=== PATIENT | male | born 1945 | race Caucasian/White ===

== ENCOUNTER 2018-05-01 10:56 | Observation (INO) | payer OTHER ==
--- NOTE | 2018-05-01 11:47 | RAD REPORT ---
EXAM DESCRIPTION: RAD - Chest Single View - 05/01/2018 11:42 am CLINICAL HISTORY: near-syncope Chest pain. COMPARISON: Chest Pa And Lat (2 Views) dated 09/01/2017; Chest Pa And Lat (2 Views) dated 11/21/2016; Chest Single View dated 11/21/2016; CHEST SINGLE VIEW dated 06/21/2014 FINDINGS: Portable technique limits examination quality. Mild interstitial prominence is noted, likely chronic. The heart is mildly to moderately enlarged. No displaced fractures. IMPRESSION: No acute intrathoracic process suspected.
[2018-05-01 12:11] LABS: Protime INR 1.81
[2018-05-01 12:18] LABS: Albumin 3.4 g/dL (3.4-5.0); Bilirubin Direct 0.3 mg/dL (0-0.2); Bilirubin Total 0.9 mg/dL (0.2-1.0); Potassium 4.2 mmol/L (3.5-5.1); Protein, Total 7.7 g/dL (6.4-8.2)
[2018-05-01 12:32] LABS: Absolute Lymphocytes (CBC) 0.4 K/uL (0.7-4.9); Absolute Monocytes 0.6 K/uL (0.1-1.3); Absolute Neutrophil 8.4 K/uL (1.8-8.0); Basophils % 0.2 % (0-1.3); Eosinophils % 0.5 % (0-4.4); Hematocrit 40.5 % (39.6-49.0); Lymphocytes % 4.4 % (15.3-44.8); MCH 28.6 pg (27.0-35.0); MCV 85.3 fL (80-100); MPV 8.3 fL (7.6-11.3); Monocytes % 6.2 % (3.3-12.3); RBC Red Blood Cell Count 4.75 M/uL (4.33-5.43)
--- NOTE | 2018-05-01 12:56 | RAD REPORT ---
EXAM DESCRIPTION: CT - Head Brain Wo Cont - 05/01/2018 12:45 pm CLINICAL HISTORY: Headache, dizziness COMPARISON: CT head June 2014 TECHNIQUE: Axial 5 mm thick images of the head were obtained without IV contrast. All CT scans are performed using dose optimization technique as appropriate and may include automated exposure control or mA/KV adjustment according to patient size. FINDINGS: No intracranial hemorrhage, mass, edema or shift of mid-line structures. No acute cortical based infarction identified. Mild to moderate atrophy and mild chronic ischemic changes are present. No abnormal extra-axial fluid collections. Ventricles are in proportion to volume loss. Arterial and physiologic calcifications are present. Mastoid air cells and visualized portions of the paranasal sinuses are clear. No acute bony findings. Intracranial findings are similar to comparison. IMPRESSION: No acute intracranial finding. Mild to moderate atrophy and mild chronic ischemic changes are present. Findings are not substantiall y different from 2013.
[2018-05-01 13:27] LABS: Urine Bacteria <20 /HPF (NONE SEEN); Urine Culture Reflex Order NOT NEEDED; Urine RBC <5 /HPF (NONE SEEN)
--- NOTE | 2018-05-01 13:59 | EKG ---
Test Date: 2018-05-01 Test Time: 11:26:00 Assistant Produce Manager: MAGALY MEASUREMENT RESULTS: Intervals: Rate: 87 IA: QRSD: 152 QT: 426 QTc: 512 [place]: P: IA: QRS: -75 T: 100 INTERPRETIVE STATEMENTS: Atrial fibrillation Left axis deviation Left bundle branch block Abnormal ECG Compared to ECG 10/21/2017 07:48:54 Sinus rhythm no longer present Uncertain supraventricular rhythm no longer present AV dissociation no longer present Electronically Signed On 05-01-18 13:58:45 CDT by Taz Pendleton
[2018-05-01] MEDS ORDERED: ONDANSETRON 4 MG/2 ML VIAL ONE (14:05)
[2018-05-01 14:15] LABS: Urine Blood TRACE (NEG); Urine Glucose NEGATIVE (NEG); Urine Protein NEGATIVE (NEG); Urine Specific Gravity 1.015 (1.005-1.030); Urine pH 5.5 (5.0-7.0)
[2018-05-01 14:42] LABS: Blood Morphology Comment NOT SEEN (NOT SEEN); Platelet Estimate ADEQ; Urine White Blood Cell Casts OK
--- NOTE | 2018-05-01 16:09 | RAD REPORT ---
EXAM DESCRIPTION: CTAbdomen Pelvis W Contrast - 05/01/2018 3:56 pm CLINICAL HISTORY: Abdominal pain. diarrhea COMPARISON: CT ABD PELVIS W CONTRAST dated 07/18/2008; CT ABD PELVIS W CONTRAST dated 07/04/2008; CT ABD PELVIS W CONTRAST dated 04/27/2007 TECHNIQUE: Biphasic CT imaging of the abdomen and pelvis was performed with 100 ml non-ionic IV cont rast. All CT scans are performed using dose optimization technique as appropriate and may include automated exposure control or mA/KV adjustment according to patient size. FINDINGS: The lung bases are clear. Mild fatty liver is seen. Cholecystectomy clips are seen. The spleen is mildly prominent. Pancreas, a drenal glands and kidneys show no acute process. Several exophytic renal cysts are noted. Heavy aorti c atherosclerosis. No bowel obstruction, free air, free fluid or abscess. Postsurgical changes about the colon are noted in the left abdomen. Sigmoid diverticulosis is present with subtle reticulation of the fat surroundi ng several of these diverticula in the left lower quadrant sigmoid colon. The appendix is normal. No evidence of significant lymphadenopathy. No suspicious bony findings. Several prostate beads are present. Prostate gland is nodular. IMPRESSION: A mild/early acute diverticulitis of the sigmoid colon is possible. Correlation with cli nical findings of left lower quadrant tenderness would be suggested.
--- NOTE | 2018-05-01 16:48 | ER ---
Nurse's Notes [facility] Name: Odilon Ferrara Age: 72 yrs Sex: Male : 1945 Arrival Date: 05/01/2018 Time: 10:55 Bed 23 Private MD: Diagnosis: Weakness-General;Diarrhea, unspecified;Dehydration Presentation: 05/01 11:07 Acuity: TYLOR 3 dm5 11:07 Presenting complaint: EMS states: Pt complains of diarrhea and dizziness, diarrhea dm5 started about 7:30 this morning, dizziness occurred in the shower and pt was able to lay down in bathroom floor prior to passing out. Pt never had any loc and denies hitting head. Transition of care: patient was not received from another setting of care. Onset of symptoms was May 01, 2018. Risk Assessment: Do you want to hurt yourself or someone else? Patient reports no desire to harm self or others. Care prior to arrival: None. 11:07 Method Of Arrival: EMS: [facility] dm5 11:59 Initial Sepsis Screen: Does the patient meet any 2 criteria? RR > 20 per min. No. dm5 Patient's initial sepsis screen is negative. Does the patient have a suspected source of infection? Yes: Other: diarrhea. Triage Assessment: 11:07 General: Appears in no apparent distress. uncomfortable, Behavior is calm, cooperative. dm5 Pain: Denies pain. Neuro: No deficits noted. Level of Consciousness is awake, alert, obeys commands, Oriented to person, place, time. Respiratory: Airway is patent Respiratory effort is even, unlabored, relaxed, Respiratory pattern is regular, symmetrical. GI: Reports diarrhea. Derm: Skin is pink, warm \\T\\ dry. Historical: - Allergies: 11:58 No Known Allergies; dm5 - Home Meds: 11:58 aspirin 81 mg Oral TbEC 1 tab once daily [Active]; metoprolol succinate 50 mg Oral Tb24 dm5 three times a day [Active]; oxybutynin chloride 10 mg Oral tr24 1 tab once daily [Active]; simvastatin 40 mg Oral tab 1 tab once daily [Active]; ursodiol 300 mg Oral cap 1 cap 2 times per day [Active]; 16:22 Coumadin 1 mg oral tab [Active]; furosemide 80 mg oral tab [Active]; glimepiride 2 mg kr2 Oral tab 2 tabs with breakfast , 1 tab with dinner [Active]; metformin 1,000 mg oral tab 1 tab 2 times per day [Active]; spironolactone 25 mg Oral tab 1 tab 2 times per day [Active]; Coumadin 6 mg Oral tab 1 tab once daily [Active]; - PMHx: 11:58 Atrial Fib; Diabetes - NIDDM; High Cholesterol; dm5 - PSHx: 11:58 "2 ft of intestine removed"; dm5 - Immunization history:: Adult Immunizations up to date. - Social history:: Smoking status: Patient/guardian denies using tobacco. - Ebola Screening: : Patient negative for fever greater than or equal to 101.5 degrees Fahrenheit, and additional compatible Ebola Virus Disease symptoms Patient denies exposure to infectious person Patient denies travel to an Ebola-affected area in the 21 days before illness onset No symptoms or risks identified at this time. Screenin:27 Abuse screen: Denies threats or abuse. Denies injuries from another. Nutritional iw screening: No deficits noted. Tuberculosis screening: No symptoms or risk factors identified. Fall Risk Fall in past 12 months (25 points). IV access (20 points). Assessment: 12:26 General: Appears in no apparent distress. uncomfortable, ill, Behavior is calm, iw cooperative. Pain: Denies pain. Neuro: Level of Consciousness is awake, alert, obeys commands, Oriented to person, place, time, situation, Moves all extremities. Cardiovascular: Reports lightheadedness, Denies chest pain, Capillary refill Rhythm is atrial fibrillation. Respiratory: Respiratory effort is even, unlabored. GI: Reports diarrhea, nausea. Musculoskeletal: Range of motion: intact in all extremities. 13:09 Reassessment: Patient appears in no apparent distress at this time. Patient and/or kr2 family updated on plan of care and expected duration. Pain level reassessed. Patient is alert, oriented x 3, equal unlabored respirations, skin warm/dry/pink. Patient states feeling better. 14:28 Reassessment: Patient appears in no apparent distress at this time. Patient and/or kr2 family updated on plan of care and expected duration. Pain level reassessed. Patient is alert, oriented x 3, equal unlabored respirations, skin warm/dry/pink. No episodes of diarrhea since arrival. 15:03 Reassessment: Patient appears in no apparent distress at this time. Patient and/or kr2 family updated on plan of care and expected duration. Pain level reassessed. Patient is alert, oriented x 3, equal unlabored respirations, skin warm/dry/pink. Patient given lemon ruby soda for PO challenge Patient states feeling better. 16:22 Reassessment: Patient appears in no apparent distress at this time. Patient and/or kr2 family updated on plan of care and expected duration. Pain level reassessed. Patient is alert, oriented x 3, equal unlabored respirations, skin warm/dry/pink. Patient had 2 episodes of loose stool, assisted patient in personal care, see intervention notes Patient states feeling better. 17:32 Reassessment: Patient appears in no apparent distress at this time. Patient and/or kr2 family updated on plan of care and expected duration. Pain level reassessed. Patient is alert, oriented x 3, equal unlabored respirations, skin warm/dry/pink. Patient states feeling better. 18:53 Reassessment: Patient appears in no apparent distress at this time. Patient and/or kr2 family updated on plan of care and expected duration. Pain level reassessed. Patient is alert, oriented x 3, equal unlabored respirations, skin warm/dry/pink. Patient provided bed robbins and urinal Patient states feeling better. 19:46 Reassessment: Patient appears in no apparent distress at this time. Patient and/or kr2 family updated on plan of care and expected duration. Pain level reassessed. Patient is alert, oriented x 3, equal unlabored respirations, skin warm/dry/pink. Patient denies pain at this time. Patient states feeling better. 20:40 Reassessment: Patient appears in no apparent distress at this time. Patient and/or kr2 family updated on plan of care and expected duration. Pain level reassessed. Patient is alert, oriented x 3, equal unlabored respirations, skin warm/dry/pink. Patient denies pain at this time. Patient states feeling better. Vital Signs: 11:07 BP 133 / 78; Pulse 74; Resp 22; Temp 97.3; Pulse Ox 96% on R/A; Weight 140.61 kg (R); dm5 13:10 BP 132 / 77; Pulse 83; Resp 20; Pulse Ox 96% ; kr2 14:24 BP 124 / 61 Supine; Pulse 93; Pulse Ox 95% ; kr2 14:24 BP 115 / 57 Sitting; Pulse 83; Pulse Ox 95% on R/A; kr2 14:27 BP 145 / 76; Pulse 78; Resp 18; Pulse Ox 96% on R/A; kr2 15:04 BP 106 / 74; Pulse 96; Resp 17; Pulse Ox 95% ; kr2 16:23 BP 119 / 72; Pulse 74; Resp 17; Pulse Ox 96% on R/A; kr2 17:25 BP 120 / 89; Pulse 84; Resp 17; Pulse Ox 96% on R/A; kr2 18:54 BP 134 / 84; Pulse 90; Resp 17; Pulse Ox 99% on R/A; kr2 19:47 BP 136 / 82; Pulse 78; Resp 18; Pulse Ox 98% on R/A; kr2 20:35 BP 143 / 76; Pulse 80; Resp 16; Pulse Ox 99% on R/A; kr2 14:24 asymptomatic kr2 14:24 asymptomatic kr2 14:27 asymptomatic kr2 ED Course: 10:55 Patient arrived in ED. dm5 10:59 Manfred Brady PA is PHCP. cp 10:59 Manfred Payan MD is Attending Physician. cp 11:07 Arm band placed on right wrist. Patient placed in an exam room, on a stretcher, on dm5 consumer insight analyst, on pulse oximetry. 11:08 Triage completed. dm5 11:32 EKG done, by casting technician. reviewed by Manfred HUNT. at1 11:41 X-ray completed. Portable x-ray completed in exam room. Patient tolerated procedure mh1 well. 11:43 XRAY Chest (1 view) In Process Unspecified. EDMS 12:24 Marie Raymundo, RN is Primary Nurse. iw 12:44 CT Head Brain wo Cont In Process Unspecified. EDMS 13:00 IV is patent, with good blood return, 20 gauge to right AC, placed by charge nurse. kr2 13:09 Patient has correct armband on for positive identification. Placed in gown. Bed in low kr2 position. Call light in reach. Side rails up X 1. sql application developer on. Pulse ox on. NIBP on. Door closed. Warm blanket given. Head of bed elevated. 15:33 Stool sample collected. kr2 15:33 Cleaned of incontinence. Linen changed. loose stool, provider aware. kr2 15:55 CT completed. Patient tolerated procedure well. Patient moved to CT via stretcher. Patient moved back from CT. 15:57 CT Abd/Pelvis - W/Contrast In Process Unspecified. EDMS 16:10 Cleaned of incontinence. Linen changed. loose stool. kr2 16:47 Mor Easley MD is Hospitalizing Provider. cp 19:39 Primary Nurse role handed off by Marie Raymundo RN rg2 19:46 Devora Vergara, ELIA is Primary Nurse. kr2 20:40 No provider procedures requiring assistance completed. Patient admitted, IV remains in kr2 place. Administered Medications: 14:05 Drug: Zofran 4 mg Route: IVP; Site: right antecubital; kr2 14:58 Follow up: Response: No adverse reaction; Nausea is decreased kr2 16:58 Drug: NS 0.9% 500 ml Route: IV; Rate: bolus; Site: right antecubital; kr2 17:32 Follow up: Response: No adverse reaction; IV Status: Completed infusion kr2 17:33 Drug: NS 0.9% 500 ml Route: IV; Rate: bolus; Site: right antecubital; kr2 18:09 Follow up: Response: No adverse reaction; IV Status: Completed infusion kr2 18:10 Drug: NS 0.9% 1000 ml Route: IV; Rate: 100 ml/hr; Site: right antecubital; kr2 20:43 Follow up: Response: No adverse reaction; IV Status: Infusion continued upon admission kr2 Outcome: 16:48 Decision to Hospitalize by Provider. cp 20:41 Admitted to Tele accompanied by [facility], via wheelchair, room 216, with chart, Report kr2 called to [place] 20:41 Condition: stable 20:41 Instructed on the need for admit, Demonstrated understanding of instructions. 20:44 Patient left the ED. kr2 Signatures: Dispatcher [employer] EDMS Tal Ravi rg2 Christiane Adhikari, RN RN [email or web address] Rere Toure 1 Trini Hudson Irene, ELIA RODRIGEZ iw Genesis adamson, tool clerk EKG Tat1 Manfred Brady PA PA Devora Caputo, RN RN kr2 Corrections: (The following items were deleted from the chart) 12:00 11:07 Initial Sepsis Screen: Does the patient meet any 2 criteria? HR > 90 bpm. Does dm5 the patient have a suspected source of infection? No. Patient's initial sepsis screen is negative. dm5 14:28 14:24 BP 145 / 76; Pulse 78bpm; Resp 18bpm; Pulse Ox 96% RA; kr2 kr2 15:04 15:03 Reassessment: Patient given lemon ruby soda for PO challenge kr2 kr2 16:15 15:33 Cleaned of incontinence. Linen changed. kr2 kr2 16:22 11:58 Home Meds: Coumadin 4 mg Oral tab 2 tabs once daily; dm5 kr2 16:22 11:58 Home Meds: digoxin 250 mcg Oral tab 1 tab once daily; dm5 kr2 16:22 11:58 Home Meds: furosemide 40 mg Oral tab 1 tab 3 times per day; dm5 kr2 16:22 11:58 Home Meds: glimepiride 2 mg Oral tab twice a day; dm5 kr2 16:22 11:58 Home Meds: lisinopril 20 mg Oral tab 1 tab once daily; dm5 kr2 16:22 11:58 Home Meds: metformin 500 mg Oral Tb24 2 times per day; dm5 kr2 16:22 11:58 Home Meds: potassium chloride 20 mEq Oral TbER once daily; dm5 kr2 16:22 11:58 Home Meds: Victoza 2-[place] 0.6 mg/0.1 mL (18 mg/3 mL) subcutaneous pnij 1.8 mL once kr2 daily; dm5
--- NOTE | 2018-05-01 16:48 | EDPHYS ---
Physician Documentation [facility] Name: Odilon Ferrara Age: 72 yrs Sex: Male : 1945 Arrival Date: 05/01/2018 Time: 10:55 Bed 23 Private MD: ED Physician Manfred Payan HPI: 05/01 11:10 This 72 yrs old Male presents to ER via EMS with complaints of Diarrhea. cp 11:10 The patient presents to the emergency department with diarrhea, that is continuous. cp 11:10 Onset: The symptoms/episode began/occurred this morning. Possible causes: unknown. The cp symptoms are alleviated by nothing. Associated signs and symptoms: Pertinent positives: dizziness, near-syncope. 11:10 Severity of symptoms: in the emergency department the symptoms are unchanged despite cp home interventions. Historical: - Allergies: 11:58 No Known Allergies; dm5 - Home Meds: 11:58 aspirin 81 mg Oral TbEC 1 tab once daily [Active]; metoprolol succinate 50 mg Oral Tb24 dm5 three times a day [Active]; oxybutynin chloride 10 mg Oral tr24 1 tab once daily [Active]; simvastatin 40 mg Oral tab 1 tab once daily [Active]; ursodiol 300 mg Oral cap 1 cap 2 times per day [Active]; 16:22 Coumadin 1 mg oral tab [Active]; furosemide 80 mg oral tab [Active]; glimepiride 2 mg kr2 Oral tab 2 tabs with breakfast , 1 tab with dinner [Active]; metformin 1,000 mg oral tab 1 tab 2 times per day [Active]; spironolactone 25 mg Oral tab 1 tab 2 times per day [Active]; Coumadin 6 mg Oral tab 1 tab once daily [Active]; - PMHx: 11:58 Atrial Fib; Diabetes - NIDDM; High Cholesterol; dm5 - PSHx: 11:58 "2 ft of intestine removed"; dm5 - Immunization history:: Adult Immunizations up to date. - Social history:: Smoking status: Patient/guardian denies using tobacco. - Ebola Screening: : Patient negative for fever greater than or equal to 101.5 degrees Fahrenheit, and additional compatible Ebola Virus Disease symptoms Patient denies exposure to infectious person Patient denies travel to an Ebola-affected area in the 21 days before illness onset No symptoms or risks identified at this time. ROS: 11:15 Constitutional: Positive for poor PO intake, Negative for body aches, chills, fever. cp 11:15 Eyes: Negative for injury, pain, redness, and discharge. cp 11:15 ENT: Negative for drainage from ear(s), ear pain, sore throat, difficulty swallowing, difficulty handling secretions. 11:15 Cardiovascular: Negative for chest pain, edema, palpitations. 11:15 Respiratory: Negative for cough, shortness of breath, wheezing. 11:15 Abdomen/GI: Positive for nausea, diarrhea, Negative for abdominal pain, vomiting, constipation, black/tarry stool, rectal bleeding. 11:15 Back: Negative for pain at rest, pain with movement, radiated pain. 11:15 : Negative for urinary symptoms. 11:15 Skin: Negative for cellulitis, rash. 11:15 Neuro: Positive for dizziness, near syncope, general weakness, Negative for altered mental status, headache, syncope. 11:15 All other systems are negative. Exam: 11:22 Constitutional: The patient appears in no acute distress, alert, awake, cp non-diaphoretic, non-toxic, well developed, well nourished. 11:22 Head/Face: Normocephalic, atraumatic. cp 11:22 Eyes: Periorbital structures: appear normal, Pupils: equal, round, and reactive to light and accomodation, Extraocular movements: intact throughout, Conjunctiva: normal, no exudate, no injection, Sclera: no appreciated abnormality, Lids and lashes: appear normal, bilaterally. 11:22 ENT: External ear(s): are unremarkable, Ear canal(s): are normal, clear, TM's: dullness, bilaterally, Nose: is normal, Mouth: Lips: moist, Oral mucosa: pink and intact, moist, Posterior pharynx: is normal, airway is patent, no erythema, no exudate. 11:22 Neck: ROM/movement: is normal, is supple, without pain, no range of motions limitations, no meningismus, no nuchal rigidity, Lymph nodes: no appreciated lymphadenopathy. 11:22 Chest/axilla: Inspection: normal, Palpation: is normal, no crepitus, no tenderness. 11:22 Cardiovascular: Rate: normal, Rhythm: regular, Edema: is not appreciated, JVD: is not appreciated. 11:22 Respiratory: the patient does not display signs of respiratory distress, Respirations: normal, no use of accessory muscles, no retractions, no splinting, no tachypnea, labored breathing, is not present, Breath sounds: are clear throughout, no decreased breath sounds, no stridor, no wheezing. 11:22 Abdomen/GI: Inspection: abdomen appears normal, Bowel sounds: hyperactive, in all quadrants, Palpation: soft, in all quadrants, nontender, in all quadrants, rebound tenderness, is not appreciated, voluntary guarding, is not appreciated, involuntary guarding, is not appreciated, Rectal exam: Stool: brown, guaiac positive. 11:22 Back: pain, is absent, ROM is normal. 11:22 Skin: cellulitis, is not appreciated, no rash present. 11:22 Neuro: Orientation: to person, place \\T\\ time. Mentation: lucid, able to follow commands, Cerebellar function: is grossly normal, Motor: moves all fours, strength is normal, Sensation: no obvious gross deficits. 11:33 ECG was reviewed by the Attending Physician. cp Vital Signs: 11:07 BP 133 / 78; Pulse 74; Resp 22; Temp 97.3; Pulse Ox 96% on R/A; Weight 140.61 kg (R); dm5 13:10 BP 132 / 77; Pulse 83; Resp 20; Pulse Ox 96% ; kr2 14:24 BP 124 / 61 Supine; Pulse 93; Pulse Ox 95% ; kr2 14:24 BP 115 / 57 Sitting; Pulse 83; Pulse Ox 95% on R/A; kr2 14:27 BP 145 / 76; Pulse 78; Resp 18; Pulse Ox 96% on R/A; kr2 15:04 BP 106 / 74; Pulse 96; Resp 17; Pulse Ox 95% ; kr2 16:23 BP 119 / 72; Pulse 74; Resp 17; Pulse Ox 96% on R/A; kr2 17:25 BP 120 / 89; Pulse 84; Resp 17; Pulse Ox 96% on R/A; kr2 18:54 BP 134 / 84; Pulse 90; Resp 17; Pulse Ox 99% on R/A; kr2 19:47 BP 136 / 82; Pulse 78; Resp 18; Pulse Ox 98% on R/A; kr2 20:35 BP 143 / 76; Pulse 80; Resp 16; Pulse Ox 99% on R/A; kr2 14:24 asymptomatic kr2 14:24 asymptomatic kr2 14:27 asymptomatic kr2 MDM: 10:59 Patient medically screened. 12:00 Differential diagnosis: gastritis, viral gastroenteritis, gastroenteritis, electrolyte cp abnormality, colitis, dehydration. 16:00 Physician consultation: Mor Easley MD was called at 15:55, was contacted at 15:55, regarding admission, patient's condition, will call back. 16:15 Data reviewed: vital signs, nurses notes, lab test result(s), radiologic studies, CT cp scan. 16:45 Physician consultation: Mor Easley MD was contacted at 16:45, regarding admission, to the medical/surgical unit. patient's condition. 05/01 11:05 Order name: Amylase, Serum; Complete Time: 12:40 cp 05/01 11:05 Order name: Basic Metabolic Panel; Complete Time: 12:40 cp 05/01 12:40 Interpretation: Normal except: GLUC 149; BUN 30; CRE 1.40; GFR 50. 05/01 11:05 Order name: CBC with Diff; Complete Time: 14:51 cp 05/01 12:41 Interpretation: Normal except: PLT 138; RDW 17.2; PARISH% 88.7; NEUT A 8.4; LYMA 0.4; LYM% cp 4.4. 05/01 11:05 Order name: Creatinine for Radiology; Complete Time: 12:17 cp 05/01 12:17 Interpretation: Abnormal: CRE 1.40; GFR 50. cp 05/01 11:05 Order name: Hepatic Function; Complete Time: 12:40 cp 05/01 12:40 Interpretation: Normal except: BILID 0.3; GLOB 4.3; A/G 0.8. cp 05/01 11:05 Order name: Lipase; Complete Time: 12:40 cp 05/01 11:05 Order name: Urine Microscopic Only; Complete Time: 14:34 cp 05/01 11:05 Order name: Magnesium; Complete Time: 12:40 cp 05/01 11:05 Order name: Troponin I; Complete Time: 12:40 cp 05/01 11:05 Order name: PT-INR; Complete Time: 12:17 cp 05/01 12:17 Interpretation: Abnormal: PT 21.5. cp 05/01 11:05 Order name: Ptt, Activated; Complete Time: 12:17 cp 05/01 12:33 Order name: CBC Smear Scan; Complete Time: 14:51 EDMS 05/01 13:14 Order name: Urine Dipstick--Ancillary (enter results); Complete Time: 14:34 bd 05/01 15:33 Order name: CDIFF cp 05/01 11:05 Order name: IV Saline Lock; Complete Time: 12:01 cp 05/01 11:05 Order name: Labs collected and sent; Complete Time: 12:01 cp 05/01 11:05 Order name: Urine Dipstick-Ancillary (obtain specimen); Complete Time: 13:07 cp 05/01 11:05 Order name: EKG; Complete Time: 11:06 cp 05/01 11:05 Order name: EKG - Nurse/Tech; Complete Time: 12:01 05/01 11:07 Order name: XRAY Chest (1 view); Complete Time: 12:03 cp 05/01 12:03 Interpretation: Report review. 05/01 12:25 Order name: CT Head Brain wo Cont; Complete Time: 12:57 05/01 12:58 Interpretation: Report reviewed. 05/01 13:05 Order name: Orthostatics; Complete Time: 14:29 cp 05/01 14:52 Order name: Misc. Order: ambulate patient; Complete Time: 15:31 05/01 14:52 Order name: PO challenge; Complete Time: 15:02 05/01 15:33 Order name: Stool Culture 05/01 15:41 Order name: CT Abd/Pelvis - W/Contrast; Complete Time: 16:11 05/01 16:12 Interpretation: Report reviewed. EC:33 Rate is 87 beats/min. Rhythm is irregularly irregular. QRS interval is prolonged at 152 cp msec. QT interval is normal. T waves are Inverted in leads I, aVL, aVR. Interpreted by me. Reviewed by me. Administered Medications: 14:05 Drug: Zofran 4 mg Route: IVP; Site: right antecubital; kr2 14:58 Follow up: Response: No adverse reaction; Nausea is decreased kr2 16:58 Drug: NS 0.9% 500 ml Route: IV; Rate: bolus; Site: right antecubital; kr2 17:32 Follow up: Response: No adverse reaction; IV Status: Completed infusion kr2 17:33 Drug: NS 0.9% 500 ml Route: IV; Rate: bolus; Site: right antecubital; kr2 18:09 Follow up: Response: No adverse reaction; IV Status: Completed infusion kr2 18:10 Drug: NS 0.9% 1000 ml Route: IV; Rate: 100 ml/hr; Site: right antecubital; kr2 20:43 Follow up: Response: No adverse reaction; IV Status: Infusion continued upon admission kr2 Disposition: 05/02 07:17 Co-signature as Attending Physician, Manfred Payan MD I agree with the assessment and malik plan of care. Disposition: 05/01/18 16:48 Hospitalization ordered by Mor Easley for Inpatient Admission. Preliminary diagnosis are Weakness - General, Diarrhea, unspecified, Dehydration. - Bed requested for Telemetry/MedSurg (observation). - Status is Inpatient Admission. kr2 - Condition is Stable. - Problem is new. - Symptoms have improved. UTI on Admission? No Signatures: Dispatcher [employer] EDCO Tal Ravi 2 Christiane Adhikari, RN RN Manfred Montalvo MD MD cha Page, Corey, PA PA Devora Caputo RN RN kr2 Corrections: (The following items were deleted from the chart) 05/01 12:41 12:41 Normal except: PLT 138; RDW 17.2; PARISH% 88.7; NEUT A 8.4; LYMA 0.4. cp cp 16:22 11:58 Home Meds: Coumadin 4 mg Oral tab 2 tabs once daily; dm5 kr2 16:22 11:58 Home Meds: digoxin 250 mcg Oral tab 1 tab once daily; dm5 kr2 16:22 11:58 Home Meds: furosemide 40 mg Oral tab 1 tab 3 times per day; dm5 kr2 16:22 11:58 Home Meds: glimepiride 2 mg Oral tab twice a day; lucia5 kr2 16:22 11:58 Home Meds: lisinopril 20 mg Oral tab 1 tab once daily; dm5 kr2 16:22 11:58 Home Meds: metformin 500 mg Oral Tb24 2 times per day; dm5 kr2 16:22 11:58 Home Meds: potassium chloride 20 mEq Oral TbER once daily; dm5 kr2 16:22 11:58 Home Meds: Victoza 2-[place] 0.6 mg/0.1 mL (18 mg/3 mL) subcutaneous pnij 1.8 mL once kr2 daily; dm5 17:21 16:48 Hospitalization Ordered by A Kaushal LIND for Observation. Preliminary diagnosis is cp Weakness - General; Diarrhea, unspecified; Dehydration. Bed requested for Telemetry/MedSurg (observation). Status is Observation. Condition is Stable. Problem is new. Symptoms have improved. UTI on Admission? No. cp 19:53 17:21 05/01/2018 16:48 Hospitalization Ordered by A Kaushal LIND for Inpatient Admission. rg2 Preliminary diagnosis is Weakness - General; Diarrhea, unspecified; Dehydration. Bed requested for Telemetry/MedSurg (observation). Status is Inpatient Admission. Condition is Stable. Problem is new. Symptoms have improved. UTI on Admission? No. cp 20:44 19:53 05/01/2018 16:48 Hospitalization Ordered by A Kaushal LIND for Inpatient Admission. kr2 Preliminary diagnosis is Weakness - General; Diarrhea, unspecified; Dehydration. Bed requested for Telemetry/MedSurg (observation). Status is Inpatient Admission. Condition is Stable. Problem is new. Symptoms have improved. UTI on Admission? No. rg2
[2018-05-01] MEDS ORDERED: NA CHLORIDE 0.9% 1,000 ML ONE ×2 (16:58→18:11)
[2018-05-01] MEDS ORDERED: ONDANSETRON 4 MG/2 ML VIAL IV PRN (19:00)
[2018-05-01] MEDS ORDERED: ACETAMINOPHEN 500 MG TAB PO PRN (19:00)
[2018-05-01] MEDS ORDERED: D50W 25 GM/50 ML SYRINGE IV PRN (21:41)
[2018-05-01] MEDS ORDERED: GLUCAGON 1 MG/VIAL IM PRN (21:41)
[2018-05-01 21:50] VITALS: BMI 42.0
[2018-05-01] MEDS: NA CHLORIDE 0.9% 1,000 ML IV SCH (22:00)
[2018-05-02] MEDS: NA CHLORIDE 0.9% 1,000 ML IV SCH (05:43)
[2018-05-02 05:45] LABS: Albumin 2.9 g/dL (3.4-5.0); Bilirubin Direct 0.2 mg/dL (0-0.2); Bilirubin Total 0.9 mg/dL (0.2-1.0); Potassium 3.6 mmol/L (3.5-5.1); Protein, Total 6.6 g/dL (6.4-8.2)
[2018-05-02 05:47] LABS: Absolute Lymphocytes (CBC) 0.8 K/uL (0.7-4.9); Absolute Monocytes 0.5 K/uL (0.1-1.3); Absolute Neutrophil 5.6 K/uL (1.8-8.0); Basophils % 0.2 % (0-1.3); Hematocrit 37.2 % (39.6-49.0); MCH 28.8 pg (27.0-35.0); MCV 85.3 fL (80-100); MPV 8.5 fL (7.6-11.3); Monocytes % 7.6 % (3.3-12.3); RBC Red Blood Cell Count 4.36 M/uL (4.33-5.43)
--- NOTE | 2018-05-02 06:53 | HP ---
Date of Admission: 05/01/2018 Chief Complaint: Diarrhea, feeling weak. History Of Present Illness: This is a 72-year-old male patient living at home, who started to have d iarrhea problem this morning and had multiple episodes of watery stool. He had some nausea, no vomit ing, no blood in stool. The patient says that he had almost continuous type of diarrhea problem and was feeling very weak, dizzy, unsteady on his feet, and he was brought into the emergency room. Afte r he was evaluated, he was admitted to the hospital. His lowest blood pressure in the emergency room when I saw him this evening was 81/71 with a pulse rate 96. No recent travel. His has not had any similar illness. Allergies: NO KNOWN ALLERGIES. Medications: List reviewed. Review of Systems: GI: As mentioned above. All other systems reviewed and negative. Social History: Negative for smoking and alcohol use. Family History: Significant for hypertension, diabetes, hyperlipidemia. Past Surgical History: Cholecystectomy, exploratory laparotomy in 2002 because of small bowel obstru ction, and had a repeat surgery for similar reason in 2007. Past Medical History: NIDDM, hypertension, atrial fibrillation, hyperlipidemia, prostate cancer, div erticulosis, osteoarthritis at multiple sites, coronary artery disease, allergic rhinitis, gastroesop hageal reflux disease, sleep apnea, and diverticulosis. Physical Examination: Vital Signs: The patient's height 6 feet, weight 310 pounds. When he first came in, blood pressure w as 133/78, pulse 74, respiratory rate 22, temperature 97.3, pulse ox 96%. When I saw him in emergenc y room, his blood pressure was 81/71. General: Awake, alert, oriented, not in distress. HEENT: Head atraumatic, normocephalic. Conjunctivae nonerythematous. Sclerae white. Mouth, no thr ush or edema noted. Ears/Nose, no mass, lesion, discharge noted. Neck: Supple. No JVD, lymph nodes, bruit, thyromegaly noted. Lungs: Bilateral good equal air entry. Clear to auscultation. No rhonchi. No rales. Heart: Normal heart sounds, no murmur or gallop. Abdomen: Soft, bowel sounds normal. No guarding, rigidity, tenderness, mass, hepatosplenomegaly, dis tention, or bruit noted. Extremities: No leg edema. No calf tenderness. Skin: No rash, ulcer, cellulitis. Lymphatics: No lymph node enlargement in neck, supraclavicular, infraclavicular region. Neuro: No focal neurological deficit. Chest: Unremarkable. External Genitalia: Deferred. Rectal: Deferred. Laboratory Data: CAT scan of the abdomen and pelvis done in the emergency room shows mild early acut e diverticulitis of the sigmoid colon is possible. Correlation with the clinical findings suggested. CAT scan of the head was negative for any acute intracranial findings. Chest x-ray, no acute cardi opulmonary changes. White count normal at 9.4, hemoglobin 13.6, platelets 138. INR 1.81. Sodium 13 9, potassium 4.2, chloride 104, bicarb 30, BUN 30, creatinine 1.40, glucose 149. Liver function test s unremarkable. Lipase 143. Troponin less than 0.02. Urinalysis negative. Impression: 1.Acute gastroenteritis. 2.Volume depletion. 3.Type 2 diabetes mellitus. 4.Hypertension. 5.Atrial fibrillation. 6.Hyperlipidemia. 7.Diverticulosis. 8.Gastroesophageal reflux disease. 9.Prostate cancer. 10.Osteoarthritis, multiple sites. Plan: We will admit the patient to hospital for further evaluation and management of this problem. We will go ahead and give IV fluid. In the emergency room, IV fluid bolus was given, total of 1 L of IV fluid was given. After that, his blood pressure has come up. We will go ahead and continue IV f luid. Repeat blood work tomorrow morning. I will see him in the morning for followup. Stool cultur e and stool C difficile were ordered. Details and plan of treatment were discussed with the patient. PROMISE/ALFREDO Voice ID: [id number]
[2018-05-02] MEDS ORDERED: POTASSIUM CL SA 10 MEQ TAB PO ONE (07:30)
[2018-05-02] MEDS ORDERED: INSULIN -REGULAR HUMAN 50 UNIT/0.5 ML ML SQ SCH (07:30)
[2018-05-02 10:03] VITALS: BP 141/81; TEMP 96.9
[2018-05-02 10:05] VITALS: O2SAT 92
--- NOTE | 2018-05-03 12:36 | DS ---
Date of Discharge: 05/02/2018 Disposition: Discharged to go home. Physical Examination: HEENT: Unremarkable. Lungs: Clear to auscultation. Heart: Heart sounds normal. Abdomen: Soft. Bowel sounds normal. No guarding, rigidity, tenderness, distention. Extremities: No leg edema. Discharge Medications And Instructions: 1.Continue all prior home medication. 2.Follow up at my office per scheduled appointment, which is next month. Hospital Course: This is a 72-year-old male patient, who was admitted to the hospital with diarrhea problem. Please see dictated H and P for more information. The patient came into emergency room yes terday with multiple episodes of watery diarrhea, feeling weak, dizzy, unsteady on his feet. Came in to emergency room. After he was evaluated, he was admitted to the hospital. The patient was admitte d with acute gastroenteritis, volume depletion, and he was given IV fluid. His blood pressure was lo w in emergency room, which came up to 1 L of IV fluid. He was admitted to medical floor. Blood pres sure remained stable. This morning when I saw him, he was eating his breakfast, tolerating diet very well. No more diarrhea. No vomiting after his admission to the hospital and he was discharged to [facility] in stable condition with above-mentioned medications and instructions. His stool for C. diff that was collected when he came in was negative. Final Diagnoses: 1.Acute gastroenteritis, infectious. 2.Volume depletion. 3.Type 2 diabetes mellitus. 4.Hypertension. 5.Atrial fibrillation. 6.Hyperlipidemia. 7.Diverticulosis. 8.Gastroesophageal reflux disease. 9.Prostate cancer. 10.Osteoarthritis, multiple sites. PROMISE/MODL Voice ID: [id number] Report ID: [id number]
== END 2018-05-02 13:09 | disposition home or self-care (01) ==
LOC: ER 10:56 → ERHOLD 16:49 → 2ND 19:46
PROVIDERS: ADMIT Internal Medicine; ATTEND Internal Medicine
DX: A09 Infectious gastroenteritis and colitis, unspecified (principal); E86.9 Volume depletion, unspecified; E11.9 Type 2 diabetes mellitus without complications; I10 Essential (primary) hypertension; I48.91 Unspecified atrial fibrillation; E78.5 Hyperlipidemia, unspecified; K57.30 Diverticulosis of large intestine without perforation or abscess without bleeding; K21.9 Gastro-esophageal reflux disease without esophagitis; Z85.46 Personal history of malignant neoplasm of prostate; M15.9 Polyosteoarthritis, unspecified; I95.9 Hypotension, unspecified; Z79.01 Long term (current) use of anticoagulants; Z79.84 Long term (current) use of oral hypoglycemic drugs; Z79.82 Long term (current) use of aspirin
CPT/HCPCS: 36415; 70450; 71045; 74177; 80048 ×2; 80076 ×2; 82150; 82962 ×2; 83690 ×2; 83735; 84484; 85025 ×2; 85610; 85730; 87045; 87046; 87493; 93005; 96361; 96374; 99285; G0378 ×2; J2405; J7030 ×3; Q9967; 81003; 81015

== ENCOUNTER 2018-08-15 11:20 | Emergency (ER) | payer OTHER ==
--- NOTE | 2018-08-15 12:04 | RAD REPORT ---
EXAM DESCRIPTION: RAD - Chest Single View - 08/15/2018 11:55 am CLINICAL HISTORY: COUGH Chest pain. COMPARISON: Chest Single View dated 05/01/2018; Chest Pa And Lat (2 Views) dated 09/01/2017; Chest Pa And Lat (2 Views) dated 11/21/2016; Chest Single View dated 11/21/2016 FINDINGS: Portable technique limits examination quality. The lungs are grossly clear. The heart is normal in size. No displaced fractures. IMPRESSION: No acute intrathoracic process suspected.
--- NOTE | 2018-08-15 12:33 | EDPHYS ---
Physician Documentation [facility] Name: Odilon Ferrara Age: 73 yrs Sex: Male : 1945 Arrival Date: 08/15/2018 Time: 11:21 Bed 4 Private MD: ED Physician Manfred Payan HPI: 08/15 12:26 This 73 yrs old Male presents to ER via EMS with complaints of Leg Pain. malik 12:26 The patient presents with decreased range of motion, pain, tenderness. The complaints malik affect the lateral aspect of left thigh, lateral aspect of left knee, lateral aspect of left calf, left hamstring, posterior aspect of left knee, left calf, medial aspect of left thigh, medial aspect of left knee, medial aspect of left calf, left quadriceps, left knee and left anderson. Context: The problem was sustained at home. Onset: The symptoms/episode began/occurred just prior to arrival, this morning. Modifying factors: The symptoms are alleviated by elevating leg, the symptoms are aggravated by weight bearing, bending knee. Associated signs and symptoms: The patient has no apparent associated signs or symptoms. Treatment prior to arrival includes: no previous treatment. The patient has not experienced similar symptoms in the past. Historical: - Allergies: 11:25 No Known Allergies; hb - Home Meds: 11:25 aspirin 81 mg Oral TbEC 1 tab once daily [Active]; Coumadin 1 mg Oral tab [Active]; hb Coumadin 6 mg Oral tab 1 tab once daily [Active]; furosemide 80 mg Oral tab 2 times per day [Active]; glimepiride 2 mg Oral tab 2 tabs with breakfast , 1 tab with dinner [Active]; metolazone 5 mg oral tab 1 tab once daily [Active]; metformin 1,000 mg Oral tab 1 tab 2 times per day [Active]; ursodiol 300 mg Oral cap 1 cap 2 times per day [Active]; simvastatin 40 mg Oral tab 1 tab once daily [Active]; metoprolol succinate 50 mg Oral Tb24 1 tab twice a day [Active]; oxybutynin chloride 10 mg Oral tr24 1 tab once daily [Active]; spironolactone 25 mg Oral tab 1 tab 2 times per day [Active]; - PMHx: 11:25 Diabetes - NIDDM; Atrial Fib; High Cholesterol; hb - PSHx: 11:25 "2 ft of intestine removed"; hb - Immunization history:: Adult Immunizations up to date. - Social history:: Smoking status: Patient/guardian denies using tobacco. - Ebola Screening: : No symptoms or risks identified at this time. - Family history:: not pertinent. ROS: 12:26 Constitutional: Negative for fever, chills, and weight loss, Eyes: Negative for injury, malik pain, redness, and discharge, ENT: Negative for injury, pain, and discharge, Neck: Negative for injury, pain, and swelling, Cardiovascular: Negative for chest pain, palpitations, and edema, Respiratory: Negative for shortness of breath, cough, wheezing, and pleuritic chest pain, Abdomen/GI: Negative for abdominal pain, nausea, vomiting, diarrhea, and constipation, Back: Negative for injury and pain, : Negative for injury, bleeding, discharge, and swelling, Skin: Negative for injury, rash, and discoloration, Neuro: Negative for headache, weakness, numbness, tingling, and seizure, Psych: Negative for depression, anxiety, suicide ideation, homicidal ideation, and hallucinations, Allergy/Immunology: Negative for hives, rash, and allergies, Endocrine: Negative for neck swelling, polydipsia, polyuria, polyphagia, and marked weight changes. 12:26 MS/extremity: Positive for decreased range of motion, pain, tenderness, of the left leg. Exam: 12:26 Constitutional: This is a well developed, well nourished patient who is awake, alert, malik and in no acute distress. Head/Face: Normocephalic, atraumatic. Eyes: Pupils equal round and reactive to light, extra-ocular motions intact. Lids and lashes normal. Conjunctiva and sclera are non-icteric and not injected. Cornea within normal limits. Periorbital areas with no swelling, redness, or edema. ENT: Nares patent. No nasal discharge, no septal abnormalities noted. Tympanic membranes are normal and external auditory canals are clear. Oropharynx with no redness, swelling, or masses, exudates, or evidence of obstruction, uvula midline. Mucous membranes moist. Neck: Trachea midline, no thyromegaly or masses palpated, and no cervical lymphadenopathy. Supple, full range of motion without nuchal rigidity, or vertebral point tenderness. No Meningismus. Chest/axilla: Normal chest wall appearance and motion. Nontender with no deformity. No lesions are appreciated. Cardiovascular: Regular rate and rhythm with a normal S1 and S2. No gallops, murmurs, or rubs. Normal PMI, no JVD. No pulse deficits. Respiratory: Lungs have equal breath sounds bilaterally, clear to auscultation and percussion. No rales, rhonchi or wheezes noted. No increased work of breathing, no retractions or nasal flaring. Abdomen/GI: Soft, non-tender, with normal bowel sounds. No distension or tympany. No guarding or rebound. No evidence of tenderness throughout. Back: No spinal tenderness. No costovertebral tenderness. Full range of motion. Skin: Warm, dry with normal turgor. Normal color with no rashes, no lesions, and no evidence of cellulitis. Neuro: Awake and alert, GCS 15, oriented to person, place, time, and situation. Cranial nerves II-XII grossly intact. Motor strength 5/5 in all extremities. Sensory grossly intact. Cerebellar exam normal. Normal gait. Psych: Awake, alert, with orientation to person, place and time. Behavior, mood, and affect are within normal limits. 12:26 Musculoskeletal/extremity: Extremities: noted in the left leg: decreased ROM, pain, ROM: limited active range of motion, limited passive range of motion, limited active range of motion due to pain, limited passive range of motion due to pain, Pulses: are absent in the left popliteal artery, left posterior tibial artery and left dorsalis pedis artery, numbness, Compartment Syndrome exam of affected extremity: is normal. DVT Exam: negative Homans' sign noted on exam, no appreciated bluish discoloration, no erythema, no increased warmth, pain, swelling, tenderness. Vital Signs: 11:22 BP 131 / 67; Pulse 89; Resp 22; Temp 97.9; Pulse Ox 96% on R/A; Pain 7/10; hb 12:00 BP 126 / 54; Pulse 82; Resp 22; Pulse Ox 96% ; sv 12:30 BP 138 / 83; Pulse 87; Resp 19; Pulse Ox 96% ; sv 13:00 BP 113 / 98; Pulse 88; Resp 19; Pulse Ox 96% ; sv 13:25 Weight 140 kg (R); sv 14:00 BP 150 / 86; Pulse 84 MON; Resp 19; Pulse Ox 98% ; sv 14:56 BP 129 / 62; Pulse 82; Resp 19; Pulse Ox 96% on R/A; sv 14:00 A fib sv MDM: 11:25 Patient medically screened. [facility] 12:34 Data reviewed: vital signs, nurses notes, lab test result(s), EKG, radiologic studies, malik doppler, plain films. 08/15 11:26 Order name: Basic Metabolic Panel; Complete Time: 13:38 [facility] 08/15 11:26 Order name: CBC with Diff; Complete Time: 13:23 [facility] 08/15 11:26 Order name: LFT's; Complete Time: 13:38 [facility] 08/15 11:26 Order name: Magnesium; Complete Time: 13:38 [facility] 08/15 11:26 Order name: NT PRO-BNP; Complete Time: 13:38 [facility] 08/15 11:26 Order name: PT-INR; Complete Time: 13:23 [facility] 08/15 11:26 Order name: Troponin (emerg Dept Use Only); Complete Time: 13:38 [facility] 08/15 11:26 Order name: XRAY Chest (1 view); Complete Time: 12:36 [facility] 08/15 11:26 Order name: TSH; Complete Time: 13:38 [facility] 08/15 11:26 Order name: US Extremity Venous W Compression Tarun; Complete Time: 12:36 [facility] 08/15 11:26 Order name: US LE Arterial Bilateral; Complete Time: 13:23 [facility] 08/15 11:27 Order name: Lipase; Complete Time: 13:38 [facility] 08/15 14:45 Order name: Urine Dipstick--Ancillary (enter results) 08/15 11:26 Order name: EKG; Complete Time: 11:28 [facility] 08/15 11:26 Order name: Cardiac monitoring; Complete Time: 11:56 [facility] 08/15 11:26 Order name: EKG - Nurse/Tech; Complete Time: 11:56 [facility] 08/15 11:26 Order name: IV Saline Lock; Complete Time: 11:56 [facility] 08/15 11:26 Order name: Labs collected and sent; Complete Time: 11:56 [facility] 08/15 11:26 Order name: O2 Per Protocol; Complete Time: 11:56 [facility] 08/15 11:26 Order name: O2 Sat Monitoring; Complete Time: 11:56 [facility] 08/15 11:58 Order name: Labs - recollect needed; Complete Time: 12:54 bd Administered Medications: 12:54 Drug: Nitro-Bid Ointment 2 % 1 inches Route: Transdermal; Site: affected area; sv 13:39 Drug: Heparin ([place] Drip) 12 units/kg/hr - (HEParin 16639 units, D5W 500 ml) sv {Co-Signature: sg (Gab Fischer RN).} Route: IV; Rate: calculated rate; Site: right forearm; 15:30 Follow up: Response: No adverse reaction; IV Status: Infusion continued upon transfer sv 13:39 Drug: Heparin ([place]-Bolus No thrombolytic) - HEParin 60 units/kg {Co-Signature: alexsander sv (Gab Fischer RN).} Route: IVP; Site: right forearm; 13:50 Follow up: Response: No adverse reaction sv 14:00 Drug: Lopressor 2.5 mg Route: IVP; Site: right forearm; sv 14:50 Follow up: Response: No adverse reaction sv 14:03 Drug: Magnesium Sulfate 1 grams Route: IVPB; Infused Over: 1 hrs; Site: right forearm; sv 15:00 Follow up: Response: No adverse reaction; IV Status: Completed infusion; IV Intake: sv 100ml 14:12 CANCELLED (cancelled): Lopressor 25 mg PO once sv 14:13 Drug: Pepcid 20 mg Route: IVP; Site: right forearm; sv 14:30 Follow up: Response: No adverse reaction sv Disposition: 08/15/18 12:33 Transfer ordered to [facility]. 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 - Reason for transfer: Higher level of care. - Accepting physician is to [facility]. - Condition is Stable. - Problem is new. - Symptoms have improved. Signatures: Dispatcher [employer] Domenica Camejo Stephanie, RN RN Manfred Ronquillo MD MD cha Baxter, Heather, RN RN Gab Fischer RN sg Corrections: (The following items were deleted from the chart) 12:34 12:33 08/15/2018 12:33 Transfer ordered to [facility]. 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 Reason for transfer: Higher level of care. Accepting physician is to [facility]. Condition is Stable. Problem is new. Symptoms have improved. malik 13:39 12:34 08/15/2018 12:33 Transfer ordered to [facility]. 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 Reason for transfer: Higher level of care. Accepting physician is to [facility]. Condition is Stable. Problem is new. Symptoms have improved. malik 14:12 13:51 Lopressor 25 mg PO once ordered. malik sv 14:12 14:12 Lopressor 25 mg PO once ordered. sv sv 15:29 13:39 08/15/2018 12:33 Transfer ordered to [facility]. 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 Reason for transfer: Higher level of care. Accepting physician is to [facility]. Condition is Stable. Problem is new. Symptoms have improved. malik
--- NOTE | 2018-08-15 12:33 | ER ---
Nurse's Notes [facility] Name: Odilon Ferrara Age: 73 yrs Sex: Male : 1945 Arrival Date: 08/15/2018 Time: 11:21 Bed 4 Private MD: Diagnosis: Pain in left leg;Arterial embolism and thrombosis-left leg;Atrial fibrillation and flutter;Type 2 diabetes mellitus;Hypomagnesemia;Unspecified kidney failure Presentation: 08/15 11:20 Presenting complaint: EMS states: Left lower leg pain x 30 mins. Pt reported leg felt hb numb then began to hurt. Unable to locate pedal pulses. 11:20 Transition of care: patient was not received from another setting of care. Onset of hb symptoms was August 15, 2018. Risk Assessment: Do you want to hurt yourself or someone else? Patient reports no desire to harm self or others. Initial Sepsis Screen: Does the patient meet any 2 criteria? No. Patient's initial sepsis screen is negative. Does the patient have a suspected source of infection? No. Patient's initial sepsis screen is negative. Care prior to arrival: None. 11:20 Method Of Arrival: EMS: [facility] 11:20 Acuity: TYLOR 3 hb Triage Assessment: 11:20 General: Appears in no apparent distress. uncomfortable, obese, well developed, sv Behavior is calm, cooperative, appropriate for age. Pain: Complains of pain in left leg Pain currently is 7 out of 10 on a pain scale. Is continuous. EENT: No signs and/or symptoms were reported regarding the EENT system. Neuro: Level of Consciousness is awake, alert, obeys commands, Oriented to person, place, time, situation, Moves all extremities. Speech is normal, Reports numbness in mid left calf down to left foot. Cardiovascular: Heart tones S1 S2 present Patient's skin is warm and dry. Pulses DP and PT to RLE obtained via doppler. No pulse to LLE via doppler. Rhythm is atrial fibrillation. Respiratory: Airway is patent Respiratory effort is even, unlabored, Respiratory pattern is regular, symmetrical. Derm: Skin is normal, dusky, LLE Skin temperature is cold LLE. Musculoskeletal: Range of motion: intact in all extremities. Historical: - Allergies: 11:25 No Known Allergies; hb - Home Meds: 11:25 aspirin 81 mg Oral TbEC 1 tab once daily [Active]; Coumadin 1 mg Oral tab [Active]; hb Coumadin 6 mg Oral tab 1 tab once daily [Active]; furosemide 80 mg Oral tab 2 times per day [Active]; glimepiride 2 mg Oral tab 2 tabs with breakfast , 1 tab with dinner [Active]; metolazone 5 mg oral tab 1 tab once daily [Active]; metformin 1,000 mg Oral tab 1 tab 2 times per day [Active]; ursodiol 300 mg Oral cap 1 cap 2 times per day [Active]; simvastatin 40 mg Oral tab 1 tab once daily [Active]; metoprolol succinate 50 mg Oral Tb24 1 tab twice a day [Active]; oxybutynin chloride 10 mg Oral tr24 1 tab once daily [Active]; spironolactone 25 mg Oral tab 1 tab 2 times per day [Active]; - PMHx: 11:25 Diabetes - NIDDM; Atrial Fib; High Cholesterol; hb - PSHx: 11:25 "2 ft of intestine removed"; hb - Immunization history:: Adult Immunizations up to date. - Social history:: Smoking status: Patient/guardian denies using tobacco. - Ebola Screening: : No symptoms or risks identified at this time. - Family history:: not pertinent. Screenin:30 Abuse screen: Denies threats or abuse. Denies injuries from another. Nutritional hb screening: No deficits noted. Tuberculosis screening: No symptoms or risk factors identified. Fall Risk Total Arias Fall Scale indicates High Risk Score (45 or more points). Fall prevention measures have been instituted. Side Rails Up X 2 Frequent Obs/Assessments Occuring As available patient and family educated on Fall Prevention Program and Strategies. Assessment: 11:45 Reassessment: Informed Dr Schuyler Vargas was unable to obtain a pulse using the doppler on sv the left PT and DP. 11:55 Reassessment: Ultrasound at the bedside. sv 12:54 Reassessment: Patient appears in no apparent distress at this time. No changes from sv previously documented assessment. Patient and/or family updated on plan of care and expected duration. Pain level reassessed. Patient is alert, oriented x 3, equal unlabored respirations, skin warm/dry/pink. 13:30 Reassessment: Pt reports that he has feeling to the LLE at this time and that it does sv not feel like earlier. 13:39 Reassessment: Patient appears in no apparent distress at this time. Patient and/or sv family updated on plan of care and expected duration. Pain level reassessed. Patient is alert, oriented x 3, equal unlabored respirations, skin warm/dry/pink. 14:00 Reassessment: Pt stated that he can wiggle his toes on his left foot now. sv 14:13 Reassessment: OK for pt to take his home medication of Metoprolol succinate 50 mg 2 sv tabs right now. Ok by Dr Payan. 14:50 Reassessment: Patient appears in no apparent distress at this time. Patient and/or sv family updated on plan of care and expected duration. Pain level reassessed. Patient is alert, oriented x 3, equal unlabored respirations, skin warm/dry/pink. No DP or PT pulse to LLE via doppler. 15:09 Reassessment: Patient appears in no apparent distress at this time. Patient and/or sv family updated on plan of care and expected duration. Pain level reassessed. Patient is alert, oriented x 3, equal unlabored respirations, skin warm/dry/pink. Report given to EMS. Vital Signs: 11:22 BP 131 / 67; Pulse 89; Resp 22; Temp 97.9; Pulse Ox 96% on R/A; Pain 7/10; hb 12:00 BP 126 / 54; Pulse 82; Resp 22; Pulse Ox 96% ; sv 12:30 BP 138 / 83; Pulse 87; Resp 19; Pulse Ox 96% ; sv 13:00 BP 113 / 98; Pulse 88; Resp 19; Pulse Ox 96% ; sv 13:25 Weight 140 kg (R); sv 14:00 BP 150 / 86; Pulse 84 MON; Resp 19; Pulse Ox 98% ; sv 14:56 BP 129 / 62; Pulse 82; Resp 19; Pulse Ox 96% on R/A; sv 14:00 A fib sv ED Course: 11:21 Patient arrived in ED. hb 11:25 Manfred Payan MD is Attending Physician. malik 11:30 Arm band placed on. hb 11:31 Triage completed. hb 11:35 Amy Tristan, RN is Primary Nurse. sv 11:40 Patient has correct armband on for positive identification. Placed in gown. Bed in low sv position. Call light in reach. Side rails up X2. chemical research engineer on. Pulse ox on. NIBP on. Door closed. Warm blanket given. Head of bed elevated. 11:40 Initial lab(s) drawn, by me, sent to lab. Inserted saline lock: 20 gauge in right sv forearm, using aseptic technique. Blood collected. Flushed right forearm with 5 ml normal saline. 11:41 X-ray(s) taken. sv 11:53 X-ray completed. Portable x-ray completed in exam room. Patient tolerated procedure ml well. 11:56 XRAY Chest (1 view) In Process Unspecified. EDMS 12:22 US LE Arterial Bilateral In Process Unspecified. EDMS 12:23 US Extremity Venous W Compression Tarun In Process Unspecified. EDMS 14:49 transfer transportation to receiving facility. sv 14:49 No provider procedures requiring assistance completed. Patient transferred, IV remains sv in place. intact. Administered Medications: 12:54 Drug: Nitro-Bid Ointment 2 % 1 inches Route: Transdermal; Site: affected area; sv 13:39 Drug: Heparin ([place] Drip) 12 units/kg/hr - (HEParin 29711 units, D5W 500 ml) sv {Co-Signature: sg (Gab Fischer RN).} Route: IV; Rate: calculated rate; Site: right forearm; 15:30 Follow up: Response: No adverse reaction; IV Status: Infusion continued upon transfer sv 13:39 Drug: Heparin ([place]-Bolus No thrombolytic) - HEParin 60 units/kg {Co-Signature: alexsander sv (Gab Fischer RN).} Route: IVP; Site: right forearm; 13:50 Follow up: Response: No adverse reaction sv 14:00 Drug: Lopressor 2.5 mg Route: IVP; Site: right forearm; sv 14:50 Follow up: Response: No adverse reaction sv 14:03 Drug: Magnesium Sulfate 1 grams Route: IVPB; Infused Over: 1 hrs; Site: right forearm; sv 15:00 Follow up: Response: No adverse reaction; IV Status: Completed infusion; IV Intake: sv 100ml 14:12 CANCELLED (cancelled): Lopressor 25 mg PO once sv 14:13 Drug: Pepcid 20 mg Route: IVP; Site: right forearm; sv 14:30 Follow up: Response: No adverse reaction sv Intake: 15:00 IV: 100ml; Total: 100ml. sv Outcome: 12:33 ER care complete, transfer ordered by MD. gan 14:10 [facility]red by [facility] to [facility], Transfer form completed. sv Note: Report given to Melissa RODRIGEZ. 14:10 Condition: stable 14:10 Instructed on the need for transfer. 15:29 Patient left the ED. sv Signatures: Dispatcher [employer] Amy Martins RN RN sv Anderson, Corey, MD MD cha Lopez, Melissa ml Baxter, Heather, RN RN Gab Fischer RN sg
--- NOTE | 2018-08-15 12:33 | RAD REPORT ---
EXAM DESCRIPTION: US - Extrem Venous W Compress Tarun - 08/15/2018 12:24 pm CLINICAL HISTORY: PAIN Bilateral leg edema and swelling. COMPARISON: EXT VENOUS W COMPRESSION TARUN dated 06/12/2014 TECHNIQUE: Real-time sonographic interrogation of the left and right lower extremity deep venous sys tems was performed. FINDINGS: Normal compressibility, flow augmentation, phasic flow and spontaneous flow is identified in both the left and right lower extremity deep venous systems. IMPRESSION: No sonographic evidence of left or right lower extremity deep venous thrombosis.
[2018-08-15] MEDS ORDERED: NITROGLYCERIN 1 GM PKT TD ONE (12:50)
--- NOTE | 2018-08-15 12:52 | RAD REPORT ---
EXAM DESCRIPTION: US - Lower Extremity Arterial Bilat - 08/15/2018 12:24 pm CLINICAL HISTORY: PAIN COMPARISON: No comparisons TECHNIQUE: Bilateral lower extremity arterial Doppler examination was performed utilizing grayscale, spectral, color, power Doppler. FINDINGS: ABIs were not requested. Triphasic waveforms are seen throughout the right lower extremity arterial system. The left lower extremity arterial system shows monophasic flow in the left common femoral artery with no flow detectable in the left superficial femoral artery and distally. IMPRESSION: No detectable flow within the left superficial femoral artery and distally. This would b e compatible with occlusion.
[2018-08-15 13:08] LABS: Absolute Lymphocytes (CBC) 1.1 K/uL (0.7-4.9); Absolute Monocytes 0.6 K/uL (0.1-1.3); Absolute Neutrophil 7.1 K/uL (1.8-8.0); Basophils % 0.4 % (0-1.3); Eosinophils % 0.7 % (0-4.4); Hematocrit 44.1 % (39.6-49.0); Lymphocytes % 12.3 % (15.3-44.8); MCH 29.8 pg (27.0-35.0); MCV 86.8 fL (80-100); MPV 8.7 fL (7.6-11.3); Monocytes % 7.2 % (3.3-12.3); RBC Red Blood Cell Count 5.08 M/uL (4.33-5.43)
[2018-08-15 13:13] LABS: Protime INR 1.84
[2018-08-15 13:25] LABS: ALT/SGPT 22 U/L (12-78); AST/SGOT 34 U/L (15-37); Albumin 3.5 g/dL (3.4-5.0); Alkaline Phosphatase 78 U/L (45-117); BUN Blood Urea Nitrogen 38 mg/dL (7-18); Bicarbonate 30 mmol/L (21-32); Bilirubin Direct 0.2 mg/dL (0-0.2); Bilirubin Total 0.9 mg/dL (0.2-1.0); Glucose Level 209 mg/dL (74-106); Lipase 176 U/L (73-393); Magnesium 1.5 mg/dL (1.8-2.4); NT PRO-BNP 727 pg/mL (<450); Potassium 3.5 mmol/L (3.5-5.1); Sodium Level 139 mmol/L (136-145); Troponin (Emerg Dept Use Only) < 0.02 ng/mL (0.0-0.045)
[2018-08-15] MEDS ORDERED: HEPARIN 5000 UNIT/ML 1 ML VIAL ONE (13:40)
[2018-08-15] MEDS ORDERED: HEPARIN/D5W 25,000 UNIT/500 ML BAG IV ONE (13:40)
[2018-08-15] MEDS ORDERED: METOPROLOL TARTRATE 5 MG/5 ML INJ IV ONE (13:59)
[2018-08-15] MEDS ORDERED: FAMOTIDINE 20 MG/2 ML VIAL IV ONE (14:13)
--- NOTE | 2018-08-15 15:01 | EKG ---
Test Date: 2018-08-15 Test Time: 11:40:02 Fabric Worker Foreman: MAGALY MEASUREMENT RESULTS: Intervals: Rate: 74 WI: QRSD: 168 QT: 446 QTc: 495 [place]: P: WI: QRS: -69 T: 107 INTERPRETIVE STATEMENTS: Atrial fibrillation with premature ventricular or aberrantly conducted complexes Left axis deviation Left bundle branch block Abnormal ECG Compared to ECG 05/01/2018 11:26:00 Ventricular premature complex(es) now present Electronically Signed On 08-15-18 15:00:46 PROGRAM PRODUCTION SPECIALIST by Enoch Jane
[2018-08-15 15:03] LABS: Urine Blood TRACE (NEG); Urine Glucose NEGATIVE (NEG); Urine Protein NEGATIVE (NEG); Urine Specific Gravity 1.015 (1.005-1.030)
[2018-08-15 16:09] VITALS: TEMP 97.9
[2018-08-15 16:14] VITALS: BP 129/62; O2SAT 96
== END 2018-08-15 15:29 | disposition short-term general hospital (02) ==
LOC: ER 11:20
DX: M79.605 Pain in left leg (principal); I74.3 Embolism and thrombosis of arteries of the lower extremities; I48.91 Unspecified atrial fibrillation; I49.8 Other specified cardiac arrhythmias; E83.42 Hypomagnesemia; E11.22 Type 2 diabetes mellitus with diabetic chronic kidney disease; N18.9 Chronic kidney disease, unspecified; I49.3 Ventricular premature depolarization; I44.7 Left bundle-branch block, unspecified; R94.31 Abnormal electrocardiogram [ECG] [EKG]; E78.00 Pure hypercholesterolemia, unspecified; Z79.82 Long term (current) use of aspirin; Z79.01 Long term (current) use of anticoagulants; Z79.84 Long term (current) use of oral hypoglycemic drugs; Z79.899 Other long term (current) drug therapy
CPT/HCPCS: 36415; 71045; 80048; 80076; 81003; 83690; 83735; 83880; 84443; 84484; 85025; 85610; 93005; 93925; 93970; 96365; 96368; 96375; 99285; J1644

== ENCOUNTER 2018-12-09 19:24 | Emergency (ER) | payer OTHER ==
--- OUTSIDE RECORDS SUMMARY | 2018-12-09 19:27 | XMS REPORT | Clinical Summary ---
:1945 Author Organization Formerly [facility] Address [address] [place] [address] Care Team Providers Name Role Phone Christopher Vera Unavailable Allergies No Known Allergies Medications Medication Sig Dispensed Refills Start Date End Date Status aspirin 81 MG EC Take 81 mg by 0 Active tablet mouth daily. glimepiride (AMARYL) Take 2 mg by 0 Active 2 MG tablet mouth 2 (two) times daily 2 tabs with breakfast, 1 at dinner time . metOLazone Take 10 mg by 0 Active (ZAROXOLYN) 5 MG mouth once a tablet week. metFORMIN Take 1,000 mg 0 Active (GLUCOPHAGE) 1000 MG by mouth 2 tablet (two) times daily with breakfast and dinner. ursodiol (ACTIGALL) Take 300 mg by 0 Active 300 mg capsule mouth 2 (two) times daily. simvastatin (ZOCOR) Take 40 mg by 0 Active 40 MG tablet mouth nightly. metoprolol Take 50 mg by 0 Active (TOPROL-XL) 50 MG 24 mouth 2 (two) hr tablet times daily Take 2 tabs in am and 1 in the evening . oxybutynin Take 10 mg by 0 Active (DITROPAN-XL) 10 MG mouth nightly. 24 hr tablet spironolactone Take 25 mg by 0 Active (ALDACTONE) 25 MG mouth 2 (two) tablet times daily. furosemide (LASIX) Take 0.5 60 tablet 0 08/19/2018 Active 80 MG tablet tablets (40 mg total) by mouth 2 (two) times daily. ELIQUIS 5 MG tablet TAKE 1 TABLET 60 tablet 0 10/02/2018 Active BY MOUTH TWICE A DAY warfarin (COUMADIN) Take 1 mg by 0 Discontinued 1 MG tablet mouth daily. 8 warfarin (COUMADIN) Take 6 mg by 0 Discontinued 6 MG tablet mouth daily. 8 furosemide (LASIX) Take 80 mg by 0 Discontinued 80 MG tablet mouth 2 (two) 8 times daily. furosemide (LASIX) Take 0.5 60 tablet 0 08/19/2018 Discontinued 80 MG tablet tablets (40 mg 8 total) by mouth 2 (two) times daily. apixaban (ELIQUIS) 5 Take 1 tablet 90 tablet 0 08/19/2018 Discontinued mg Tab tablet (5 mg total) by 8 mouth 2 (two) times daily. apixaban (ELIQUIS) 5 Take 1 tablet 90 tablet 0 08/19/2018 Discontinued mg Tab tablet (5 mg total) by 8 mouth 2 (two) times daily. 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 Encounters Date Type Specialty Care Team Description 09/15/2018 Refill Cardiology Julio C Stoddard MD 08/17/2018 Surgery Sheng Flores MD ANGIOGRAM,CORONARY 08/15/2018 - Hospital Encounter Cardiology Jacinto CHITO (acute kidney injury) (HCC); 08/19/2018 MD Melissa Arterial thrombosis (HCC); Arlyn Chronic atrial fibrillation (HCC); MD Julio C Type 2 diabetes mellitus without complication, with long- term current use of insulin (HCC); Essential hypertension 08/15/2018 Travel after 12/08/2017 Family History Medical History Relation Name Comments Heart disease Brother Heart disease Father Heart disease Mother Relation Name Status Comments Brother Father Mother Social History Tobacco Use Types Packs/Day Years Used Date Never Smoker Smokeless Tobacco: Never Used Alcohol Use Drinks/Week oz/Week Comments No Alcohol Habits Answer Date Recorded How often do you have a drink containing alcohol? Never 08/15/2018 How many drinks containing alcohol do you have on a typical Not asked day when you are drinking? How often do you have six or more drinks on one occasion? Not asked Sex Assigned at Date Recorded Not on file Job Start Date Occupation Industry Not on file Not on file Not on file Travel History Travel Start Travel End No recent travel history available. Last Filed Vital Signs Vital Sign Reading Time Taken Blood Pressure 124/59 08/19/2018 10:59 AM INSIDE SALES CONSULTANT Pulse 72 08/19/2018 10:59 AM INSIDE SALES CONSULTANT Temperature 36.8 C (98.3 F) 08/19/2018 10:59 AM INSIDE SALES CONSULTANT Respiratory Rate 15 08/19/2018 10:59 AM INSIDE SALES CONSULTANT Oxygen Saturation 97% 08/19/2018 10:59 AM INSIDE SALES CONSULTANT Inhaled Oxygen Concentration - - Weight 146.3 kg (322 lb 8 oz) 08/19/2018 8:24 AM INSIDE SALES CONSULTANT Height 182.9 cm (6') 08/15/2018 5:07 PM INSIDE SALES CONSULTANT Body Mass Index 43.74 08/19/2018 8:24 AM INSIDE SALES CONSULTANT Plan of Treatment Not on file Implants Implanted Type Area [employer] Device Shelf Model / Identifier Expiration Serial / Date Lot [employer] GORE [id number] / Implanted: Qty: 1 on 08/17/2018 by Sheng Flores MD [id number] / Closure Sys Perclose Progl 6fr [id number] - [id number] Cardiovascular [facility]:VASC 11/02/2019 [id number] / Implanted: Qty: 1 on 08/17/2018 by Sheng Flores MD DEV / [id number] Procedures Procedure Name Priority Date/Time Associated Comments Diagnosis CARDIAC CATH REPORT - 08/22/2018 8:31 SCAN AM INSIDE SALES CONSULTANT RHYTHM STRIP - SCAN 08/22/2018 8:31 AM INSIDE SALES CONSULTANT BUN AND CREATININE Routine 08/19/2018 12:20 Results for this PM INSIDE SALES CONSULTANT procedure are in the results section. POCT-GLUCOSE METER Routine 08/19/2018 11:41 Results for this AM INSIDE SALES CONSULTANT procedure are in the results section. POCT-GLUCOSE METER Routine 08/19/2018 8:08 Results for this AM INSIDE SALES CONSULTANT procedure are in the results section. APTT Routine 08/19/2018 4:13 Results for this AM INSIDE SALES CONSULTANT procedure are in the results section. PROTHROMBIN TIME/INR Routine 08/19/2018 4:13 Results for this AM INSIDE SALES CONSULTANT procedure are in the results section. CBC (HEMOGRAM ONLY) Routine 08/19/2018 4:13 Results for this AM INSIDE SALES CONSULTANT procedure are in the results section. CALCIUM, IONIZED Routine 08/19/2018 4:13 Results for this AM INSIDE SALES CONSULTANT procedure are in the results section. APTT Routine 08/18/2018 10:00 Results for this PM INSIDE SALES CONSULTANT procedure are in the results section. POCT-GLUCOSE METER Routine 08/18/2018 9:37 Results for this PM INSIDE SALES CONSULTANT procedure are in the results section. POCT-GLUCOSE METER Routine 08/18/2018 5:50 Results for this PM [employer]IDE SALES CONSULTANT procedure are in the results section. ECHOCARDIOGRAM REPORT - 08/18/2018 2:21 SCAN PM INSIDE SALES CONSULTANT POCT-GLUCOSE METER Routine 08/18/2018 1:06 Results for this PM INSIDE SALES CONSULTANT procedure are in the results section. APTT Routine 08/18/2018 12:55 Results for this PM INSIDE SALES CONSULTANT procedure are in the results section. BASIC METABOLIC PANEL STAT 08/18/2018 12:55 Results for this (7) PM INSIDE SALES CONSULTANT procedure are in the results section. PHOSPHORUS Routine 08/18/2018 12:55 Results for this PM INSIDE SALES CONSULTANT procedure are in the results section. MAGNESIUM Routine 08/18/2018 12:55 Results for this PM INSIDE SALES CONSULTANT procedure are in the results section. 2D ECHO W/ DOPPLER Routine 08/18/2018 9:23 Results for this (CW/PW/COLOR) AM INSIDE SALES CONSULTANT procedure are in the results section. POCT-GLUCOSE METER Routine 08/18/2018 7:32 Results for this AM INSIDE SALES CONSULTANT procedure are in the results section. CBC W/PLT COUNT & AUTO Routine 08/18/2018 1:40 Results for this DIFFERENTIAL AM INSIDE SALES CONSULTANT procedure are in the results section. CBC W/PLT COUNT & AUTO Routine 08/18/2018 1:40 Results for this DIFFERENTIAL AM INSIDE SALES CONSULTANT procedure are in the results section. PT/APTT Routine 08/18/2018 1:40 Results for this AM INSIDE SALES CONSULTANT procedure are in the results section. CALCIUM, IONIZED Routine 08/18/2018 1:40 Results for this AM INSIDE SALES CONSULTANT procedure are in the results section. POCT-GLUCOSE METER Routine 08/17/2018 10:44 Results for this PM INSIDE SALES CONSULTANT procedure are in the results section. CBC W/PLT COUNT & AUTO Routine 08/17/2018 8:59 Results for this DIFFERENTIAL PM INSIDE SALES CONSULTANT procedure are in the results section. CBC W/PLT COUNT & AUTO Routine 08/17/2018 8:59 Results for this DIFFERENTIAL PM INSIDE SALES CONSULTANT procedure are in the results section. POCT-GLUCOSE METER Routine 08/17/2018 7:43 Results for this PM INSIDE SALES CONSULTANT procedure are in the results section. ANGIOGRAM,CORONARY 08/17/2018 2:48 DVT (deep vein PM INSIDE SALES CONSULTANT thrombosis) in (HCC) Case Notes 1005 APTT Routine 08/17/2018 1:12 PM INSIDE SALES CONSULTANT POCT-GLUCOSE METER Routine 08/17/2018 12:17 PM INSIDE SALES CONSULTANT CBC W/PLT COUNT & AUTO Routine 08/17/2018 3:12 AM INSIDE SALES CONSULTANT Results for this DIFFERENTIAL procedure are in the results section. PROTHROMBIN TIME/INR Routine 08/17/2018 3:12 AM INSIDE SALES CONSULTANT APTT Routine 08/17/2018 3:12 AM INSIDE SALES CONSULTANT COMPREHENSIVE METABOLIC Routine 08/17/2018 3:12 AM INSIDE SALES CONSULTANT Results for this PANEL procedure are in the results section. CBC W/PLT COUNT & AUTO Routine 08/17/2018 3:12 AM INSIDE SALES CONSULTANT Results for this DIFFERENTIAL procedure are in the results section. APTT Routine 08/16/2018 7:13 PM INSIDE SALES CONSULTANT POCT-GLUCOSE METER Routine 08/16/2018 4:43 PM INSIDE SALES CONSULTANT APTT Routine 08/16/2018 12:44 PM INSIDE SALES CONSULTANT POCT-GLUCOSE METER Routine 08/16/2018 12:02 PM INSIDE SALES CONSULTANT POCT-GLUCOSE METER Routine 08/16/2018 6:22 AM INSIDE SALES CONSULTANT CBC W/PLT COUNT & AUTO Routine 08/16/2018 3:08 AM INSIDE SALES CONSULTANT Results for this DIFFERENTIAL procedure are in the results section. PROTHROMBIN TIME/INR Routine 08/16/2018 3:08 AM INSIDE SALES CONSULTANT TSH/FREE T4 IF INDICATED Routine 08/16/2018 3:08 AM INSIDE SALES CONSULTANT HEMOGLOBIN A1C Routine 08/16/2018 3:08 AM INSIDE SALES CONSULTANT MAGNESIUM Routine 08/16/2018 3:08 AM INSIDE SALES CONSULTANT PHOSPHORUS Routine 08/16/2018 3:08 AM INSIDE SALES CONSULTANT CALCIUM, IONIZED Routine 08/16/2018 3:08 AM INSIDE SALES CONSULTANT COMPREHENSIVE METABOLIC Routine 08/16/2018 3:08 AM INSIDE SALES CONSULTANT Results for this PANEL procedure are in the results section. CBC W/PLT COUNT & AUTO Routine 08/16/2018 3:08 AM INSIDE SALES CONSULTANT Results for this DIFFERENTIAL procedure are in the results section. APTT Routine 08/16/2018 3:08 AM INSIDE SALES CONSULTANT POCT-GLUCOSE METER Routine 08/15/2018 8:57 PM INSIDE SALES CONSULTANT CBC W/PLT COUNT & AUTO Routine 08/15/2018 8:52 PM INSIDE SALES CONSULTANT Results for this DIFFERENTIAL procedure are in the results section. FIBRINOGEN Routine 08/15/2018 8:52 PM INSIDE SALES CONSULTANT PROTHROMBIN TIME/INR Routine 08/15/2018 8:52 PM INSIDE SALES CONSULTANT COMPREHENSIVE METABOLIC Routine 08/15/2018 8:52 PM INSIDE SALES CONSULTANT Results for this PANEL procedure are in the results section. CBC W/PLT COUNT & AUTO Routine 08/15/2018 8:52 PM INSIDE SALES CONSULTANT Results for this DIFFERENTIAL procedure are in the results section. APTT Routine 08/15/2018 8:52 PM INSIDE SALES CONSULTANT after 12/08/2017 Results CARDIAC CATH REPORT - SCAN (08/22/2018 8:31 AM INSIDE SALES CONSULTANT) Narrative Performed At RHYTHM STRIP - SCAN (08/22/2018 8:31 AM INSIDE SALES CONSULTANT) Narrative Performed At BUN and Creatinine (Obtain baseline and then every 3 days, if not already ordered) (08/19/2018 12:20PM INSIDE SALES CONSULTANT) BUN 18 7 - 21 mg/dL [facility] Creatinine 1.57 (H)Comment: Specimen 0.57 - 1.25 mg/dL [facility] slightly hemolyzed [facility] EGFR 43Comment: ESTIMATED GFR IS mL/min/1.73 sq m [facility] NOT ACCURATE CREATININE [facility] CLEARANCE IN PREDICTING GLOMERULAR FILTRATION RATE. ESTIMATED GFR IS NOT APPLICABLE FOR DIALYSIS PATIENTS. Specimen Blood - Arm, Right Performing Organization Address City/State/Zipcode Phone Number [facility] [address] [place] [address] CENTER POC-Glucose meter (08/19/2018 11:41 AM INSIDE SALES CONSULTANT)Only the most recent of13 resultswithin the time period is included. POC-Glucose Meter 222 (H)Comment: TESTED AT 70 - 110 mg/dL [facility] [address] [place] [id number] Specimen Blood Performing Organization Address [facility] Phone Number [address] [address] CENTER Calcium, Ionized (08/19/2018 4:13 AM INSIDE SALES CONSULTANT)Only the most recent of3 resultswithin the time period is included. Calcium, Ion 0.97 (L) 1.12 - 1.27 mmol/L [facility] pH, Blood 7.46 [facility] Specimen Blood - Arm, Right Performing Organization Address [facility] Phone Number [address] [address] CENTER aPTT (08/19/2018 4:13 AM INSIDE SALES CONSULTANT)Only the most recent of9 resultswithin the time period is included. PTT 66.8 (H) 22.5 - 36.0 seconds [facility] Specimen Blood - Arm, Right Performing Organization Address [facility] [place] [address] CENTER Prothrombin time/INR (08/19/2018 4:13 AM INSIDE SALES CONSULTANT)Only the most recent of4 resultswithin the time period is included. Protime 16.2 (H) 11.7 - 14.7 seconds [facility] INR 1.3 <=5.9 [facility] Specimen Blood - Arm, Right Narrative Performed At RECOMMENDED COUMADIN/WARFARIN INR THERAPY [facility] RANGES STANDARD DOSE: 2.0 - 3.0 Includes: PROPHYLAXIS for venous thrombosis, systemic embolization; TREATMENT for venous thrombosis and/or pulmonary embolus. HIGH RISK: Target INR is 2.5-3.5 for patients with mechanical heart valves. Performing Organization Address City/[facility] Phone Number [facility] [address] [phone] [place] CBC (hemogram only) (08/19/2018 4:13 AM INSIDE SALES CONSULTANT) WBC 7.9 3.5 - 10.5 K/L [facility] RBC 3.55 (L) 4.63 - 6.08 M/L [facility] Hemoglobin 10.4 (L) 13.7 - 17.5 GM/DL [facility] Hematocrit 32.1 (L) 40.1 - 51.0 % [facility] MCV 90.4 79.0 - 92.2 fL [facility] MCH 29.3 25.7 - 32.2 pg [facility] MCHC 32.4 32.3 - 36.5 GM/DL [facility] RDW 14.9 (H) 11.6 - 14.4 % [facility] Platelets 112 (L) 150 - 450 K/CU MM [facility] MPV 10.3 9.4 - 12.4 fL [facility] nRBC 0 0 - 0 /100 WBC [facility] Specimen Blood - Arm, Right Performing Organization Address City/[facility]/Zipcode Phone Number [address] [address] [place] ECHOCARDIOGRAM REPORT - SCAN (08/18/2018 2:21 PM INSIDE SALES CONSULTANT) Narrative Performed At Phosphorus (08/18/2018 12:55 PM INSIDE SALES CONSULTANT)Only the most recent of2 resultswithin the time period is included. Phosphorus 1.6 (L) 2.3 - 4.7 mg/dL [facility] Specimen Blood Performing Organization Address City/[facility]/Zipcode Phone Number [address] [address] [place] Magnesium (08/18/2018 12:55 PM INSIDE SALES CONSULTANT)Only the most recent of2 resultswithin the time period is included. Magnesium 1.6 1.6 - 2.6 mg/dL [facility] Specimen Blood Performing Organization Address City/[facility]/Zipcode Phone Number [facility] [address] [place], [place] [phone] CENTER Basic Metabolic Panel (08/18/2018 12:55 PM INSIDE SALES CONSULTANT) Sodium 142 136 - 145 meq/L [facility] Potassium 3.4 (L) 3.5 - 5.1 meq/L [facility] Chloride 110 (H) 98 - 107 meq/L [facility] CO2 26 22 - 29 meq/L [facility] BUN 20 7 - 21 mg/dL [facility] Creatinine 1.20 0.57 - 1.25 mg/dL [facility] Glucose 168 (H) 70 - 105 mg/dL [facility] Calcium 8.2 (L) 8.4 - 10.2 mg/dL [facility] EGFR 59Comment: ESTIMATED GFR IS mL/min/1.73 sq m [facility] NOT ACCURATE CREATININE [facility] CLEARANCE IN PREDICTING GLOMERULAR FILTRATION RATE. ESTIMATED GFR IS NOT APPLICABLE FOR DIALYSIS PATIENTS. Specimen Blood Performing Organization Address City/[facility] Phone Number [place] [phone] [place], [place] [phone] [place] 2D Echo W/Doppler(CW/PW/Color) (08/18/2018 9:23 AM INSIDE SALES CONSULTANT) Ejection Fraction [facility] ECHO [facility] Narrative Performed At Transthoracic Echocardiography Report (TTE) [facility] Demographics Patient NameHEODILON GAMEZ Date of Study08/18/2018 Gender Male Visit [id number] Race Unknown [id number] Number Date of 1945 Referring PhysicianSfestus Casey MD Age 73 year(s) SonographerShelton Blake Interpreting Shadi Rivero MD Physician Procedure Type of Study TTE procedure:2DECHO W DOPPLER(CW/PW/COLOR) (Pending Discharge) Indications:Known or suspected heart failure and Suspected cardiac source of emboli. Clinical History HGB 11.3 HCT 33.8 % AFIB SKIN CANCER DM HLD HTN CHF CHITO Contrast Medium: Definity. Height: 72 inches Weight: 145.6 kg (321 lbs) BSA: 2.6 m^2 BMI: 43.53 kg/m^2 HR: 75 bpm BP: 175/83 mmHg Summary The left ventricle is chamber size (by vol index) is normal (male - LVED vol - 34-74ml/m2). Moderate concentric LV hypertrophy. All of the LV segments are mildly hypokinetic . LVEF by Manzo's method of disk assessment is mildly reduced (40-44%) . Degree of diastolic dysfunction (LAP assessment) is inconclusive due to arrhythmia . There is mild aortic stenosis. Estimated peak systolic PA pressure is 45-50 mmHg . No pericardial effusion is visualized. Signature Findings Technical Quality: Technically fair exam. Left Ventricle The left ventricle is chamber size (by vol index) is normal (male - LVED vol - 34-74ml/m2). Mo derate concentric LV hypertrophy. Al l of the LV segments are mildly hypokinetic . LV EF by Manzo's method of disk assessment is mi ldly reduced (40-44%) . De gree of diastolic dysfunction (LAP assessment) is in conclusive due to arrhythmia . Left AtriumLA size is moderately enlarged (42-48 ml/m2) . Right VentricleThe right ventricular chamber size and systolic fu nction are within normal limits. Right Atrium RA size is normal. Aortic Valve Mild AoV cusp thickening. Th ere is mild aortic stenosis. Mitral Valve Mild MV leaflet thickening. Mi ld MV leaflet calcification. Tr facundo mitral regurgitation. Tricuspid ValveTV structure is normal. Mi ld tricuspid regurgitation. Es timated peak systolic PA pressure is 45-50 mmHg . Pulmonic Valve A trace of pulmonary regurgitation. No rmal PV structure appears normal by available vi ews. AortaAortic root size (SInus of Valsalva diameter) is no rmal . PericardiumNo pericardial effusion is visualized. IVC/SVC/PA/PV/PleuralThe estimated RA pressure by IVC dynamics 5-10mmHg . Chambers/Structures Left Atrium LA Volume: 111.27 mlLA Area: 31.96 cm^2 LA Vol. Index: 43 ml/m^2 Left Ventricle LVIDd: 4.76 cm LVEDV:105.98 ml LVIDs: 3.92 cm LVESV:82.06 ml LV Septum Diastolic: 1.34 cmLVEF 2D Cube: 24.4 % LV Septum Systolic: 1.2 cm LV PW Diastolic: 1.51 cmLV FS: 17.7 % LV PW Systolic: 1.55 cm LVEDV Manzo's:175.7 mlLVEDVI: 68 ml/m^2 LVESV Manzo's:102.01 ml LVESVI: 39 ml/m^2 LVEF Manzo's: 41.9 % LVOT Diameter: 2.02 cm LVEF: 22.6 % Doppler/Quantitative Measurements Aortic Valve Peak Velocity: 1.72 m/sMean Velocity: 1.21 m/s Peak Gradient: 11.85 mmHgMean Gradient: 6.75 mmHg AV Area (continuity): 1.82 cm^2 AV VTI: 37.96 cm AV DVI: 0.57 LVOT Peak Velocity: 1.02 m/s Peak Gradient: 4.21 mmHg Mean Velocity: 0.71 m/s Mean Gradient: 2.35 mmHg LVOT Diameter: 2.02 cmLVOT VTI: 21.6 cm LVOT Area: 3.2 cm^2 LVOT SV:69.19 ml LVOT CO: 5.19 l/min LVOT CI: 2 l/min/m^2 Procedure Note Interface, External Ris In - 08/18/2018 1:46 PM INSIDE SALES CONSULTANT Transthoracic Echocardiography Report (TTE) Demographics Patient Name ODILON SCOTT Date of Study 08/18/2018 Gender Male Visit Number [id number] Race Unknown Room Number C631 Number Date of 1945 Referring Physician Melissa Casey MD Age 73 year(s) Reprographics Associate Shelton Blake Interpreting Shadi Rivero MD Physician Procedure Type of Study TTE procedure:2DECHO W DOPPLER(CW/PW/COLOR) (Pending Discharge) Indications:Known or suspected heart failure and Suspected cardiac source of emboli. Clinical History HGB 11.3 HCT 33.8 % AFIB SKIN CANCER DM HLD HTN CHF CHITO Contrast Medium: Definity. Height: 72 inches Weight: 145.6 kg (321 lbs) BSA: 2.6 m^2 BMI: 43.53 kg/m^2 HR: 75 bpm BP: 175/83 mmHg Summary The left ventricle is chamber size (by vol index) is normal (male - LVED vol - 34-74ml/m2). Moderate concentric LV hypertrophy. All of the LV segments are mildly hypokinetic . LVEF by Manzo's method of disk assessment is mildly reduced (40-44%) . Degree of diastolic dysfunction (LAP assessment) is inconclusive due to arrhythmia . There is mild aortic stenosis. Estimated peak systolic PA pressure is 45-50 mmHg . No pericardial effusion is visualized. Signature Findings Technical Quality: Technically fair exam. Left Ventricle The left ventricle is chamber size (by vol index) is normal (male - LVED vol - 34-74ml/m2). Moderate concentric LV hypertrophy. All of the LV segments are mildly hypokinetic . LVEF by Manzo's method of disk assessment is mildly reduced (40-44%) . Degree of diastolic dysfunction (LAP assessment) is inconclusive due to arrhythmia . Left Atrium LA size is moderately enlarged (42-48 ml/m2) . Right Ventricle The right ventricular chamber size and systolic function are within normal limits. Right Atrium RA size is normal. Aortic Valve Mild AoV cusp thickening. There is mild aortic stenosis. Mitral Valve Mild MV leaflet thickening. Mild MV leaflet calcification. Trace mitral regurgitation. Tricuspid Valve TV structure is normal. Mild tricuspid regurgitation. Estimated peak systolic PA pressure is 45-50 mmHg . Pulmonic Valve A trace of pulmonary regurgitation. Normal PV structure appears normal by available views. Aorta Aortic root size (SInus of Valsalva diameter) is normal . Pericardium No pericardial effusion is visualized. IVC/SVC/PA/PV/Pleural The estimated RA pressure by IVC dynamics 5-10mmHg . Chambers/Structures Left Atrium LA Volume: 111.27 ml LA Area: 31.96 cm^2 LA Vol. Index: 43 ml/m^2 Left Ventricle LVIDd: 4.76 cm LVEDV:105.98 ml LVIDs: 3.92 cm LVESV:82.06 ml LV Septum Diastolic: 1.34 cm LVEF 2D Cube: 24.4 % LV Septum Systolic: 1.2 cm LV PW Diastolic: 1.51 cm LV FS: 17.7 % LV PW Systolic: 1.55 cm LVEDV Manzo's:175.7 ml LVEDVI: 68 ml/m^2 LVESV Manzo's:102.01 ml LVESVI: 39 ml/m^2 LVEF Manzo's: 41.9 % LVOT Diameter: 2.02 cm LVEF: 22.6 % Doppler/Quantitative Measurements Aortic Valve Peak Velocity: 1.72 m/s Mean Velocity: 1.21 m/s Peak Gradient: 11.85 mmHg Mean Gradient: 6.75 mmHg AV Area (continuity): 1.82 cm^2 AV VTI: 37.96 cm AV DVI: 0.57 LVOT Peak Velocity: 1.02 m/s Peak Gradient: 4.21 mmHg Mean Velocity: 0.71 m/s Mean Gradient: 2.35 mmHg LVOT Diameter: 2.02 cm LVOT VTI: 21.6 cm LVOT Area: 3.2 cm^2 LVOT SV:69.19 ml LVOT CO: 5.19 l/min LVOT CI: 2 l/min/m^2 Performing Organization Address City/[facility]/Zipcode Phone Number [facility] ECHO [facility]ART[facility] PT/aPTT (08/18/2018 1:40 AM INSIDE SALES CONSULTANT) Protime 16.7 (H) 11.7 - 14.7 seconds [facility] INR 1.4 <=5.9 [facility] PTT 46.8 (H) 22.5 - 36.0 seconds [facility] Specimen Blood Narrative Performed At RECOMMENDED COUMADIN/WARFARIN INR THERAPY [facility] RANGES STANDARD DOSE: 2.0 - 3.0 Includes: PROPHYLAXIS for venous thrombosis, systemic embolization; TREATMENT for venous thrombosis and/or pulmonary embolus. HIGH RISK: Target INR is 2.5-3.5 for patients with mechanical heart valves. Performing Organization Address City/[facility]/Zipcode Phone Number [place] [phone] [place] [address] CENTER CBC with platelet count + automated diff (08/18/2018 1:40 AM [employer] SAL[employer] CONSULTANT)Only the most recent of5 resultswithin the time period is included. WBC 8.5 3.5 - 10.5 K/L [facility] RBC 3.74 (L) 4.63 - 6.08 M/L [facility] Hemoglobin 11.3 (L) 13.7 - 17.5 GM/DL [facility] Hematocrit 33.8 (L) 40.1 - 51.0 % [facility] MCV 90.4 79.0 - 92.2 fL [facility] MCH 30.2 25.7 - 32.2 pg [facility] MCHC 33.4 32.3 - 36.5 GM/DL [facility] RDW 14.8 (H) 11.6 - 14.4 % [facility] Platelets 106 (L) 150 - 450 K/CU MM [facility] MPV 10.5 9.4 - 12.4 fL [facility] nRBC 0 0 - 0 /100 WBC [facility] % Neutros 75 % [facility] % Lymphs 13 % [facility] % Monos 9 % [facility] % Eos 2 % [facility] % Baso 0 % [facility] # Neutros 6.37 (H) 1.78 - 5.38 K/L [facility] # Lymphs 1.11 (L) 1.32 - 3.57 K/L [facility] # Monos 0.80 0.30 - 0.82 K/L [facility] # Eos 0.14 0.04 - 0.54 K/L [facility] # Baso 0.03 0.01 - 0.08 K/L [facility] Immature Granulocytes-Relative 1 0 - 1 % [facility] Specimen Blood Performing Organization Address City/State/Zipcode Phone Number [facility] [address] [place] [address] CENTER Comprehensive metabolic panel (08/17/2018 3:12 AM [employer] SAL[employer] CONSULTANT)Only the most recent of3 resultswithin the time period is included. Protein, Total 6.3 6.0 - 8.3 gm/dL [facility] Albumin 3.2 (L) 3.5 - 5.0 g/dL [facility] Alkaline Phosphatase 55 40 - 150 U/L [facility] Total Bilirubin 0.7 0.2 - 1.2 mg/dL [facility] Sodium 141 136 - 145 meq/L [facility] Potassium 3.4 (L) 3.5 - 5.1 meq/L [facility] Chloride 107 98 - 107 meq/L [facility] CO2 27 22 - 29 meq/L [facility] BUN 24 (H) 7 - 21 mg/dL [facility] Creatinine 1.14 0.57 - 1.25 mg/dL [facility] Glucose 143 (H) 70 - 105 mg/dL [facility] Calcium 8.5 8.4 - 10.2 mg/dL [facility] AST 18 5 - 34 U/L [facility] ALT 10 6 - 55 U/L [facility] EGFR 63Comment: ESTIMATED GFR mL/min/1.73 sq m [facility] IS NOT ACCURATE [facility] CREATININE CLEARANCE IN PREDICTING GLOMERULAR FILTRATION RATE. ESTIMATED GFR IS NOT APPLICABLE FOR DIALYSIS PATIENTS. Specimen Blood Performing Organization Address City/[facility]/Zipcode Phone Number [address] [address] CENTER TSH/Free T4 If Indicated (08/16/2018 3:08 AM [employer]IDE SAL[employer] CONSULTANT) TSH 1.80 0.35 - 4.94 uIU/mL [facility] Specimen Blood Performing Organization Address City/[facility]/Zipcode Phone Number [address] [address] CENTER Hemoglobin A1c (08/16/2018 3:08 AM [employer] SAL[employer] CONSULTANT) Hemoglobin A1C 7.9 (H) 4.3 - 6.1 % [facility] Specimen Blood Performing Organization Address City/[facility]/Zipcode Phone Number [address] [address] CENTER Fibrinogen (08/15/2018 8:52 PM [employer]IDE SALES CONSULTANT) Fibrinogen 370 225 - 434 mg/dl [facility] Specimen Blood Performing Organization Address City/State/Zipcode Phone Number [facility] [address] [place] [address] CENTER after 12/08/2017 Insurance Payer Benefit Plan / Group Subscriber ID Type Phone Address MEDICARE MEDICARE A B xxxxxxxxxxx Medicare MCR SUPPLEMENT/[employer] xxxxxxxxx [facility] Advance Directives For more information, please contact:[address] [phone] Code Status Date Activated Date Inactivated Comments Full Code 08/15/2018 6:49 PM This code status was determined by: Patient
--- OUTSIDE RECORDS SUMMARY | 2018-12-09 19:28 | XMS REPORT ---
:1945 [facility] Address [address] [place] [address] Dr. Brandt [address] [place] [address] Care Team Providers Name Role Phone [place] Unavailable Unavailable Problems This patient has no known problems. Allergies, Adverse Reactions, Alerts This patient has no known allergies or adverse reactions. Medications This patient has no known medications. Results Test Description Test Time Test Comments Text Results Atomic Results Result Comments BUN AND CREATININE 2018-08-19 13:03:00 Test Item Value Reference Range Comments BLOOD UREA NITROGEN (BEAKER) 18 mg/dL 7-21 (test ound=032) CREATININE (BEAKER) (test 1.57 mg/dL 0.57-1.25 Specimen slightly hemolyzed lldh=817) EGFR (BEAKER) (test 43 mL/min/1.73 sq m ESTIMATED GFR IS NOT kqfu=0864) ACCURATE CREATININE CLEARANCE IN PREDICTING GLOMERULAR FILTRATION RATE. ESTIMATED GFR IS NOT APPLICABLE FOR DIALYSIS PATIENTS. POCT-GLUCOSE [id number] 12:55:00 Test Item Value Reference Range Comments POC-GLUCOSE METER (BEAKER) 222 mg/dL 70-110 TESTED AT [facility] [address] [facility] (test znaj=1065) [facility] [address] POCT-GLUCOSE [id number] 08:17:00 Test Item Value Reference Range Comments POC-GLUCOSE METER (BEAKER) 155 mg/dL 70-110 TESTED AT [facility] [address] [facility] (test drzs=2344) [facility] [address] CALCIUM, [id number] 05:41:00 Test Item Value Reference Range Comments CALCIUM IONIZED (BEAKER) (test tcck=011) 0.97 mmol/L 1.12-1.27 PH, BLOOD (BEAKER) (test joqq=0179) 7.46 [id number] 04:53:00 Test Item Value Reference Range Comments PARTIAL THROMBOPLASTIN TIME (BEAKER) (test 66.8 seconds 22.5-36.0 jfzs=928) PROTHROMBIN [id number] 04:51:00 Test Item Value Reference Range Comments PROTIME (BEAKER) (test oniv=457) 16.2 seconds 11.7-14.7 INR (BEAKER) (test kenh=097) 1.3 <=5.9 RECOMMENDED COUMADIN/WARFARIN INR THERAPY RANGESSTANDARD DOSE: 2.0 - 3.0 Includes: PROPHYLAXIS forvenous thrombosis, systemic embolization; TREATMENT for venous thrombosis and/or pulmonary embolus.HIGH RISK: Target INR is 2.5-3.5 for patients with mechanical heart valves.CBC (HEMOGRAM ONLY)2018-08-19 04:46:00 Test Item Value Reference Range Comments WHITE BLOOD CELL COUNT (BEAKER) (test jage=903) 7.9 K/ L 3.5-10.5 RED BLOOD CELL COUNT (BEAKER) (test wofk=235) 3.55 M/ L 4.63-6.08 HEMOGLOBIN (BEAKER) (test owet=078) 10.4 GM/DL 13.7-17.5 HEMATOCRIT (BEAKER) (test fpdb=564) 32.1 % 40.1-51.0 MEAN CORPUSCULAR VOLUME (BEAKER) (test ctrv=613) 90.4 fL 79.0-92.2 MEAN CORPUSCULAR HEMOGLOBIN (BEAKER) (test 29.3 pg 25.7-32.2 nezg=455) MEAN CORPUSCULAR HEMOGLOBIN CONC (BEAKER) (test 32.4 GM/DL 32.3-36.5 owki=878) RED CELL DISTRIBUTION WIDTH (BEAKER) (test 14.9 % 11.6-14.4 eafj=777) PLATELET COUNT (BEAKER) (test qmad=701) 112 K/CU MM 150-450 MEAN PLATELET VOLUME (BEAKER) (test rgxx=465) 10.3 fL 9.4-12.4 NUCLEATED RED BLOOD CELLS (BEAKER) (test 0 /100 WBC 0-0 zeru=256) [id number] 22:20:00 Test Item Value Reference Range Comments PARTIAL THROMBOPLASTIN TIME (BEAKER) (test 54.8 seconds 22.5-36.0 qqov=811) POCT-GLUCOSE [id number] 22:01:00 Test Item Value Reference Range Comments POC-GLUCOSE METER (BEAKER) 241 mg/dL 70-110 TESTED AT [facility] [address] [facility] (test xadv=2101) [facility] [address] POCT-GLUCOSE [id number] 17:54:00 Test Item Value Reference Range Comments POC-GLUCOSE METER (BEAKER) 136 mg/dL 70-110 TESTED AT [address] (test dagq=8317) [facility] [address] POCT-GLUCOSE [id number] 16:01:00 Test Item Value Reference Range Comments POC-GLUCOSE METER (BEAKER) 163 mg/dL 70-110 TESTED AT [address] (test lknz=9667) [facility] [address] [id number] 13:28:00 Test Item Value Reference Range Comments MAGNESIUM (BEAKER) (test iwoc=142) 1.6 mg/dL 1.6-2.6 [id number] 13:28:00 Test Item Value Reference Range Comments PHOSPHORUS (BEAKER) (test qosu=045) 1.6 mg/dL 2.3-4.7 BASIC METABOLIC [id number] 13:28:00 Test Item Value Reference Range Comments SODIUM (BEAKER) (test 142 meq/L 136-145 tfql=887) POTASSIUM (BEAKER) (test 3.4 meq/L 3.5-5.1 xscu=709) CHLORIDE (BEAKER) (test 110 meq/L 98-107 sebx=566) CO2 (BEAKER) (test 26 meq/L 22-29 ydkq=923) BLOOD UREA NITROGEN 20 mg/dL 7-21 (BEAKER) (test xslb=287) CREATININE (BEAKER) (test 1.20 mg/dL 0.57-1.25 fndb=090) GLUCOSE RANDOM (BEAKER) 168 mg/dL 70-105 (test dflg=110) CALCIUM (BEAKER) (test 8.2 mg/dL 8.4-10.2 pgtg=894) EGFR (BEAKER) (test 59 mL/min/1.73 sq m ESTIMATED GFR IS NOT xzur=8388) ACCURATE CREATININE CLEARANCE IN PREDICTING GLOMERULAR FILTRATION RATE. ESTIMATED GFR IS NOT APPLICABLE FOR DIALYSIS PATIENTS. [id number] 13:28:00 Test Item Value Reference Range Comments PARTIAL THROMBOPLASTIN TIME (BEAKER) (test 45.9 seconds 22.5-36.0 jxfg=887) POCT-GLUCOSE [id number] 08:14:00 Test Item Value Reference Range Comments POC-GLUCOSE METER (BEAKER) 161 mg/dL 70-110 TESTED AT [facility] [address] (test xokr=9601) [place] [address] [id number] 02:19:00 Test Item Value Reference Range Comments PROTIME (BEAKER) (test whyb=062) 16.7 seconds 11.7-14.7 INR (BEAKER) (test tawc=173) 1.4 <=5.9 PARTIAL THROMBOPLASTIN TIME (BEAKER) (test 46.8 seconds 22.5-36.0 xhvl=827) RECOMMENDED COUMADIN/WARFARIN INR THERAPY RANGESSTANDARD DOSE: 2.0 - 3.0 Includes: PROPHYLAXIS forvenous thrombosis, systemic embolization; TREATMENT for venous thrombosis and/or pulmonary embolus.HIGH RISK: Target INR is 2.5-3.5 for patients with mechanical heart valves.CBC W/PLT COUNT & AUTO [id number] 02:03:00 Test Item Value Reference Range Comments WHITE BLOOD CELL COUNT (BEAKER) (test uomj=604) 8.5 K/ L 3.5-10.5 RED BLOOD CELL COUNT (BEAKER) (test sswg=247) 3.74 M/ L 4.63-6.08 HEMOGLOBIN (BEAKER) (test fvuf=348) 11.3 GM/DL 13.7-17.5 HEMATOCRIT (BEAKER) (test sfgb=714) 33.8 % 40.1-51.0 MEAN CORPUSCULAR VOLUME (BEAKER) (test vdbt=384) 90.4 fL 79.0-92.2 MEAN CORPUSCULAR HEMOGLOBIN (BEAKER) (test 30.2 pg 25.7-32.2 mtiw=792) MEAN CORPUSCULAR HEMOGLOBIN CONC (BEAKER) (test 33.4 GM/DL 32.3-36.5 dxry=014) RED CELL DISTRIBUTION WIDTH (BEAKER) (test 14.8 % 11.6-14.4 ilhi=739) PLATELET COUNT (BEAKER) (test tueq=483) 106 K/CU MM 150-450 MEAN PLATELET VOLUME (BEAKER) (test kejg=518) 10.5 fL 9.4-12.4 NUCLEATED RED BLOOD CELLS (BEAKER) (test 0 /100 WBC 0-0 uhyj=515) NEUTROPHILS RELATIVE PERCENT (BEAKER) (test 75 % uoen=870) LYMPHOCYTES RELATIVE PERCENT (BEAKER) (test 13 % bajp=440) MONOCYTES RELATIVE PERCENT (BEAKER) (test 9 % rodi=698) EOSINOPHILS RELATIVE PERCENT (BEAKER) (test 2 % aheo=080) BASOPHILS RELATIVE PERCENT (BEAKER) (test 0 % crtd=883) NEUTROPHILS ABSOLUTE COUNT (BEAKER) (test 6.37 K/ L 1.78-5.38 kfsg=472) LYMPHOCYTES ABSOLUTE COUNT (BEAKER) (test 1.11 K/ L 1.32-3.57 wihx=800) MONOCYTES ABSOLUTE COUNT (BEAKER) (test 0.80 K/ L 0.30-0.82 shps=283) EOSINOPHILS ABSOLUTE COUNT (BEAKER) (test 0.14 K/ L 0.04-0.54 wccl=778) BASOPHILS ABSOLUTE COUNT (BEAKER) (test 0.03 K/ L 0.01-0.08 qlch=628) IMMATURE GRANULOCYTES-RELATIVE PERCENT (BEAKER) 1 % 0-1 (test lfis=4045) CALCIUM, [id number] 01:53:00 Test Item Value Reference Range Comments CALCIUM IONIZED (BEAKER) (test fdpe=441) 1.03 mmol/L 1.12-1.27 PH, BLOOD (BEAKER) (test gzwa=5219) 7.44 POCT-GLUCOSE [id number] 23:21:00 Test Item Value Reference Range Comments POC-GLUCOSE METER (BEAKER) 140 mg/dL 70-110 TESTED AT [facility] [address] [facility] (test ppss=0463) [facility] [address] CBC W/PLT COUNT & AUTO [id number] 21:11:00 Test Item Value Reference Range Comments WHITE BLOOD CELL COUNT (BEAKER) (test gwur=183) 7.5 K/ L 3.5-10.5 RED BLOOD CELL COUNT (BEAKER) (test qdji=975) 3.71 M/ L 4.63-6.08 HEMOGLOBIN (BEAKER) (test fbkl=651) 11.2 GM/DL 13.7-17.5 HEMATOCRIT (BEAKER) (test ucly=162) 34.0 % 40.1-51.0 MEAN CORPUSCULAR VOLUME (BEAKER) (test lpbz=753) 91.6 fL 79.0-92.2 MEAN CORPUSCULAR HEMOGLOBIN (BEAKER) (test 30.2 pg 25.7-32.2 pqdo=493) MEAN CORPUSCULAR HEMOGLOBIN CONC (BEAKER) (test 32.9 GM/DL 32.3-36.5 gdvm=331) RED CELL DISTRIBUTION WIDTH (BEAKER) (test 14.8 % 11.6-14.4 honn=534) PLATELET COUNT (BEAKER) (test yrmh=676) 133 K/CU MM 150-450 MEAN PLATELET VOLUME (BEAKER) (test iqqi=863) 10.5 fL 9.4-12.4 NUCLEATED RED BLOOD CELLS (BEAKER) (test 0 /100 WBC 0-0 kgvg=203) NEUTROPHILS RELATIVE PERCENT (BEAKER) (test 68 % hule=154) LYMPHOCYTES RELATIVE PERCENT (BEAKER) (test 20 % zrxl=600) MONOCYTES RELATIVE PERCENT (BEAKER) (test 9 % octu=093) EOSINOPHILS RELATIVE PERCENT (BEAKER) (test 2 % fcef=303) BASOPHILS RELATIVE PERCENT (BEAKER) (test 0 % ywew=007) NEUTROPHILS ABSOLUTE COUNT (BEAKER) (test 5.07 K/ L 1.78-5.38 apbl=632) LYMPHOCYTES ABSOLUTE COUNT (BEAKER) (test 1.49 K/ L 1.32-3.57 goru=543) MONOCYTES ABSOLUTE COUNT (BEAKER) (test 0.69 K/ L 0.30-0.82 ehah=676) EOSINOPHILS ABSOLUTE COUNT (BEAKER) (test 0.15 K/ L 0.04-0.54 udem=623) BASOPHILS ABSOLUTE COUNT (BEAKER) (test 0.02 K/ L 0.01-0.08 blsy=273) IMMATURE GRANULOCYTES-RELATIVE PERCENT (BEAKER) 1 % 0-1 (test iypd=3741) POCT-GLUCOSE [id number] 20:06:00 Test Item Value Reference Range Comments POC-GLUCOSE METER (BEAKER) 112 mg/dL 70-110 TESTED AT [facility] [address] [facility] (test vcnl=8563) [facility] [address] [id number] 13:37:00 Test Item Value Reference Range Comments PARTIAL THROMBOPLASTIN TIME (BEAKER) (test 46.2 seconds 22.5-36.0 iwit=824) POCT-GLUCOSE [id number] 12:29:00 Test Item Value Reference Range Comments POC-GLUCOSE METER (BEAKER) 153 mg/dL 70-110 TESTED AT [facility] [address] (test lfui=9117) [facility] [address] COMPREHENSIVE METABOLIC [id number] 03:55:00 Test Item Value Reference Range Comments TOTAL PROTEIN (BEAKER) 6.3 gm/dL 6.0-8.3 (test mqal=966) ALBUMIN (BEAKER) (test 3.2 g/dL 3.5-5.0 yjwu=0090) ALKALINE PHOSPHATASE 55 U/L 40-150 (BEAKER) (test kgeu=170) BILIRUBIN TOTAL (BEAKER) 0.7 mg/dL 0.2-1.2 (test rjcn=933) SODIUM (BEAKER) (test 141 meq/L 136-145 trxt=048) POTASSIUM (BEAKER) (test 3.4 meq/L 3.5-5.1 zlbe=610) CHLORIDE (BEAKER) (test 107 meq/L 98-107 aokt=718) CO2 (BEAKER) (test 27 meq/L 22-29 eaou=478) BLOOD UREA NITROGEN 24 mg/dL 7-21 (BEAKER) (test fcps=699) CREATININE (BEAKER) (test 1.14 mg/dL 0.57-1.25 wuhv=230) GLUCOSE RANDOM (BEAKER) 143 mg/dL 70-105 (test uzxi=727) CALCIUM (BEAKER) (test 8.5 mg/dL 8.4-10.2 unor=530) AST (SGOT) (BEAKER) (test 18 U/L 5-34 sryw=588) ALT (SGPT) (BEAKER) (test 10 U/L 6-55 feiy=987) EGFR (BEAKER) (test 63 mL/min/1.73 sq m ESTIMATED GFR IS NOT tbnf=6166) ACCURATE CREATININE CLEARANCE IN PREDICTING GLOMERULAR FILTRATION RATE. ESTIMATED GFR IS NOT APPLICABLE FOR DIALYSIS PATIENTS. [id number] 03:49:00 Test Item Value Reference Range Comments PARTIAL THROMBOPLASTIN TIME (BEAKER) (test 63.4 seconds 22.5-36.0 kjtb=930) PROTHROMBIN [id number] 03:48:00 Test Item Value Reference Range Comments PROTIME (BEAKER) (test luha=941) 18.9 seconds 11.7-14.7 INR (BEAKER) (test qpem=718) 1.6 <=5.9 RECOMMENDED COUMADIN/WARFARIN INR THERAPY RANGESSTANDARD DOSE: 2.0 - 3.0 Includes: PROPHYLAXIS forvenous thrombosis, systemic embolization; TREATMENT for venous thrombosis and/or pulmonary embolus.HIGH RISK: Target INR is 2.5-3.5 for patients with mechanical heart valves.CBC W/PLT COUNT & AUTO [id number] 03:30:00 Test Item Value Reference Range Comments WHITE BLOOD CELL COUNT (BEAKER) (test rsrh=673) 6.4 K/ L 3.5-10.5 RED BLOOD CELL COUNT (BEAKER) (test qfqb=122) 4.20 M/ L 4.63-6.08 HEMOGLOBIN (BEAKER) (test zbnm=088) 12.3 GM/DL 13.7-17.5 HEMATOCRIT (BEAKER) (test idrm=474) 37.7 % 40.1-51.0 MEAN CORPUSCULAR VOLUME (BEAKER) (test rira=449) 89.8 fL 79.0-92.2 MEAN CORPUSCULAR HEMOGLOBIN (BEAKER) (test 29.3 pg 25.7-32.2 osud=276) MEAN CORPUSCULAR HEMOGLOBIN CONC (BEAKER) (test 32.6 GM/DL 32.3-36.5 dhkb=827) RED CELL DISTRIBUTION WIDTH (BEAKER) (test 14.5 % 11.6-14.4 ovqi=823) PLATELET COUNT (BEAKER) (test uyfx=671) 108 K/CU MM 150-450 MEAN PLATELET VOLUME (BEAKER) (test bbon=149) 10.2 fL 9.4-12.4 NUCLEATED RED BLOOD CELLS (BEAKER) (test 0 /100 WBC 0-0 duwt=078) NEUTROPHILS RELATIVE PERCENT (BEAKER) (test 64 % qrli=791) LYMPHOCYTES RELATIVE PERCENT (BEAKER) (test 24 % kjjj=034) MONOCYTES RELATIVE PERCENT (BEAKER) (test 8 % hogy=246) EOSINOPHILS RELATIVE PERCENT (BEAKER) (test 4 % krti=084) BASOPHILS RELATIVE PERCENT (BEAKER) (test 1 % emtf=780) NEUTROPHILS ABSOLUTE COUNT (BEAKER) (test 4.09 K/ L 1.78-5.38 naoo=303) LYMPHOCYTES ABSOLUTE COUNT (BEAKER) (test 1.51 K/ L 1.32-3.57 oukw=251) MONOCYTES ABSOLUTE COUNT (BEAKER) (test 0.51 K/ L 0.30-0.82 dyhc=180) EOSINOPHILS ABSOLUTE COUNT (BEAKER) (test 0.23 K/ L 0.04-0.54 wsdq=494) BASOPHILS ABSOLUTE COUNT (BEAKER) (test 0.03 K/ L 0.01-0.08 nspv=013) IMMATURE GRANULOCYTES-RELATIVE PERCENT (BEAKER) 0 % 0-1 (test huqf=4448) [id number] 19:35:00 Test Item Value Reference Range Comments PARTIAL THROMBOPLASTIN TIME (BEAKER) (test 58.0 seconds 22.5-36.0 tzex=770) POCT-GLUCOSE [id number] 16:44:00 Test Item Value Reference Range Comments POC-GLUCOSE METER (BEAKER) 163 mg/dL 70-110 TESTED AT [address] (test mgpk=8270) [place] [address] [id number] 13:23:00 Test Item Value Reference Range Comments PARTIAL THROMBOPLASTIN TIME (BEAKER) (test 48.8 seconds 22.5-36.0 abki=466) POCT-GLUCOSE [id number] 12:05:00 Test Item Value Reference Range Comments POC-GLUCOSE METER (BEAKER) 227 mg/dL 70-110 TESTED AT [address] (test exbg=3120) [place] [address] HEMOGLOBIN [id number] 10:44:00 Test Item Value Reference Range Comments HEMOGLOBIN A1C (BEAKER) (test ppnx=218) 7.9 % 4.3-6.1 POCT-GLUCOSE [id number] 06:27:00 Test Item Value Reference Range Comments POC-GLUCOSE METER (BEAKER) 119 mg/dL 70-110 TESTED AT [address] (test bosh=8090) [place] [id number] TSH/FREE T4 IF [id number] 04:00:00 Test Item Value Reference Range Comments THYROID STIMULATING HORMONE (BEAKER) (test 1.80 uIU/mL 0.35-4.94 odss=206) CALCIUM, [id number] 04:00:00 Test Item Value Reference Range Comments CALCIUM IONIZED (BEAKER) (test cqxy=815) 1.04 mmol/L 1.12-1.27 PH, BLOOD (BEAKER) (test twxr=3471) 7.52 [id number] 03:44:00 Test Item Value Reference Range Comments PHOSPHORUS (BEAKER) (test ltrs=071) 3.2 mg/dL 2.3-4.7 [id number] 03:44:00 Test Item Value Reference Range Comments MAGNESIUM (BEAKER) (test cqnm=939) 1.9 mg/dL 1.6-2.6 COMPREHENSIVE METABOLIC [id number] 03:44:00 Test Item Value Reference Range Comments TOTAL PROTEIN (BEAKER) 7.0 gm/dL 6.0-8.3 (test yudo=405) ALBUMIN (BEAKER) (test 3.5 g/dL 3.5-5.0 bkez=7762) ALKALINE PHOSPHATASE 59 U/L 40-150 (BEAKER) (test jkbs=679) BILIRUBIN TOTAL (BEAKER) 1.0 mg/dL 0.2-1.2 (test bkps=752) SODIUM (BEAKER) (test 141 meq/L 136-145 ebbk=257) POTASSIUM (BEAKER) (test 3.5 meq/L 3.5-5.1 akei=567) CHLORIDE (BEAKER) (test 103 meq/L 98-107 gexz=318) CO2 (BEAKER) (test 29 meq/L 22-29 nysu=938) BLOOD UREA NITROGEN 32 mg/dL 7-21 (BEAKER) (test hkjf=198) CREATININE (BEAKER) (test 1.34 mg/dL 0.57-1.25 swxe=043) GLUCOSE RANDOM (BEAKER) 101 mg/dL 70-105 (test qqox=681) CALCIUM (BEAKER) (test 9.5 mg/dL 8.4-10.2 vykz=225) AST (SGOT) (BEAKER) (test 21 U/L 5-34 zgoo=102) ALT (SGPT) (BEAKER) (test 11 U/L 6-55 anlg=023) EGFR (BEAKER) (test 52 mL/min/1.73 sq m ESTIMATED GFR IS NOT pjol=2536) ACCURATE CREATININE CLEARANCE IN PREDICTING GLOMERULAR FILTRATION RATE. ESTIMATED GFR IS NOT APPLICABLE FOR DIALYSIS PATIENTS. PROTHROMBIN [id number] 03:33:00 Test Item Value Reference Range Comments PROTIME (BEAKER) (test zpun=786) 19.1 seconds 11.7-14.7 INR (BEAKER) (test wrtp=990) 1.6 <=5.9 RECOMMENDED COUMADIN/WARFARIN INR THERAPY RANGESSTANDARD DOSE: 2.0 - 3.0 Includes: PROPHYLAXIS forvenous thrombosis, systemic embolization; TREATMENT for venous thrombosis and/or pulmonary embolus.HIGH RISK: Target INR is 2.5-3.5 for patients with mechanical heart valves.[id number] 03:33:00 Test Item Value Reference Range Comments PARTIAL THROMBOPLASTIN TIME (BEAKER) (test 45.2 seconds 22.5-36.0 dqap=109) CBC W/PLT COUNT & AUTO [id number] 03:32:00 Test Item Value Reference Range Comments WHITE BLOOD CELL COUNT (BEAKER) (test weks=891) 8.9 K/ L 3.5-10.5 RED BLOOD CELL COUNT (BEAKER) (test fnod=376) 4.61 M/ L 4.63-6.08 HEMOGLOBIN (BEAKER) (test rbvn=803) 13.6 GM/DL 13.7-17.5 HEMATOCRIT (BEAKER) (test tzao=788) 41.0 % 40.1-51.0 MEAN CORPUSCULAR VOLUME (BEAKER) (test wofp=398) 88.9 fL 79.0-92.2 MEAN CORPUSCULAR HEMOGLOBIN (BEAKER) (test 29.5 pg 25.7-32.2 vewx=094) MEAN CORPUSCULAR HEMOGLOBIN CONC (BEAKER) (test 33.2 GM/DL 32.3-36.5 acfi=815) RED CELL DISTRIBUTION WIDTH (BEAKER) (test 14.5 % 11.6-14.4 hdqb=430) PLATELET COUNT (BEAKER) (test piee=351) 140 K/CU MM 150-450 MEAN PLATELET VOLUME (BEAKER) (test qxcc=734) 10.0 fL 9.4-12.4 NUCLEATED RED BLOOD CELLS (BEAKER) (test 0 /100 WBC 0-0 naml=600) NEUTROPHILS RELATIVE PERCENT (BEAKER) (test 68 % vnfh=823) LYMPHOCYTES RELATIVE PERCENT (BEAKER) (test 21 % awpv=689) MONOCYTES RELATIVE PERCENT (BEAKER) (test 9 % djye=416) EOSINOPHILS RELATIVE PERCENT (BEAKER) (test 1 % rpgu=058) BASOPHILS RELATIVE PERCENT (BEAKER) (test 0 % lubn=188) NEUTROPHILS ABSOLUTE COUNT (BEAKER) (test 6.04 K/ L 1.78-5.38 lldq=671) LYMPHOCYTES ABSOLUTE COUNT (BEAKER) (test 1.89 K/ L 1.32-3.57 qoub=590) MONOCYTES ABSOLUTE COUNT (BEAKER) (test 0.81 K/ L 0.30-0.82 uzzd=383) EOSINOPHILS ABSOLUTE COUNT (BEAKER) (test 0.09 K/ L 0.04-0.54 zovl=689) BASOPHILS ABSOLUTE COUNT (BEAKER) (test 0.03 K/ L 0.01-0.08 imla=881) IMMATURE GRANULOCYTES-RELATIVE PERCENT (BEAKER) 0 % 0-1 (test ptxc=3883) COMPREHENSIVE METABOLIC [id number] 21:39:00 Test Item Value Reference Range Comments TOTAL PROTEIN (BEAKER) 7.3 gm/dL 6.0-8.3 (test yekk=052) ALBUMIN (BEAKER) (test 3.6 g/dL 3.5-5.0 sxzb=2012) ALKALINE PHOSPHATASE 71 U/L 40-150 (BEAKER) (test sanh=303) BILIRUBIN TOTAL (BEAKER) 0.9 mg/dL 0.2-1.2 (test xged=009) SODIUM (BEAKER) (test 139 meq/L 136-145 catv=395) POTASSIUM (BEAKER) (test 3.2 meq/L 3.5-5.1 gjtz=676) CHLORIDE (BEAKER) (test 99 meq/L 98-107 csgp=359) CO2 (BEAKER) (test 26 meq/L 22-29 yklz=524) BLOOD UREA NITROGEN 35 mg/dL 7-21 (BEAKER) (test ybme=068) CREATININE (BEAKER) (test 1.52 mg/dL 0.57-1.25 ytvj=986) GLUCOSE RANDOM (BEAKER) 198 mg/dL 70-105 (test dnbo=671) CALCIUM (BEAKER) (test 9.4 mg/dL 8.4-10.2 kbpg=425) AST (SGOT) (BEAKER) (test 20 U/L 5-34 vhrf=889) ALT (SGPT) (BEAKER) (test 12 U/L 6-55 nexl=717) EGFR (BEAKER) (test 45 mL/min/1.73 sq m ESTIMATED GFR IS NOT qqws=3843) ACCURATE CREATININE CLEARANCE IN PREDICTING GLOMERULAR FILTRATION RATE. ESTIMATED GFR IS NOT APPLICABLE FOR DIALYSIS PATIENTS. [id number] 21:33:00 Test Item Value Reference Range Comments PARTIAL THROMBOPLASTIN TIME (BEAKER) (test 30.3 seconds 22.5-36.0 fzth=406) Prior to initiating heparinPROTHROMBIN TIME/[id number] 21:32:00 Test Item Value Reference Range Comments PROTIME (BEAKER) (test jhih=747) 19.1 seconds 11.7-14.7 INR (BEAKER) (test kkdb=817) 1.6 <=5.9 RECOMMENDED COUMADIN/WARFARIN INR THERAPY RANGESSTANDARD DOSE: 2.0 - 3.0 Includes: PROPHYLAXIS forvenous thrombosis, systemic embolization; TREATMENT for venous thrombosis and/or pulmonary embolus.HIGH RISK: Target INR is 2.5-3.5 for patients with mechanical heart valves.[id number] 21:32:00 Test Item Value Reference Range Comments FIBRINOGEN LEVEL (BEAKER) (test llhp=002) 370 mg/dl 225-434 CBC W/PLT COUNT & AUTO [id number] 21:23:00 Test Item Value Reference Range Comments WHITE BLOOD CELL COUNT (BEAKER) (test cwzt=757) 8.7 K/ L 3.5-10.5 RED BLOOD CELL COUNT (BEAKER) (test kcau=577) 4.79 M/ L 4.63-6.08 HEMOGLOBIN (BEAKER) (test rmlb=397) 14.1 GM/DL 13.7-17.5 HEMATOCRIT (BEAKER) (test ngnq=506) 42.7 % 40.1-51.0 MEAN CORPUSCULAR VOLUME (BEAKER) (test dotr=603) 89.1 fL 79.0-92.2 MEAN CORPUSCULAR HEMOGLOBIN (BEAKER) (test 29.4 pg 25.7-32.2 izrk=483) MEAN CORPUSCULAR HEMOGLOBIN CONC (BEAKER) (test 33.0 GM/DL 32.3-36.5 urbf=092) RED CELL DISTRIBUTION WIDTH (BEAKER) (test 14.4 % 11.6-14.4 rket=670) PLATELET COUNT (BEAKER) (test kyka=405) 154 K/CU MM 150-450 MEAN PLATELET VOLUME (BEAKER) (test zooz=245) 10.2 fL 9.4-12.4 NUCLEATED RED BLOOD CELLS (BEAKER) (test 0 /100 WBC 0-0 cikd=185) NEUTROPHILS RELATIVE PERCENT (BEAKER) (test 73 % dgmm=644) LYMPHOCYTES RELATIVE PERCENT (BEAKER) (test 17 % chfy=744) MONOCYTES RELATIVE PERCENT (BEAKER) (test 8 % tqvf=955) EOSINOPHILS RELATIVE PERCENT (BEAKER) (test 1 % udro=086) BASOPHILS RELATIVE PERCENT (BEAKER) (test 0 % dpqs=961) NEUTROPHILS ABSOLUTE COUNT (BEAKER) (test 6.33 K/ L 1.78-5.38 ndwi=191) LYMPHOCYTES ABSOLUTE COUNT (BEAKER) (test 1.50 K/ L 1.32-3.57 mxwc=487) MONOCYTES ABSOLUTE COUNT (BEAKER) (test 0.71 K/ L 0.30-0.82 htwi=238) EOSINOPHILS ABSOLUTE COUNT (BEAKER) (test 0.08 K/ L 0.04-0.54 zxqi=377) BASOPHILS ABSOLUTE COUNT (BEAKER) (test 0.03 K/ L 0.01-0.08 ufyh=458) IMMATURE GRANULOCYTES-RELATIVE PERCENT (BEAKER) 0 % 0-1 (test npmt=2203) POCT-GLUCOSE [id number] 21:22:00 Test Item Value Reference Range Comments POC-GLUCOSE METER (BEAKER) 228 mg/dL 70-110 TESTED AT [facility] [id number] [facility] (test vnhx=3450) [facility] [id number]
--- NOTE | 2018-12-09 21:37 | ER ---
Nurse's Notes [facility] Name: Odilon Ferrara Age: 73 yrs Sex: Male : 1945 Arrival Date: 12/09/2018 Time: 19:27 Bed 5 Private MD: Mor Easley C Diagnosis: Pain in left leg Presentation: 12/09 19:42 Presenting complaint: Patient states: I was on my feet all day and now I have tl2 discomfort in my left leg. I had a blood clot in my L leg in August so I want to get it checked. Transition of care: patient was not received from another setting of care. Onset of symptoms was December 09, 2018. Risk Assessment: Do you want to hurt yourself or someone else? Patient reports no desire to harm self or others. Initial Sepsis Screen: Does the patient meet any 2 criteria? No. Patient's initial sepsis screen is negative. Does the patient have a suspected source of infection? No. Patient's initial sepsis screen is negative. Care prior to arrival: None. 19:42 Method Of Arrival: Wheelchair tl2 19:42 Acuity: TYLOR 3 tl2 Triage Assessment: 19:45 General: Appears in no apparent distress. comfortable, Behavior is calm, cooperative, tl2 appropriate for age. Pain: Complains of pain in left leg. Historical: - Allergies: 19:45 No Known Allergies; tl2 - Home Meds: 19:45 aspirin 81 mg Oral TbEC 1 tab once daily [Active]; glimepiride 2 mg Oral tab 2 tabs tl2 with breakfast , 1 tab with dinner [Active]; metformin 1,000 mg Oral tab 1 tab 2 times per day [Active]; metoprolol succinate 50 mg Oral Tb24 1 tab twice a day [Active]; furosemide 80 mg Oral tab 2 times per day [Active]; spironolactone 25 mg Oral tab 1 tab 2 times per day [Active]; metolazone 5 mg Oral tab 1 tab once daily [Active]; oxybutynin chloride 10 mg Oral tr24 1 tab once daily [Active]; simvastatin 40 mg Oral tab 1 tab once daily [Active]; ursodiol 300 mg Oral cap 1 cap 2 times per day [Active]; - PMHx: 19:45 Atrial Fib; Diabetes - NIDDM; High Cholesterol; DVT; tl2 - Immunization history:: Adult Immunizations up to date. - Social history:: Smoking status: Patient/guardian denies using tobacco. - Ebola Screening: : No symptoms or risks identified at this time. Screenin:51 Abuse screen: Denies threats or abuse. Denies injuries from another. Nutritional aj1 screening: No deficits noted. Tuberculosis screening: No symptoms or risk factors identified. 21:39 Fall Risk None identified. ak1 Assessment: 19:51 General: Appears in no apparent distress. comfortable, Behavior is calm, cooperative, aj1 appropriate for age. Pain: Complains of pain in left leg. Neuro: Level of Consciousness is awake, alert, obeys commands, Oriented to person, place, time, situation. Cardiovascular: Patient's skin is warm and dry. Respiratory: Airway is patent. GI: No signs and/or symptoms were reported involving the gastrointestinal system. : No signs and/or symptoms were reported regarding the genitourinary system. EENT: No signs and/or symptoms were reported regarding the EENT system. Derm: Skin is pink, warm \T\ dry. normal. Musculoskeletal: Circulation, motion, and sensation intact. Range of motion: intact in all extremities. 21:00 Reassessment: Patient appears in no apparent distress at this time. No changes from aj1 previously documented assessment. Patient and/or family updated on plan of care and expected duration. Pain level reassessed. Patient is alert, oriented x 3, equal unlabored respirations, skin warm/dry/pink. Vital Signs: 19:45 BP 146 / 98; Pulse 84; Resp 18; Temp 97.7(O); Pulse Ox 95% on R/A; Weight 136.08 kg; tl2 Height 6 ft. 0 in. (182.88 cm); Pain 1/; 21:01 BP 125 / 76; Pulse 74; Resp 16; Pulse Ox 98% on R/A; mt 19:45 Body Mass Index 40.69 (136.08 kg, 182.88 cm) tl2 ED Course: 19:27 Patient arrived in ED. es 19:28 Mor Easley MD is Private Physician. es 19:28 Andres Grijalva MD is Attending Physician. tw4 19:36 Connie Lindo RN is Primary Nurse. aj1 19:43 Triage completed. tl2 19:45 Arm band placed on right wrist. tl2 19:46 Patient has correct armband on for positive identification. Placed in gown. Bed in low tl2 position. Call light in reach. Side rails up X 1. Adult w/ patient. 19:51 No provider procedures requiring assistance completed. aj1 20:20 Ultrasound completed. Patient tolerated well. Notified ED Physician arnulfo. sg3 21:36 Mor Easley MD is Referral Physician. tw4 21:46 Patient did not have IV access during this emergency room visit. aj1 Administered Medications: No medications were administered Outcome: 21:37 Discharge ordered by MD. tw4 21:46 Discharged to home ambulatory. aj1 21:46 Condition: good 21:46 Discharge instructions given to patient, Instructed on discharge instructions, follow up and referral plans. Demonstrated understanding of instructions, follow-up care. 21:46 Patient left the ED. aj1 Signatures: Michelle Yeh, RN Connie Berman ch RN RN aj1 Esha Chamorro Amber RN RN christi1 Lolis Pablo RN RN tl2 Tianna Moncada mt, Sarah sg3 Andres Grijalva MD MD tw4 Corrections: (The following items were deleted from the chart) 43 19:41 Presenting complaint: Patient states: I was on my feet all day and now i have tl2 some discomfort in my left leg. I had a blood clot in my left leg in August so I just want to get it checked 19:43 19:41 Onset of symptoms was December 09, 2018 [facility] 43 19:41 Transition of care: patient was not received from another setting of care. [facility] 19:43 19:41 Method Of Arrival: Wheelchair [facility]
--- NOTE | 2018-12-09 21:37 | EDPHYS ---
Physician Documentation [facility] Name: Odilon Ferrara Age: 73 yrs Sex: Male : 1945 Arrival Date: 12/09/2018 Time: 19:27 Bed 5 Private MD: Mor Easley C ED Physician Andres Grijalva HPI: 12/10 07:02 This 73 yrs old Male presents to ER via Wheelchair with complaints of [place] tw4 leg for clot. 07:02 The patient presents with pain, that is acute. The complaints affect the lateral aspect tw4 of left calf, left calf, medial aspect of left calf and left anderson. Context: The problem was sustained at home. Onset: The symptoms/episode began/occurred today. Modifying factors: The symptoms are alleviated by nothing. the symptoms are aggravated by nothing. Severity of symptoms: At their worst the symptoms were moderate, in the emergency department the symptoms are unchanged. The patient has not experienced similar symptoms in the past. Historical: - Allergies: 12/09 19:45 No Known Allergies; tl2 - Home Meds: 19:45 aspirin 81 mg Oral TbEC 1 tab once daily [Active]; glimepiride 2 mg Oral tab 2 tabs tl2 with breakfast , 1 tab with dinner [Active]; metformin 1,000 mg Oral tab 1 tab 2 times per day [Active]; metoprolol succinate 50 mg Oral Tb24 1 tab twice a day [Active]; furosemide 80 mg Oral tab 2 times per day [Active]; spironolactone 25 mg Oral tab 1 tab 2 times per day [Active]; metolazone 5 mg Oral tab 1 tab once daily [Active]; oxybutynin chloride 10 mg Oral tr24 1 tab once daily [Active]; simvastatin 40 mg Oral tab 1 tab once daily [Active]; ursodiol 300 mg Oral cap 1 cap 2 times per day [Active]; - PMHx: 19:45 Atrial Fib; Diabetes - NIDDM; High Cholesterol; DVT; tl2 - Immunization history:: Adult Immunizations up to date. - Social history:: Smoking status: Patient/guardian denies using tobacco. - Ebola Screening: : No symptoms or risks identified at this time. ROS: 12/10 07:02 Constitutional: Negative for fever, chills, and weight loss, Eyes: Negative for injury, tw4 pain, redness, and discharge, Cardiovascular: Negative for chest pain, palpitations, and edema, Respiratory: Negative for shortness of breath, cough, wheezing, and pleuritic chest pain, Abdomen/GI: Negative for abdominal pain, nausea, vomiting, diarrhea, and constipation, Back: Negative for injury and pain, Skin: Negative for injury, rash, and discoloration, Neuro: Negative for headache, weakness, numbness, tingling, and seizure. MS/extremity: Positive for pain, Negative for injury or acute deformity, abrasion, contusion, decreased range of motion, deformity, ecchymosis, erythema, laceration, puncture, swelling, tenderness. Exam: 07:02 Constitutional: This is a well developed, well nourished patient who is awake, alert, tw4 and in no acute distress. Head/Face: Normocephalic, atraumatic. Chest/axilla: Normal chest wall appearance and motion. Nontender with no deformity. No lesions are appreciated. Cardiovascular: Regular rate and rhythm with a normal S1 and S2. No gallops, murmurs, or rubs. Normal PMI, no JVD. No pulse deficits. Respiratory: Lungs have equal breath sounds bilaterally, clear to auscultation and percussion. No rales, rhonchi or wheezes noted. No increased work of breathing, no retractions or nasal flaring. Abdomen/GI: Soft, non-tender, with normal bowel sounds. No distension or tympany. No guarding or rebound. No evidence of tenderness throughout. Back: No spinal tenderness. No costovertebral tenderness. Full range of motion. MS/ Extremity: Pulses equal, no cyanosis. Neurovascular intact. Full, normal range of motion. Neuro: Awake and alert, GCS 15, oriented to person, place, time, and situation. Cranial nerves II-XII grossly intact. Motor strength 5/5 in all extremities. Sensory grossly intact. Cerebellar exam normal. Normal gait. Vital Signs: 12/09 19:45 BP 146 / 98; Pulse 84; Resp 18; Temp 97.7(O); Pulse Ox 95% on R/A; Weight 136.08 kg; tl2 Height 6 ft. 0 in. (182.88 cm); Pain 1/10; 21:01 BP 125 / 76; Pulse 74; Resp 16; Pulse Ox 98% on R/A; mt 19:45 Body Mass Index 40.69 (136.08 kg, 182.88 cm) tl2 MDM: 19:39 Patient medically screened. tw4 12/10 07:02 Differential diagnosis: dislocation, contusion, abrasion. Data reviewed: vital signs, tw4 nurses notes. Counseling: I had a detailed discussion with the patient and/or guardian regarding: the historical points, exam findings, and any diagnostic results supporting the discharge/admit diagnosis, radiology results. ED course: Doppler negative for DVT. 12/09 19:34 Order name: Extremity Venous Uni Ltd tw4 Administered Medications: No medications were administered Disposition: 12/09/18 21:37 Discharged to Home. Impression: Pain in left leg. - Condition is Stable. - Discharge Instructions: Leg Cramps, Pain Without a Known Cause. - Medication Reconciliation Form, Thank You Letter, Antibiotic Education, Prescription Opioid Use form. - Follow up: Mor Easley MD; When: Upon discharge from the Emergency Department; Reason: If symptoms return, Recheck today's complaints, Continuance of care. - Problem is new. - Symptoms have improved. Signatures: Dispatcher [employer] EDMS Connie Lindo RN RN aj1 Lolis Pablo RN RN tl2 Andres Grijalva MD MD tw4 Corrections: (The following items were deleted from the chart) 12/09 21:46 21:37 12/09/2018 21:37 Discharged to Home. Impression: Pain in left leg. Condition is aj1 Stable. Forms are Medication Reconciliation Form, Thank You Letter, Antibiotic Education, Prescription Opioid Use. Follow up: Mor Easley; When: Upon discharge from the Emergency Department; Reason: If symptoms return, Recheck today's complaints, Continuance of care. Problem is new. Symptoms have improved. tw4
[2018-12-09 22:48] VITALS: TEMP 97.7
[2018-12-09 23:02] VITALS: BP 125/76; O2SAT 98
--- NOTE | 2018-12-10 11:40 | RAD REPORT ---
EXAM DESCRIPTION: US - Extremity Venous Uni Ltd - 12/09/2018 8:51 pm CLINICAL HISTORY: SWELLING Leg swelling and edema. COMPARISON: Extrem Venous W Compress Tarun dated 08/15/2018 FINDINGS: Left lower extremity venous system was interrogated with Doppler technique. Normal flow, c ompressibility and augmentation was noted. There is no DVT present. IMPRESSION: No evidence of left lower extremity deep venous thrombosis.
== END 2018-12-09 21:46 | disposition home or self-care (01) ==
LOC: ER 19:24
DX: M79.605 Pain in left leg (principal); E11.9 Type 2 diabetes mellitus without complications; I48.91 Unspecified atrial fibrillation; Z79.01 Long term (current) use of anticoagulants; Z79.82 Long term (current) use of aspirin; Z86.718 Personal history of other venous thrombosis and embolism
CPT/HCPCS: 93971; 99281

== ENCOUNTER 2019-08-23 08:58 | Day surgery (SDC) | payer OTHER ==
--- NOTE | 2019-08-22 13:24 | RAD REPORT ---
EXAM DESCRIPTION: RAD - Chest Pa And Lat (2 Views) - 08/22/2019 1:13 pm CLINICAL HISTORY: preop Chest pain. COMPARISON: Chest Single View dated 08/15/2018; Chest Single View dated 05/01/2018; Chest Pa And Lat (2 Views) dated 09/01/2017; Chest Pa And Lat (2 Views) dated 11/21/2016 FINDINGS: The lungs are clear. The heart is mildly enlarged in size. No displaced fractures. IMPRESSION: Mild cardiomegaly.
[2019-08-22 14:03] LABS: Absolute Lymphocytes (CBC) 1.2 K/uL (0.7-4.9); Basophils % 0.3 % (0-1.3); Hematocrit 40.2 % (39.6-49.0); Lymphocytes % 17.3 % (15.3-44.8); MPV 8.9 fL (7.6-11.3); RBC Red Blood Cell Count 4.66 M/uL (4.33-5.43)
[2019-08-22 14:08] LABS: Protime INR 2.03
--- OUTSIDE RECORDS SUMMARY | 2019-08-23 09:02 | XMS REPORT | Summary of Care ---
:1945 Author Organization [facility] [place] [address] Care Team Providers Name Role Phone Enoch Jane MD Subspecialist-Non [facility] Reason for Visit Reason Comments Diabetic Foot Care Encounter Details Date Type Department Care Team Description 04/25/2019 Office Visit [facility] - Ludwin Quinn Diabetic Foot Care Department of Surgery CLAIRE Marte [address] [facility] [address] [place] [address] [place] [address] [phone] Allergies No Known Allergiesdocumented as of this encounter (statuses as of 05/07/2019) Medications Medication Sig Dispensed Refills Start Date End Date Status furosemide (LASIX) 80 Take 40 mg by 0 08/19/2018 Active MG tablet mouth. aspirin EC 81 MG TBEC Take 81 mg by 0 Active mouth. metformin (GLUCOPHAGE) Take 1,000 mg by 0 Active 1000 MG tablet mouth. metolazone (ZAROXOLYN) Take 10 mg by 0 Active 5 MG tablet mouth. glimepiride (AMARYL) 2 TAKE 2 TABLETS BY 3 08/03/2018 Active MG tablet MOUTH WITH BREAKFAST AND 1 TABLET BY MOUTH WITH DINNER metoprolol (TOPROL-XL) Take 50 mg by 0 Active 50 MG XL tablet mouth. oxybutynin Take 10 mg by 0 Active (DITROPAN-XL) 10 MG CR mouth. tablet simvastatin (ZOCOR) 40 Take 40 mg by 0 Active MG tablet mouth. spironolactone TAKE 1 TABLET BY 3 07/14/2018 Active (ALDACTONE) 25 MG MOUTH TWICE A DAY tablet ursodiol (ACTIGALL) 300 Take 300 mg by 0 Active MG capsule mouth. ELIQUIS 5 MG TABS TAKE 1 TABLET BY 60 Tab 0 01/26/2019 Active MOUTH TWICE A DAY documented as of this encounter (statuses as of 05/07/2019) Active Problems Not on filedocumented as of this encounter (statuses as of 05/07/2019) Social History Tobacco Use Types Packs/Day Years Used Date Never Smoker Smokeless Tobacco: Never Used Alcohol Use Drinks/Week oz/Week Comments No Alcohol Habits Answer Date Recorded How often do you have a drink containing alcohol? Never 09/13/2018 How many drinks containing alcohol do you [...] Travel End No recent travel history available. documented as of this encounter Last Filed Vital Signs Vital Sign Reading Time Taken Comments Blood Pressure 129/71 04/25/2019 2:38 PM CDT Pulse 74 04/25/2019 2:38 PM CDT Temperature - - Respiratory Rate 16 04/25/2019 2:38 PM CDT Oxygen Saturation - - Inhaled Oxygen Concentration - - Weight 136.1 kg (300 lb) 04/25/2019 2:38 PM CDT Height - - Body Mass Index 40.69 01/24/2019 3:04 PM CDT documented in this encounter Patient Instructions Patient InstructionsThRachael shafer CMA - 04/25/2019 3:05 PM CDTThank you for choosing [facility]. You may receive a survey in the mail. Please provide comments to let us know how we can improve our patient care. Instructions for your care: Patient will follow up in July Ludwin Siegel DPM electrical mechanical technician Division of Vascular Surgery and Endovascular Therapy If you have any questions, please feel free to call us at: documented in this encounter Progress Notes Ludwin Siegel DPM - 04/25/2019 2:45 PM CDT Subjective: Mr. Odilon Ferrara is a pleasant 73 y.o. T2DM male who returns to the clinic today for follow up to high-risk foot care. Chief Complaint Patient presents with Diabetic Foot Care He has complaints of painful thickened and elongated nails of bilateral feet that he is unable trim his own.. He states that his symptoms are present daily and made worse with shoe gear. He denies anyfurther complaints today. Objective: Diabetic Foot Exam: Performed Lower Ext: Ortho: Digital contracture present bilaterally, Muscle strength 5/5 bilateral. Range of motion within normal limits, tenderness to palpation noted nails 1-10 as well as to the medial aspect of the 5thdigit of the b/l foot. Neuro: Protective threshhold intact bilateral. CFT < 3 sec bilateral. Sharp/Dull sensation: is not intact. Vibratory: is not intact. Monofilament Wire: is intact. Hot/Cold Testing: is not intact. Vasc: D.P.pulses Right: 1+ Left: 1+ P.T.pulses Right: 1+ Left: 1+ CRTless than 3 seconds Skin temperature: warm to warm proximal to distal Edema: absent Digital hair growth: absent Derm: Skin is shiny and taught , no open skin lesions are noted, webspaces are clear, nails are thick and elongated 1-10., +HPK lesions is noted medial aspect of the 5th digit b/l. Assessment/Plan: Encounter Diagnosis and Orders ICD-10-CM 1. Diabetic sensorimotor neuropathy E11.42 Diabetic foot patient education was reinforced. 2. 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 Keratosis L57.0 Lesions were debrided x2 4. PAD (peripheral artery disease) I73.9 5. Onychomycosis B35.1 Nails were sharply debrided 1-10 with out incident 6. Pain in soft tissues of limb M79.609 Ludwin Siegel DPM documented in this encounter Plan of Treatment Date Type Specialty Care Team Description 07/25/2019 Ancillary Procedure Vascular Surgery 07/25/2019 Office Visit Vascular Surgery Sheng Flores MD [address] [facility] [address] [place] [id number] 07/25/2019 Office Visit Vascular Surgery Ludwin Siegel, CLAIRE [address] [place] [address] Health Maintenance Due Date Last Done Comments COLON CANCER SCREENING: COLONOSCOPY 1945 MEDICARE AWV 1945 TETANUS SHOT (ADULT) 1958 ANNUAL DIABETIC RETINOPATHY SCREENING 1961 BMI FOLLOW UP PLAN 1961 FALL SCREEN 2008 PNEUMOVAX >=65 (PPSV23) 2008 PREVNAR >=65 (PCV13) 2008 FLU VACCINE > 6 MONTHS 05/03/2019 ANNUAL DIABETIC FOOT EXAM 01/25/2020 01/24/2019 documented as of this encounter Results Not on filedocumented in this encounter Visit Diagnoses Diagnosis Diabetic sensorimotor neuropathy - Primary Type II or unspecified type diabetes mellitus with neurological manifestations , not stated as uncontrolled Hammer toes of both feet Keratosis Acquired keratoderma PAD (peripheral artery disease) Unspecified disorders of arteries and arterioles Onychomycosis Dermatophytosis of nail Pain in soft tissues of limb Pain in limb documented in this encounter Insurance Payer Benefit Plan / Subscriber ID Effective Dates Phone Address Type Group MEDICARE MEDICARE PART xxxxxxxxxx 2008-Prese [address] Medicare A & B - nt [place], [place] MEDICARE [id number] Alerts LIFE & Alerts LIFE & xxxxxxxxx 2009-Presen [address] PPO CASUALTY CASUALTY [place] [phone] documented as of this encounter
--- OUTSIDE RECORDS SUMMARY | 2019-08-23 09:02 | XMS REPORT ---
:1945 [facility] Organization [facility] Address [address] [place] [address] [address]. [address] [place] [address] Care Team Providers Name Role Phone CARO [...] UREA NITROGEN (BEAKER) 18 mg/dL 7-21 (test qvne=880) CREATININE (BEAKER) (test 1.57 mg/dL 0.57-1.25 Specimen slightly hemolyzed ircu=501) EGFR (BEAKER) (test 43 mL/min/1.73 sq m ESTIMATED GFR IS NOT kgmi=4245) ACCURATE CREATININE CLEARANCE IN PREDICTING GLOMERULAR FILTRATION RATE. ESTIMATED GFR IS NOT APPLICABLE FOR DIALYSIS PATIENTS. POCT-GLUCOSE [id number] 12:55:00 Test Item Value Reference Range Comments POC-GLUCOSE METER (BEAKER) 222 mg/dL 70-110 TESTED AT [facility] [address] [facility] (test ziei=6880) [facility] [address] POCT-GLUCOSE [id number] 08:17:00 Test Item Value Reference Range Comments POC-GLUCOSE METER (BEAKER) 155 mg/dL 70-110 TESTED AT [facility] [address] [facility] (test blqd=4883) [facility] [address] CALCIUM, [id number] 05:41:00 Test Item Value Reference Range Comments CALCIUM IONIZED (BEAKER) (test qrsi=308) 0.97 mmol/L 1.12-1.27 PH, BLOOD (BEAKER) (test emji=9178) 7.46 [id number] 04:53:00 Test Item Value Reference Range Comments PARTIAL THROMBOPLASTIN TIME (BEAKER) (test 66.8 seconds 22.5-36.0 kdfk=632) PROTHROMBIN [id number] 04:51:00 Test Item Value Reference Range Comments PROTIME (BEAKER) (test lekf=932) 16.2 seconds 11.7-14.7 INR (BEAKER) (test vtru=336) 1.3 <=5.9 RECOMMENDED COUMADIN/WARFARIN INR THERAPY RANGESSTANDARD DOSE: 2.0 - 3.0 Includes: PROPHYLAXIS forvenous thrombosis, systemic embolization; TREATMENT for venous thrombosis and/or pulmonary embolus.HIGH RISK: Target INR is 2.5-3.5 for patients with mechanical heart valves.CBC (HEMOGRAM ONLY)2018-08-19 04:46:00 Test Item Value Reference Range Comments WHITE BLOOD CELL COUNT (BEAKER) (test xbkk=734) 7.9 K/ L 3.5-10.5 RED BLOOD CELL COUNT (BEAKER) (test qhkj=032) 3.55 M/ L 4.63-6.08 HEMOGLOBIN (BEAKER) (test rcrr=968) 10.4 GM/DL 13.7-17.5 HEMATOCRIT (BEAKER) (test ggtp=628) 32.1 % 40.1-51.0 MEAN CORPUSCULAR VOLUME (BEAKER) (test rqdv=969) 90.4 fL 79.0-92.2 MEAN CORPUSCULAR HEMOGLOBIN (BEAKER) (test 29.3 pg 25.7-32.2 kgwi=822) MEAN CORPUSCULAR HEMOGLOBIN CONC (BEAKER) (test 32.4 GM/DL 32.3-36.5 ztgu=940) RED CELL DISTRIBUTION WIDTH (BEAKER) (test 14.9 % 11.6-14.4 tbiq=971) PLATELET COUNT (BEAKER) (test zuce=733) 112 K/CU MM 150-450 MEAN PLATELET VOLUME (BEAKER) (test thlj=060) 10.3 fL 9.4-12.4 NUCLEATED RED BLOOD CELLS (BEAKER) (test 0 /100 WBC 0-0 vsjb=414) [id number] 22:20:00 Test Item Value Reference Range Comments PARTIAL THROMBOPLASTIN TIME (BEAKER) (test 54.8 seconds 22.5-36.0 ouqn=699) POCT-GLUCOSE [id number] 22:01:00 Test Item Value Reference Range Comments POC-GLUCOSE METER (BEAKER) 241 mg/dL 70-110 TESTED AT [facility] [address] [facility] (test rvuv=1716) [facility] [address] POCT-GLUCOSE [id number] 17:54:00 Test Item Value Reference Range Comments POC-GLUCOSE METER (BEAKER) 136 mg/dL 70-110 TESTED AT [address] (test bugg=4043) [facility] [address] POCT-GLUCOSE [id number] 16:01:00 Test Item Value Reference Range Comments POC-GLUCOSE METER (BEAKER) 163 mg/dL 70-110 TESTED AT [place] [id number] [facility] (test uefx=3039) [facility] [address] [id number] 13:28:00 Test Item Value Reference Range Comments MAGNESIUM (BEAKER) (test ynik=833) 1.6 mg/dL 1.6-2.6 [id number] 13:28:00 Test Item Value Reference Range Comments PHOSPHORUS (BEAKER) (test gfzt=328) 1.6 mg/dL 2.3-4.7 BASIC METABOLIC [id number] 13:28:00 Test Item Value Reference Range Comments SODIUM (BEAKER) (test 142 meq/L 136-145 tzvu=939) POTASSIUM (BEAKER) (test 3.4 meq/L 3.5-5.1 dtmu=319) CHLORIDE (BEAKER) (test 110 meq/L 98-107 wcpz=165) CO2 (BEAKER) (test 26 meq/L 22-29 vkds=303) BLOOD UREA NITROGEN 20 mg/dL 7-21 (BEAKER) (test ejlx=083) CREATININE (BEAKER) (test 1.20 mg/dL 0.57-1.25 ckef=233) GLUCOSE RANDOM (BEAKER) 168 mg/dL 70-105 (test tbbt=102) CALCIUM (BEAKER) (test 8.2 mg/dL 8.4-10.2 oeio=166) EGFR (BEAKER) (test 59 mL/min/1.73 sq m ESTIMATED GFR IS NOT kntv=1568) ACCURATE CREATININE CLEARANCE IN PREDICTING GLOMERULAR FILTRATION RATE. ESTIMATED GFR IS NOT APPLICABLE FOR DIALYSIS PATIENTS. [id number] 13:28:00 Test Item Value Reference Range Comments PARTIAL THROMBOPLASTIN TIME (BEAKER) (test 45.9 seconds 22.5-36.0 tgij=724) POCT-GLUCOSE [id number] 08:14:00 Test Item Value Reference Range Comments POC-GLUCOSE METER (BEAKER) 161 mg/dL 70-110 TESTED AT [facility] [address] [facility] (test bdso=4673) [place] [address] [id number] 02:19:00 Test Item Value Reference Range Comments PROTIME (BEAKER) (test mkgv=338) 16.7 seconds 11.7-14.7 INR (BEAKER) (test hsyx=333) 1.4 <=5.9 PARTIAL THROMBOPLASTIN TIME (BEAKER) (test 46.8 seconds 22.5-36.0 kyde=366) RECOMMENDED COUMADIN/WARFARIN INR THERAPY RANGESSTANDARD DOSE: 2.0 - 3.0 Includes: PROPHYLAXIS forvenous thrombosis, systemic embolization; TREATMENT for venous thrombosis and/or pulmonary embolus.HIGH RISK: Target INR is 2.5-3.5 for patients with mechanical heart valves.CBC W/PLT COUNT & AUTO [id number] 02:03:00 Test Item Value Reference Range Comments WHITE BLOOD CELL COUNT (BEAKER) (test jvst=275) 8.5 K/ L 3.5-10.5 RED BLOOD CELL COUNT (BEAKER) (test rqlg=670) 3.74 M/ L 4.63-6.08 HEMOGLOBIN (BEAKER) (test gesq=039) 11.3 GM/DL 13.7-17.5 HEMATOCRIT (BEAKER) (test rtpw=410) 33.8 % 40.1-51.0 MEAN CORPUSCULAR VOLUME (BEAKER) (test ieqk=594) 90.4 fL 79.0-92.2 MEAN CORPUSCULAR HEMOGLOBIN (BEAKER) (test 30.2 pg 25.7-32.2 qgpo=770) MEAN CORPUSCULAR HEMOGLOBIN CONC (BEAKER) (test 33.4 GM/DL 32.3-36.5 melx=557) RED CELL DISTRIBUTION WIDTH (BEAKER) (test 14.8 % 11.6-14.4 kwzf=878) PLATELET COUNT (BEAKER) (test zmsr=608) 106 K/CU MM 150-450 MEAN PLATELET VOLUME (BEAKER) (test urgp=182) 10.5 fL 9.4-12.4 NUCLEATED RED BLOOD CELLS (BEAKER) (test 0 /100 WBC 0-0 gytx=813) NEUTROPHILS RELATIVE PERCENT (BEAKER) (test 75 % qokb=970) LYMPHOCYTES RELATIVE PERCENT (BEAKER) (test 13 % oneh=390) MONOCYTES RELATIVE PERCENT (BEAKER) (test 9 % qkvv=137) EOSINOPHILS RELATIVE PERCENT (BEAKER) (test 2 % serp=191) BASOPHILS RELATIVE PERCENT (BEAKER) (test 0 % zaty=083) NEUTROPHILS ABSOLUTE COUNT (BEAKER) (test 6.37 K/ L 1.78-5.38 taxm=819) LYMPHOCYTES ABSOLUTE COUNT (BEAKER) (test 1.11 K/ L 1.32-3.57 xwba=151) MONOCYTES ABSOLUTE COUNT (BEAKER) (test 0.80 K/ L 0.30-0.82 qcxx=910) EOSINOPHILS ABSOLUTE COUNT (BEAKER) (test 0.14 K/ L 0.04-0.54 ubpt=441) BASOPHILS ABSOLUTE COUNT (BEAKER) (test 0.03 K/ L 0.01-0.08 ppuz=092) IMMATURE GRANULOCYTES-RELATIVE PERCENT (BEAKER) 1 % 0-1 (test aqua=1107) CALCIUM, [id number] 01:53:00 Test Item Value Reference Range Comments CALCIUM IONIZED (BEAKER) (test rlrx=379) 1.03 mmol/L 1.12-1.27 PH, BLOOD (BEAKER) (test yvnn=0405) 7.44 POCT-GLUCOSE [id number] 23:21:00 Test Item Value Reference Range Comments POC-GLUCOSE METER (BEAKER) 140 mg/dL 70-110 TESTED AT [facility] [address] [facility] (test tlyx=0673) [facility] [address] CBC W/PLT COUNT & AUTO [id number] 21:11:00 Test Item Value Reference Range Comments WHITE BLOOD CELL COUNT (BEAKER) (test vwij=749) 7.5 K/ L 3.5-10.5 RED BLOOD CELL COUNT (BEAKER) (test aedu=797) 3.71 M/ L 4.63-6.08 HEMOGLOBIN (BEAKER) (test nief=161) 11.2 GM/DL 13.7-17.5 HEMATOCRIT (BEAKER) (test syzc=725) 34.0 % 40.1-51.0 MEAN CORPUSCULAR VOLUME (BEAKER) (test fqpy=211) 91.6 fL 79.0-92.2 MEAN CORPUSCULAR HEMOGLOBIN (BEAKER) (test 30.2 pg 25.7-32.2 fwen=117) MEAN CORPUSCULAR HEMOGLOBIN CONC (BEAKER) (test 32.9 GM/DL 32.3-36.5 znca=387) RED CELL DISTRIBUTION WIDTH (BEAKER) (test 14.8 % 11.6-14.4 xvqe=027) PLATELET COUNT (BEAKER) (test fmpa=082) 133 K/CU MM 150-450 MEAN PLATELET VOLUME (BEAKER) (test okgw=058) 10.5 fL 9.4-12.4 NUCLEATED RED BLOOD CELLS (BEAKER) (test 0 /100 WBC 0-0 qxtd=639) NEUTROPHILS RELATIVE PERCENT (BEAKER) (test 68 % goeb=017) LYMPHOCYTES RELATIVE PERCENT (BEAKER) (test 20 % esng=617) MONOCYTES RELATIVE PERCENT (BEAKER) (test 9 % rnxb=954) EOSINOPHILS RELATIVE PERCENT (BEAKER) (test 2 % tiul=756) BASOPHILS RELATIVE PERCENT (BEAKER) (test 0 % zsvh=046) NEUTROPHILS ABSOLUTE COUNT (BEAKER) (test 5.07 K/ L 1.78-5.38 sspa=124) LYMPHOCYTES ABSOLUTE COUNT (BEAKER) (test 1.49 K/ L 1.32-3.57 rezf=438) MONOCYTES ABSOLUTE COUNT (BEAKER) (test 0.69 K/ L 0.30-0.82 ktao=320) EOSINOPHILS ABSOLUTE COUNT (BEAKER) (test 0.15 K/ L 0.04-0.54 wpir=564) BASOPHILS ABSOLUTE COUNT (BEAKER) (test 0.02 K/ L 0.01-0.08 dher=727) IMMATURE GRANULOCYTES-RELATIVE PERCENT (BEAKER) 1 % 0-1 (test irxa=4695) POCT-GLUCOSE [id number] 20:06:00 Test Item Value Reference Range Comments POC-GLUCOSE METER (BEAKER) 112 mg/dL 70-110 TESTED AT [facility] [address] [facility] (test hxdk=8692) [facility] [address] [id number] 13:37:00 Test Item Value Reference Range Comments PARTIAL THROMBOPLASTIN TIME (BEAKER) (test 46.2 seconds 22.5-36.0 yeez=144) POCT-GLUCOSE [id number] 12:29:00 Test Item Value Reference Range Comments POC-GLUCOSE METER (BEAKER) 153 mg/dL 70-110 TESTED AT [facility] [address] [facility] (test txbi=1338) [facility] [address] COMPREHENSIVE METABOLIC [id number] 03:55:00 Test Item Value Reference Range Comments TOTAL PROTEIN (BEAKER) 6.3 gm/dL 6.0-8.3 (test pefb=204) ALBUMIN (BEAKER) (test 3.2 g/dL 3.5-5.0 qoaz=0041) ALKALINE PHOSPHATASE 55 U/L 40-150 (BEAKER) (test gchq=027) BILIRUBIN TOTAL (BEAKER) 0.7 mg/dL 0.2-1.2 (test wlcg=066) SODIUM (BEAKER) (test 141 meq/L 136-145 cwko=662) POTASSIUM (BEAKER) (test 3.4 meq/L 3.5-5.1 atxn=843) CHLORIDE (BEAKER) (test 107 meq/L 98-107 qcwd=507) CO2 (BEAKER) (test 27 meq/L 22-29 wxfa=593) BLOOD UREA NITROGEN 24 mg/dL 7-21 (BEAKER) (test bnnv=983) CREATININE (BEAKER) (test 1.14 mg/dL 0.57-1.25 dhts=235) GLUCOSE RANDOM (BEAKER) 143 mg/dL 70-105 (test zaua=717) CALCIUM (BEAKER) (test 8.5 mg/dL 8.4-10.2 kadl=644) AST (SGOT) (BEAKER) (test 18 U/L 5-34 vhwb=349) ALT (SGPT) (BEAKER) (test 10 U/L 6-55 gzgo=380) EGFR (BEAKER) (test 63 mL/min/1.73 sq m ESTIMATED GFR IS NOT wtqs=3117) ACCURATE CREATININE CLEARANCE IN PREDICTING GLOMERULAR FILTRATION RATE. ESTIMATED GFR IS NOT APPLICABLE FOR DIALYSIS PATIENTS. [id number] 03:49:00 Test Item Value Reference Range Comments PARTIAL THROMBOPLASTIN TIME (BEAKER) (test 63.4 seconds 22.5-36.0 tmqv=873) PROTHROMBIN [id number] 03:48:00 Test Item Value Reference Range Comments PROTIME (BEAKER) (test fcyq=876) 18.9 seconds 11.7-14.7 INR (BEAKER) (test menj=588) 1.6 <=5.9 RECOMMENDED COUMADIN/WARFARIN INR THERAPY RANGESSTANDARD DOSE: 2.0 - 3.0 Includes: PROPHYLAXIS forvenous thrombosis, systemic embolization; TREATMENT for venous thrombosis and/or pulmonary embolus.HIGH RISK: Target INR is 2.5-3.5 for patients with mechanical heart valves.CBC W/PLT COUNT & AUTO [id number] 03:30:00 Test Item Value Reference Range Comments WHITE BLOOD CELL COUNT (BEAKER) (test apqo=885) 6.4 K/ L 3.5-10.5 RED BLOOD CELL COUNT (BEAKER) (test xixn=533) 4.20 M/ L 4.63-6.08 HEMOGLOBIN (BEAKER) (test rutq=335) 12.3 GM/DL 13.7-17.5 HEMATOCRIT (BEAKER) (test xszc=131) 37.7 % 40.1-51.0 MEAN CORPUSCULAR VOLUME (BEAKER) (test nzjp=806) 89.8 fL 79.0-92.2 MEAN CORPUSCULAR HEMOGLOBIN (BEAKER) (test 29.3 pg 25.7-32.2 ypnc=253) MEAN CORPUSCULAR HEMOGLOBIN CONC (BEAKER) (test 32.6 GM/DL 32.3-36.5 kdiy=145) RED CELL DISTRIBUTION WIDTH (BEAKER) (test 14.5 % 11.6-14.4 kcmz=791) PLATELET COUNT (BEAKER) (test whum=978) 108 K/CU MM 150-450 MEAN PLATELET VOLUME (BEAKER) (test loar=453) 10.2 fL 9.4-12.4 NUCLEATED RED BLOOD CELLS (BEAKER) (test 0 /100 WBC 0-0 ulao=891) NEUTROPHILS RELATIVE PERCENT (BEAKER) (test 64 % jkhw=028) LYMPHOCYTES RELATIVE PERCENT (BEAKER) (test 24 % csek=574) MONOCYTES RELATIVE PERCENT (BEAKER) (test 8 % zhnw=092) EOSINOPHILS RELATIVE PERCENT (BEAKER) (test 4 % lgel=294) BASOPHILS RELATIVE PERCENT (BEAKER) (test 1 % jttt=171) NEUTROPHILS ABSOLUTE COUNT (BEAKER) (test 4.09 K/ L 1.78-5.38 qjez=937) LYMPHOCYTES ABSOLUTE COUNT (BEAKER) (test 1.51 K/ L 1.32-3.57 kfvk=779) MONOCYTES ABSOLUTE COUNT (BEAKER) (test 0.51 K/ L 0.30-0.82 vgoz=400) EOSINOPHILS ABSOLUTE COUNT (BEAKER) (test 0.23 K/ L 0.04-0.54 sgva=922) BASOPHILS ABSOLUTE COUNT (BEAKER) (test 0.03 K/ L 0.01-0.08 xfjg=849) IMMATURE GRANULOCYTES-RELATIVE PERCENT (BEAKER) 0 % 0-1 (test mury=9503) [id number] 19:35:00 Test Item Value Reference Range Comments PARTIAL THROMBOPLASTIN TIME (BEAKER) (test 58.0 seconds 22.5-36.0 ortx=872) POCT-GLUCOSE [id number] 16:44:00 Test Item Value Reference Range Comments POC-GLUCOSE METER (BEAKER) 163 mg/dL 70-110 TESTED AT [address] (test tkwh=0713) [place] [address] [id number] 13:23:00 Test Item Value Reference Range Comments PARTIAL THROMBOPLASTIN TIME (BEAKER) (test 48.8 seconds 22.5-36.0 acke=487) POCT-GLUCOSE [id number] 12:05:00 Test Item Value Reference Range Comments POC-GLUCOSE METER (BEAKER) 227 mg/dL 70-110 TESTED AT [address] (test nwwk=3894) [place] [address] HEMOGLOBIN [id number] 10:44:00 Test Item Value Reference Range Comments HEMOGLOBIN A1C (BEAKER) (test yipj=053) 7.9 % 4.3-6.1 POCT-GLUCOSE [id number] 06:27:00 Test Item Value Reference Range Comments POC-GLUCOSE METER (BEAKER) 119 mg/dL 70-110 TESTED AT [address] (test bvfo=4718) [place] [id number] TSH/FREE T4 IF [id number] 04:00:00 Test Item Value Reference Range Comments THYROID STIMULATING HORMONE (BEAKER) (test 1.80 uIU/mL 0.35-4.94 kimd=599) CALCIUM, [id number] 04:00:00 Test Item Value Reference Range Comments CALCIUM IONIZED (BEAKER) (test mvlp=154) 1.04 mmol/L 1.12-1.27 PH, BLOOD (BEAKER) (test gwyv=1746) 7.52 [id number] 03:44:00 Test Item Value Reference Range Comments PHOSPHORUS (BEAKER) (test saxf=328) 3.2 mg/dL 2.3-4.7 [id number] 03:44:00 Test Item Value Reference Range Comments MAGNESIUM (BEAKER) (test lxba=160) 1.9 mg/dL 1.6-2.6 COMPREHENSIVE METABOLIC [id number] 03:44:00 Test Item Value Reference Range Comments TOTAL PROTEIN (BEAKER) 7.0 gm/dL 6.0-8.3 (test uinw=608) ALBUMIN (BEAKER) (test 3.5 g/dL 3.5-5.0 hcmd=1137) ALKALINE PHOSPHATASE 59 U/L 40-150 (BEAKER) (test yueo=010) BILIRUBIN TOTAL (BEAKER) 1.0 mg/dL 0.2-1.2 (test luah=228) SODIUM (BEAKER) (test 141 meq/L 136-145 bbuw=954) POTASSIUM (BEAKER) (test 3.5 meq/L 3.5-5.1 xjaz=764) CHLORIDE (BEAKER) (test 103 meq/L 98-107 bdxm=895) CO2 (BEAKER) (test 29 meq/L 22-29 onfd=429) BLOOD UREA NITROGEN 32 mg/dL 7-21 (BEAKER) (test qyrj=135) CREATININE (BEAKER) (test 1.34 mg/dL 0.57-1.25 sqpy=236) GLUCOSE RANDOM (BEAKER) 101 mg/dL 70-105 (test yjam=247) CALCIUM (BEAKER) (test 9.5 mg/dL 8.4-10.2 bfdb=038) AST (SGOT) (BEAKER) (test 21 U/L 5-34 gwto=732) ALT (SGPT) (BEAKER) (test 11 U/L 6-55 jfii=990) EGFR (BEAKER) (test 52 mL/min/1.73 sq m ESTIMATED GFR IS NOT djwq=8810) ACCURATE CREATININE CLEARANCE IN PREDICTING GLOMERULAR FILTRATION RATE. ESTIMATED GFR IS NOT APPLICABLE FOR DIALYSIS PATIENTS. PROTHROMBIN [id number] 03:33:00 Test Item Value Reference Range Comments PROTIME (BEAKER) (test ealb=812) 19.1 seconds 11.7-14.7 INR (BEAKER) (test pdup=090) 1.6 <=5.9 RECOMMENDED COUMADIN/WARFARIN INR THERAPY RANGESSTANDARD DOSE: 2.0 - 3.0 Includes: PROPHYLAXIS forvenous thrombosis, systemic embolization; TREATMENT for venous thrombosis and/or pulmonary embolus.HIGH RISK: Target INR is 2.5-3.5 for patients with mechanical heart valves.[id number] 03:33:00 Test Item Value Reference Range Comments PARTIAL THROMBOPLASTIN TIME (BEAKER) (test 45.2 seconds 22.5-36.0 aqlu=607) CBC W/PLT COUNT & AUTO [id number] 03:32:00 Test Item Value Reference Range Comments WHITE BLOOD CELL COUNT (BEAKER) (test bgpf=989) 8.9 K/ L 3.5-10.5 RED BLOOD CELL COUNT (BEAKER) (test embw=697) 4.61 M/ L 4.63-6.08 HEMOGLOBIN (BEAKER) (test strl=679) 13.6 GM/DL 13.7-17.5 HEMATOCRIT (BEAKER) (test apau=925) 41.0 % 40.1-51.0 MEAN CORPUSCULAR VOLUME (BEAKER) (test delj=179) 88.9 fL 79.0-92.2 MEAN CORPUSCULAR HEMOGLOBIN (BEAKER) (test 29.5 pg 25.7-32.2 wxcm=660) MEAN CORPUSCULAR HEMOGLOBIN CONC (BEAKER) (test 33.2 GM/DL 32.3-36.5 muov=829) RED CELL DISTRIBUTION WIDTH (BEAKER) (test 14.5 % 11.6-14.4 nljc=104) PLATELET COUNT (BEAKER) (test bkph=788) 140 K/CU MM 150-450 MEAN PLATELET VOLUME (BEAKER) (test omyp=101) 10.0 fL 9.4-12.4 NUCLEATED RED BLOOD CELLS (BEAKER) (test 0 /100 WBC 0-0 yibh=754) NEUTROPHILS RELATIVE PERCENT (BEAKER) (test 68 % vupc=245) LYMPHOCYTES RELATIVE PERCENT (BEAKER) (test 21 % dcmt=645) MONOCYTES RELATIVE PERCENT (BEAKER) (test 9 % vdxs=411) EOSINOPHILS RELATIVE PERCENT (BEAKER) (test 1 % tusf=627) BASOPHILS RELATIVE PERCENT (BEAKER) (test 0 % pmod=191) NEUTROPHILS ABSOLUTE COUNT (BEAKER) (test 6.04 K/ L 1.78-5.38 tlwq=555) LYMPHOCYTES ABSOLUTE COUNT (BEAKER) (test 1.89 K/ L 1.32-3.57 ybgw=569) MONOCYTES ABSOLUTE COUNT (BEAKER) (test 0.81 K/ L 0.30-0.82 wscm=902) EOSINOPHILS ABSOLUTE COUNT (BEAKER) (test 0.09 K/ L 0.04-0.54 muzq=535) BASOPHILS ABSOLUTE COUNT (BEAKER) (test 0.03 K/ L 0.01-0.08 lnno=124) IMMATURE GRANULOCYTES-RELATIVE PERCENT (BEAKER) 0 % 0-1 (test ehfm=4947) COMPREHENSIVE METABOLIC [id number] 21:39:00 Test Item Value Reference Range Comments TOTAL PROTEIN (BEAKER) 7.3 gm/dL 6.0-8.3 (test dykt=397) ALBUMIN (BEAKER) (test 3.6 g/dL 3.5-5.0 yxls=5926) ALKALINE PHOSPHATASE 71 U/L 40-150 (BEAKER) (test lixv=381) BILIRUBIN TOTAL (BEAKER) 0.9 mg/dL 0.2-1.2 (test mpjh=569) SODIUM (BEAKER) (test 139 meq/L 136-145 nlok=518) POTASSIUM (BEAKER) (test 3.2 meq/L 3.5-5.1 jixe=013) CHLORIDE (BEAKER) (test 99 meq/L 98-107 tova=605) CO2 (BEAKER) (test 26 meq/L 22-29 kpzo=829) BLOOD UREA NITROGEN 35 mg/dL 7-21 (BEAKER) (test nntq=753) CREATININE (BEAKER) (test 1.52 mg/dL 0.57-1.25 bnpu=833) GLUCOSE RANDOM (BEAKER) 198 mg/dL 70-105 (test qudk=273) CALCIUM (BEAKER) (test 9.4 mg/dL 8.4-10.2 rosl=858) AST (SGOT) (BEAKER) (test 20 U/L 5-34 ixay=840) ALT (SGPT) (BEAKER) (test 12 U/L 6-55 nzwf=745) EGFR (BEAKER) (test 45 mL/min/1.73 sq m ESTIMATED GFR IS NOT zajr=7282) ACCURATE CREATININE CLEARANCE IN PREDICTING GLOMERULAR FILTRATION RATE. ESTIMATED GFR IS NOT APPLICABLE FOR DIALYSIS PATIENTS. [id number] 21:33:00 Test Item Value Reference Range Comments PARTIAL THROMBOPLASTIN TIME (BEAKER) (test 30.3 seconds 22.5-36.0 qwic=432) Prior to initiating heparinPROTHROMBIN TIME/[id number] 21:32:00 Test Item Value Reference Range Comments PROTIME (BEAKER) (test rkts=856) 19.1 seconds 11.7-14.7 INR (BEAKER) (test spae=791) 1.6 <=5.9 RECOMMENDED COUMADIN/WARFARIN INR THERAPY RANGESSTANDARD DOSE: 2.0 - 3.0 Includes: PROPHYLAXIS forvenous thrombosis, systemic embolization; TREATMENT for venous thrombosis and/or pulmonary embolus.HIGH RISK: Target INR is 2.5-3.5 for patients with mechanical heart valves.[id number] 21:32:00 Test Item Value Reference Range Comments FIBRINOGEN LEVEL (BEAKER) (test hudu=772) 370 mg/dl 225-434 CBC W/PLT COUNT & AUTO [id number] 21:23:00 Test Item Value Reference Range Comments WHITE BLOOD CELL COUNT (BEAKER) (test kadk=816) 8.7 K/ L 3.5-10.5 RED BLOOD CELL COUNT (BEAKER) (test blby=280) 4.79 M/ L 4.63-6.08 HEMOGLOBIN (BEAKER) (test rxoa=122) 14.1 GM/DL 13.7-17.5 HEMATOCRIT (BEAKER) (test ensy=207) 42.7 % 40.1-51.0 MEAN CORPUSCULAR VOLUME (BEAKER) (test oyek=986) 89.1 fL 79.0-92.2 MEAN CORPUSCULAR HEMOGLOBIN (BEAKER) (test 29.4 pg 25.7-32.2 tgqj=299) MEAN CORPUSCULAR HEMOGLOBIN CONC (BEAKER) (test 33.0 GM/DL 32.3-36.5 pdex=469) RED CELL DISTRIBUTION WIDTH (BEAKER) (test 14.4 % 11.6-14.4 xnbp=189) PLATELET COUNT (BEAKER) (test fenf=168) 154 K/CU MM 150-450 MEAN PLATELET VOLUME (BEAKER) (test cxhk=447) 10.2 fL 9.4-12.4 NUCLEATED RED BLOOD CELLS (BEAKER) (test 0 /100 WBC 0-0 vflr=714) NEUTROPHILS RELATIVE PERCENT (BEAKER) (test 73 % kqvi=414) LYMPHOCYTES RELATIVE PERCENT (BEAKER) (test 17 % qmqp=919) MONOCYTES RELATIVE PERCENT (BEAKER) (test 8 % kuqh=302) EOSINOPHILS RELATIVE PERCENT (BEAKER) (test 1 % dlty=151) BASOPHILS RELATIVE PERCENT (BEAKER) (test 0 % damf=161) NEUTROPHILS ABSOLUTE COUNT (BEAKER) (test 6.33 K/ L 1.78-5.38 yiuk=198) LYMPHOCYTES ABSOLUTE COUNT (BEAKER) (test 1.50 K/ L 1.32-3.57 gcvr=697) MONOCYTES ABSOLUTE COUNT (BEAKER) (test 0.71 K/ L 0.30-0.82 eogj=959) EOSINOPHILS ABSOLUTE COUNT (BEAKER) (test 0.08 K/ L 0.04-0.54 ibov=641) BASOPHILS ABSOLUTE COUNT (BEAKER) (test 0.03 K/ L 0.01-0.08 jzxy=431) IMMATURE GRANULOCYTES-RELATIVE PERCENT (BEAKER) 0 % 0-1 (test ulig=5637) POCT-GLUCOSE [id number] 21:22:00 Test Item Value Reference Range Comments POC-GLUCOSE METER (BEAKER) 228 mg/dL 70-110 TESTED AT [facility] [address] [facility] (test qwta=5297) [facility] [id number]
[2019-08-23] MEDS ORDERED: NA CHLORIDE 0.9% 500 ML ONE (09:34)
[2019-08-23] MEDS ORDERED: HEPA 1000U/500MLS 1,000 UNIT/500 ML BAG IV ONE (11:57)
[2019-08-23] MEDS ORDERED: FENTANYL CITR 100 MCG/2 ML ONE ×2 (11:58→15:46)
[2019-08-23] MEDS ORDERED: ATROPINE SULF 1 MG/10 ML SYR IV ONE (11:58)
[2019-08-23] MEDS ORDERED: NA CHLORIDE 0.9% 0 ML IV ONE (11:58)
[2019-08-23] MEDS ORDERED: MIDAZOLAM HCL 2 MG/2 ML INJ ONE ×2 (11:58→13:18)
[2019-08-23] MEDS ORDERED: ACETAMINOPHEN 325 MG TABLET ONE ×2 (15:47)
[2019-08-23 19:24] VITALS: TEMP 97.6
[2019-08-23 19:25] VITALS: O2SAT 95
[2019-08-23 20:28] VITALS: BP 112/50
--- NOTE | 2019-08-23 23:38 | OP ---
Date of Procedure: 08/23/2019 Surgeon: Enoch Jane MD Dermatology Sales Representative: Ms. Fiona Scanlon. Procedures: Left heart catheterization, selective coronary arteriogram, and left ventricular angiogr am. Indication: Chest pain and abnormal stress test that was done at [facility] for perioperative evalu ation prior to the prolonged head and neck surgery. Procedure In Detail: The patient was brought to the cath lab tech as an outpatient today, 08/23/2019. He was prepped and draped in the routine sterile fashion. A 6-Welsh sheath introduced in the right co mmon femoral artery. Angio-Seal was attempted, but it failed. Pressure was held for hemostasis. A 6-Welsh Megan catheter was used to do the injection for the right coronary and the left coronary s ystem. The RCA showed some moderate disease of 30% to 40% in the mid RCA. The LAD had about 30% pro ximal, 30% to 40% distal LAD. Circumflex was pretty normal. He had a small ramus branch that had ab out 80% to 90% stenosis, long stenosis starting at the distal left main. LV-gram was normal with an ejection fraction of 65% to 69%. End-diastolic pressure was 9 mmHg. There were no wall motion abnor malities. No effusion. Complications: None. Blood Loss: 5 mL. Anesthesia: Total conscious sedation was 30 minutes. Final Diagnoses: Moderate coronary artery disease. I will clear him for surgery. He is still at mo derate risk because the surgery is so prolonged, I expected 15 hours of surgery head and neck at [facility]. The case was discussed with Dr. Jacome, his family. They are aware of the situation. We will continue medical therapy. YANELY/CRISTIANL Voice ID: [id number] Report ID: [id number]
== END 2019-08-23 20:15 | disposition home or self-care (01) ==
LOC: CCL 08:58
DX: I25.10 Atherosclerotic heart disease of native coronary artery without angina pectoris (principal); I11.0 Hypertensive heart disease with heart failure; I50.32 Chronic diastolic (congestive) heart failure; I48.20 Chronic atrial fibrillation, unspecified; I65.23 Occlusion and stenosis of bilateral carotid arteries; I70.209 Unspecified atherosclerosis of native arteries of extremities, unspecified extremity; E11.9 Type 2 diabetes mellitus without complications; E78.5 Hyperlipidemia, unspecified; E66.9 Obesity, unspecified; K21.9 Gastro-esophageal reflux disease without esophagitis; Z87.891 Personal history of nicotine dependence; Z79.02 Long term (current) use of antithrombotics/antiplatelets; Z79.82 Long term (current) use of aspirin; Z88.8 Allergy status to other drugs, medicaments and biological substances; Z82.49 Family history of ischemic heart disease and other diseases of the circulatory system
CPT/HCPCS: 85025; 80048; 36415; 85610; 82947 ×3; 85730; 71046; 93458; C1893; C1760; J2250 ×2; J3010 ×2; J7040; J0583

== ENCOUNTER 2019-09-01 03:07 | Observation (INO) | payer OTHER ==
--- OUTSIDE RECORDS SUMMARY | 2019-09-01 03:10 | XMS REPORT ---
:1945 Author Organization [facility] [address] [place] [address] Care Team Providers Name Role Phone CARO [...] UREA NITROGEN (BEAKER) 18 mg/dL 7-21 (test jvnj=615) CREATININE (BEAKER) (test 1.57 mg/dL 0.57-1.25 Specimen slightly hemolyzed wocm=159) EGFR (BEAKER) (test 43 mL/min/1.73 sq m ESTIMATED GFR IS NOT toyr=5940) ACCURATE CREATININE CLEARANCE IN PREDICTING GLOMERULAR FILTRATION RATE. ESTIMATED GFR IS NOT APPLICABLE FOR DIALYSIS PATIENTS. POCT-GLUCOSE [id number] 12:55:00 Test Item Value Reference Range Comments POC-GLUCOSE METER (BEAKER) 222 mg/dL 70-110 TESTED AT [facility] [address] [facility] (test egpg=7326) [facility] [address] POCT-GLUCOSE [id number] 08:17:00 Test Item Value Reference Range Comments POC-GLUCOSE METER (BEAKER) 155 mg/dL 70-110 TESTED AT [facility] [address] [facility] (test zdpj=0227) [facility] [address] CALCIUM, [id number] 05:41:00 Test Item Value Reference Range Comments CALCIUM IONIZED (BEAKER) (test fmzi=092) 0.97 mmol/L 1.12-1.27 PH, BLOOD (BEAKER) (test topb=4681) 7.46 [id number] 04:53:00 Test Item Value Reference Range Comments PARTIAL THROMBOPLASTIN TIME (BEAKER) (test 66.8 seconds 22.5-36.0 vfcg=894) PROTHROMBIN [id number] 04:51:00 Test Item Value Reference Range Comments PROTIME (BEAKER) (test jgzu=670) 16.2 seconds 11.7-14.7 INR (BEAKER) (test vyus=745) 1.3 <=5.9 RECOMMENDED COUMADIN/WARFARIN INR THERAPY RANGESSTANDARD DOSE: 2.0 - 3.0 Includes: PROPHYLAXIS forvenous thrombosis, systemic embolization; TREATMENT for venous thrombosis and/or pulmonary embolus.HIGH RISK: Target INR is 2.5-3.5 for patients with mechanical heart valves.CBC (HEMOGRAM ONLY)[id number] 04:46:00 Test Item Value Reference Range Comments WHITE BLOOD CELL COUNT (BEAKER) (test lxyj=310) 7.9 K/ L 3.5-10.5 RED BLOOD CELL COUNT (BEAKER) (test jpbo=249) 3.55 M/ L 4.63-6.08 HEMOGLOBIN (BEAKER) (test wwia=672) 10.4 GM/DL 13.7-17.5 HEMATOCRIT (BEAKER) (test vrjv=041) 32.1 % 40.1-51.0 MEAN CORPUSCULAR VOLUME (BEAKER) (test rcxd=510) 90.4 fL 79.0-92.2 MEAN CORPUSCULAR HEMOGLOBIN (BEAKER) (test 29.3 pg 25.7-32.2 oynj=163) MEAN CORPUSCULAR HEMOGLOBIN CONC (BEAKER) (test 32.4 GM/DL 32.3-36.5 ckra=783) RED CELL DISTRIBUTION WIDTH (BEAKER) (test 14.9 % 11.6-14.4 bxnl=235) PLATELET COUNT (BEAKER) (test vfkl=008) 112 K/CU MM 150-450 MEAN PLATELET VOLUME (BEAKER) (test wkci=805) 10.3 fL 9.4-12.4 NUCLEATED RED BLOOD CELLS (BEAKER) (test 0 /100 WBC 0-0 sayt=522) [id number] 22:20:00 Test Item Value Reference Range Comments PARTIAL THROMBOPLASTIN TIME (BEAKER) (test 54.8 seconds 22.5-36.0 fyqv=931) POCT-GLUCOSE [id number] 22:01:00 Test Item Value Reference Range Comments POC-GLUCOSE METER (BEAKER) 241 mg/dL 70-110 TESTED AT [facility] [address] [facility] (test qzxz=3411) [facility] [address] POCT-GLUCOSE [id number] 17:54:00 Test Item Value Reference Range Comments POC-GLUCOSE METER (BEAKER) 136 mg/dL 70-110 TESTED AT [address] (test jjzn=1719) [facility] [address] POCT-GLUCOSE [id number] 16:01:00 Test Item Value Reference Range Comments POC-GLUCOSE METER (BEAKER) 163 mg/dL 70-110 TESTED AT [address] (test fzdz=7000) [facility] [address] [id number] 13:28:00 Test Item Value Reference Range Comments MAGNESIUM (BEAKER) (test hjbu=213) 1.6 mg/dL 1.6-2.6 [id number] 13:28:00 Test Item Value Reference Range Comments PHOSPHORUS (BEAKER) (test hutx=420) 1.6 mg/dL 2.3-4.7 BASIC METABOLIC [id number] 13:28:00 Test Item Value Reference Range Comments SODIUM (BEAKER) (test 142 meq/L 136-145 zwyo=421) POTASSIUM (BEAKER) (test 3.4 meq/L 3.5-5.1 hhei=439) CHLORIDE (BEAKER) (test 110 meq/L 98-107 yovd=235) CO2 (BEAKER) (test 26 meq/L 22-29 otov=068) BLOOD UREA NITROGEN 20 mg/dL 7-21 (BEAKER) (test egpf=416) CREATININE (BEAKER) (test 1.20 mg/dL 0.57-1.25 nzup=135) GLUCOSE RANDOM (BEAKER) 168 mg/dL 70-105 (test pyzf=818) CALCIUM (BEAKER) (test 8.2 mg/dL 8.4-10.2 mgpd=911) EGFR (BEAKER) (test 59 mL/min/1.73 sq m ESTIMATED GFR IS NOT oxbg=5723) ACCURATE CREATININE CLEARANCE IN PREDICTING GLOMERULAR FILTRATION RATE. ESTIMATED GFR IS NOT APPLICABLE FOR DIALYSIS PATIENTS. [id number] 13:28:00 Test Item Value Reference Range Comments PARTIAL THROMBOPLASTIN TIME (BEAKER) (test 45.9 seconds 22.5-36.0 aoxd=251) POCT-GLUCOSE [id number] 08:14:00 Test Item Value Reference Range Comments POC-GLUCOSE METER (BEAKER) 161 mg/dL 70-110 TESTED AT [facility] [address] [facility] (test zjsm=5285) [place] [address] [id number] 02:19:00 Test Item Value Reference Range Comments PROTIME (BEAKER) (test vhcb=757) 16.7 seconds 11.7-14.7 INR (BEAKER) (test talh=781) 1.4 <=5.9 PARTIAL THROMBOPLASTIN TIME (BEAKER) (test 46.8 seconds 22.5-36.0 mqfq=521) RECOMMENDED COUMADIN/WARFARIN INR THERAPY RANGESSTANDARD DOSE: 2.0 - 3.0 Includes: PROPHYLAXIS forvenous thrombosis, systemic embolization; TREATMENT for venous thrombosis and/or pulmonary embolus.HIGH RISK: Target INR is 2.5-3.5 for patients with mechanical heart valves.CBC W/PLT COUNT & AUTO [id number] 02:03:00 Test Item Value Reference Range Comments WHITE BLOOD CELL COUNT (BEAKER) (test jysg=360) 8.5 K/ L 3.5-10.5 RED BLOOD CELL COUNT (BEAKER) (test rivu=577) 3.74 M/ L 4.63-6.08 HEMOGLOBIN (BEAKER) (test vths=262) 11.3 GM/DL 13.7-17.5 HEMATOCRIT (BEAKER) (test egbe=740) 33.8 % 40.1-51.0 MEAN CORPUSCULAR VOLUME (BEAKER) (test lhzb=850) 90.4 fL 79.0-92.2 MEAN CORPUSCULAR HEMOGLOBIN (BEAKER) (test 30.2 pg 25.7-32.2 btgy=398) MEAN CORPUSCULAR HEMOGLOBIN CONC (BEAKER) (test 33.4 GM/DL 32.3-36.5 pgro=230) RED CELL DISTRIBUTION WIDTH (BEAKER) (test 14.8 % 11.6-14.4 mdfn=858) PLATELET COUNT (BEAKER) (test hedr=425) 106 K/CU MM 150-450 MEAN PLATELET VOLUME (BEAKER) (test iuvy=861) 10.5 fL 9.4-12.4 NUCLEATED RED BLOOD CELLS (BEAKER) (test 0 /100 WBC 0-0 euyd=781) NEUTROPHILS RELATIVE PERCENT (BEAKER) (test 75 % fpoz=240) LYMPHOCYTES RELATIVE PERCENT (BEAKER) (test 13 % alni=544) MONOCYTES RELATIVE PERCENT (BEAKER) (test 9 % mnjy=383) EOSINOPHILS RELATIVE PERCENT (BEAKER) (test 2 % qkaj=849) BASOPHILS RELATIVE PERCENT (BEAKER) (test 0 % gqls=492) NEUTROPHILS ABSOLUTE COUNT (BEAKER) (test 6.37 K/ L 1.78-5.38 yzjp=547) LYMPHOCYTES ABSOLUTE COUNT (BEAKER) (test 1.11 K/ L 1.32-3.57 nqxz=662) MONOCYTES ABSOLUTE COUNT (BEAKER) (test 0.80 K/ L 0.30-0.82 qdao=415) EOSINOPHILS ABSOLUTE COUNT (BEAKER) (test 0.14 K/ L 0.04-0.54 izbo=173) BASOPHILS ABSOLUTE COUNT (BEAKER) (test 0.03 K/ L 0.01-0.08 ismg=875) IMMATURE GRANULOCYTES-RELATIVE PERCENT (BEAKER) 1 % 0-1 (test frrv=2841) CALCIUM, [id number] 01:53:00 Test Item Value Reference Range Comments CALCIUM IONIZED (BEAKER) (test grzv=718) 1.03 mmol/L 1.12-1.27 PH, BLOOD (BEAKER) (test nhbm=9910) 7.44 POCT-GLUCOSE [id number] 23:21:00 Test Item Value Reference Range Comments POC-GLUCOSE METER (BEAKER) 140 mg/dL 70-110 TESTED AT [facility] [address] [facility] (test ohbw=0905) [facility] [address] CBC W/PLT COUNT & AUTO [id number] 21:11:00 Test Item Value Reference Range Comments WHITE BLOOD CELL COUNT (BEAKER) (test ndaa=872) 7.5 K/ L 3.5-10.5 RED BLOOD CELL COUNT (BEAKER) (test btpm=343) 3.71 M/ L 4.63-6.08 HEMOGLOBIN (BEAKER) (test zbzc=206) 11.2 GM/DL 13.7-17.5 HEMATOCRIT (BEAKER) (test ogll=066) 34.0 % 40.1-51.0 MEAN CORPUSCULAR VOLUME (BEAKER) (test sbnj=696) 91.6 fL 79.0-92.2 MEAN CORPUSCULAR HEMOGLOBIN (BEAKER) (test 30.2 pg 25.7-32.2 ydlp=668) MEAN CORPUSCULAR HEMOGLOBIN CONC (BEAKER) (test 32.9 GM/DL 32.3-36.5 zxyp=843) RED CELL DISTRIBUTION WIDTH (BEAKER) (test 14.8 % 11.6-14.4 euny=739) PLATELET COUNT (BEAKER) (test gqxs=672) 133 K/CU MM 150-450 MEAN PLATELET VOLUME (BEAKER) (test kqpq=564) 10.5 fL 9.4-12.4 NUCLEATED RED BLOOD CELLS (BEAKER) (test 0 /100 WBC 0-0 tchg=659) NEUTROPHILS RELATIVE PERCENT (BEAKER) (test 68 % dgqg=326) LYMPHOCYTES RELATIVE PERCENT (BEAKER) (test 20 % peek=096) MONOCYTES RELATIVE PERCENT (BEAKER) (test 9 % vbog=311) EOSINOPHILS RELATIVE PERCENT (BEAKER) (test 2 % vcir=888) BASOPHILS RELATIVE PERCENT (BEAKER) (test 0 % lccb=677) NEUTROPHILS ABSOLUTE COUNT (BEAKER) (test 5.07 K/ L 1.78-5.38 pqzw=543) LYMPHOCYTES ABSOLUTE COUNT (BEAKER) (test 1.49 K/ L 1.32-3.57 sypb=649) MONOCYTES ABSOLUTE COUNT (BEAKER) (test 0.69 K/ L 0.30-0.82 tvji=263) EOSINOPHILS ABSOLUTE COUNT (BEAKER) (test 0.15 K/ L 0.04-0.54 lapg=600) BASOPHILS ABSOLUTE COUNT (BEAKER) (test 0.02 K/ L 0.01-0.08 nsbl=870) IMMATURE GRANULOCYTES-RELATIVE PERCENT (BEAKER) 1 % 0-1 (test lkeh=1368) POCT-GLUCOSE [id number] 20:06:00 Test Item Value Reference Range Comments POC-GLUCOSE METER (BEAKER) 112 mg/dL 70-110 TESTED AT [facility] [address] [facility] (test zhgg=9878) [facility] [address] [id number] 13:37:00 Test Item Value Reference Range Comments PARTIAL THROMBOPLASTIN TIME (BEAKER) (test 46.2 seconds 22.5-36.0 psyb=125) POCT-GLUCOSE [id number] 12:29:00 Test Item Value Reference Range Comments POC-GLUCOSE METER (BEAKER) 153 mg/dL 70-110 TESTED AT [facility] [address] [facility] (test hghd=2719) [facility] [address] COMPREHENSIVE METABOLIC [id number] 03:55:00 Test Item Value Reference Range Comments TOTAL PROTEIN (BEAKER) 6.3 gm/dL 6.0-8.3 (test kssm=012) ALBUMIN (BEAKER) (test 3.2 g/dL 3.5-5.0 kuig=3215) ALKALINE PHOSPHATASE 55 U/L 40-150 (BEAKER) (test wgey=740) BILIRUBIN TOTAL (BEAKER) 0.7 mg/dL 0.2-1.2 (test jpkf=240) SODIUM (BEAKER) (test 141 meq/L 136-145 gzpt=540) POTASSIUM (BEAKER) (test 3.4 meq/L 3.5-5.1 wdyp=335) CHLORIDE (BEAKER) (test 107 meq/L 98-107 snnh=461) CO2 (BEAKER) (test 27 meq/L 22-29 mgyg=563) BLOOD UREA NITROGEN 24 mg/dL 7-21 (BEAKER) (test awed=421) CREATININE (BEAKER) (test 1.14 mg/dL 0.57-1.25 imzk=826) GLUCOSE RANDOM (BEAKER) 143 mg/dL 70-105 (test uhbv=112) CALCIUM (BEAKER) (test 8.5 mg/dL 8.4-10.2 bhuc=692) AST (SGOT) (BEAKER) (test 18 U/L 5-34 abci=218) ALT (SGPT) (BEAKER) (test 10 U/L 6-55 xzwi=591) EGFR (BEAKER) (test 63 mL/min/1.73 sq m ESTIMATED GFR IS NOT wxtb=4651) ACCURATE CREATININE CLEARANCE IN PREDICTING GLOMERULAR FILTRATION RATE. ESTIMATED GFR IS NOT APPLICABLE FOR DIALYSIS PATIENTS. [id number] 03:49:00 Test Item Value Reference Range Comments PARTIAL THROMBOPLASTIN TIME (BEAKER) (test 63.4 seconds 22.5-36.0 udul=516) PROTHROMBIN [id number] 03:48:00 Test Item Value Reference Range Comments PROTIME (BEAKER) (test motr=488) 18.9 seconds 11.7-14.7 INR (BEAKER) (test hams=218) 1.6 <=5.9 RECOMMENDED COUMADIN/WARFARIN INR THERAPY RANGESSTANDARD DOSE: 2.0 - 3.0 Includes: PROPHYLAXIS forvenous thrombosis, systemic embolization; TREATMENT for venous thrombosis and/or pulmonary embolus.HIGH RISK: Target INR is 2.5-3.5 for patients with mechanical heart valves.CBC W/PLT COUNT & AUTO [id number] 03:30:00 Test Item Value Reference Range Comments WHITE BLOOD CELL COUNT (BEAKER) (test tumi=371) 6.4 K/ L 3.5-10.5 RED BLOOD CELL COUNT (BEAKER) (test ueao=550) 4.20 M/ L 4.63-6.08 HEMOGLOBIN (BEAKER) (test dlbi=339) 12.3 GM/DL 13.7-17.5 HEMATOCRIT (BEAKER) (test bwcq=977) 37.7 % 40.1-51.0 MEAN CORPUSCULAR VOLUME (BEAKER) (test iriz=028) 89.8 fL 79.0-92.2 MEAN CORPUSCULAR HEMOGLOBIN (BEAKER) (test 29.3 pg 25.7-32.2 ytij=444) MEAN CORPUSCULAR HEMOGLOBIN CONC (BEAKER) (test 32.6 GM/DL 32.3-36.5 kbke=970) RED CELL DISTRIBUTION WIDTH (BEAKER) (test 14.5 % 11.6-14.4 yaph=035) PLATELET COUNT (BEAKER) (test mucc=939) 108 K/CU MM 150-450 MEAN PLATELET VOLUME (BEAKER) (test sqnb=227) 10.2 fL 9.4-12.4 NUCLEATED RED BLOOD CELLS (BEAKER) (test 0 /100 WBC 0-0 zrqd=456) NEUTROPHILS RELATIVE PERCENT (BEAKER) (test 64 % nskc=836) LYMPHOCYTES RELATIVE PERCENT (BEAKER) (test 24 % jpcl=290) MONOCYTES RELATIVE PERCENT (BEAKER) (test 8 % uluf=540) EOSINOPHILS RELATIVE PERCENT (BEAKER) (test 4 % peft=760) BASOPHILS RELATIVE PERCENT (BEAKER) (test 1 % qbwc=416) NEUTROPHILS ABSOLUTE COUNT (BEAKER) (test 4.09 K/ L 1.78-5.38 alwd=109) LYMPHOCYTES ABSOLUTE COUNT (BEAKER) (test 1.51 K/ L 1.32-3.57 oqab=593) MONOCYTES ABSOLUTE COUNT (BEAKER) (test 0.51 K/ L 0.30-0.82 lbss=390) EOSINOPHILS ABSOLUTE COUNT (BEAKER) (test 0.23 K/ L 0.04-0.54 hydf=019) BASOPHILS ABSOLUTE COUNT (BEAKER) (test 0.03 K/ L 0.01-0.08 uhwt=300) IMMATURE GRANULOCYTES-RELATIVE PERCENT (BEAKER) 0 % 0-1 (test kwme=8354) [id number] 19:35:00 Test Item Value Reference Range Comments PARTIAL THROMBOPLASTIN TIME (BEAKER) (test 58.0 seconds 22.5-36.0 ybxa=257) POCT-GLUCOSE [id number] 16:44:00 Test Item Value Reference Range Comments POC-GLUCOSE METER (BEAKER) 163 mg/dL 70-110 TESTED AT [address] (test tcyj=6697) [place] [address] [id number] 13:23:00 Test Item Value Reference Range Comments PARTIAL THROMBOPLASTIN TIME (BEAKER) (test 48.8 seconds 22.5-36.0 saol=399) POCT-GLUCOSE [id number] 12:05:00 Test Item Value Reference Range Comments POC-GLUCOSE METER (BEAKER) 227 mg/dL 70-110 TESTED AT [address] (test jwji=6890) [place] [address] HEMOGLOBIN [id number] 10:44:00 Test Item Value Reference Range Comments HEMOGLOBIN A1C (BEAKER) (test dpvx=184) 7.9 % 4.3-6.1 POCT-GLUCOSE [id number] 06:27:00 Test Item Value Reference Range Comments POC-GLUCOSE METER (BEAKER) 119 mg/dL 70-110 TESTED AT [address] (test qbcj=5409) [place] [address] TSH/FREE T4 IF [id number] 04:00:00 Test Item Value Reference Range Comments THYROID STIMULATING HORMONE (BEAKER) (test 1.80 uIU/mL 0.35-4.94 fnzr=324) CALCIUM, [id number] 04:00:00 Test Item Value Reference Range Comments CALCIUM IONIZED (BEAKER) (test ioli=319) 1.04 mmol/L 1.12-1.27 PH, BLOOD (BEAKER) (test rcrn=3845) 7.52 [id number] 03:44:00 Test Item Value Reference Range Comments PHOSPHORUS (BEAKER) (test mosk=178) 3.2 mg/dL 2.3-4.7 [id number] 03:44:00 Test Item Value Reference Range Comments MAGNESIUM (BEAKER) (test qeil=737) 1.9 mg/dL 1.6-2.6 COMPREHENSIVE METABOLIC [id number] 03:44:00 Test Item Value Reference Range Comments TOTAL PROTEIN (BEAKER) 7.0 gm/dL 6.0-8.3 (test hara=201) ALBUMIN (BEAKER) (test 3.5 g/dL 3.5-5.0 tvle=3668) ALKALINE PHOSPHATASE 59 U/L 40-150 (BEAKER) (test djdm=833) BILIRUBIN TOTAL (BEAKER) 1.0 mg/dL 0.2-1.2 (test zmpc=267) SODIUM (BEAKER) (test 141 meq/L 136-145 zmmt=744) POTASSIUM (BEAKER) (test 3.5 meq/L 3.5-5.1 jqeu=262) CHLORIDE (BEAKER) (test 103 meq/L 98-107 dxlp=724) CO2 (BEAKER) (test 29 meq/L 22-29 xxpw=866) BLOOD UREA NITROGEN 32 mg/dL 7-21 (BEAKER) (test bkoc=496) CREATININE (BEAKER) (test 1.34 mg/dL 0.57-1.25 elrr=325) GLUCOSE RANDOM (BEAKER) 101 mg/dL 70-105 (test onzf=077) CALCIUM (BEAKER) (test 9.5 mg/dL 8.4-10.2 spgi=507) AST (SGOT) (BEAKER) (test 21 U/L 5-34 owqg=480) ALT (SGPT) (BEAKER) (test 11 U/L 6-55 iwjc=646) EGFR (BEAKER) (test 52 mL/min/1.73 sq m ESTIMATED GFR IS NOT ywsf=1879) ACCURATE CREATININE CLEARANCE IN PREDICTING GLOMERULAR FILTRATION RATE. ESTIMATED GFR IS NOT APPLICABLE FOR DIALYSIS PATIENTS. PROTHROMBIN [id number] 03:33:00 Test Item Value Reference Range Comments PROTIME (BEAKER) (test fzrz=817) 19.1 seconds 11.7-14.7 INR (BEAKER) (test solb=852) 1.6 <=5.9 RECOMMENDED COUMADIN/WARFARIN INR THERAPY RANGESSTANDARD DOSE: 2.0 - 3.0 Includes: PROPHYLAXIS forvenous thrombosis, systemic embolization; TREATMENT for venous thrombosis and/or pulmonary embolus.HIGH RISK: Target INR is 2.5-3.5 for patients with mechanical heart valves.[id number] 03:33:00 Test Item Value Reference Range Comments PARTIAL THROMBOPLASTIN TIME (BEAKER) (test 45.2 seconds 22.5-36.0 teel=062) CBC W/PLT COUNT & AUTO [id number] 03:32:00 Test Item Value Reference Range Comments WHITE BLOOD CELL COUNT (BEAKER) (test jfkp=026) 8.9 K/ L 3.5-10.5 RED BLOOD CELL COUNT (BEAKER) (test eazq=358) 4.61 M/ L 4.63-6.08 HEMOGLOBIN (BEAKER) (test ypet=900) 13.6 GM/DL 13.7-17.5 HEMATOCRIT (BEAKER) (test scvj=378) 41.0 % 40.1-51.0 MEAN CORPUSCULAR VOLUME (BEAKER) (test zkdk=397) 88.9 fL 79.0-92.2 MEAN CORPUSCULAR HEMOGLOBIN (BEAKER) (test 29.5 pg 25.7-32.2 kwkc=958) MEAN CORPUSCULAR HEMOGLOBIN CONC (BEAKER) (test 33.2 GM/DL 32.3-36.5 zycf=037) RED CELL DISTRIBUTION WIDTH (BEAKER) (test 14.5 % 11.6-14.4 qvac=356) PLATELET COUNT (BEAKER) (test xzzr=380) 140 K/CU MM 150-450 MEAN PLATELET VOLUME (BEAKER) (test jfcz=893) 10.0 fL 9.4-12.4 NUCLEATED RED BLOOD CELLS (BEAKER) (test 0 /100 WBC 0-0 vuwj=101) NEUTROPHILS RELATIVE PERCENT (BEAKER) (test 68 % tpxd=900) LYMPHOCYTES RELATIVE PERCENT (BEAKER) (test 21 % utgh=635) MONOCYTES RELATIVE PERCENT (BEAKER) (test 9 % cyfh=525) EOSINOPHILS RELATIVE PERCENT (BEAKER) (test 1 % pqco=970) BASOPHILS RELATIVE PERCENT (BEAKER) (test 0 % wmwx=455) NEUTROPHILS ABSOLUTE COUNT (BEAKER) (test 6.04 K/ L 1.78-5.38 yeqn=921) LYMPHOCYTES ABSOLUTE COUNT (BEAKER) (test 1.89 K/ L 1.32-3.57 jawv=206) MONOCYTES ABSOLUTE COUNT (BEAKER) (test 0.81 K/ L 0.30-0.82 merh=906) EOSINOPHILS ABSOLUTE COUNT (BEAKER) (test 0.09 K/ L 0.04-0.54 akmo=289) BASOPHILS ABSOLUTE COUNT (BEAKER) (test 0.03 K/ L 0.01-0.08 epfx=023) IMMATURE GRANULOCYTES-RELATIVE PERCENT (BEAKER) 0 % 0-1 (test fiez=9740) COMPREHENSIVE METABOLIC [id number] 21:39:00 Test Item Value Reference Range Comments TOTAL PROTEIN (BEAKER) 7.3 gm/dL 6.0-8.3 (test eatz=447) ALBUMIN (BEAKER) (test 3.6 g/dL 3.5-5.0 whhg=0531) ALKALINE PHOSPHATASE 71 U/L 40-150 (BEAKER) (test nfnr=960) BILIRUBIN TOTAL (BEAKER) 0.9 mg/dL 0.2-1.2 (test vgnf=916) SODIUM (BEAKER) (test 139 meq/L 136-145 sdam=252) POTASSIUM (BEAKER) (test 3.2 meq/L 3.5-5.1 zrnh=088) CHLORIDE (BEAKER) (test 99 meq/L 98-107 thso=605) CO2 (BEAKER) (test 26 meq/L 22-29 gbyv=318) BLOOD UREA NITROGEN 35 mg/dL 7-21 (BEAKER) (test rkot=754) CREATININE (BEAKER) (test 1.52 mg/dL 0.57-1.25 amug=337) GLUCOSE RANDOM (BEAKER) 198 mg/dL 70-105 (test dkwx=384) CALCIUM (BEAKER) (test 9.4 mg/dL 8.4-10.2 jnvp=332) AST (SGOT) (BEAKER) (test 20 U/L 5-34 audt=919) ALT (SGPT) (BEAKER) (test 12 U/L 6-55 jdpb=164) EGFR (BEAKER) (test 45 mL/min/1.73 sq m ESTIMATED GFR IS NOT ivur=9213) ACCURATE CREATININE CLEARANCE IN PREDICTING GLOMERULAR FILTRATION RATE. ESTIMATED GFR IS NOT APPLICABLE FOR DIALYSIS PATIENTS. [id number] 21:33:00 Test Item Value Reference Range Comments PARTIAL THROMBOPLASTIN TIME (BEAKER) (test 30.3 seconds 22.5-36.0 ixyc=425) Prior to initiating heparinPROTHROMBIN TIME/[id number] 21:32:00 Test Item Value Reference Range Comments PROTIME (BEAKER) (test xeeg=712) 19.1 seconds 11.7-14.7 INR (BEAKER) (test yliz=123) 1.6 <=5.9 RECOMMENDED COUMADIN/WARFARIN INR THERAPY RANGESSTANDARD DOSE: 2.0 - 3.0 Includes: PROPHYLAXIS forvenous thrombosis, systemic embolization; TREATMENT for venous thrombosis and/or pulmonary embolus.HIGH RISK: Target INR is 2.5-3.5 for patients with mechanical heart valves.[id number] 21:32:00 Test Item Value Reference Range Comments FIBRINOGEN LEVEL (BEAKER) (test ibxz=469) 370 mg/dl 225-434 CBC W/PLT COUNT & AUTO [id number] 21:23:00 Test Item Value Reference Range Comments WHITE BLOOD CELL COUNT (BEAKER) (test gkdg=547) 8.7 K/ L 3.5-10.5 RED BLOOD CELL COUNT (BEAKER) (test qkkr=238) 4.79 M/ L 4.63-6.08 HEMOGLOBIN (BEAKER) (test qboo=846) 14.1 GM/DL 13.7-17.5 HEMATOCRIT (BEAKER) (test ymto=433) 42.7 % 40.1-51.0 MEAN CORPUSCULAR VOLUME (BEAKER) (test maqp=007) 89.1 fL 79.0-92.2 MEAN CORPUSCULAR HEMOGLOBIN (BEAKER) (test 29.4 pg 25.7-32.2 vlls=375) MEAN CORPUSCULAR HEMOGLOBIN CONC (BEAKER) (test 33.0 GM/DL 32.3-36.5 fcwx=463) RED CELL DISTRIBUTION WIDTH (BEAKER) (test 14.4 % 11.6-14.4 dyiq=545) PLATELET COUNT (BEAKER) (test yyot=292) 154 K/CU MM 150-450 MEAN PLATELET VOLUME (BEAKER) (test ipqh=916) 10.2 fL 9.4-12.4 NUCLEATED RED BLOOD CELLS (BEAKER) (test 0 /100 WBC 0-0 zkch=163) NEUTROPHILS RELATIVE PERCENT (BEAKER) (test 73 % kmcz=216) LYMPHOCYTES RELATIVE PERCENT (BEAKER) (test 17 % nldg=611) MONOCYTES RELATIVE PERCENT (BEAKER) (test 8 % gqvx=742) EOSINOPHILS RELATIVE PERCENT (BEAKER) (test 1 % bbqk=057) BASOPHILS RELATIVE PERCENT (BEAKER) (test 0 % clzm=929) NEUTROPHILS ABSOLUTE COUNT (BEAKER) (test 6.33 K/ L 1.78-5.38 lcrq=550) LYMPHOCYTES ABSOLUTE COUNT (BEAKER) (test 1.50 K/ L 1.32-3.57 czyp=379) MONOCYTES ABSOLUTE COUNT (BEAKER) (test 0.71 K/ L 0.30-0.82 rklj=653) EOSINOPHILS ABSOLUTE COUNT (BEAKER) (test 0.08 K/ L 0.04-0.54 nbkm=647) BASOPHILS ABSOLUTE COUNT (BEAKER) (test 0.03 K/ L 0.01-0.08 jezc=005) IMMATURE GRANULOCYTES-RELATIVE PERCENT (BEAKER) 0 % 0-1 (test jbmg=5549) POCT-GLUCOSE [id number] 21:22:00 Test Item Value Reference Range Comments POC-GLUCOSE METER (BEAKER) 228 mg/dL 70-110 TESTED AT [facility] [address] [facility] (test wpeq=9856) [facility] [address]
[2019-09-01 04:39] LABS: Basophils % 0.2 % (0-1.3); Hematocrit 37.5 % (39.6-49.0); Lymphocytes % 14.4 % (15.3-44.8); MPV 8.8 fL (7.6-11.3); Protime INR 1.85; RBC Red Blood Cell Count 4.35 M/uL (4.33-5.43)
[2019-09-01 04:51] LABS: ALT/SGPT 14 U/L (12-78); AST/SGOT 16 U/L (15-37); Albumin 3.4 g/dL (3.4-5.0); Alkaline Phosphatase 79 U/L (45-117); BUN Blood Urea Nitrogen 37 mg/dL (7-18); Bicarbonate 25 mmol/L (21-32); Bilirubin Direct 0.2 mg/dL (0-0.2); Bilirubin Total 0.6 mg/dL (0.2-1.0); Glucose Level 140 mg/dL (74-106); Magnesium 1.5 mg/dL (1.8-2.4); NT PRO-BNP 1020 pg/mL (<450); Potassium 3.8 mmol/L (3.5-5.1); Protein, Total 7.1 g/dL (6.4-8.2); Sodium Level 145 mmol/L (136-145); Troponin (Emerg Dept Use Only) < 0.02 ng/mL (0.0-0.045)
[2019-09-01] MEDS ORDERED: Magnesium Sulfate 2gm IVPB 2 G/50 ML BAG IV ONE (06:10)
--- NOTE | 2019-09-01 06:11 | ER ---
Nurse's Notes [facility] Name: Odilon Ferrara Age: 74 yrs Sex: Male : 1945 Arrival Date: 09/01/2019 Time: 03:09 Bed 5 Private MD: Diagnosis: Dyspnea;Atrial fibrillation and flutter;Obesity, unspecified;Type 2 diabetes mellitus;Unspecified combined systolic (congestive) and diastolic (congestive) heart failure;Hypomagnesemia Presentation: 09/01 03:22 Presenting complaint: EMS states: "we were called for a pt with difficulty breathing jd3 and generalized weakness. we placed him on a nasal canula, but his oxygenation on room air was at 97%. he reported that he didn't have any other breathing difficulty by the time we made it here, just the weakness. the pt reported that it might be his diet. 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 Transition of care: patient was not received from another setting of care. Onset of symptoms was September 01, 2019. Risk Assessment: Do you want to hurt yourself or someone else? Patient reports no desire to harm self or others. Initial Sepsis Screen: Does the patient meet any 2 criteria? No. Patient's initial sepsis screen is negative. Does the patient have a suspected source of infection? No. Patient's initial sepsis screen is negative. Care prior to arrival: None. 03:22 Method Of Arrival: EMS: [facility] jd3 03:22 Acuity: TYLOR 3 jd3 Triage Assessment: 03:36 Respiratory: Reports labored breathing the patient reports symptoms have resolved. jd3 03:36 Respiratory: Onset: The symptoms/episode began/occurred today. jd3 Historical: - Allergies: 03:33 No Known Allergies; jd3 - Home Meds: 03:33 aspirin 81 mg Oral TbEC 1 tab once daily [Active]; furosemide 80 mg Oral tab 2 times jd3 per day [Active]; glimepiride 2 mg Oral tab 2 tabs with breakfast , 1 tab with dinner [Active]; metformin 1,000 mg Oral tab 1 tab 2 times per day [Active]; metolazone 5 mg Oral tab 1 tab once daily [Active]; metoprolol succinate 50 mg Oral Tb24 1 tab twice a day [Active]; oxybutynin chloride 10 mg Oral tr24 1 tab once daily [Active]; simvastatin 40 mg Oral tab 1 tab once daily [Active]; spironolactone 25 mg Oral tab 1 tab 2 times per day [Active]; ursodiol 300 mg Oral cap 1 cap 2 times per day [Active]; - PMHx: 03:33 Diabetes - NIDDM; DVT; High Cholesterol; Atrial Fib; jd3 - PSHx: 03:33 clot removal; jd3 - Immunization history:: Adult Immunizations up to date. - Social history:: Smoking status: Patient/guardian denies using tobacco. - Ebola Screening: : Patient negative for fever greater than or equal to 101.5 degrees Fahrenheit, and additional compatible Ebola Virus Disease symptoms. Screenin:36 Abuse screen: Denies threats or abuse. Nutritional screening: No deficits noted. jd3 Tuberculosis screening: No symptoms or risk factors identified. Fall Risk Ambulatory Aid- None/Bed Rest/Nurse Assist (0 pts). Gait- Normal/Bed Rest/Wheelchair (0 pts) Mental Status- Oriented to own ability (0 pts). Total Arias Fall Scale indicates No Risk (0-24 pts). Assessment: 03:34 General: Appears in no apparent distress. uncomfortable, Behavior is calm, cooperative, jd3 appropriate for age. Pain: Complains of pain in jaw Quality of pain is described as aching. Neuro: Level of Consciousness is awake, alert, obeys commands, Oriented to person, place, time, situation. Cardiovascular: Denies chest pain, Heart tones S1 S2 present Capillary refill < 3 seconds Patient's skin is warm and dry. Respiratory: Airway is patent Respiratory effort is even, unlabored, Respiratory pattern is regular, symmetrical, Breath sounds are clear bilaterally. the patient reports symptoms have resolved Denies cough, shortness of breath labored breathing. GI: No signs and/or symptoms were reported involving the gastrointestinal system. : No signs and/or symptoms were reported regarding the genitourinary system. EENT: No signs and/or symptoms were reported regarding the EENT system. Derm: Skin is intact, Skin is dry, Skin is pale, Skin temperature is warm. Musculoskeletal: Circulation, motion, and sensation intact. Range of motion: intact in all extremities. 04:45 Reassessment: Patient appears in no apparent distress at this time. No changes from lp1 previously documented assessment. 06:42 Reassessment: Patient requesting to have home med of Tylenol #3 for pain, Provider lp1 states okay to administer. 07:00 Reassessment: Patient appears in no apparent distress at this time. Patient and/or sg family updated on plan of care and expected duration. Pain level reassessed. pt updated on POC and admission orders, pt reports " oh well the doctor didn't tell me any of that, is going to see me?", pt informed that is not in the Emergency room at this time but he could see the patient upon admission here in the ED or on the floor, pt states undersstanding. 07:33 Reassessment: pt informed, attempt to call report, nurse unavailable at this time. sg 07:40 Reassessment: Patient appears in no apparent distress at this time. pt updated that sg attempt to call report, Charge nurse reports nurse unavailable at this time, will attempt to call report again, pt stated understanding. 08:33 Reassessment: Patient appears in no apparent distress at this time. Patient and/or sg family updated on plan of care and expected duration. Pain level reassessed. General: Behavior is calm, quiet. Respiratory: Airway is patent Respiratory effort is even, unlabored, Respiratory pattern is regular, symmetrical. Derm: Skin is pale. Vital Signs: 03:33 BP 129 / 72; Pulse 75; Resp 18 S; Temp 97.6(O); Pulse Ox 97% on R/A; Weight 131.54 kg jd3 (R); Height 5 ft. 11 in. (180.34 cm) (R); Pain 3/10; 04:00 BP 128 / 80; Pulse 72; Resp 16; Pulse Ox 95% on R/A; lp1 04:45 BP 104 / 75; Pulse 58; Resp 14; Pulse Ox 95% on R/A; lp1 05:30 BP 123 / 64; Pulse 55; Resp 16; Pulse Ox 96% on R/A; lp1 06:00 BP 137 / 70; Pulse 55; Resp 13; Pulse Ox 96% on R/A; lp1 06:30 BP 122 / 53; Pulse 69; Resp 17; Pulse Ox 96% on R/A; lp1 07:30 BP 125 / 59; Pulse 57; Resp 16; Temp 97.9; Pulse Ox 97% on R/A; Pain 1/10; sg 08:30 BP 126 / 79; Pulse 60; Resp 17; Pulse Ox 98% on R/A; sg 03:33 Body Mass Index 40.45 (131.54 kg, 180.34 cm) jd3 ED Course: 03:09 Patient arrived in ED. ds1 03:10 Manfred Payan MD is Attending Physician. malik 03:22 Jaron Reyes, RN is Primary Nurse. jd3 03:30 Triage completed. jd3 03:34 Arm band placed on. jd3 03:36 Patient has correct armband on for positive identification. Bed in low position. Call j light in reach. Side rails up X2. Adult w/ patient. 04:17 Inserted saline lock: 20 gauge in left hand, using aseptic technique. Blood collected. lp1 05:13 No provider procedures requiring assistance completed. lp1 06:09 Aric Easley MD is Hospitalizing Provider. malik 06:18 XRAY Chest (1 view) In Process Unspecified. EDMS 06:48 Patient admitted, IV remains in place. lp1 08:08 Primary Nurse role handed off by Jaron Reyes, ELIA sg 08:08 Gab Fischer, RN is Primary Nurse. sg Administered Medications: 06:41 Drug: Lasix 40 mg Route: IVP; Site: left hand; lp1 07:19 Follow up: Response: No adverse reaction sg 06:42 Drug: Magnesium Sulfate 2 grams Route: IVPB; Infused Over: 2 hrs; Site: left hand; lp1 07:35 Follow up: Response: No adverse reaction; IV Status: Completed infusion sg 06:44 Drug: Tylenol #3 (300 mg-30 mg) 1 tablet {Note: RASS 0.} Route: PO; lp1 07:18 Follow up: Response: No adverse reaction; Pain is decreased; RASS: Alert and Calm (0) sg 07:10 Drug: Eliquis 5 mg Route: PO; sg 08:00 Follow up: Response: No adverse reaction sg Outcome: 06:10 Decision to Hospitalize by Provider. malik 06:48 Condition: stable lp1 06:48 Instructed on the need for admit. 09:31 Admitted to Tele accompanied by tech, via wheelchair, with chart, Report called to alexsander Waite RN 09:31 Condition: stable 09:31 Instructed on the need for admit, safety practices. 09:32 Patient left the ED. alexsander Signatures: Dispatcher [employer] EDGab Fry RN RN sg Anderson, Corey, MD MD cha Sanford, Demi ds1 Smita Sethi RN RN lp1 Jaron Reyes RN RN jd3
--- NOTE | 2019-09-01 06:11 | EDPHYS ---
Physician Documentation [facility] Name: Odilon Ferrara Age: 74 yrs Sex: Male : 1945 Arrival Date: 09/01/2019 Time: 03:09 Bed 5 Private MD: ED Physician Manfred Pyaan HPI: 09/01 04:02 This 74 yrs old Male presents to ER via EMS with complaints of Breathing malik Difficulty, Weakness, Dizziness. 04:02 The patient has shortness of breath at rest, with light activity. Onset: The malik symptoms/episode began/occurred this morning. Duration: The symptoms are continuous, and are unchanged since they started. The patient's shortness of breath has no apparent modifying factors. Associated signs and symptoms: Pertinent positives: non-productive cough, dizziness. Severity of symptoms: At their worst the symptoms were mild in the emergency department the symptoms are unchanged. The patient has experienced similar episodes in the past, a few times. Historical: - Allergies: 03:33 No Known Allergies; jd3 - Home Meds: 03:33 aspirin 81 mg Oral TbEC 1 tab once daily [Active]; furosemide 80 mg Oral tab 2 times jd3 per day [Active]; glimepiride 2 mg Oral tab 2 tabs with breakfast , 1 tab with dinner [Active]; metformin 1,000 mg Oral tab 1 tab 2 times per day [Active]; metolazone 5 mg Oral tab 1 tab once daily [Active]; metoprolol succinate 50 mg Oral Tb24 1 tab twice a day [Active]; oxybutynin chloride 10 mg Oral tr24 1 tab once daily [Active]; simvastatin 40 mg Oral tab 1 tab once daily [Active]; spironolactone 25 mg Oral tab 1 tab 2 times per day [Active]; ursodiol 300 mg Oral cap 1 cap 2 times per day [Active]; - PMHx: 03:33 Diabetes - NIDDM; DVT; High Cholesterol; Atrial Fib; jd3 - PSHx: 03:33 clot removal; jd3 - Immunization history:: Adult Immunizations up to date. - Social history:: Smoking status: Patient/guardian denies using tobacco. - Ebola Screening: : Patient negative for fever greater than or equal to 101.5 degrees Fahrenheit, and additional compatible Ebola Virus Disease symptoms. ROS: 04:04 Constitutional: Negative for fever, chills, and weight loss, Eyes: Negative for injury, malik pain, redness, and discharge, ENT: Negative for injury, pain, and discharge, Neck: Negative for injury, pain, and swelling, Cardiovascular: Negative for chest pain, palpitations, and edema, Abdomen/GI: Negative for abdominal pain, nausea, vomiting, diarrhea, and constipation, Back: Negative for injury and pain, : Negative for injury, bleeding, discharge, and swelling, MS/Extremity: Negative for injury and deformity, Psych: Negative for depression, anxiety, suicide ideation, homicidal ideation, and hallucinations, Allergy/Immunology: Negative for hives, rash, and allergies, Endocrine: Negative for neck swelling, polydipsia, polyuria, polyphagia, and marked weight changes, Hematologic/Lymphatic: Negative for swollen nodes, abnormal bleeding, and unusual bruising. 04:04 Respiratory: Positive for cough, shortness of breath. 04:04 Skin: Positive for pallor. Exam: 04:04 Constitutional: This is a well developed, well nourished patient who is awake, alert, malik and in no acute distress. Head/Face: Normocephalic, atraumatic. Eyes: Pupils equal round and reactive to light, extra-ocular motions intact. Lids and lashes normal. Conjunctiva and sclera are non-icteric and not injected. Cornea within normal limits. Periorbital areas with no swelling, redness, or edema. ENT: Nares patent. No nasal discharge, no septal abnormalities noted. Tympanic membranes are normal and external auditory canals are clear. Oropharynx with no redness, swelling, or masses, exudates, or evidence of obstruction, uvula midline. Mucous membranes moist. Neck: Trachea midline, no thyromegaly or masses palpated, and no cervical lymphadenopathy. Supple, full range of motion without nuchal rigidity, or vertebral point tenderness. No Meningismus. Chest/axilla: Normal chest wall appearance and motion. Nontender with no deformity. No lesions are appreciated. Cardiovascular: Regular rate and rhythm with a normal S1 and S2. No gallops, murmurs, or rubs. Normal PMI, no JVD. No pulse deficits. Abdomen/GI: Soft, non-tender, with normal bowel sounds. No distension or tympany. No guarding or rebound. No evidence of tenderness throughout. Back: No spinal tenderness. No costovertebral tenderness. Full range of motion. Skin: Warm, dry with normal turgor. Normal color with no rashes, no lesions, and no evidence of cellulitis. 04:04 Respiratory: the patient does not display signs of respiratory distress, Respirations: normal, Breath sounds: are clear throughout, Respiratory rate: 18 04:41 Musculoskeletal/extremity: DVT Exam: No signs of deep vein thrombosis. no pain, no malik swelling, no tenderness, negative Homans' sign noted on exam, no appreciated bluish discoloration, no erythema, no increased warmth. Vital Signs: 03:33 BP 129 / 72; Pulse 75; Resp 18 S; Temp 97.6(O); Pulse Ox 97% on R/A; Weight 131.54 kg jd3 (R); Height 5 ft. 11 in. (180.34 cm) (R); Pain 3/10; 04:00 BP 128 / 80; Pulse 72; Resp 16; Pulse Ox 95% on R/A; lp1 04:45 BP 104 / 75; Pulse 58; Resp 14; Pulse Ox 95% on R/A; lp1 05:30 BP 123 / 64; Pulse 55; Resp 16; Pulse Ox 96% on R/A; lp1 06:00 BP 137 / 70; Pulse 55; Resp 13; Pulse Ox 96% on R/A; lp1 06:30 BP 122 / 53; Pulse 69; Resp 17; Pulse Ox 96% on R/A; lp1 07:30 BP 125 / 59; Pulse 57; Resp 16; Temp 97.9; Pulse Ox 97% on R/A; Pain /10; sg 08:30 BP 126 / 79; Pulse 60; Resp 17; Pulse Ox 98% on R/A; sg 03:33 Body Mass Index 40.45 (131.54 kg, 180.34 cm) jd3 MDM: 03:10 Patient medically screened. [facility] 04:07 Data reviewed: vital signs, nurses notes, lab test result(s), EKG, radiologic studies. [facility] 09/01 03:40 Order name: Basic Metabolic Panel 09/01 03:40 Order name: CBC with Diff 09/01 03:40 Order name: LFT's 09/01 03:40 Order name: Magnesium 09/01 03:40 Order name: NT PRO-BNP 09/01 03:40 Order name: PT-INR 09/01 03:40 Order name: Troponin (emerg Dept Use Only) 09/01 04:40 Order name: CBC with Automated Diff; Complete Time: 04:40 EDTN 09/01 04:40 Order name: Protime (+INR); Complete Time: 04:40 EDMS 09/01 05:10 Order name: Basic Metabolic Panel; Complete Time: 06:02 EDTN 09/01 05:10 Order name: Liver (Hepatic) Function; Complete Time: 06:02 EDMS 09/01 05:10 Order name: Troponin (Emerg Dept Use Only); Complete Time: 06:02 EDMS 09/01 05:10 Order name: NT PRO-BNP; Complete Time: 06:02 EDTN 09/01 05:10 Order name: Magnesium; Complete Time: 06:02 EDTN 09/01 03:40 Order name: XRAY Chest (1 view) 09/01 03:40 Order name: EKG; Complete Time: 03:41 09/01 03:40 Order name: Cardiac monitoring; Complete Time: 04:18 09/01 03:40 Order name: EKG - Nurse/Tech; Complete Time: 04:18 09/01 03:40 Order name: IV Saline Lock; Complete Time: 04:18 09/01 03:40 Order name: Labs collected and sent; Complete Time: 04:18 09/01 03:40 Order name: O2 Per Protocol; Complete Time: 04:18 09/01 03:40 Order name: O2 Sat Monitoring; Complete Time: 04:18 09/01 04:02 Order name: Urine Dipstick-Ancillary (obtain specimen); Complete Time: 06:39 [facility] 09/01 06:40 Order name: Urine Dipstick--Ancillary (enter results) ds4 09/01 07:32 Order name: Urine Dipstick-Ancillary EDMS Administered Medications: 06:41 Drug: Lasix 40 mg Route: IVP; Site: left hand; lp1 07:19 Follow up: Response: No adverse reaction sg 06:42 Drug: Magnesium Sulfate 2 grams Route: IVPB; Infused Over: 2 hrs; Site: left hand; lp1 07:35 Follow up: Response: No adverse reaction; IV Status: Completed infusion sg 06:44 Drug: Tylenol #3 (300 mg-30 mg) 1 tablet {Note: RASS 0.} Route: PO; lp1 07:18 Follow up: Response: No adverse reaction; Pain is decreased; RASS: Alert and Calm (0) sg 07:10 Drug: Eliquis 5 mg Route: PO; sg 08:00 Follow up: Response: No adverse reaction sg Disposition: 09/01/19 06:10 Hospitalization ordered by Aric Easley for Inpatient Admission. Preliminary diagnosis are Dyspnea, Atrial fibrillation and flutter, Obesity, unspecified, Type 2 diabetes mellitus, Unspecified combined systolic (congestive) and diastolic (congestive) heart failure, Hypomagnesemia. - Bed requested for Telemetry/MedSurg (Inpatient). - Status is Inpatient Admission. sg - Condition is Stable. - Problem is new. - Symptoms have improved. UTI on Admission? No Signatures: Dispatcher [employer] EDMS Gab Fischer RN RN Manfred Payan MD MD cha Ballard, Brenda, RN RN Mona Jett RN RN Smita Sethi RN RN lp1 Jaron Reyes RN RN jd3 Corrections: (The following items were deleted from the chart) 06:56 06:10 Hospitalization Ordered by Aric Easley MD for Inpatient Admission. Preliminary malik diagnosis is Dyspnea; Atrial fibrillation and flutter; Obesity, unspecified; Type 2 diabetes mellitus; Unspecified combined systolic (congestive) and diastolic (congestive) heart failure. Bed requested for Telemetry/MedSurg (Inpatient). Status is Inpatient Admission. Condition is Stable. Problem is new. Symptoms have improved. UTI on Admission? No. malik 07:21 06:56 09/01/2019 06:10 Hospitalization Ordered by Aric Easley MD for Inpatient ss Admission. Preliminary diagnosis is Dyspnea; Atrial fibrillation and flutter; Obesity, unspecified; Type 2 diabetes mellitus; Unspecified combined systolic (congestive) and diastolic (congestive) heart failure; Hypomagnesemia. Bed requested for Telemetry/MedSurg (Inpatient). Status is Inpatient Admission. Condition is Stable. Problem is new. Symptoms have improved. UTI on Admission? No. malik 09:32 07:21 09/01/2019 06:10 Hospitalization Ordered by Aric Easley MD for Inpatient sg Admission. Preliminary diagnosis is Dyspnea; Atrial fibrillation and flutter; Obesity, unspecified; Type 2 diabetes mellitus; Unspecified combined systolic (congestive) and diastolic (congestive) heart failure; Hypomagnesemia. Bed requested for Telemetry/MedSurg (Inpatient). Status is Inpatient Admission. Condition is Stable. Problem is new. Symptoms have improved. UTI on Admission? No. ss
[2019-09-01] MEDS ORDERED: FUROSEMIDE 40 MG/4 ML VIAL ONE (06:29)
[2019-09-01] MEDS ORDERED: CODEINE 30MG/APAP 300MG TAB ONE (06:46)
[2019-09-01] MEDS ORDERED: APIXABAN 5 MG TABLET ONE (07:05)
[2019-09-01 07:32] LABS: Urine Blood TRACE (NEG); Urine Glucose NEGATIVE (NEG); Urine Protein NEGATIVE (NEG); Urine pH 5.5 (5.0-7.0)
--- NOTE | 2019-09-01 08:05 | RAD REPORT ---
EXAM DESCRIPTION: Harsh Single View09/01/2019 3:54 am CLINICAL HISTORY: sob COMPARISON: August 22, 2019 FINDINGS: The lungs appear clear of acute infiltrate. The heart is mildly enlarged IMPRESSION: No acute abnormalities displayed
--- NOTE | 2019-09-01 08:20 | EKG ---
Test Date: 2019-09-01 Test Time: 04:06:48 Cellophaner: JACOBO MEASUREMENT RESULTS: Intervals: Rate: 56 [place]: QRSD: 150 QT: 458 QTc: 441 [place]: P: [place]: QRS: -80 T: 102 INTERPRETIVE STATEMENTS: Atrial fibrillation with slow ventricular response Left axis deviation Left bundle branch block Abnormal ECG Compared to ECG 08/15/2018 11:40:02 Ventricular premature complex(es) no longer present Electronically Signed On 09-01-19 08:20:19 REWARDS CONSULTANT by Taz Pendleton
--- NOTE | 2019-09-01 10:30 | CON ---
Reason For Consult: Dyspnea. History Of Present Illness: Mr. Ferrara has been waking up from a deep sleep gasping for breath. In 10 seconds or so, it gets better. He does get up, but he is able to lie down within a few minutes. One spell caused him to come to the hospital, and in the emergency room, it happened several times. He was hooked up to telemetry, but no significant arrhythmia was seen. He is in chronic atrial fibri llation. He has CAD that is mild. 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 This is being evaluated to have that resected and finally they decided not to try and resect it, to do chemo and radiation only. I believe it is a malignant melanoma. He has elevated c reatinine. His cardiac enzymes are normal. He has cardiac cath on August 13, and at that time, his creatinine was 1.88. The patient has underlying CAD, AFib, normal ejection fraction. He has a h istory of prostate cancer and now a different cancer that I think is malignant melanoma. He also has underlying glucose intolerance or diabetes. His complete blood count is within normal limits. Coag ulations indicate INR is slightly elevated, probably because he takes Xarelto. Medications: Outpatient medications have been Eliquis 5 mg b.i.d. and we actually do not have a list of his other medications. Apparently that list includes furosemide 80 b.i.d., glimepiride, metformi n, metolazone, metoprolol succinate, oxybutynin, simvastatin, spironolactone, and ursodiol. Physical Examination: General: He is obese, alert, oriented, pleasant, not in distress. Heart: Irregularly irregular. His heart rate is about 50. Lungs: Clear. Abdomen: Obese. Extremities: Trace edema. There are venous stasis changes on the skin of his legs. Laboratory Data: His chest x-ray does not show pulmonary edema. His EKG shows atrial fib, heart rat e 56 beats per minute, left bundle branch block, similar to his older EKGs. Recommendations: I believe the patient should probably have his dose of metoprolol reduced. Thank you very much for your kind referral of Mr. Ferrara. I will follow him with you. YOHANNES Voice ID: [id number] Report ID: [id number]
[2019-09-01] MEDS ORDERED: MORPHINE 4 MG/ML SYR IV PRN (10:31)
[2019-09-01] MEDS ORDERED: ACETAMINOPHEN 500 MG TAB PO PRN (10:31)
[2019-09-01] MEDS ORDERED: ONDANSETRON 4 MG/2 ML VIAL IV PRN (10:31)
[2019-09-01] MEDS ORDERED: ALBUTEROL 2.5 MG/3 ML NEB SOL NEB PRN (10:31)
[2019-09-01] MEDS ORDERED: IPRATROPIUM BROM 0.5MG/2.5ML NEB PRN (10:31)
[2019-09-01] MEDS ORDERED: D50W 25 GM/50 ML SYRINGE/VIAL IV PRN (11:50)
[2019-09-01] MEDS ORDERED: GLUCAGON 1 MG/VIAL IM PRN (11:50)
[2019-09-01] MEDS: METOPROLOL TAR 50 MG TAB PO SCH ×2 (12:51→17:53)
[2019-09-01] MEDS: MAGNESIUM OXIDE 400 MG TAB PO SCH ×2 (12:52→20:54)
[2019-09-01] MEDS: NA CHLORIDE 0.9% 1,000 ML IV SCH (12:55)
--- NOTE | 2019-09-01 15:28 | RAD REPORT ---
EXAM DESCRIPTION: US - Renal Ultrasound-Complete - 09/01/2019 3:18 pm CLINICAL HISTORY: .acute renal injury COMPARISON: 2018 cat scan FINDINGS: The right kidney measures 12 cm with a normal echotexture. The left kidney measures 12 cm with a normal echotexture. Small bilateral renal cysts are unchanged Hydronephrosis is not seen. IMPRESSION: Small bilateral renal cysts are unchanged
--- NOTE | 2019-09-01 15:30 | RAD REPORT ---
EXAM DESCRIPTION: US - Urinary Bladder - 09/01/2019 3:18 pm CLINICAL HISTORY: acute renal injury FINDINGS: Prevoid bladder volume equals 565 cc Postvoid bladder volume equals 188 cc No ascites IMPRESSION: Prevoid bladder volume equals 565 cc Postvoid bladder volume equals 188 cc
[2019-09-01] MEDS: INSULIN -REGULAR HUMAN 50 UNIT/0.5 ML ML SQ SCH ×2 (16:30→20:55)
[2019-09-01] MEDS ORDERED: FUROSEMIDE 20 MG/ 2ML VIAL IV SCH (17:00)
[2019-09-01] MEDS: CODEINE 30MG/APAP 300MG TAB PO PRN (17:52)
[2019-09-01 20:13] VITALS: BMI 34.8
[2019-09-01] MEDS: URSODIOL 300 MG CAP PO SCH (20:54)
[2019-09-01] MEDS: APIXABAN 5 MG TABLET PO SCH (20:54)
[2019-09-01] MEDS ORDERED: FAMOTIDINE 20 MG/2 ML VIAL IV SCH (21:00)
[2019-09-01] MEDS ORDERED: HOME MED 1 EA UNK (Simvastatin [Simvastatin] 40 MG) PO SCH (21:00)
[2019-09-01] MEDS ORDERED: ATORVASTATIN 20 MG TAB PO SCH (21:00)
[2019-09-02] MEDS: CODEINE 30MG/APAP 300MG TAB PO PRN ×2 (00:49→09:20)
[2019-09-02] MEDS: NA CHLORIDE 0.9% 1,000 ML IV SCH (04:05)
[2019-09-02 05:11] LABS: Absolute Lymphocytes (CBC) 1.4 K/uL (0.7-4.9); Basophils % 0.1 % (0-1.3); Hematocrit 38.9 % (39.6-49.0); MPV 8.9 fL (7.6-11.3); RBC Red Blood Cell Count 4.48 M/uL (4.33-5.43)
[2019-09-02 05:22] LABS: Potassium 4.3 mmol/L (3.5-5.1)
[2019-09-02] MEDS: METOPROLOL TAR 50 MG TAB PO SCH ×2 (05:57→17:52)
[2019-09-02] MEDS: INSULIN -REGULAR HUMAN 50 UNIT/0.5 ML ML SQ SCH ×3 (07:30→16:30)
[2019-09-02] MEDS ORDERED: OXYBUTYNIN ER 5 MG TAB PO SCH (09:00)
[2019-09-02] MEDS ORDERED: OXYBUTYNIN CHLORIDE 10 MG PO SCH (09:00)
[2019-09-02] MEDS: URSODIOL 300 MG CAP PO SCH (09:21)
[2019-09-02] MEDS: MAGNESIUM OXIDE 400 MG TAB PO SCH (09:21)
[2019-09-02] MEDS: APIXABAN 5 MG TABLET PO SCH (09:21)
[2019-09-02 09:34] VITALS: O2SAT 95
--- NOTE | 2019-09-02 11:46 | P.CNS ---
Date of Consult: 09/02/19 Reason for Consult: Problems with CPAP machine Chief Complaint: Problems with CPAP History of Present Illness: Patient is 74 years of age admitted with presumed dyspnea he has a history of obstructive sleep apnea been having some problems with his machine he was on BiPAP and later switched to CPAP at 9 cm denies any snoring still complains of excessive daytime somnolence Allergies No Known Allergies Allergy (Verified 05/01/18 23:01) Home Medications: Acetaminophen with Codeine [Acetaminophen-Cod #3 Tablet] 1 tab PO TID PRN Apixaban [Eliquis] 5 mg PO BID 09/01/19 Furosemide 40 mg PO BID 09/01/19 Glimepiride 2 mg PO DAILY AT SUPPER 09/01/19 Glimepiride 4 mg PO DAILY WITH BREAKFAST 09/01/19 Metformin HCl 1,000 mg PO BID 09/01/19 Metoprolol Succinate [Toprol Xl] 50 mg PO BEDTIME 09/01/19 Metoprolol Succinate [Toprol Xl] 100 mg PO DAILY 09/01/19 Oxybutynin Chloride [Ditropan Xl] 10 mg PO DAILY 09/01/19 Simvastatin 40 mg PO BEDTIME 09/01/19 Ursodiol 300 mg PO BID 09/01/19 - Past Medical/Surgical History Diabetic: Yes -: AFIB -: DM -: HTN -: PROSTATE CA -: CRISTA -: 2 FT INTESTINE REMOVED -: HERNIA SX - Family History Father Medical History: Heart disease Mother Medical History: Heart disease - Social History Smoking Status: Never smoker Alcohol use: No CD- Drugs: No Caffeine use: No Place of Residence: Home Review of Systems 10-point ROS is otherwise unremarkable Physical Examination Temp Pulse Resp BP Pulse Ox 97.1 F 56 16 120/58 L 97 09/02/19 08:00 09/02/19 08:00 09/02/19 09:20 09/02/19 08:00 09/02/19 09:20 General: Alert, In no apparent distress, Oriented x3 Neck: Supple Respiratory: Clear to auscultation bilaterally Cardiovascular: Edema, Irregular heart rate/rhythm Gastrointestinal: Normal bowel sounds, Soft and benign - Problems (1) Sleep apnea Current Visit: Yes Status: Acute Plan: Patient has a history of sleep apnea as having problems with his CPAP machine formerly was on BiPAP change to CPAP currently on 9 cm chest x-ray vital signs unremarkable a renal and bladder ultrasound unremarkable he has AFib probably underlying diastolic dysfunction and is on diuretics I have advised him to follow up in my clinic will review his data overnight pulse oximetry did not show any significant desaturation on Cipro
--- NOTE | 2019-09-02 12:43 | RAD REPORT ---
EXAM DESCRIPTION: RAD - Chest Single View - 09/02/2019 6:46 am CLINICAL HISTORY: Chest Pain Chest pain. COMPARISON: Chest Single View dated 09/01/2019; Chest Pa And Lat (2 Views) dated 08/22/2019; Chest S cherrie View dated 08/15/2018; Chest Single View dated 05/01/2018 FINDINGS: Portable technique limits examination quality. The lungs are grossly clear. The heart is normal in size. No displaced fractures. IMPRESSION: No acute intrathoracic process suspected.
[2019-09-02 16:24] VITALS: BP 129/60; TEMP 98.8
[2019-09-02 17:15] LABS: Potassium 3.9 mmol/L (3.5-5.1)
--- NOTE | 2019-09-02 22:12 | HP ---
Date of Admission: 09/01/2019 Chief Complaint: Feeling dizzy and gasping for air. History Of Present Illness: A 74-year-old male patient who came into emergency room with above-menti oned complaints and after he was evaluated he was admitted to the hospital under my service. The pat yuni actually does not have shortness of breath as reported from the emergency room, but upon further questioning, he reports that he has obstructive sleep apnea, uses his CPAP regularly and he says sheldon t last night he woke up from sleep around 2 o'clock in the morning and went to the kitchen to get purvi e water and he was feeling dizzy at that time. Subsequently, he sat down and he dozed off, fell asle ep for short time and when he woke up he found himself gasping for air and within few seconds it subs ided, but he called 911 and he was brought to the emergency room. After he was evaluated, he was adm itted to the hospital. Upon further questioning, patient reports that he is using his CPAP machine r egularly, but he does have spell during daytime. Also, when he is sitting all of a sudden he finds h imself falling asleep and wakes up from sleep gasping for air and this is exactly what happened last night. Denies any chest pain. 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 He has significant amount of pain and flood s lost his appetite with this and has lost about 30 pounds or so in last 3 months. Allergies: NO KNOWN ALLERGIES. Medications: List reviewed. Review of Systems: MUTUAL FUND MANAGER: As mentioned above. Respiratory: As mentioned above. Constitutional: As mentioned above. Dermatology: As mentioned above. All other systems reviewed and negative. Social History: Negative for smoking, alcohol use. Family History: Significant for hypertension, diabetes, hyperlipidemia. Past Surgical History: Cholecystectomy, exploratory laparotomy in 2002 because of small bowel obstru ction and had repeat surgery for similar reason in 2007. Past Medical History: NIDDM, hypertension, atrial fibrillation, hyperlipidemia, prostate cancer, div erticulosis, osteoarthritis at multiple sites, allergic rhinitis, gastroesophageal reflux disease, ob structive sleep apnea, diverticulosis, and coronary artery disease. The patient had a cardiac cath d one about [address] Jane and he has some coronary artery disease, but did not require any intervention. Physical Examination: Vital Signs: Height 5 feet 11 inches, weight 250 pounds, temperature , pulse , b lood pressure , respiratory rate , oxygen saturation , General: Awake, alert, oriented, not in distress. HEENT: Head atraumatic, normocephalic. Conjunctivae nonerythematous. Sclerae white. Mouth, no thr ush or edema noted. Ears/Nose, no mass, lesion, discharge noted. Neck: Supple. No JVD, lymph nodes, bruit, thyromegaly noted. Lungs: Bilateral good equal air entry. Clear to auscultation. No rhonchi. No rales. Heart: Normal heart sounds, no murmur or gallop. Abdomen: Soft, bowel sounds normal. No guarding, rigidity, tenderness, mass, hepatosplenomegaly, dis tention, or bruit noted. Extremities: No leg edema. No calf tenderness. Skin: Patient has skin growth over right external ear. Lymphatics: No lymph node enlargement in neck, supraclavicular, infraclavicular region. Neuro: No focal neurological deficit. Chest: Unremarkable. External Genitalia: Deferred. Rectal: Deferred. Laboratory Data: White count 6.8, hemoglobin 13, platelets 116. Sodium 145, potassium 3.8, chloride 108, bicarb 25, BUN 37, creatinine 2.39, glucose 140. Liver function tests unremarkable except magn esium 1.5. Troponin less than 0.02. ProBNP 1020. Urinalysis, trace blood, otherwise negative. INR 1.81. Chest x-ray, no acute cardiopulmonary changes. EKG, atrial fibrillation with slow ventricula r response. Impression: 1.Acute kidney injury. 2.Weight loss. 3.Atrial fibrillation, chronic. 4.Obstructive sleep apnea. 5.Coronary artery disease. 6.Hypertension. 7.Type 2 diabetes mellitus. 8.Hyperlipidemia. 9.Prostate cancer. 10.Osteoarthritis, multiple sites. 11.Diverticulosis. 12.Gastroesophageal reflux disease. Plan: Admit patient to hospital for further evaluation and management of this problem. The patient is appropriate for inpatient and is expected to spend 2 midnights in hospital. We will go ahead and start the patient on IV fluid hydration. Patient has lost about 30 pounds in last few months with no t having good appetite since he is dealing with the skin cancer and constant pain. He has lost his a ppetite. He is about to start his treatment at [facility] in near future, but with this weight loss I feel like the diuretic medication that he is taking we need to stop the diuretic medication curren tly, at least give him some IV fluid. He his baseline renal function is normal creatinine, so this i s definitely out of his normal range. We will also have to cut back on his diabetes medications and at the time of discharge we will give him appropriate instruction on that. We will repeat blood work tomorrow. I strongly believe that his presenting symptoms of waking up from sleep, gasping for air, falling asleep during daytime, this is all related to his obstructive sleep apnea and I will consult his oracle fusion developer, Dr. Machuca, and I have discussed details with him, Dr. Machuca, and requested his evaluation. Cardiology consultation is already in place and I will repeat blood work tomorrow. I will see him tomorrow for followup. His dizziness that he had was probably likely due to low blood pressure, so we will have to consider to make adjust ment on that as well. PROMISE/ALFREDO Voice ID: [id number]
--- NOTE | 2019-09-03 05:35 | DS ---
Date of Discharge: 09/02/2019 Disposition: Patient will be discharged to go home this evening. Physical Examination: HEENT: Unremarkable. Lungs: Clear to auscultation. Heart: Sounds normal. Abdomen: Soft. Bowel sounds normal. No guarding, rigidity, tenderness, distention. Extremities: No leg edema. Laboratory Data: Yesterday's white count 6.8, hemoglobin 13, platelets 116. Today, white count 7.5, hemoglobin 13.3, platelets 126. Today, sodium 141, potassium 4.3, chloride 105, bicarb 30, BUN 33, creatinine 1.89, glucose 97. Yesterday upon admission, creatinine was 2.39. His baseline creatinine is around 1 or so. Final Diagnoses: 1.Acute kidney injury. 2.Volume depletion, hypotension secondary to above. 3.Chronic atrial fibrillation. 4.Coronary artery disease. 5.Type 2 diabetes mellitus. 6.Hyperlipidemia. 7.Hypertension. 8.Prostate cancer. 9.Diverticulosis. 10.Osteoarthritis, multiple sites. 11.Allergic rhinitis. 12.Gastroesophageal reflux disease. 13.Obstructive sleep apnea. 14.Diverticulosis. Hospital Course: A 74-year-old male patient, who was admitted to the hospital with dizziness and adilia rtness of breath. Please see dictated H and P for more information. Patient actually does not have any shortness of breath, but he tends to fall asleep while he is sitting and from his sleep he tends to wake up feeling like gasping for air and within few seconds after taking deep breath he feels bett er and this is actually what happened around change of address clerk around 2 o'clock or so when he presented t o emergency room. After he was evaluated, he was admitted to the hospital. His dizziness was likely due to low blood pressure. Patient has lost about 30 pounds of weight recently as he is dealing wit h a skin cancer for which he is under treatment at [facility] and is about to start his treatment in near future, but with constant pain, he has lost his appetite and lost almost 30 pounds and I believ e that is the reason why his blood pressure is probably running on the lower side and would need to c ut back on some of his medication including his diuretic medication, which definitely would have caus ed this acute kidney injury type of problem. In any case after he was admitted to the hospital, Card iology and Pulmonary consultation were obtained. I did start him on IV fluid and his renal function has started to show improvement today. Patient tells me today when I saw him that he has appointment change of address clerk tomorrow to go to [facility] and he goes there for 2 days in a row for appointment an d then this week on or so his oncologist will plan out his treatment that will be started ei ther this week or next week for his skin cancer. So, he would like to keep that appointment if possi ble and medically he is doing much better, stable for discharge and what I have suggested to him is t hat I would like for him to stay in hospital for most of the day today and go home in the evening alie e after his evening meal, so meanwhile we can continue to provide him IV fluid hydration and in the e vening time we can discharge him to go home. Dr. Machuca will contact him after he downloads the da ta from his CPAP machine with any of his recommendation and adjustment if he needs to do on his CPAP machine. Discharge Medications And Instructions: See copy of discharge order for details. Patient to follow up with Dr. Machuca per his instruction. Patient to follow up at my office week after next. PROMISE/MODL Voice ID: [id number] Report ID: [id number]
== END 2019-09-02 18:25 | disposition home or self-care (01) ==
LOC: ER 03:07 → ERHOLD 06:32 → INTOOBSV 06:32 → 4TH 09:28
PROVIDERS: ADMIT Internal Medicine; ATTEND Internal Medicine
DX: N17.9 Acute kidney failure, unspecified (principal); E11.9 Type 2 diabetes mellitus without complications; I10 Essential (primary) hypertension; E78.5 Hyperlipidemia, unspecified; K57.90 Diverticulosis of intestine, part unspecified, without perforation or abscess without bleeding; R63.4 Abnormal weight loss; I48.20 Chronic atrial fibrillation, unspecified; E86.9 Volume depletion, unspecified; I95.9 Hypotension, unspecified; J30.9 Allergic rhinitis, unspecified; I25.10 Atherosclerotic heart disease of native coronary artery without angina pectoris; G47.33 Obstructive sleep apnea (adult) (pediatric); M15.9 Polyosteoarthritis, unspecified; K21.9 Gastro-esophageal reflux disease without esophagitis; Z68.34 Body mass index [BMI] 34.0-34.9, adult; Z85.46 Personal history of malignant neoplasm of prostate
CPT/HCPCS: 96365; 93005; 85025 ×2; 80048 ×3; 36415 ×2; 83735; 85610; 82947 ×6; 80076; 81003; 84484 ×3; 83880 ×2; 71045 ×2; 76857; 76770; 96375; 99285; J1940; J3475; J7030 ×3; G0378 ×3

== ENCOUNTER 2019-09-05 14:27 | Observation (INO) | payer OTHER ==
--- OUTSIDE RECORDS SUMMARY | 2019-09-05 14:29 | XMS REPORT ---
:1945 Author Organization [facility] Address [address] [place] [address] [address] [place] [address] Care Team Providers Name Role Phone CARO [...] UREA NITROGEN (BEAKER) 18 mg/dL 7-21 (test clxx=767) CREATININE (BEAKER) (test 1.57 mg/dL 0.57-1.25 Specimen slightly hemolyzed ghyd=023) EGFR (BEAKER) (test 43 mL/min/1.73 sq m ESTIMATED GFR IS NOT rwbg=4318) ACCURATE CREATININE CLEARANCE IN PREDICTING GLOMERULAR FILTRATION RATE. ESTIMATED GFR IS NOT APPLICABLE FOR DIALYSIS PATIENTS. POCT-GLUCOSE [id number] 12:55:00 Test Item Value Reference Range Comments POC-GLUCOSE METER (BEAKER) 222 mg/dL 70-[address] [facility] [address] [facility] (test ygcv=2616) [facility] [address] POCT-GLUCOSE [id number] 08:17:00 Test Item Value Reference Range Comments POC-GLUCOSE METER (BEAKER) 155 mg/dL 70-[address] [facility] [address] [facility] (test maio=0362) [facility] [address] CALCIUM, [id number] 05:41:00 Test Item Value Reference Range Comments CALCIUM IONIZED (BEAKER) (test yqpp=760) 0.97 mmol/L 1.12-1.27 PH, BLOOD (BEAKER) (test anjk=9686) 7.46 [id number] 04:53:00 Test Item Value Reference Range Comments PARTIAL THROMBOPLASTIN TIME (BEAKER) (test 66.8 seconds 22.5-36.0 hmmk=822) PROTHROMBIN [id number] 04:51:00 Test Item Value Reference Range Comments PROTIME (BEAKER) (test gydz=514) 16.2 seconds 11.7-14.7 INR (BEAKER) (test bsar=700) 1.3 <=5.9 RECOMMENDED COUMADIN/WARFARIN INR THERAPY RANGESSTANDARD DOSE: 2.0 - 3.0 Includes: PROPHYLAXIS forvenous thrombosis, systemic embolization; TREATMENT for venous thrombosis and/or pulmonary embolus.HIGH RISK: Target INR is 2.5-3.5 for patients with mechanical heart valves.CBC (HEMOGRAM ONLY)2018-08-19 04:46:00 Test Item Value Reference Range Comments WHITE BLOOD CELL COUNT (BEAKER) (test uyvn=589) 7.9 K/ L 3.5-10.5 RED BLOOD CELL COUNT (BEAKER) (test mcam=772) 3.55 M/ L 4.63-6.08 HEMOGLOBIN (BEAKER) (test ocac=655) 10.4 GM/DL 13.7-17.5 HEMATOCRIT (BEAKER) (test vobe=717) 32.1 % 40.1-51.0 MEAN CORPUSCULAR VOLUME (BEAKER) (test fzaj=097) 90.4 fL 79.0-92.2 MEAN CORPUSCULAR HEMOGLOBIN (BEAKER) (test 29.3 pg 25.7-32.2 jarv=731) MEAN CORPUSCULAR HEMOGLOBIN CONC (BEAKER) (test 32.4 GM/DL 32.3-36.5 nasm=863) RED CELL DISTRIBUTION WIDTH (BEAKER) (test 14.9 % 11.6-14.4 igey=121) PLATELET COUNT (BEAKER) (test yzkg=308) 112 K/CU MM 150-450 MEAN PLATELET VOLUME (BEAKER) (test gwlu=715) 10.3 fL 9.4-12.4 NUCLEATED RED BLOOD CELLS (BEAKER) (test 0 /100 WBC 0-0 opvu=811) [id number] 22:20:00 Test Item Value Reference Range Comments PARTIAL THROMBOPLASTIN TIME (BEAKER) (test 54.8 seconds 22.5-36.0 daxo=725) POCT-GLUCOSE [id number] 22:01:00 Test Item Value Reference Range Comments POC-GLUCOSE METER (BEAKER) 241 mg/dL 70-[address] [facility] [address] [facility] (test ccbc=6554) [facility] [address] POCT-GLUCOSE [id number] 17:54:00 Test Item Value Reference Range Comments POC-GLUCOSE METER (BEAKER) 136 mg/dL 70-110 TESTED AT [address] (test kcru=8105) [facility] [address] POCT-GLUCOSE [id number] 16:01:00 Test Item Value Reference Range Comments POC-GLUCOSE METER (BEAKER) 163 mg/dL 70-110 TESTED AT [address] (test kvzp=4862) [facility] [address] [id number] 13:28:00 Test Item Value Reference Range Comments MAGNESIUM (BEAKER) (test mikx=222) 1.6 mg/dL 1.6-2.6 [id number] 13:28:00 Test Item Value Reference Range Comments PHOSPHORUS (BEAKER) (test soip=970) 1.6 mg/dL 2.3-4.7 BASIC METABOLIC [id number] 13:28:00 Test Item Value Reference Range Comments SODIUM (BEAKER) (test 142 meq/L 136-145 dfwh=225) POTASSIUM (BEAKER) (test 3.4 meq/L 3.5-5.1 fizu=715) CHLORIDE (BEAKER) (test 110 meq/L 98-107 jxhe=683) CO2 (BEAKER) (test 26 meq/L 22-29 bnlo=702) BLOOD UREA NITROGEN 20 mg/dL 7-21 (BEAKER) (test hoba=713) CREATININE (BEAKER) (test 1.20 mg/dL 0.57-1.25 ovuh=025) GLUCOSE RANDOM (BEAKER) 168 mg/dL 70-105 (test dagh=058) CALCIUM (BEAKER) (test 8.2 mg/dL 8.4-10.2 dmph=246) EGFR (BEAKER) (test 59 mL/min/1.73 sq m ESTIMATED GFR IS NOT uxqv=7028) ACCURATE CREATININE CLEARANCE IN PREDICTING GLOMERULAR FILTRATION RATE. ESTIMATED GFR IS NOT APPLICABLE FOR DIALYSIS PATIENTS. [id number] 13:28:00 Test Item Value Reference Range Comments PARTIAL THROMBOPLASTIN TIME (BEAKER) (test 45.9 seconds 22.5-36.0 vagg=706) POCT-GLUCOSE [id number] 08:14:00 Test Item Value Reference Range Comments POC-GLUCOSE METER (BEAKER) 161 mg/dL 70-[address] [facility] [address] [facility] (test oagl=2814) [place] [address] [id number] 02:19:00 Test Item Value Reference Range Comments PROTIME (BEAKER) (test hcav=390) 16.7 seconds 11.7-14.7 INR (BEAKER) (test psvq=158) 1.4 <=5.9 PARTIAL THROMBOPLASTIN TIME (BEAKER) (test 46.8 seconds 22.5-36.0 nivk=998) RECOMMENDED COUMADIN/WARFARIN INR THERAPY RANGESSTANDARD DOSE: 2.0 - 3.0 Includes: PROPHYLAXIS forvenous thrombosis, systemic embolization; TREATMENT for venous thrombosis and/or pulmonary embolus.HIGH RISK: Target INR is 2.5-3.5 for patients with mechanical heart valves.CBC W/PLT COUNT & AUTO [id number] 02:03:00 Test Item Value Reference Range Comments WHITE BLOOD CELL COUNT (BEAKER) (test tffi=582) 8.5 K/ L 3.5-10.5 RED BLOOD CELL COUNT (BEAKER) (test kqpy=284) 3.74 M/ L 4.63-6.08 HEMOGLOBIN (BEAKER) (test mahu=696) 11.3 GM/DL 13.7-17.5 HEMATOCRIT (BEAKER) (test bqvl=383) 33.8 % 40.1-51.0 MEAN CORPUSCULAR VOLUME (BEAKER) (test djna=886) 90.4 fL 79.0-92.2 MEAN CORPUSCULAR HEMOGLOBIN (BEAKER) (test 30.2 pg 25.7-32.2 vvmp=325) MEAN CORPUSCULAR HEMOGLOBIN CONC (BEAKER) (test 33.4 GM/DL 32.3-36.5 fiua=873) RED CELL DISTRIBUTION WIDTH (BEAKER) (test 14.8 % 11.6-14.4 svuy=757) PLATELET COUNT (BEAKER) (test uhpq=189) 106 K/CU MM 150-450 MEAN PLATELET VOLUME (BEAKER) (test fbuj=449) 10.5 fL 9.4-12.4 NUCLEATED RED BLOOD CELLS (BEAKER) (test 0 /100 WBC 0-0 lwbb=537) NEUTROPHILS RELATIVE PERCENT (BEAKER) (test 75 % brtq=305) LYMPHOCYTES RELATIVE PERCENT (BEAKER) (test 13 % ywuk=791) MONOCYTES RELATIVE PERCENT (BEAKER) (test 9 % lawv=601) EOSINOPHILS RELATIVE PERCENT (BEAKER) (test 2 % amjs=257) BASOPHILS RELATIVE PERCENT (BEAKER) (test 0 % duls=167) NEUTROPHILS ABSOLUTE COUNT (BEAKER) (test 6.37 K/ L 1.78-5.38 spfb=697) LYMPHOCYTES ABSOLUTE COUNT (BEAKER) (test 1.11 K/ L 1.32-3.57 hllj=781) MONOCYTES ABSOLUTE COUNT (BEAKER) (test 0.80 K/ L 0.30-0.82 ndoz=066) EOSINOPHILS ABSOLUTE COUNT (BEAKER) (test 0.14 K/ L 0.04-0.54 oyor=751) BASOPHILS ABSOLUTE COUNT (BEAKER) (test 0.03 K/ L 0.01-0.08 elfh=305) IMMATURE GRANULOCYTES-RELATIVE PERCENT (BEAKER) 1 % 0-1 (test qgeo=8781) CALCIUM, [id number] 01:53:00 Test Item Value Reference Range Comments CALCIUM IONIZED (BEAKER) (test ozuy=396) 1.03 mmol/L 1.12-1.27 PH, BLOOD (BEAKER) (test ejgc=3983) 7.44 POCT-GLUCOSE [id number] 23:21:00 Test Item Value Reference Range Comments POC-GLUCOSE METER (BEAKER) 140 mg/dL 70-[address] [facility] [address] [facility] (test hnct=1456) [facility] [address] CBC W/PLT COUNT & AUTO [id number] 21:11:00 Test Item Value Reference Range Comments WHITE BLOOD CELL COUNT (BEAKER) (test peeb=753) 7.5 K/ L 3.5-10.5 RED BLOOD CELL COUNT (BEAKER) (test wprk=145) 3.71 M/ L 4.63-6.08 HEMOGLOBIN (BEAKER) (test puyy=630) 11.2 GM/DL 13.7-17.5 HEMATOCRIT (BEAKER) (test dzvd=209) 34.0 % 40.1-51.0 MEAN CORPUSCULAR VOLUME (BEAKER) (test myoo=464) 91.6 fL 79.0-92.2 MEAN CORPUSCULAR HEMOGLOBIN (BEAKER) (test 30.2 pg 25.7-32.2 foxp=236) MEAN CORPUSCULAR HEMOGLOBIN CONC (BEAKER) (test 32.9 GM/DL 32.3-36.5 form=584) RED CELL DISTRIBUTION WIDTH (BEAKER) (test 14.8 % 11.6-14.4 qemg=367) PLATELET COUNT (BEAKER) (test fxre=777) 133 K/CU MM 150-450 MEAN PLATELET VOLUME (BEAKER) (test suva=437) 10.5 fL 9.4-12.4 NUCLEATED RED BLOOD CELLS (BEAKER) (test 0 /100 WBC 0-0 ssoh=960) NEUTROPHILS RELATIVE PERCENT (BEAKER) (test 68 % iixk=367) LYMPHOCYTES RELATIVE PERCENT (BEAKER) (test 20 % jlhx=415) MONOCYTES RELATIVE PERCENT (BEAKER) (test 9 % vgxp=988) EOSINOPHILS RELATIVE PERCENT (BEAKER) (test 2 % ewgv=124) BASOPHILS RELATIVE PERCENT (BEAKER) (test 0 % rtkv=513) NEUTROPHILS ABSOLUTE COUNT (BEAKER) (test 5.07 K/ L 1.78-5.38 tnjb=503) LYMPHOCYTES ABSOLUTE COUNT (BEAKER) (test 1.49 K/ L 1.32-3.57 odyi=293) MONOCYTES ABSOLUTE COUNT (BEAKER) (test 0.69 K/ L 0.30-0.82 igks=598) EOSINOPHILS ABSOLUTE COUNT (BEAKER) (test 0.15 K/ L 0.04-0.54 psqq=862) BASOPHILS ABSOLUTE COUNT (BEAKER) (test 0.02 K/ L 0.01-0.08 xyxg=793) IMMATURE GRANULOCYTES-RELATIVE PERCENT (BEAKER) 1 % 0-1 (test rnuw=0107) POCT-GLUCOSE [id number] 20:06:00 Test Item Value Reference Range Comments POC-GLUCOSE METER (BEAKER) 112 mg/dL 70-[address] [facility] [address] [facility] (test lpup=1709) [facility] [address] [id number] 13:37:00 Test Item Value Reference Range Comments PARTIAL THROMBOPLASTIN TIME (BEAKER) (test 46.2 seconds 22.5-36.0 ytmh=686) POCT-GLUCOSE [id number] 12:29:00 Test Item Value Reference Range Comments POC-GLUCOSE METER (BEAKER) 153 mg/dL 70-[address] [facility] [address] [facility] (test zmum=6140) [facility] [address] COMPREHENSIVE METABOLIC [id number] 03:55:00 Test Item Value Reference Range Comments TOTAL PROTEIN (BEAKER) 6.3 gm/dL 6.0-8.3 (test zgot=097) ALBUMIN (BEAKER) (test 3.2 g/dL 3.5-5.0 smwi=3365) ALKALINE PHOSPHATASE 55 U/L 40-150 (BEAKER) (test lanl=562) BILIRUBIN TOTAL (BEAKER) 0.7 mg/dL 0.2-1.2 (test paan=948) SODIUM (BEAKER) (test 141 meq/L 136-145 oscr=769) POTASSIUM (BEAKER) (test 3.4 meq/L 3.5-5.1 oceu=367) CHLORIDE (BEAKER) (test 107 meq/L 98-107 repd=213) CO2 (BEAKER) (test 27 meq/L 22-29 qqlt=675) BLOOD UREA NITROGEN 24 mg/dL 7-21 (BEAKER) (test fulc=912) CREATININE (BEAKER) (test 1.14 mg/dL 0.57-1.25 jluk=205) GLUCOSE RANDOM (BEAKER) 143 mg/dL 70-105 (test kuub=795) CALCIUM (BEAKER) (test 8.5 mg/dL 8.4-10.2 iutz=338) AST (SGOT) (BEAKER) (test 18 U/L 5-34 sdyj=760) ALT (SGPT) (BEAKER) (test 10 U/L 6-55 wpwl=540) EGFR (BEAKER) (test 63 mL/min/1.73 sq m ESTIMATED GFR IS NOT bwvj=7077) ACCURATE CREATININE CLEARANCE IN PREDICTING GLOMERULAR FILTRATION RATE. ESTIMATED GFR IS NOT APPLICABLE FOR DIALYSIS PATIENTS. [id number] 03:49:00 Test Item Value Reference Range Comments PARTIAL THROMBOPLASTIN TIME (BEAKER) (test 63.4 seconds 22.5-36.0 mzzi=314) PROTHROMBIN [id number] 03:48:00 Test Item Value Reference Range Comments PROTIME (BEAKER) (test gzgy=150) 18.9 seconds 11.7-14.7 INR (BEAKER) (test avoh=979) 1.6 <=5.9 RECOMMENDED COUMADIN/WARFARIN INR THERAPY RANGESSTANDARD DOSE: 2.0 - 3.0 Includes: PROPHYLAXIS forvenous thrombosis, systemic embolization; TREATMENT for venous thrombosis and/or pulmonary embolus.HIGH RISK: Target INR is 2.5-3.5 for patients with mechanical heart valves.CBC W/PLT COUNT & AUTO [id number] 03:30:00 Test Item Value Reference Range Comments WHITE BLOOD CELL COUNT (BEAKER) (test txxl=619) 6.4 K/ L 3.5-10.5 RED BLOOD CELL COUNT (BEAKER) (test tbfp=975) 4.20 M/ L 4.63-6.08 HEMOGLOBIN (BEAKER) (test qvjw=026) 12.3 GM/DL 13.7-17.5 HEMATOCRIT (BEAKER) (test amxu=313) 37.7 % 40.1-51.0 MEAN CORPUSCULAR VOLUME (BEAKER) (test cniy=467) 89.8 fL 79.0-92.2 MEAN CORPUSCULAR HEMOGLOBIN (BEAKER) (test 29.3 pg 25.7-32.2 glrp=635) MEAN CORPUSCULAR HEMOGLOBIN CONC (BEAKER) (test 32.6 GM/DL 32.3-36.5 wugi=549) RED CELL DISTRIBUTION WIDTH (BEAKER) (test 14.5 % 11.6-14.4 cgjx=869) PLATELET COUNT (BEAKER) (test qmjz=032) 108 K/CU MM 150-450 MEAN PLATELET VOLUME (BEAKER) (test pphq=522) 10.2 fL 9.4-12.4 NUCLEATED RED BLOOD CELLS (BEAKER) (test 0 /100 WBC 0-0 zzrq=705) NEUTROPHILS RELATIVE PERCENT (BEAKER) (test 64 % atym=006) LYMPHOCYTES RELATIVE PERCENT (BEAKER) (test 24 % vraw=205) MONOCYTES RELATIVE PERCENT (BEAKER) (test 8 % kula=126) EOSINOPHILS RELATIVE PERCENT (BEAKER) (test 4 % wipd=768) BASOPHILS RELATIVE PERCENT (BEAKER) (test 1 % sjqx=931) NEUTROPHILS ABSOLUTE COUNT (BEAKER) (test 4.09 K/ L 1.78-5.38 nany=186) LYMPHOCYTES ABSOLUTE COUNT (BEAKER) (test 1.51 K/ L 1.32-3.57 xdzu=818) MONOCYTES ABSOLUTE COUNT (BEAKER) (test 0.51 K/ L 0.30-0.82 jfdv=462) EOSINOPHILS ABSOLUTE COUNT (BEAKER) (test 0.23 K/ L 0.04-0.54 wqsv=972) BASOPHILS ABSOLUTE COUNT (BEAKER) (test 0.03 K/ L 0.01-0.08 snwz=699) IMMATURE GRANULOCYTES-RELATIVE PERCENT (BEAKER) 0 % 0-1 (test yfwq=6131) [id number] 19:35:00 Test Item Value Reference Range Comments PARTIAL THROMBOPLASTIN TIME (BEAKER) (test 58.0 seconds 22.5-36.0 nepy=532) POCT-GLUCOSE [id number] 16:44:00 Test Item Value Reference Range Comments POC-GLUCOSE METER (BEAKER) 163 mg/dL 70-110 TESTED AT [address] (test hadd=1341) [place] [address] [id number] 13:23:00 Test Item Value Reference Range Comments PARTIAL THROMBOPLASTIN TIME (BEAKER) (test 48.8 seconds 22.5-36.0 vvpj=224) POCT-GLUCOSE [id number] 12:05:00 Test Item Value Reference Range Comments POC-GLUCOSE METER (BEAKER) 227 mg/dL 70-110 TESTED AT [address] (test fbxj=9237) [place] [address] HEMOGLOBIN [id number] 10:44:00 Test Item Value Reference Range Comments HEMOGLOBIN A1C (BEAKER) (test iqyq=502) 7.9 % 4.3-6.1 POCT-GLUCOSE [id number] 06:27:00 Test Item Value Reference Range Comments POC-GLUCOSE METER (BEAKER) 119 mg/dL 70-110 TESTED AT [address] (test jknk=3681) [place] [address] TSH/FREE T4 IF [id number] 04:00:00 Test Item Value Reference Range Comments THYROID STIMULATING HORMONE (BEAKER) (test 1.80 uIU/mL 0.35-4.94 utet=487) CALCIUM, [id number] 04:00:00 Test Item Value Reference Range Comments CALCIUM IONIZED (BEAKER) (test mbun=190) 1.04 mmol/L 1.12-1.27 PH, BLOOD (BEAKER) (test seyx=3406) 7.52 [id number] 03:44:00 Test Item Value Reference Range Comments PHOSPHORUS (BEAKER) (test jnbt=515) 3.2 mg/dL 2.3-4.7 [id number] 03:44:00 Test Item Value Reference Range Comments MAGNESIUM (BEAKER) (test tatr=953) 1.9 mg/dL 1.6-2.6 COMPREHENSIVE METABOLIC [id number] 03:44:00 Test Item Value Reference Range Comments TOTAL PROTEIN (BEAKER) 7.0 gm/dL 6.0-8.3 (test edeq=642) ALBUMIN (BEAKER) (test 3.5 g/dL 3.5-5.0 ujen=0509) ALKALINE PHOSPHATASE 59 U/L 40-150 (BEAKER) (test kwas=810) BILIRUBIN TOTAL (BEAKER) 1.0 mg/dL 0.2-1.2 (test cnpw=072) SODIUM (BEAKER) (test 141 meq/L 136-145 gyoa=706) POTASSIUM (BEAKER) (test 3.5 meq/L 3.5-5.1 atrq=079) CHLORIDE (BEAKER) (test 103 meq/L 98-107 vzky=021) CO2 (BEAKER) (test 29 meq/L 22-29 lhzl=875) BLOOD UREA NITROGEN 32 mg/dL 7-21 (BEAKER) (test yzlz=892) CREATININE (BEAKER) (test 1.34 mg/dL 0.57-1.25 xkgl=682) GLUCOSE RANDOM (BEAKER) 101 mg/dL 70-105 (test fokm=898) CALCIUM (BEAKER) (test 9.5 mg/dL 8.4-10.2 imoa=167) AST (SGOT) (BEAKER) (test 21 U/L 5-34 byli=638) ALT (SGPT) (BEAKER) (test 11 U/L 6-55 znjd=377) EGFR (BEAKER) (test 52 mL/min/1.73 sq m ESTIMATED GFR IS NOT ctpm=8876) ACCURATE CREATININE CLEARANCE IN PREDICTING GLOMERULAR FILTRATION RATE. ESTIMATED GFR IS NOT APPLICABLE FOR DIALYSIS PATIENTS. PROTHROMBIN [id number] 03:33:00 Test Item Value Reference Range Comments PROTIME (BEAKER) (test vbog=123) 19.1 seconds 11.7-14.7 INR (BEAKER) (test xcuo=511) 1.6 <=5.9 RECOMMENDED COUMADIN/WARFARIN INR THERAPY RANGESSTANDARD DOSE: 2.0 - 3.0 Includes: PROPHYLAXIS forvenous thrombosis, systemic embolization; TREATMENT for venous thrombosis and/or pulmonary embolus.HIGH RISK: Target INR is 2.5-3.5 for patients with mechanical heart valves.[id number] 03:33:00 Test Item Value Reference Range Comments PARTIAL THROMBOPLASTIN TIME (BEAKER) (test 45.2 seconds 22.5-36.0 xcdt=546) CBC W/PLT COUNT & AUTO [id number] 03:32:00 Test Item Value Reference Range Comments WHITE BLOOD CELL COUNT (BEAKER) (test jsde=573) 8.9 K/ L 3.5-10.5 RED BLOOD CELL COUNT (BEAKER) (test dzln=402) 4.61 M/ L 4.63-6.08 HEMOGLOBIN (BEAKER) (test akla=760) 13.6 GM/DL 13.7-17.5 HEMATOCRIT (BEAKER) (test fdeg=492) 41.0 % 40.1-51.0 MEAN CORPUSCULAR VOLUME (BEAKER) (test ahne=822) 88.9 fL 79.0-92.2 MEAN CORPUSCULAR HEMOGLOBIN (BEAKER) (test 29.5 pg 25.7-32.2 rruu=715) MEAN CORPUSCULAR HEMOGLOBIN CONC (BEAKER) (test 33.2 GM/DL 32.3-36.5 fsrl=282) RED CELL DISTRIBUTION WIDTH (BEAKER) (test 14.5 % 11.6-14.4 sjsh=266) PLATELET COUNT (BEAKER) (test neyl=701) 140 K/CU MM 150-450 MEAN PLATELET VOLUME (BEAKER) (test ilrt=689) 10.0 fL 9.4-12.4 NUCLEATED RED BLOOD CELLS (BEAKER) (test 0 /100 WBC 0-0 ptec=095) NEUTROPHILS RELATIVE PERCENT (BEAKER) (test 68 % rkdh=844) LYMPHOCYTES RELATIVE PERCENT (BEAKER) (test 21 % ekay=536) MONOCYTES RELATIVE PERCENT (BEAKER) (test 9 % wvyq=173) EOSINOPHILS RELATIVE PERCENT (BEAKER) (test 1 % ibna=766) BASOPHILS RELATIVE PERCENT (BEAKER) (test 0 % rkbo=040) NEUTROPHILS ABSOLUTE COUNT (BEAKER) (test 6.04 K/ L 1.78-5.38 bbji=290) LYMPHOCYTES ABSOLUTE COUNT (BEAKER) (test 1.89 K/ L 1.32-3.57 dgsy=337) MONOCYTES ABSOLUTE COUNT (BEAKER) (test 0.81 K/ L 0.30-0.82 qkya=987) EOSINOPHILS ABSOLUTE COUNT (BEAKER) (test 0.09 K/ L 0.04-0.54 lrng=409) BASOPHILS ABSOLUTE COUNT (BEAKER) (test 0.03 K/ L 0.01-0.08 aaae=424) IMMATURE GRANULOCYTES-RELATIVE PERCENT (BEAKER) 0 % 0-1 (test zomb=3787) COMPREHENSIVE METABOLIC [id number] 21:39:00 Test Item Value Reference Range Comments TOTAL PROTEIN (BEAKER) 7.3 gm/dL 6.0-8.3 (test udwr=149) ALBUMIN (BEAKER) (test 3.6 g/dL 3.5-5.0 yiwk=7389) ALKALINE PHOSPHATASE 71 U/L 40-150 (BEAKER) (test yten=772) BILIRUBIN TOTAL (BEAKER) 0.9 mg/dL 0.2-1.2 (test fhcn=233) SODIUM (BEAKER) (test 139 meq/L 136-145 ailw=595) POTASSIUM (BEAKER) (test 3.2 meq/L 3.5-5.1 mmbn=451) CHLORIDE (BEAKER) (test 99 meq/L 98-107 oorw=293) CO2 (BEAKER) (test 26 meq/L 22-29 ipem=337) BLOOD UREA NITROGEN 35 mg/dL 7-21 (BEAKER) (test mill=385) CREATININE (BEAKER) (test 1.52 mg/dL 0.57-1.25 eiuz=533) GLUCOSE RANDOM (BEAKER) 198 mg/dL 70-105 (test ucxi=432) CALCIUM (BEAKER) (test 9.4 mg/dL 8.4-10.2 pkdq=842) AST (SGOT) (BEAKER) (test 20 U/L 5-34 dcqj=383) ALT (SGPT) (BEAKER) (test 12 U/L 6-55 ilks=747) EGFR (BEAKER) (test 45 mL/min/1.73 sq m ESTIMATED GFR IS NOT fhiz=1146) ACCURATE CREATININE CLEARANCE IN PREDICTING GLOMERULAR FILTRATION RATE. ESTIMATED GFR IS NOT APPLICABLE FOR DIALYSIS PATIENTS. [id number] 21:33:00 Test Item Value Reference Range Comments PARTIAL THROMBOPLASTIN TIME (BEAKER) (test 30.3 seconds 22.5-36.0 sodc=648) Prior to initiating heparinPROTHROMBIN TIME/[id number] 21:32:00 Test Item Value Reference Range Comments PROTIME (BEAKER) (test ineo=855) 19.1 seconds 11.7-14.7 INR (BEAKER) (test pndy=700) 1.6 <=5.9 RECOMMENDED COUMADIN/WARFARIN INR THERAPY RANGESSTANDARD DOSE: 2.0 - 3.0 Includes: PROPHYLAXIS forvenous thrombosis, systemic embolization; TREATMENT for venous thrombosis and/or pulmonary embolus.HIGH RISK: Target INR is 2.5-3.5 for patients with mechanical heart valves.[id number] 21:32:00 Test Item Value Reference Range Comments FIBRINOGEN LEVEL (BEAKER) (test ufsc=866) 370 mg/dl 225-434 CBC W/PLT COUNT & AUTO [id number] 21:23:00 Test Item Value Reference Range Comments WHITE BLOOD CELL COUNT (BEAKER) (test jqqo=249) 8.7 K/ L 3.5-10.5 RED BLOOD CELL COUNT (BEAKER) (test aqnw=085) 4.79 M/ L 4.63-6.08 HEMOGLOBIN (BEAKER) (test uqga=018) 14.1 GM/DL 13.7-17.5 HEMATOCRIT (BEAKER) (test nfor=184) 42.7 % 40.1-51.0 MEAN CORPUSCULAR VOLUME (BEAKER) (test ocjh=999) 89.1 fL 79.0-92.2 MEAN CORPUSCULAR HEMOGLOBIN (BEAKER) (test 29.4 pg 25.7-32.2 wrun=633) MEAN CORPUSCULAR HEMOGLOBIN CONC (BEAKER) (test 33.0 GM/DL 32.3-36.5 xapt=565) RED CELL DISTRIBUTION WIDTH (BEAKER) (test 14.4 % 11.6-14.4 fidd=304) PLATELET COUNT (BEAKER) (test cfjs=882) 154 K/CU MM 150-450 MEAN PLATELET VOLUME (BEAKER) (test fwyz=403) 10.2 fL 9.4-12.4 NUCLEATED RED BLOOD CELLS (BEAKER) (test 0 /100 WBC 0-0 gpsn=917) NEUTROPHILS RELATIVE PERCENT (BEAKER) (test 73 % eklo=848) LYMPHOCYTES RELATIVE PERCENT (BEAKER) (test 17 % gapw=559) MONOCYTES RELATIVE PERCENT (BEAKER) (test 8 % hurq=249) EOSINOPHILS RELATIVE PERCENT (BEAKER) (test 1 % nkjc=232) BASOPHILS RELATIVE PERCENT (BEAKER) (test 0 % kdmf=467) NEUTROPHILS ABSOLUTE COUNT (BEAKER) (test 6.33 K/ L 1.78-5.38 pokl=220) LYMPHOCYTES ABSOLUTE COUNT (BEAKER) (test 1.50 K/ L 1.32-3.57 udod=199) MONOCYTES ABSOLUTE COUNT (BEAKER) (test 0.71 K/ L 0.30-0.82 wign=262) EOSINOPHILS ABSOLUTE COUNT (BEAKER) (test 0.08 K/ L 0.04-0.54 ejtj=601) BASOPHILS ABSOLUTE COUNT (BEAKER) (test 0.03 K/ L 0.01-0.08 scuv=816) IMMATURE GRANULOCYTES-RELATIVE PERCENT (BEAKER) 0 % 0-1 (test wvla=2887) POCT-GLUCOSE [id number] 21:22:00 Test Item Value Reference Range Comments POC-GLUCOSE METER (BEAKER) 228 mg/dL 70-[address] [facility] [address] [facility] (test vpbv=1571) [facility] [id number]
[2019-09-05 16:36] LABS: Absolute Lymphocytes (CBC) 1.2 K/uL (0.7-4.9); Basophils % 0.5 % (0-1.3); Hematocrit 40.3 % (39.6-49.0); Lymphocytes % 14.1 % (15.3-44.8); MPV 8.2 fL (7.6-11.3); RBC Red Blood Cell Count 4.66 M/uL (4.33-5.43)
[2019-09-05] MEDS ORDERED: NA CHLORIDE 0.9% 1,000 ML ONE ×2 (16:49→18:28)
[2019-09-05] MEDS ORDERED: PROMETHAZINE 25 MG/ML VIAL ONE (16:49)
[2019-09-05 17:05] LABS: Albumin 3.5 g/dL (3.4-5.0); Bilirubin Direct 0.2 mg/dL (0-0.2); Bilirubin Total 0.6 mg/dL (0.2-1.0); Potassium 3.4 mmol/L (3.5-5.1); Protein, Total 7.4 g/dL (6.4-8.2)
--- NOTE | 2019-09-05 17:41 | EKG ---
Test Date: 2019-09-05 Test Time: 15:14:44 [employer] Agent: JESUS MEASUREMENT RESULTS: Intervals: Rate: 75 RI: QRSD: 156 QT: 416 QTc: 464 [place]: P: RI: QRS: -73 T: 107 INTERPRETIVE STATEMENTS: Atrial fibrillation Left axis deviation Left bundle branch block Abnormal ECG Compared to ECG 09/01/2019 04:06:48 No significant changes Electronically Signed On 09-05-19 17:40:55 MEDICAL ACCOUNTANT by Taz Pendleton
--- NOTE | 2019-09-05 17:45 | RAD REPORT ---
EXAM DESCRIPTION: CTAbdomen Pelvis W Contrast - 09/05/2019 5:30 pm CLINICAL HISTORY: Abdominal pain. ABD PAIN COMPARISON: Abdomen Pelvis W Contrast dated 05/01/2018; CT ABD PELVIS W CONTRAST dated 07/18/2008; CT ABD PELVIS W CONTRAST dated 07/04/2008; CT ABD PELVIS W CONTRAST dated 04/27/2007 TECHNIQUE: Biphasic CT imaging of the abdomen and pelvis was performed with 100 ml non-ionic IV cont rast. All CT scans are performed using dose optimization technique as appropriate and may include automated exposure control or mA/KV adjustment according to patient size. FINDINGS: The lung bases are clear. A mild nodular appearance of the liver parenchyma is seen suggesting mild cirrhosis. Cholecystectomy clips are noted. The spleen is mildly prominent. The pancreas, adrenal glands kidneys are within norm al limits. Small cysts are present cortex of the left kidney. No bowel obstruction, free air, free fluid or abscess. Sigmoid diverticulosis coli is present. The a ppendix is normal. Fairly prominent amount of stool is retained throughout the colon. No evidence of significant lymphadenopathy. No suspicious bony findings. IMPRESSION: Prominent fecal retention is seen in the colon. Mild liver cirrhosis. Sigmoid diverticulosis coli is present without diverticulitis.
[2019-09-05] MEDS ORDERED: MAGNESIUM CITRATE 300 ML BOT ONE (18:28)
[2019-09-05] MEDS ORDERED: BISACODYL E.C. 5 MG TAB PO ONE (18:28)
[2019-09-05] MEDS ORDERED: BISACODYL 10 MG RECTAL SUPP ONE (18:34)
--- NOTE | 2019-09-05 19:11 | ER ---
Nurse's Notes [facility] Name: Odilon Ferrara Age: 74 yrs Sex: Male : 1945 Arrival Date: 09/05/2019 Time: 14:35 Bed 28 Private MD: Diagnosis: Constipation;Near syncope;Dehydration Presentation: 09/05 14:36 Presenting complaint: EMS states: Pt states that he has not had much of an appetite in tr5 about a month and has not had a bowel movement since 08/31/19. Transition of care: patient was not received from another setting of care. Onset of symptoms was September 05, 2019. Risk Assessment: Do you want to hurt yourself or someone else? Patient reports no desire to harm self or others. Initial Sepsis Screen: Does the patient meet any 2 criteria? HR > 90 bpm. No. Patient's initial sepsis screen is negative. Does the patient have a suspected source of infection? No. Patient's initial sepsis screen is negative. Care prior to arrival: None. 14:36 Method Of Arrival: EMS: [facility] tr5 14:36 Acuity: TYLOR 3 tr5 Historical: - Allergies: 14:40 No Known Allergies; tr5 - Home Meds: 14:40 aspirin 81 mg Oral TbEC 1 tab once daily [Active]; furosemide Oral [Active]; tr5 glimepiride 2 mg Oral tab 2 tabs with breakfast , 1 tab with dinner [Active]; metformin 1,000 mg Oral tab 1 tab 2 times per day [Active]; metolazone 5 mg Oral tab 1 tab once daily [Active]; metoprolol succinate 50 mg Oral Tb24 1 tab twice a day [Active]; oxybutynin chloride 10 mg Oral tr24 1 tab once daily [Active]; simvastatin 40 mg Oral tab 1 tab once daily [Active]; spironolactone 25 mg Oral tab 1 tab 2 times per day [Active]; ursodiol 300 mg Oral cap 1 cap 2 times per day [Active]; - PMHx: 14:40 Atrial Fib; Diabetes - NIDDM; DVT; High Cholesterol; prostate cancer; skin cancer; tr5 - Immunization history:: Adult Immunizations up to date. - Social history:: Smoking status: Patient/guardian denies using tobacco. - Ebola Screening: : No symptoms or risks identified at this time. Screenin:01 Abuse screen: Denies threats or abuse. Nutritional screening: No deficits noted. tr5 Tuberculosis screening: No symptoms or risk factors identified. Fall Risk None identified. Assessment: 15:01 General: Appears uncomfortable, Behavior is calm, cooperative. Pain: Complains of pain tr5 in abdomen. Neuro: Level of Consciousness is awake, alert, obeys commands, Oriented to person, place, time, [place] are equal bilaterally Moves all extremities. Cardiovascular: Heart tones present Capillary refill < 3 seconds. Respiratory: Airway is patent Respiratory effort is even, unlabored, Respiratory pattern is regular, symmetrical. GI: Reports. GI: Reports lower abdominal pain, upper abdominal pain, constipation, intolerance of food. GI: Bowel sounds present X 4 quads. Abd is soft X 4 quads. : No signs and/or symptoms were reported regarding the genitourinary system. EENT: No signs and/or symptoms were reported regarding the EENT system. Derm: Skin is intact. Musculoskeletal: Capillary refill < 3 seconds. 16:00 Reassessment: Patient appears in no apparent distress at this time. Patient is alert, tr5 oriented x 3, equal unlabored respirations, skin warm/dry/pink. 17:00 Reassessment: Patient appears in no apparent distress at this time. Patient and/or tr5 family updated on plan of care and expected duration. Pain level reassessed. Patient is alert, oriented x 3, equal unlabored respirations, skin warm/dry/pink. 18:00 Reassessment: Pt's family at bedside. Pt is resting in bed. tr5 19:50 Reassessment: Reassessment: Patient appears in no apparent distress at this time. No tr5 changes from previously documented assessment. Patient and/or family updated on plan of care and expected duration. Pain level reassessed. Patient is alert, oriented x 3, equal unlabored respirations, skin warm/dry/pink. 21:30 Reassessment: Patient appears in no apparent distress at this time. Patient and/or tr5 family updated on plan of care and expected duration. Pain level reassessed. Patient is alert, oriented x 3, equal unlabored respirations, skin warm/dry/pink. Vital Signs: 14:40 BP 130 / 76; Pulse 91; Resp 20; Temp 97.7(O); Pulse Ox 100% on R/A; Weight 133.81 kg tr5 (R); Height 6 ft. (182.88 cm); 15:46 BP 131 / 78; Pulse 75; Resp 17; Pulse Ox 96% on R/A; tr5 17:00 BP 132 / 61; Pulse 75; Resp 17; Pulse Ox 100% on R/A; tr5 20:09 BP 135 / 74; Pulse 78; Resp 22; Temp 98.2(O); Pulse Ox 99% on R/A; tr5 21:30 BP 133 / 85; Pulse 94; Resp 19; Pulse Ox 99% on R/A; tr5 14:40 Body Mass Index 40.01 (133.81 kg, 182.88 cm) tr5 ED Course: 14:35 Patient arrived in ED. tr5 14:37 Triage completed. tr5 14:40 Arm band placed on Patient placed. tr5 15:00 Errol Agosto, RN is Primary Nurse. tr5 15:01 Placed in gown. Bed in low position. Call light in reach. Side rails up X 1. Cardiac tr5 monitor on. Pulse ox on. NIBP on. 15:33 EKG done, by laboratory tech. reviewed by Salvatore HUNT. at1 15:43 Rosalia Aviles FNP-C [facility]. snw 15:43 Deepak Pavon MD is Attending Physician. snw 16:13 Radiology exam delayed due to lab results not completed at this time. (BUN/Creatinine). nj 16:26 Initial lab(s) drawn, by me, sent to lab. Inserted saline lock: 20 gauge in left lt1 antecubital area, using aseptic technique. 17:30 CT completed. Patient tolerated procedure well. Patient moved to CT. Patient moved back ks from CT. 17:31 CT Abd/Pelvis - IV Contrast Only In Process Unspecified. EDMS 17:40 Assisted to bathroom. Pt felt the urge to have a bowel movement so he wants to try to tr5 go before he goes home. 19:37 No provider procedures requiring assistance completed. IV discontinued. tr5 22:04 Deepak Pavon MD is Hospitalizing Provider. snw Administered Medications: 16:53 Drug: Phenergan 6.25 mg Route: IVP; Site: left antecubital; tr5 16:54 Drug: NS 0.9% 1000 ml Route: IV; Rate: 1 bolus; Site: left antecubital; tr5 18:39 Follow up: Response: No adverse reaction; IV Status: Completed infusion; IV Intake: tr5 1000ml 18:38 Drug: NS 0.9% 1000 ml Route: IV; Rate: 75 ml/hr; Site: left antecubital; tr5 18:38 Drug: Dulcolax Suppository 10 mg Route: MT; tr5 18:38 Drug: Magnesium Citrate Liquid 300 ml Route: PO; tr5 Intake: 18:39 IV: 1000ml; Total: 1000ml. tr5 Outcome: 19:05 Discharge ordered by . snw 19:37 Admitted to Med/surg accompanied by tech, via stretcher, with chart, Report called to tr5 Belgica RODRIGEZ 19:37 Condition: stable 19:37 Instructed on the need for admit. 22:06 Decision to Hospitalize by Provider. snw 22:31 Condition: stable tr5 23:05 Patient left the ED. tr5 Signatures: Dispatcher [employer] EDMS Rosalia Aviles, QUILLER HAND-C QUILLER HAND-Csnw Genesis Dawkins, cat cracker operator EKG Tat1 Kamar Quiros, Mandie lt1 Errol Agosto, RN RN tr5 Corrections: (The following items were deleted from the chart) 22:06 19:50 Reassessment: tr5 tr5 22:32 19:37 Discharged to home ambulatory, tr5 tr5 22:32 19:37 Discharge instructions given to patient, family, Instructed on discharge tr5 instructions, follow up and referral plans. medication usage, Demonstrated understanding of instructions, follow-up care, medications, Prescriptions given X 1, tr5
--- NOTE | 2019-09-05 19:12 | EDPHYS ---
Physician Documentation [facility] Name: Odilon Ferrara Age: 74 yrs Sex: Male : 1945 Arrival Date: 09/05/2019 Time: 14:35 Bed 28 Private MD: ED Physician Deepak Pavon HPI: 09/05 16:27 This 74 yrs old Male presents to ER via EMS with complaints of Constipation. snw 16:27 The patient presents with constipation. Onset: The symptoms/episode began/occurred snw gradually, 1 week(s) ago, and became persistent. The symptoms do not radiate. Associated signs and symptoms: Pertinent positives: nausea. The symptoms are described as crampy. Severity of pain: At its worst the pain was mild. It is unknown whether or not the patient has had similar symptoms in the past. The patient has been recently seen by a physician:. Historical: - Allergies: 14:40 No Known Allergies; tr5 - Home Meds: 14:40 aspirin 81 mg Oral TbEC 1 tab once daily [Active]; furosemide Oral [Active]; tr5 glimepiride 2 mg Oral tab 2 tabs with breakfast , 1 tab with dinner [Active]; metformin 1,000 mg Oral tab 1 tab 2 times per day [Active]; metolazone 5 mg Oral tab 1 tab once daily [Active]; metoprolol succinate 50 mg Oral Tb24 1 tab twice a day [Active]; oxybutynin chloride 10 mg Oral tr24 1 tab once daily [Active]; simvastatin 40 mg Oral tab 1 tab once daily [Active]; spironolactone 25 mg Oral tab 1 tab 2 times per day [Active]; ursodiol 300 mg Oral cap 1 cap 2 times per day [Active]; - PMHx: 14:40 Atrial Fib; Diabetes - NIDDM; DVT; High Cholesterol; prostate cancer; skin cancer; tr5 - Immunization history:: Adult Immunizations up to date. - Social history:: Smoking status: Patient/guardian denies using tobacco. - Ebola Screening: : No symptoms or risks identified at this time. ROS: 16:20 Eyes: Negative for injury, pain, redness, and discharge, ENT: Negative for injury, snw pain, and discharge, Neck: Negative for injury, pain, and swelling, Cardiovascular: Negative for chest pain, palpitations, and edema, Respiratory: Negative for shortness of breath, cough, wheezing, and pleuritic chest pain, Back: Negative for injury and pain, : Negative for injury, bleeding, discharge, and swelling, MS/Extremity: Negative for injury and deformity, Skin: Negative for injury, rash, and discoloration, Neuro: Negative for headache, weakness, numbness, tingling, and seizure, Psych: Negative for depression, anxiety, suicide ideation, homicidal ideation, and hallucinations. 16:20 Constitutional: Positive for malaise. 16:20 Abdomen/GI: Positive for nausea, constipation, very hard stool, no bm for several days. Exam: 16:20 Head/Face: Normocephalic, atraumatic. Eyes: Pupils equal round and reactive to light, snw extra-ocular motions intact. Lids and lashes normal. Conjunctiva and sclera are non-icteric and not injected. Cornea within normal limits. Periorbital areas with no swelling, redness, or edema. 16:20 Neck: Trachea midline, no thyromegaly or masses palpated, and no cervical lymphadenopathy. Supple, full range of motion without nuchal rigidity, or vertebral point tenderness. No Meningismus. Chest/axilla: Normal chest wall appearance and motion. Nontender with no deformity. No lesions are appreciated. 16:20 Respiratory: Lungs have equal breath sounds bilaterally, clear to auscultation and percussion. No rales, rhonchi or wheezes noted. No increased work of breathing, no retractions or nasal flaring. Abdomen/GI: Soft, non-tender, with normal bowel sounds. No distension or tympany. No guarding or rebound. No evidence of tenderness throughout. Back: No spinal tenderness. No costovertebral tenderness. Full range of motion. 16:20 Constitutional: The patient appears alert, awake, obese. 16:20 ENT: External ear(s): right superior pinna crusted and irritated - tx at [facility] for cancer of area. Pt states the process has worn him out.. 16:20 Cardiovascular: Rate: normal, Rhythm: irregularly irregular. 16:20 Skin: Appearance: Color: pale, pt smells ketotic. 16:20 Neuro: Exam negative for acute changes. Vital Signs: 14:40 BP 130 / 76; Pulse 91; Resp 20; Temp 97.7(O); Pulse Ox 100% on R/A; Weight 133.81 kg tr5 (R); Height 6 ft. (182.88 cm); 15:46 BP 131 / 78; Pulse 75; Resp 17; Pulse Ox 96% on R/A; tr5 17:00 BP 132 / 61; Pulse 75; Resp 17; Pulse Ox 100% on R/A; tr5 20:09 BP 135 / 74; Pulse 78; Resp 22; Temp 98.2(O); Pulse Ox 99% on R/A; tr5 21:30 BP 133 / 85; Pulse 94; Resp 19; Pulse Ox 99% on R/A; tr5 14:40 Body Mass Index 40.01 (133.81 kg, 182.88 cm) tr5 MDM: 15:48 Patient medically screened. snw 19:06 Data reviewed: vital signs, nurses notes. Data interpreted: Pulse oximetry: is 100 %. snw Interpretation: normal. Counseling: I had a detailed discussion with the patient and/or guardian regarding: the historical points, exam findings, and any diagnostic results supporting the discharge/admit diagnosis, lab results, radiology results, the need for outpatient follow up, to return to the emergency department if symptoms worsen or persist or if there are any questions or concerns that arise at home. Response to treatment: the patient's symptoms have mildly improved after treatment. Special discussion: Based on the history and exam findings, there is no indication for further emergent testing or inpatient evaluation. I discussed with the patient/guardian the need to see the primary care provider for further evaluation of the symptoms. 20:35 Physician consultation: A Kaushal LIND was called at 20:35, was contacted at 20:35, snw regarding admission, to the telemetry unit. patient's condition. 09/05 15:47 Order name: Basic Metabolic Panel; Complete Time: 17:10 snw 09/05 15:47 Order name: CBC with Diff; Complete Time: 16:49 snw 09/05 15:47 Order name: CT Abd/Pelvis - IV Contrast Only; Complete Time: 17:52 snw 09/05 15:47 Order name: Creatinine for Radiology; Complete Time: 17:10 snw 09/05 15:47 Order name: Hepatic Function; Complete Time: 17:10 snw 09/05 15:47 Order name: Lipase; Complete Time: 17:10 snw 09/05 15:47 Order name: IV Saline Lock; Complete Time: 16:26 snw 09/05 15:47 Order name: Labs collected and sent; Complete Time: 16:26 snw 09/05 15:56 Order name: EKG Electrocardiogram; Complete Time: 16:54 EDMS Administered Medications: 16:53 Drug: Phenergan 6.25 mg Route: IVP; Site: left antecubital; tr5 16:54 Drug: NS 0.9% 1000 ml Route: IV; Rate: 1 bolus; Site: left antecubital; tr5 18:39 Follow up: Response: No adverse reaction; IV Status: Completed infusion; IV Intake: tr5 1000ml 18:38 Drug: NS 0.9% 1000 ml Route: IV; Rate: 75 ml/hr; Site: left antecubital; tr5 18:38 Drug: Dulcolax Suppository 10 mg Route: NM; tr5 18:38 Drug: Magnesium Citrate Liquid 300 ml Route: PO; tr5 Disposition: 09/06 09:05 Co-signature as Attending Physician, Deepak Pavon MD Available for consultation ps1 during the encounter in the ED. Signing chart for administrative purposes. . Disposition: 09/05/19 22:06 Hospitalization ordered by Deepak Pavon for Observation. Preliminary diagnosis are Constipation, Near syncope, Dehydration. - Bed requested for Telemetry/MedSurg (observation). - Status is Observation. tr5 - Condition is Stable. - Problem is new. - Symptoms are unchanged. UTI on Admission? No Signatures: Dispatcher [employer] Rashida Rangel RN RN Rosalia Hollins, WEB APPLICATION DEV SPECIALIST-C WEB APPLICATION DEV SPECIALIST-Csnw Deepak Pavon MD MD ps1 Errol Agosto RN RN tr5 Corrections: (The following items were deleted from the chart) 09/05 20:09 19:05 09/05/2019 19:05 Discharged to Home. Impression: Constipation; Volume depletion. snw Condition is Stable. Forms are Medication Reconciliation Form, Thank You Letter, Antibiotic Education, Prescription Opioid Use. Follow up: Private Physician; When: Tomorrow; Reason: Recheck today's complaints, Continuance of care, Re-evaluation by your physician. Follow up: Emergency Department; When: As needed; Reason: Worsening of condition. snw 22:13 22:06 Hospitalization Ordered by Deepak Pavon MD for Observation. Preliminary dw diagnosis is Constipation; Near syncope; Dehydration. Bed requested for Telemetry/MedSurg (observation). Status is Observation. Condition is Stable. Problem is new. Symptoms are unchanged. UTI on Admission? No. snw 23:05 22:13 09/05/2019 22:06 Hospitalization Ordered by Deepak Pavon MD for Observation. tr5 Preliminary diagnosis is Constipation; Near syncope; Dehydration. Bed requested for Telemetry/MedSurg (observation). Status is Observation. Condition is Stable. Problem is new. Symptoms are unchanged. UTI on Admission? No. dw
[2019-09-05] MEDS ORDERED: NA CHLORIDE 0.9% 1,000 ML IV SCH (23:33)
[2019-09-05] MEDS ORDERED: ACETAMINOPHEN 500 MG TAB PO PRN (23:33)
[2019-09-05 23:45] VITALS: BMI 40.1
[2019-09-06 01:50] VITALS: O2SAT 96
[2019-09-06 04:58] LABS: Absolute Lymphocytes (CBC) 1.1 K/uL (0.7-4.9); Basophils % 0.2 % (0-1.3); Hematocrit 35.6 % (39.6-49.0); Lymphocytes % 12.4 % (15.3-44.8); MPV 9.2 fL (7.6-11.3); RBC Red Blood Cell Count 4.14 M/uL (4.33-5.43)
[2019-09-06 05:17] LABS: Potassium 3.3 mmol/L (3.5-5.1)
[2019-09-06] MEDS ORDERED: CODEINE 30MG/APAP 300MG TAB PO PRN (06:16)
[2019-09-06] MEDS ORDERED: GLUCAGON 1 MG/VIAL IM PRN (06:18)
[2019-09-06] MEDS ORDERED: D50W 25 GM/50 ML SYRINGE/VIAL IV PRN (06:18)
[2019-09-06] MEDS ORDERED: INSULIN -REGULAR HUMAN 50 UNIT/0.5 ML ML SQ SCH (07:30)
[2019-09-06] MEDS ORDERED: POTASSIUM CL SA 10 MEQ TAB PO ONE (08:08)
[2019-09-06 08:28] VITALS: BP 144/68; TEMP 97.1
[2019-09-06] MEDS ORDERED: APIXABAN 5 MG TABLET PO SCH (09:00)
[2019-09-06] MEDS ORDERED: OXYBUTYNIN ER 5 MG TAB PO SCH (09:00)
[2019-09-06] MEDS ORDERED: ASPIRIN 81 MG CHEWABLE TABLET PO SCH (09:00)
[2019-09-06] MEDS ORDERED: ursodioL 300 MG CAP PO SCH (09:00)
[2019-09-06] MEDS ORDERED: METOPROLOL XL 50 MG TAB PO SCH (21:00)
[2019-09-06] MEDS ORDERED: ATORVASTATIN 20 MG TAB PO SCH (21:00)
--- NOTE | 2019-09-06 22:58 | EKG ---
Test Date: 2019-09-05 Test Time: 20:21:17 Food Processing Chemist: TR MEASUREMENT RESULTS: Intervals: Rate: 78 CA: QRSD: 158 QT: 440 QTc: 501 [place]: P: CA: QRS: -88 T: 90 INTERPRETIVE STATEMENTS: Atrial fibrillation Left axis deviation Left bundle branch block Abnormal ECG Compared to ECG 09/05/2019 15:14:44 no significant change from previous ECG Electronically Signed On 09-06-19 22:56:53 MUSIC DEPARTMENT CHAIR by Taz Pendleton
--- NOTE | 2019-09-07 06:05 | SS ---
Date of Admission: 09/06/2019 Date of Discharge: 09/06/2019 Chief Complaint: Constipation. 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 He is under care of oncologist at [facility] and he is about to start treatment in the near future. The patient takes his narcotic pain medication as prescribed by physicians from [facility] and reported that yesterday he was trying to have bowel movement and he felt like he was going to faint and he was sitting on the commode at that time. Subsequently, when he managed to get out of bathroom and he was able to get back in the room and then subsequently he called his friend and later on he requested to be brought to the emergency room via ambulance. After he arrived in the emergency room, further evaluation then revealed the patient had significant problem with constipation and after treatment was given to him he did actually have a bowel movement in the emergency room, but while he was having bowel movement, even during that time or after that, he actually became diaphoretic and had fainting type of feeling again. Once he was brought back to bed, systolic blood pressure was around 113. The patient did not feel comfortable going home and was admitted to the hospital for observation. He did have good response to laxatives and enema given to him for treatment of constipation. This morning, he denies any other complaints except his ongoing pain on the right side of the face. No fever, chills, abdominal pain, nausea, vomiting. Allergies: NO KNOWN ALLERGIES. Medications: List reviewed. Review of Systems: GI: As mentioned above. Cardiovascular: As mentioned above. All other systems reviewed and negative. Social History: Negative for smoking, alcohol use. Family History: Significant for hypertension, diabetes, hyperlipidemia. Past Surgical History: Cholecystectomy, exploratory laparotomy in 2002, because of small bowel obstruction, and had a repeat surgery for similar reason in 2007. Past Medical History: Significant for hypertension, type 2 diabetes mellitus, atrial fibrillation, hyperlipidemia, prostate cancer, diverticulosis, osteoarthritis at multiple sites, allergic rhinitis, gastroesophageal reflux disease, obstructive sleep apnea, coronary artery disease. Physical Examination: Vital Signs: Temperature 97.1, pulse 82, respiratory rate 18, blood pressure 99 /68, oxygen saturation 96%, height 6 feet, weight 295 pounds. General: Awake, alert, oriented, not in distress. HEENT: Head atraumatic, normocephalic. Conjunctivae nonerythematous. Sclerae white. Mouth, no thrush or edema noted. Ears/Nose, on the right external ear, patient has skin cancer growth over external ear. Neck: Supple. No JVD, lymph nodes, bruit, thyromegaly noted. Lungs: Bilateral good equal air entry. Clear to auscultation. No rhonchi. No rales. Heart: Normal heart sounds, no murmur or gallop. Abdomen: Soft, bowel sounds normal. No guarding, rigidity, tenderness, mass, hepatosplenomegaly, distention, or bruit noted. Extremities: No leg edema. No calf tenderness. Skin: No rash, ulcer, cellulitis. Lymphatics: No lymph node enlargement in neck, supraclavicular, infraclavicular region. Neuro: No focal neurological deficit. Chest: Unremarkable. External Genitalia: Deferred. Rectal: Deferred. Laboratory Data: Yesterday, sodium 142, potassium 3.4, chloride 109, bicarb 26 , BUN 13, creatinine 1.30, glucose 118. Liver function tests unremarkable. This morning, sodium 144, potassium 3.3, chloride 112, bicarb 26, BUN 12, creatinine 1.16, glucose 120. Yesterday, white count 8.2, hemoglobin 13.7, platelets 135. This morning, white count 9.2, hemoglobin 12.2, platelets 117. CAT scan of the abdomen and pelvis showed prominent fecal retention in the colon , mild cirrhosis of liver, diverticulosis without diverticulitis. Impression: 1. Near syncope. 2. Constipation. 3. Hypertension. 4. Atrial fibrillation, chronic. 5. Coronary artery disease. 6. Diabetes mellitus. 7. Hyperlipidemia. Hospital Course: The patient was admitted to the hospital. After he was admitted, he did have significant relief from constipation with use of laxatives. This morning, he was feeling much better. He is not taking stool softener or laxatives, and I have advised him to start taking stool softener and laxative per order. He actually has appointment to go to [facility] today , but he is going to cancel that appointment and reschedule it for next week. Discharge Medications And Instructions: 1. Continue all prior home medications. 2. Follow up at my office next week. 3. Take Senokot-S 2 tablets by mouth 2 times a day and MiraLax 17 g powder mixed with 8-ounce water 2 times a day. 4. Reduce dose of metoprolol from 50 mg down to 25 mg p.o. daily. PROMISE/MODRoxanne Voice ID: [id number] Report ID: [id number] [id number]
== END 2019-09-06 11:34 | disposition home or self-care (01) ==
LOC: ER 14:27 → ERHOLD 21:37 → 4TH 22:30
PROVIDERS: ADMIT Internal Medicine; ATTEND Internal Medicine
DX: R55 Syncope and collapse (principal); K59.00 Constipation, unspecified; C44.201 Unspecified malignant neoplasm of skin of unspecified ear and external auricular canal; I10 Essential (primary) hypertension; I48.20 Chronic atrial fibrillation, unspecified; I25.10 Atherosclerotic heart disease of native coronary artery without angina pectoris; E11.9 Type 2 diabetes mellitus without complications; E78.5 Hyperlipidemia, unspecified; M19.90 Unspecified osteoarthritis, unspecified site; G47.33 Obstructive sleep apnea (adult) (pediatric); K21.9 Gastro-esophageal reflux disease without esophagitis; Z85.46 Personal history of malignant neoplasm of prostate
CPT/HCPCS: 96361; 93005 ×2; 85025 ×2; 80048 ×2; 36415; 82947; 80076; 83690; 74177; 96374; 99285; Q9967; J2550; J7030 ×3; G0378 ×2

== ENCOUNTER 2019-10-13 01:51 | Observation (INO) | payer OTHER ==
--- OUTSIDE RECORDS SUMMARY | 2019-10-13 01:54 | XMS REPORT ---
:1945 Author Organization [facility] Address [address] [place] [address] [address] [place] [address] Care Team Providers Name Role Phone CARO [...] UREA NITROGEN (BEAKER) 18 mg/dL 7-21 (test kxjf=919) CREATININE (BEAKER) (test 1.57 mg/dL 0.57-1.25 Specimen slightly hemolyzed yart=999) EGFR (BEAKER) (test 43 mL/min/1.73 sq m ESTIMATED GFR IS NOT inzx=5660) ACCURATE CREATININE CLEARANCE IN PREDICTING GLOMERULAR FILTRATION RATE. ESTIMATED GFR IS NOT APPLICABLE FOR DIALYSIS PATIENTS. POCT-GLUCOSE [id number] 12:55:00 Test Item Value Reference Range Comments POC-GLUCOSE METER (BEAKER) 222 mg/dL 70-110 TESTED AT [facility] [address] [facility] (test eupf=1765) [facility] [address] POCT-GLUCOSE [id number] 08:17:00 Test Item Value Reference Range Comments POC-GLUCOSE METER (BEAKER) 155 mg/dL 70-110 TESTED AT [facility] [address] [facility] (test irnc=9002) [facility] [address] CALCIUM, [id number] 05:41:00 Test Item Value Reference Range Comments CALCIUM IONIZED (BEAKER) (test ehuf=776) 0.97 mmol/L 1.12-1.27 PH, BLOOD (BEAKER) (test emtl=2372) 7.46 [id number] 04:53:00 Test Item Value Reference Range Comments PARTIAL THROMBOPLASTIN TIME (BEAKER) (test 66.8 seconds 22.5-36.0 ekrr=367) PROTHROMBIN [id number] 04:51:00 Test Item Value Reference Range Comments PROTIME (BEAKER) (test mlpn=147) 16.2 seconds 11.7-14.7 INR (BEAKER) (test ztty=432) 1.3 <=5.9 RECOMMENDED COUMADIN/WARFARIN INR THERAPY RANGESSTANDARD DOSE: 2.0 - 3.0 Includes: PROPHYLAXIS forvenous thrombosis, systemic embolization; TREATMENT for venous thrombosis and/or pulmonary embolus.HIGH RISK: Target INR is 2.5-3.5 for patients with mechanical heart valves.CBC (HEMOGRAM ONLY)2018-08-19 04:46:00 Test Item Value Reference Range Comments WHITE BLOOD CELL COUNT (BEAKER) (test kdlx=269) 7.9 K/ L 3.5-10.5 RED BLOOD CELL COUNT (BEAKER) (test ivlj=354) 3.55 M/ L 4.63-6.08 HEMOGLOBIN (BEAKER) (test cvwj=853) 10.4 GM/DL 13.7-17.5 HEMATOCRIT (BEAKER) (test wwcg=635) 32.1 % 40.1-51.0 MEAN CORPUSCULAR VOLUME (BEAKER) (test xpar=668) 90.4 fL 79.0-92.2 MEAN CORPUSCULAR HEMOGLOBIN (BEAKER) (test 29.3 pg 25.7-32.2 fobu=814) MEAN CORPUSCULAR HEMOGLOBIN CONC (BEAKER) (test 32.4 GM/DL 32.3-36.5 xaiu=529) RED CELL DISTRIBUTION WIDTH (BEAKER) (test 14.9 % 11.6-14.4 jygm=172) PLATELET COUNT (BEAKER) (test ldpr=167) 112 K/CU MM 150-450 MEAN PLATELET VOLUME (BEAKER) (test duak=958) 10.3 fL 9.4-12.4 NUCLEATED RED BLOOD CELLS (BEAKER) (test 0 /100 WBC 0-0 pmay=276) [id number] 22:20:00 Test Item Value Reference Range Comments PARTIAL THROMBOPLASTIN TIME (BEAKER) (test 54.8 seconds 22.5-36.0 ydsp=929) POCT-GLUCOSE [id number] 22:01:00 Test Item Value Reference Range Comments POC-GLUCOSE METER (BEAKER) 241 mg/dL 70-110 TESTED AT [facility] [address] [facility] (test vniq=3363) [facility] [address] POCT-GLUCOSE [id number] 17:54:00 Test Item Value Reference Range Comments POC-GLUCOSE METER (BEAKER) 136 mg/dL 70-110 TESTED AT [address] (test lqdx=4400) [facility] [address] POCT-GLUCOSE [id number] 16:01:00 Test Item Value Reference Range Comments POC-GLUCOSE METER (BEAKER) 163 mg/dL 70-110 TESTED AT [address] (test iimy=7191) [facility] [address] [id number] 13:28:00 Test Item Value Reference Range Comments MAGNESIUM (BEAKER) (test sysc=143) 1.6 mg/dL 1.6-2.6 [id number] 13:28:00 Test Item Value Reference Range Comments PHOSPHORUS (BEAKER) (test mxcn=631) 1.6 mg/dL 2.3-4.7 BASIC METABOLIC [id number] 13:28:00 Test Item Value Reference Range Comments SODIUM (BEAKER) (test 142 meq/L 136-145 ikbb=123) POTASSIUM (BEAKER) (test 3.4 meq/L 3.5-5.1 yfqg=268) CHLORIDE (BEAKER) (test 110 meq/L 98-107 wqcb=377) CO2 (BEAKER) (test 26 meq/L 22-29 nndk=594) BLOOD UREA NITROGEN 20 mg/dL 7-21 (BEAKER) (test jgsm=994) CREATININE (BEAKER) (test 1.20 mg/dL 0.57-1.25 bmby=490) GLUCOSE RANDOM (BEAKER) 168 mg/dL 70-105 (test jpwx=598) CALCIUM (BEAKER) (test 8.2 mg/dL 8.4-10.2 fvjf=725) EGFR (BEAKER) (test 59 mL/min/1.73 sq m ESTIMATED GFR IS NOT nxaq=2880) ACCURATE CREATININE CLEARANCE IN PREDICTING GLOMERULAR FILTRATION RATE. ESTIMATED GFR IS NOT APPLICABLE FOR DIALYSIS PATIENTS. [id number] 13:28:00 Test Item Value Reference Range Comments PARTIAL THROMBOPLASTIN TIME (BEAKER) (test 45.9 seconds 22.5-36.0 lyhl=958) POCT-GLUCOSE [id number] 08:14:00 Test Item Value Reference Range Comments POC-GLUCOSE METER (BEAKER) 161 mg/dL 70-110 TESTED AT [facility] [address] [facility] (test dwbo=5155) [place] [address] PT/[id number] 02:19:00 Test Item Value Reference Range Comments PROTIME (BEAKER) (test rlvm=284) 16.7 seconds 11.7-14.7 INR (BEAKER) (test bvcb=897) 1.4 <=5.9 PARTIAL THROMBOPLASTIN TIME (BEAKER) (test 46.8 seconds 22.5-36.0 ugsp=265) RECOMMENDED COUMADIN/WARFARIN INR THERAPY RANGESSTANDARD DOSE: 2.0 - 3.0 Includes: PROPHYLAXIS forvenous thrombosis, systemic embolization; TREATMENT for venous thrombosis and/or pulmonary embolus.HIGH RISK: Target INR is 2.5-3.5 for patients with mechanical heart valves.CBC W/PLT COUNT & AUTO [id number] 02:03:00 Test Item Value Reference Range Comments WHITE BLOOD CELL COUNT (BEAKER) (test sqik=010) 8.5 K/ L 3.5-10.5 RED BLOOD CELL COUNT (BEAKER) (test bftd=785) 3.74 M/ L 4.63-6.08 HEMOGLOBIN (BEAKER) (test wjdt=188) 11.3 GM/DL 13.7-17.5 HEMATOCRIT (BEAKER) (test oips=086) 33.8 % 40.1-51.0 MEAN CORPUSCULAR VOLUME (BEAKER) (test vqew=795) 90.4 fL 79.0-92.2 MEAN CORPUSCULAR HEMOGLOBIN (BEAKER) (test 30.2 pg 25.7-32.2 scak=604) MEAN CORPUSCULAR HEMOGLOBIN CONC (BEAKER) (test 33.4 GM/DL 32.3-36.5 tbjk=554) RED CELL DISTRIBUTION WIDTH (BEAKER) (test 14.8 % 11.6-14.4 aujy=280) PLATELET COUNT (BEAKER) (test uilx=245) 106 K/CU MM 150-450 MEAN PLATELET VOLUME (BEAKER) (test phzq=646) 10.5 fL 9.4-12.4 NUCLEATED RED BLOOD CELLS (BEAKER) (test 0 /100 WBC 0-0 bthd=364) NEUTROPHILS RELATIVE PERCENT (BEAKER) (test 75 % muyv=687) LYMPHOCYTES RELATIVE PERCENT (BEAKER) (test 13 % vvam=812) MONOCYTES RELATIVE PERCENT (BEAKER) (test 9 % acmr=374) EOSINOPHILS RELATIVE PERCENT (BEAKER) (test 2 % ueqe=339) BASOPHILS RELATIVE PERCENT (BEAKER) (test 0 % oess=299) NEUTROPHILS ABSOLUTE COUNT (BEAKER) (test 6.37 K/ L 1.78-5.38 zhwk=959) LYMPHOCYTES ABSOLUTE COUNT (BEAKER) (test 1.11 K/ L 1.32-3.57 wrpj=232) MONOCYTES ABSOLUTE COUNT (BEAKER) (test 0.80 K/ L 0.30-0.82 brml=378) EOSINOPHILS ABSOLUTE COUNT (BEAKER) (test 0.14 K/ L 0.04-0.54 jbmx=188) BASOPHILS ABSOLUTE COUNT (BEAKER) (test 0.03 K/ L 0.01-0.08 pwxq=432) IMMATURE GRANULOCYTES-RELATIVE PERCENT (BEAKER) 1 % 0-1 (test hihz=0767) CALCIUM, [id number] 01:53:00 Test Item Value Reference Range Comments CALCIUM IONIZED (BEAKER) (test wcmc=878) 1.03 mmol/L 1.12-1.27 PH, BLOOD (BEAKER) (test qcqe=0145) 7.44 POCT-GLUCOSE [id number] 23:21:00 Test Item Value Reference Range Comments POC-GLUCOSE METER (BEAKER) 140 mg/dL 70-110 TESTED AT [facility] [address] [facility] (test ddch=6598) [facility] [address] CBC W/PLT COUNT & AUTO [id number] 21:11:00 Test Item Value Reference Range Comments WHITE BLOOD CELL COUNT (BEAKER) (test cjwt=448) 7.5 K/ L 3.5-10.5 RED BLOOD CELL COUNT (BEAKER) (test ecbp=613) 3.71 M/ L 4.63-6.08 HEMOGLOBIN (BEAKER) (test fdjb=466) 11.2 GM/DL 13.7-17.5 HEMATOCRIT (BEAKER) (test hhdw=810) 34.0 % 40.1-51.0 MEAN CORPUSCULAR VOLUME (BEAKER) (test stgs=513) 91.6 fL 79.0-92.2 MEAN CORPUSCULAR HEMOGLOBIN (BEAKER) (test 30.2 pg 25.7-32.2 ljtm=975) MEAN CORPUSCULAR HEMOGLOBIN CONC (BEAKER) (test 32.9 GM/DL 32.3-36.5 jytg=692) RED CELL DISTRIBUTION WIDTH (BEAKER) (test 14.8 % 11.6-14.4 opzg=859) PLATELET COUNT (BEAKER) (test hvif=272) 133 K/CU MM 150-450 MEAN PLATELET VOLUME (BEAKER) (test jljh=850) 10.5 fL 9.4-12.4 NUCLEATED RED BLOOD CELLS (BEAKER) (test 0 /100 WBC 0-0 kbrj=284) NEUTROPHILS RELATIVE PERCENT (BEAKER) (test 68 % behh=556) LYMPHOCYTES RELATIVE PERCENT (BEAKER) (test 20 % zzjx=631) MONOCYTES RELATIVE PERCENT (BEAKER) (test 9 % djej=265) EOSINOPHILS RELATIVE PERCENT (BEAKER) (test 2 % tuef=027) BASOPHILS RELATIVE PERCENT (BEAKER) (test 0 % zday=469) NEUTROPHILS ABSOLUTE COUNT (BEAKER) (test 5.07 K/ L 1.78-5.38 tqgg=116) LYMPHOCYTES ABSOLUTE COUNT (BEAKER) (test 1.49 K/ L 1.32-3.57 miik=030) MONOCYTES ABSOLUTE COUNT (BEAKER) (test 0.69 K/ L 0.30-0.82 tkap=372) EOSINOPHILS ABSOLUTE COUNT (BEAKER) (test 0.15 K/ L 0.04-0.54 blny=635) BASOPHILS ABSOLUTE COUNT (BEAKER) (test 0.02 K/ L 0.01-0.08 psvm=438) IMMATURE GRANULOCYTES-RELATIVE PERCENT (BEAKER) 1 % 0-1 (test qxnx=9702) POCT-GLUCOSE [id number] 20:06:00 Test Item Value Reference Range Comments POC-GLUCOSE METER (BEAKER) 112 mg/dL 70-110 TESTED AT [facility] [address] [facility] (test cxsh=2288) [facility] [address] [id number] 13:37:00 Test Item Value Reference Range Comments PARTIAL THROMBOPLASTIN TIME (BEAKER) (test 46.2 seconds 22.5-36.0 xfdw=479) POCT-GLUCOSE [id number] 12:29:00 Test Item Value Reference Range Comments POC-GLUCOSE METER (BEAKER) 153 mg/dL 70-110 TESTED AT [facility] [address] [facility] (test lnzc=8232) [facility] [address] COMPREHENSIVE METABOLIC [id number] 03:55:00 Test Item Value Reference Range Comments TOTAL PROTEIN (BEAKER) 6.3 gm/dL 6.0-8.3 (test sxfc=617) ALBUMIN (BEAKER) (test 3.2 g/dL 3.5-5.0 xfwz=6534) ALKALINE PHOSPHATASE 55 U/L 40-150 (BEAKER) (test siap=874) BILIRUBIN TOTAL (BEAKER) 0.7 mg/dL 0.2-1.2 (test okbb=229) SODIUM (BEAKER) (test 141 meq/L 136-145 rhsk=093) POTASSIUM (BEAKER) (test 3.4 meq/L 3.5-5.1 ahiv=530) CHLORIDE (BEAKER) (test 107 meq/L 98-107 owhr=450) CO2 (BEAKER) (test 27 meq/L 22-29 rlhw=405) BLOOD UREA NITROGEN 24 mg/dL 7-21 (BEAKER) (test xkmu=938) CREATININE (BEAKER) (test 1.14 mg/dL 0.57-1.25 fijr=312) GLUCOSE RANDOM (BEAKER) 143 mg/dL 70-105 (test ykyo=142) CALCIUM (BEAKER) (test 8.5 mg/dL 8.4-10.2 dbqe=793) AST (SGOT) (BEAKER) (test 18 U/L 5-34 ivuq=070) ALT (SGPT) (BEAKER) (test 10 U/L 6-55 ualx=530) EGFR (BEAKER) (test 63 mL/min/1.73 sq m ESTIMATED GFR IS NOT mkzi=2027) ACCURATE CREATININE CLEARANCE IN PREDICTING GLOMERULAR FILTRATION RATE. ESTIMATED GFR IS NOT APPLICABLE FOR DIALYSIS PATIENTS. [id number] 03:49:00 Test Item Value Reference Range Comments PARTIAL THROMBOPLASTIN TIME (BEAKER) (test 63.4 seconds 22.5-36.0 migx=687) PROTHROMBIN [id number] 03:48:00 Test Item Value Reference Range Comments PROTIME (BEAKER) (test zbsw=450) 18.9 seconds 11.7-14.7 INR (BEAKER) (test zakt=267) 1.6 <=5.9 RECOMMENDED COUMADIN/WARFARIN INR THERAPY RANGESSTANDARD DOSE: 2.0 - 3.0 Includes: PROPHYLAXIS forvenous thrombosis, systemic embolization; TREATMENT for venous thrombosis and/or pulmonary embolus.HIGH RISK: Target INR is 2.5-3.5 for patients with mechanical heart valves.CBC W/PLT COUNT & AUTO [id number] 03:30:00 Test Item Value Reference Range Comments WHITE BLOOD CELL COUNT (BEAKER) (test tjom=973) 6.4 K/ L 3.5-10.5 RED BLOOD CELL COUNT (BEAKER) (test frfo=641) 4.20 M/ L 4.63-6.08 HEMOGLOBIN (BEAKER) (test jijd=469) 12.3 GM/DL 13.7-17.5 HEMATOCRIT (BEAKER) (test aaza=615) 37.7 % 40.1-51.0 MEAN CORPUSCULAR VOLUME (BEAKER) (test ouqt=842) 89.8 fL 79.0-92.2 MEAN CORPUSCULAR HEMOGLOBIN (BEAKER) (test 29.3 pg 25.7-32.2 djsx=715) MEAN CORPUSCULAR HEMOGLOBIN CONC (BEAKER) (test 32.6 GM/DL 32.3-36.5 hflo=846) RED CELL DISTRIBUTION WIDTH (BEAKER) (test 14.5 % 11.6-14.4 ubts=613) PLATELET COUNT (BEAKER) (test esiw=869) 108 K/CU MM 150-450 MEAN PLATELET VOLUME (BEAKER) (test vlun=957) 10.2 fL 9.4-12.4 NUCLEATED RED BLOOD CELLS (BEAKER) (test 0 /100 WBC 0-0 lwvv=589) NEUTROPHILS RELATIVE PERCENT (BEAKER) (test 64 % jwfn=220) LYMPHOCYTES RELATIVE PERCENT (BEAKER) (test 24 % zbbv=474) MONOCYTES RELATIVE PERCENT (BEAKER) (test 8 % wkll=505) EOSINOPHILS RELATIVE PERCENT (BEAKER) (test 4 % yidk=788) BASOPHILS RELATIVE PERCENT (BEAKER) (test 1 % njhs=177) NEUTROPHILS ABSOLUTE COUNT (BEAKER) (test 4.09 K/ L 1.78-5.38 keof=103) LYMPHOCYTES ABSOLUTE COUNT (BEAKER) (test 1.51 K/ L 1.32-3.57 wtps=603) MONOCYTES ABSOLUTE COUNT (BEAKER) (test 0.51 K/ L 0.30-0.82 xhfv=086) EOSINOPHILS ABSOLUTE COUNT (BEAKER) (test 0.23 K/ L 0.04-0.54 ejld=003) BASOPHILS ABSOLUTE COUNT (BEAKER) (test 0.03 K/ L 0.01-0.08 olxo=194) IMMATURE GRANULOCYTES-RELATIVE PERCENT (BEAKER) 0 % 0-1 (test fflv=8619) [id number] 19:35:00 Test Item Value Reference Range Comments PARTIAL THROMBOPLASTIN TIME (BEAKER) (test 58.0 seconds 22.5-36.0 htcy=493) POCT-GLUCOSE [id number] 16:44:00 Test Item Value Reference Range Comments POC-GLUCOSE METER (BEAKER) 163 mg/dL 70-110 TESTED AT [address] (test ubls=6114) [place] [address] [id number] 13:23:00 Test Item Value Reference Range Comments PARTIAL THROMBOPLASTIN TIME (BEAKER) (test 48.8 seconds 22.5-36.0 uful=148) POCT-GLUCOSE [id number] 12:05:00 Test Item Value Reference Range Comments POC-GLUCOSE METER (BEAKER) 227 mg/dL 70-110 TESTED AT [address] (test ytug=3941) [place] [address] HEMOGLOBIN [id number] 10:44:00 Test Item Value Reference Range Comments HEMOGLOBIN A1C (BEAKER) (test dhji=890) 7.9 % 4.3-6.1 POCT-GLUCOSE [id number] 06:27:00 Test Item Value Reference Range Comments POC-GLUCOSE METER (BEAKER) 119 mg/dL 70-110 TESTED AT [address] (test uhua=0070) [place] [address] TSH/FREE T4 IF [id number] 04:00:00 Test Item Value Reference Range Comments THYROID STIMULATING HORMONE (BEAKER) (test 1.80 uIU/mL 0.35-4.94 hpgl=674) CALCIUM, [id number] 04:00:00 Test Item Value Reference Range Comments CALCIUM IONIZED (BEAKER) (test vbey=935) 1.04 mmol/L 1.12-1.27 PH, BLOOD (BEAKER) (test zziv=4941) 7.52 [id number] 03:44:00 Test Item Value Reference Range Comments PHOSPHORUS (BEAKER) (test npsx=500) 3.2 mg/dL 2.3-4.7 [id number] 03:44:00 Test Item Value Reference Range Comments MAGNESIUM (BEAKER) (test nxvk=333) 1.9 mg/dL 1.6-2.6 COMPREHENSIVE METABOLIC [id number] 03:44:00 Test Item Value Reference Range Comments TOTAL PROTEIN (BEAKER) 7.0 gm/dL 6.0-8.3 (test fhjf=657) ALBUMIN (BEAKER) (test 3.5 g/dL 3.5-5.0 desr=4256) ALKALINE PHOSPHATASE 59 U/L 40-150 (BEAKER) (test gcmx=509) BILIRUBIN TOTAL (BEAKER) 1.0 mg/dL 0.2-1.2 (test qejo=438) SODIUM (BEAKER) (test 141 meq/L 136-145 tjue=558) POTASSIUM (BEAKER) (test 3.5 meq/L 3.5-5.1 gkwg=132) CHLORIDE (BEAKER) (test 103 meq/L 98-107 pogo=535) CO2 (BEAKER) (test 29 meq/L 22-29 yina=542) BLOOD UREA NITROGEN 32 mg/dL 7-21 (BEAKER) (test zmrh=852) CREATININE (BEAKER) (test 1.34 mg/dL 0.57-1.25 oqoq=855) GLUCOSE RANDOM (BEAKER) 101 mg/dL 70-105 (test fjdk=432) CALCIUM (BEAKER) (test 9.5 mg/dL 8.4-10.2 xlbj=020) AST (SGOT) (BEAKER) (test 21 U/L 5-34 soxe=063) ALT (SGPT) (BEAKER) (test 11 U/L 6-55 yeic=555) EGFR (BEAKER) (test 52 mL/min/1.73 sq m ESTIMATED GFR IS NOT bqtt=7944) ACCURATE CREATININE CLEARANCE IN PREDICTING GLOMERULAR FILTRATION RATE. ESTIMATED GFR IS NOT APPLICABLE FOR DIALYSIS PATIENTS. PROTHROMBIN [id number] 03:33:00 Test Item Value Reference Range Comments PROTIME (BEAKER) (test gkzv=551) 19.1 seconds 11.7-14.7 INR (BEAKER) (test vpat=701) 1.6 <=5.9 RECOMMENDED COUMADIN/WARFARIN INR THERAPY RANGESSTANDARD DOSE: 2.0 - 3.0 Includes: PROPHYLAXIS forvenous thrombosis, systemic embolization; TREATMENT for venous thrombosis and/or pulmonary embolus.HIGH RISK: Target INR is 2.5-3.5 for patients with mechanical heart valves.[id number] 03:33:00 Test Item Value Reference Range Comments PARTIAL THROMBOPLASTIN TIME (BEAKER) (test 45.2 seconds 22.5-36.0 rltk=558) CBC W/PLT COUNT & AUTO [id number] 03:32:00 Test Item Value Reference Range Comments WHITE BLOOD CELL COUNT (BEAKER) (test wpke=049) 8.9 K/ L 3.5-10.5 RED BLOOD CELL COUNT (BEAKER) (test rmvs=727) 4.61 M/ L 4.63-6.08 HEMOGLOBIN (BEAKER) (test rnto=201) 13.6 GM/DL 13.7-17.5 HEMATOCRIT (BEAKER) (test skmv=098) 41.0 % 40.1-51.0 MEAN CORPUSCULAR VOLUME (BEAKER) (test hmsq=451) 88.9 fL 79.0-92.2 MEAN CORPUSCULAR HEMOGLOBIN (BEAKER) (test 29.5 pg 25.7-32.2 wjcx=258) MEAN CORPUSCULAR HEMOGLOBIN CONC (BEAKER) (test 33.2 GM/DL 32.3-36.5 vvcv=256) RED CELL DISTRIBUTION WIDTH (BEAKER) (test 14.5 % 11.6-14.4 gmiv=161) PLATELET COUNT (BEAKER) (test ppjb=393) 140 K/CU MM 150-450 MEAN PLATELET VOLUME (BEAKER) (test ntlc=809) 10.0 fL 9.4-12.4 NUCLEATED RED BLOOD CELLS (BEAKER) (test 0 /100 WBC 0-0 svww=784) NEUTROPHILS RELATIVE PERCENT (BEAKER) (test 68 % cbwi=786) LYMPHOCYTES RELATIVE PERCENT (BEAKER) (test 21 % zvip=683) MONOCYTES RELATIVE PERCENT (BEAKER) (test 9 % jezx=910) EOSINOPHILS RELATIVE PERCENT (BEAKER) (test 1 % opcx=311) BASOPHILS RELATIVE PERCENT (BEAKER) (test 0 % mwez=962) NEUTROPHILS ABSOLUTE COUNT (BEAKER) (test 6.04 K/ L 1.78-5.38 ntzq=732) LYMPHOCYTES ABSOLUTE COUNT (BEAKER) (test 1.89 K/ L 1.32-3.57 ozjj=342) MONOCYTES ABSOLUTE COUNT (BEAKER) (test 0.81 K/ L 0.30-0.82 vujl=774) EOSINOPHILS ABSOLUTE COUNT (BEAKER) (test 0.09 K/ L 0.04-0.54 tkyg=112) BASOPHILS ABSOLUTE COUNT (BEAKER) (test 0.03 K/ L 0.01-0.08 uvwy=152) IMMATURE GRANULOCYTES-RELATIVE PERCENT (BEAKER) 0 % 0-1 (test vtxn=9233) COMPREHENSIVE METABOLIC [id number] 21:39:00 Test Item Value Reference Range Comments TOTAL PROTEIN (BEAKER) 7.3 gm/dL 6.0-8.3 (test jvhv=187) ALBUMIN (BEAKER) (test 3.6 g/dL 3.5-5.0 aluu=9082) ALKALINE PHOSPHATASE 71 U/L 40-150 (BEAKER) (test yqvj=891) BILIRUBIN TOTAL (BEAKER) 0.9 mg/dL 0.2-1.2 (test gunu=136) SODIUM (BEAKER) (test 139 meq/L 136-145 ohre=949) POTASSIUM (BEAKER) (test 3.2 meq/L 3.5-5.1 lust=584) CHLORIDE (BEAKER) (test 99 meq/L 98-107 vdsi=093) CO2 (BEAKER) (test 26 meq/L 22-29 tane=215) BLOOD UREA NITROGEN 35 mg/dL 7-21 (BEAKER) (test vjjn=386) CREATININE (BEAKER) (test 1.52 mg/dL 0.57-1.25 pfkc=721) GLUCOSE RANDOM (BEAKER) 198 mg/dL 70-105 (test lkov=052) CALCIUM (BEAKER) (test 9.4 mg/dL 8.4-10.2 gzfn=391) AST (SGOT) (BEAKER) (test 20 U/L 5-34 pzil=119) ALT (SGPT) (BEAKER) (test 12 U/L 6-55 dbwp=749) EGFR (BEAKER) (test 45 mL/min/1.73 sq m ESTIMATED GFR IS NOT vrmc=8194) ACCURATE CREATININE CLEARANCE IN PREDICTING GLOMERULAR FILTRATION RATE. ESTIMATED GFR IS NOT APPLICABLE FOR DIALYSIS PATIENTS. [id number] 21:33:00 Test Item Value Reference Range Comments PARTIAL THROMBOPLASTIN TIME (BEAKER) (test 30.3 seconds 22.5-36.0 kdqr=426) Prior to initiating heparinPROTHROMBIN TIME/[id number] 21:32:00 Test Item Value Reference Range Comments PROTIME (BEAKER) (test unwa=698) 19.1 seconds 11.7-14.7 INR (BEAKER) (test gqbw=154) 1.6 <=5.9 RECOMMENDED COUMADIN/WARFARIN INR THERAPY RANGESSTANDARD DOSE: 2.0 - 3.0 Includes: PROPHYLAXIS forvenous thrombosis, systemic embolization; TREATMENT for venous thrombosis and/or pulmonary embolus.HIGH RISK: Target INR is 2.5-3.5 for patients with mechanical heart valves.[id number] 21:32:00 Test Item Value Reference Range Comments FIBRINOGEN LEVEL (BEAKER) (test opxs=601) 370 mg/dl 225-434 CBC W/PLT COUNT & AUTO [id number] 21:23:00 Test Item Value Reference Range Comments WHITE BLOOD CELL COUNT (BEAKER) (test ysil=147) 8.7 K/ L 3.5-10.5 RED BLOOD CELL COUNT (BEAKER) (test egwp=789) 4.79 M/ L 4.63-6.08 HEMOGLOBIN (BEAKER) (test inrm=053) 14.1 GM/DL 13.7-17.5 HEMATOCRIT (BEAKER) (test rrdv=209) 42.7 % 40.1-51.0 MEAN CORPUSCULAR VOLUME (BEAKER) (test rcuc=521) 89.1 fL 79.0-92.2 MEAN CORPUSCULAR HEMOGLOBIN (BEAKER) (test 29.4 pg 25.7-32.2 qluh=714) MEAN CORPUSCULAR HEMOGLOBIN CONC (BEAKER) (test 33.0 GM/DL 32.3-36.5 qlfl=095) RED CELL DISTRIBUTION WIDTH (BEAKER) (test 14.4 % 11.6-14.4 nmee=416) PLATELET COUNT (BEAKER) (test mqal=491) 154 K/CU MM 150-450 MEAN PLATELET VOLUME (BEAKER) (test ynjc=050) 10.2 fL 9.4-12.4 NUCLEATED RED BLOOD CELLS (BEAKER) (test 0 /100 WBC 0-0 uayw=018) NEUTROPHILS RELATIVE PERCENT (BEAKER) (test 73 % jqpk=481) LYMPHOCYTES RELATIVE PERCENT (BEAKER) (test 17 % salb=710) MONOCYTES RELATIVE PERCENT (BEAKER) (test 8 % afhs=249) EOSINOPHILS RELATIVE PERCENT (BEAKER) (test 1 % cqxj=606) BASOPHILS RELATIVE PERCENT (BEAKER) (test 0 % jffu=237) NEUTROPHILS ABSOLUTE COUNT (BEAKER) (test 6.33 K/ L 1.78-5.38 totl=317) LYMPHOCYTES ABSOLUTE COUNT (BEAKER) (test 1.50 K/ L 1.32-3.57 miad=978) MONOCYTES ABSOLUTE COUNT (BEAKER) (test 0.71 K/ L 0.30-0.82 lcuf=080) EOSINOPHILS ABSOLUTE COUNT (BEAKER) (test 0.08 K/ L 0.04-0.54 aetk=441) BASOPHILS ABSOLUTE COUNT (BEAKER) (test 0.03 K/ L 0.01-0.08 yfkp=659) IMMATURE GRANULOCYTES-RELATIVE PERCENT (BEAKER) 0 % 0-1 (test hama=5847) POCT-GLUCOSE [id number] 21:22:00 Test Item Value Reference Range Comments POC-GLUCOSE METER (BEAKER) 228 mg/dL 70-110 TESTED AT [facility] [address] [facility] (test oggm=2261) [facility] [id number]
[2019-10-13] MEDS ORDERED: NA CHLORIDE 0.9% 500 ML ONE (02:34)
[2019-10-13 02:58] LABS: Absolute Lymphocytes (CBC) 0.7 K/uL (0.7-4.9); Basophils % 0.1 % (0-1.3); Lymphocytes % 9.4 % (15.3-44.8); MPV 8.9 fL (7.6-11.3); RBC Red Blood Cell Count 4.29 M/uL (4.33-5.43)
[2019-10-13 03:08] LABS: Protime INR 1.99
[2019-10-13 03:11] LABS: ALT/SGPT 24 U/L (12-78); AST/SGOT 18 U/L (15-37); Albumin 2.9 g/dL (3.4-5.0); Alkaline Phosphatase 89 U/L (45-117); BUN Blood Urea Nitrogen 28 mg/dL (7-18); Bicarbonate 32 mmol/L (21-32); Bilirubin Direct 0.3 mg/dL (0-0.2); Bilirubin Total 0.7 mg/dL (0.2-1.0); CKMB Creatine Kinase MB < 1.0 ng/mL (0.3-3.6); Creatine Phosphokinase 43 U/L (39-308); Glucose Level 155 mg/dL (74-106); Lipase 32 U/L (73-393); Potassium 3.6 mmol/L (3.5-5.1); Protein, Total 6.9 g/dL (6.4-8.2); Sodium Level 140 mmol/L (136-145); Troponin (Emerg Dept Use Only) < 0.02 ng/mL (0.0-0.045)
--- NOTE | 2019-10-13 04:18 | ER ---
Nurse's Notes [facility] Name: Odilon Ferrara Age: 74 yrs Sex: Male : 1945 Arrival Date: 10/13/2019 Time: 01:58 Bed 18 Private MD: Diagnosis: Weakness;Diarrhea, unspecified Presentation: 10/13 02:03 Presenting complaint: EMS states: Pt toned EMS for generalized weakness. Pt was found wh on the floor, states he lay down because of the weakness. Denies fall or LOC. PT has Hx of Ear cancer last Radiation Therapy was . Transition of care: patient was not received from another setting of care. Onset of symptoms was October 13, 2019. Risk Assessment: Do you want to hurt yourself or someone else? Patient reports no desire to harm self or others. Initial Sepsis Screen: Does the patient meet any 2 criteria? No. Patient's initial sepsis screen is negative. Does the patient have a suspected source of infection? No. Patient's initial sepsis screen is negative. Care prior to arrival: Medication(s) given: Normal saline infusion, 1000 mL, IV initiated. 22 GA, in the left antecubital area, Glucose check: 147. 02:03 Method Of Arrival: EMS: [facility] 02:03 Acuity: TYLOR 3 Historical: - Allergies: 02:09 No Known Allergies; - Home Meds: 02:12 aspirin 81 mg Oral TbEC 1 tab once daily [Active]; Furosemide Oral [Active]; glimepiride 2 mg Oral tab 2 tabs with breakfast , 1 tab with dinner [Active]; metformin 1,000 mg Oral tab 1 tab 2 times per day [Active]; metolazone 5 mg Oral tab 1 tab once daily [Active]; metoprolol succinate 50 mg Oral Tb24 1 tab twice a day [Active]; oxybutynin chloride 10 mg Oral tr24 1 tab once daily [Active]; simvastatin 40 mg Oral tab 1 tab once daily [Active]; spironolactone 25 mg Oral tab 1 tab 2 times per day [Active]; ursodiol 300 mg Oral cap 1 cap 2 times per day [Active]; - PMHx: 02:09 Atrial Fib; Diabetes - NIDDM; DVT; High Cholesterol; Prostate Cancer; skin cancer; - PSHx: 02:09 Cholecystectomy; Tumor Removal; - Immunization history:: Adult Immunizations up to date. - Social history:: Smoking status: Patient/guardian denies using tobacco. - Ebola Screening: : Patient negative for fever greater than or equal to 101.5 degrees Fahrenheit, and additional compatible Ebola Virus Disease symptoms Patient denies exposure to infectious person. Screenin:12 Abuse screen: Denies threats or abuse. Denies injuries from another. Nutritional wh screening: No deficits noted. Tuberculosis screening: No symptoms or risk factors identified. Fall Risk Fall in past 12 months (25 points). Assessment: 02:12 General: Appears in no apparent distress. Behavior is calm, cooperative, appropriate wh for age. Pain: Denies pain. Neuro: Level of Consciousness is awake, alert, obeys commands, Oriented to person, place, time, situation, Appropriate for age Group Home Supervisor are equal bilaterally Moves all extremities. Speech is normal, Facial symmetry appears normal, Pupils are PERRLA, Reports weakness. Cardiovascular: Heart tones S1 S2. Respiratory: Airway is patent Respiratory effort is even, unlabored, Respiratory pattern is regular, symmetrical, Breath sounds are clear bilaterally. GI: Abdomen is round non-distended, Bowel sounds present X 4 quads. Abd is soft and non tender X 4 quads. Reports nausea. : No signs and/or symptoms were reported regarding the genitourinary system. EENT: No signs and/or symptoms were reported regarding the EENT system. Derm: Skin is intact, is healthy with good turgor, Skin is pink, warm \T\ dry. normal. Musculoskeletal: Circulation, motion, and sensation intact. 03:27 Reassessment: Patient appears in no apparent distress at this time. No changes from previously documented assessment. Patient and/or family updated on plan of care and expected duration. Pain level reassessed. Patient is alert, oriented x 3, equal unlabored respirations, skin warm/dry/pink. 04:42 Reassessment: received from Reba RODRIGEZ. The patient is with his eyes closed, breathing cr4 regular. Call light in reach. Was notified of need to admit to hospital.. 05:33 Reassessment: No changes from previously documented assessment. Patient and/or family cr4 updated on plan of care and expected duration. Pain level reassessed. Patient is alert, oriented x 3, equal unlabored respirations, skin warm/dry/pink. awaiting bed placement.. 06:33 Reassessment: No changes from previously documented assessment. Patient and/or family cr4 updated on plan of care and expected duration. Pain level reassessed. Patient is alert, oriented x 3, equal unlabored respirations, skin warm/dry/pink. notified of admit to 408. 06:36 Reassessment: Attempted to call report report Rafita Charge on 4th stated they were not cr4 able to take the patient at this time.. 07:00 General: Appears in no apparent distress. comfortable, Behavior is calm, cooperative. rb1 Pain: Complains of pain in right ear Pain currently is 5 out of 10 on a pain scale. Neuro: Level of Consciousness is awake, alert, obeys commands, Oriented to person, place, time, situation. Neuro: Reports weakness in generalized. Cardiovascular: Capillary refill < 3 seconds is brisk in bilateral fingers. Respiratory: Airway is patent Respiratory effort is even, unlabored, Respiratory pattern is regular, symmetrical. Derm: Skin is pink, warm \T\ dry. 07:38 Reassessment: Called to give report, spoke to YANE Licea, she was notifying ELIA Delgado. rb1 Unable to give report at this time, left on hold. 07:45 Reassessment: Called to give report but there was no answer. rb1 07:50 Reassessment: ELIA Delgado called for report. Information from the [facility] was given. All rb1 questions asked and answered. 08:00 Reassessment: Patient appears in no apparent distress at this time. Patient and/or rb1 family updated on plan of care and expected duration. Pain level reassessed. Patient is alert, oriented x 3, equal unlabored respirations, skin warm/dry/pink. Vital Signs: 02:05 BP 107 / 69; Pulse 72; Resp 18; Temp 97.6; Pulse Ox 93% ; Weight 133.81 kg; Height 6 wh ft. (182.88 cm); Pain 0/10; 03:27 BP 107 / 62; Pulse 66; Resp 18; Pulse Ox 97% on R/A; wh 04:30 BP 115 / 60; Pulse 74; Resp 18; Pulse Ox 96% ; cr4 05:30 BP 122 / 63; Pulse 69; Resp 18; Temp 97.8; Pulse Ox 95% ; Pain 0/10; cr4 06:30 BP 126 / 64; Pulse 74; Resp 18; Temp 98.3; Pulse Ox 95% ; Pain 0/10; cr4 07:30 BP 123 / 68; Pulse 68; Resp 17; Pulse Ox 95% on R/A; Pain 5/10; rb1 02:05 Body Mass Index 40.01 (133.81 kg, 182.88 cm) ED Course: 01:58 Patient arrived in ED. ds1 02:00 Rod Cruz MD is Attending Physician. kdr 02:03 Reba Agarwal is Primary Nurse. wh 02:04 Triage completed. wh 02:14 Arm band placed on right wrist. wh 02:14 Patient has correct armband on for positive identification. Placed in gown. Bed in low wh position. Call light in reach. Side rails up X 1. hospital monitor on. Pulse ox on. NIBP on. 03:04 Chest Single View XRAY In Process Unspecified. EDMS 03:50 CT Abd/Pelvis - IV Contrast Only In Process Unspecified. EDMS 04:16 Mor Easley MD is Hospitalizing Provider. kdr 07:20 No provider procedures requiring assistance completed. Patient admitted, IV remains in cr4 place. Administered Medications: 02:34 Drug: NS 0.9% 500 ml Route: IV; Rate: bolus; Site: right antecubital; 04:13 Follow up: Response: No adverse reaction; IV Status: Completed infusion 06:44 Drug: Flagyl 500 mg Volume: 100 ml; Route: IVPB; Rate: 200 ml/hr; Infused Over: 30 cr4 mins; Site: right antecubital; 07:28 Follow up: Response: No adverse reaction; IV Status: Completed infusion rb1 06:44 Drug: Cipro 500 mg Route: PO; cr4 07:19 Follow up: Response: No adverse reaction cr4 Intake: 05:10 IV: 1000ml; Total: 1000ml. cr4 Outcome: 04:17 Decision to Hospitalize by Provider. kdr 08:01 Admitted to Tele accompanied by tech, via stretcher, room 408, with chart, Report rb1 called to ELIA Delgado 08:01 Condition: stable 08:01 Instructed on the need for admit. 08:03 Patient left the ED. rb1 Signatures: Dispatcher [employer] EDMS Rod Cruz MD MD kdr Sanford, Demi ds1 Latia Martinez, RN RN cr4 Colette Peguero, RN RN rb1 Reba Agarwal Corrections: (The following items were deleted from the chart) 05:09 04:50 Temp 100.7F; cr4 cr4 05:35 05:33 Reassessment: No changes from previously documented assessment. Patient and/or cr4 family updated on plan of care and expected duration. Pain level reassessed. Patient is alert, oriented x 3, equal unlabored respirations, skin warm/dry/pink. cr4 07:26 07:21 Reassessment: Attempted to call report report Rafita Charge on 4th stated they cr4 were not able to take the patient at this time.. cr4 07:48 07:45 Reassessment: Called to give report, spoke to YANE Licea, she was notifying anmol Delgado RN. Unable to give report at this time, left on hold. rb1
--- NOTE | 2019-10-13 04:18 | EDPHYS ---
Physician Documentation [facility] Name: Odilon Ferrara Age: 74 yrs Sex: Male : 1945 Arrival Date: 10/13/2019 Time: 01:58 Bed 18 Private MD: ED Physician Rod Cruz HPI: 10/13 02:39 This 74 yrs old Male presents to ER via EMS with complaints of General kdr Weakness. 02:39 The patient states that he has had diarrhea profusely for two days. Tonight he was kdr feeling weak and when he went to the bathroom, he flet he couldn't get back so he laid down on the floor. he denies LOC. When EMS arrived, they noted his BP was low (SBP \R\ 90). Onset: The symptoms/episode began/occurred gradually, 2 day(s) ago. Severity of symptoms: At their worst the symptoms were mild moderate in the emergency department the symptoms are unchanged. The patient has not experienced similar symptoms in the past. The patient has not recently seen a physician. Historical: - Allergies: 02:09 No Known Allergies; - Home Meds: 02:12 aspirin 81 mg Oral TbEC 1 tab once daily [Active]; Furosemide Oral [Active]; glimepiride 2 mg Oral tab 2 tabs with breakfast , 1 tab with dinner [Active]; metformin 1,000 mg Oral tab 1 tab 2 times per day [Active]; metolazone 5 mg Oral tab 1 tab once daily [Active]; metoprolol succinate 50 mg Oral Tb24 1 tab twice a day [Active]; oxybutynin chloride 10 mg Oral tr24 1 tab once daily [Active]; simvastatin 40 mg Oral tab 1 tab once daily [Active]; spironolactone 25 mg Oral tab 1 tab 2 times per day [Active]; ursodiol 300 mg Oral cap 1 cap 2 times per day [Active]; - PMHx: 02:09 Atrial Fib; Diabetes - NIDDM; DVT; High Cholesterol; Prostate Cancer; skin cancer; - PSHx: 02:09 Cholecystectomy; Tumor Removal; - Immunization history:: Adult Immunizations up to date. - Social history:: Smoking status: Patient/guardian denies using tobacco. - Ebola Screening: : Patient negative for fever greater than or equal to 101.5 degrees Fahrenheit, and additional compatible Ebola Virus Disease symptoms Patient denies exposure to infectious person. ROS: 02:39 Constitutional: Negative for fever, chills, and weight loss, Eyes: Negative for injury, kdr pain, redness, and discharge, Neck: Negative for injury, pain, and swelling, Cardiovascular: Negative for chest pain, palpitations, and edema, Respiratory: Negative for shortness of breath, cough, wheezing, and pleuritic chest pain, Back: Negative for injury and pain, : Negative for injury, bleeding, discharge, and swelling, MS/Extremity: Negative for injury and deformity, Skin: Negative for injury, rash, and discoloration, Psych: Negative for depression, anxiety, suicide ideation, homicidal ideation, and hallucinations, Allergy/Immunology: Negative for hives, rash, and allergies, Endocrine: Negative for neck swelling, polydipsia, polyuria, polyphagia, and marked weight changes, Hematologic/Lymphatic: Negative for swollen nodes, abnormal bleeding, and unusual bruising. 02:39 Respiratory: 02:39 Abdomen/GI: Positive for nausea and vomiting, nausea, diarrhea. Exam: 02:39 Constitutional: This is a well developed, well nourished patient who is awake, alert, kdr and in no acute distress. Head/Face: Normocephalic, atraumatic. Eyes: Pupils equal round and reactive to light, extra-ocular motions intact. Lids and lashes normal. Conjunctiva and sclera are non-icteric and not injected. Cornea within normal limits. Periorbital areas with no swelling, redness, or edema. Neck: Trachea midline, no thyromegaly or masses palpated, and no cervical lymphadenopathy. Supple, full range of motion without nuchal rigidity, or vertebral point tenderness. No Meningismus. Chest/axilla: Normal chest wall appearance and motion. Nontender with no deformity. No lesions are appreciated. Cardiovascular: Regular rate and rhythm with a normal S1 and S2. No gallops, murmurs, or rubs. Normal PMI, no JVD. No pulse deficits. Respiratory: Lungs have equal breath sounds bilaterally, clear to auscultation and percussion. No rales, rhonchi or wheezes noted. No increased work of breathing, no retractions or nasal flaring. Back: No spinal tenderness. No costovertebral tenderness. Full range of motion. Neuro: Awake and alert, GCS 15, oriented to person, place, time, and situation. Cranial nerves II-XII grossly intact. Motor strength 5/5 in all extremities. Sensory grossly intact. Cerebellar exam normal. Normal gait. Psych: Awake, alert, with orientation to person, place and time. Behavior, mood, and affect are within normal limits. 02:39 Abdomen/GI: Inspection: obese Bowel sounds: diminished, in all quadrants, Palpation: soft. Vital Signs: 02:05 BP 107 / 69; Pulse 72; Resp 18; Temp 97.6; Pulse Ox 93% ; Weight 133.81 kg; Height 6 wh ft. (182.88 cm); Pain 0/10; 03:27 BP 107 / 62; Pulse 66; Resp 18; Pulse Ox 97% on R/A; wh 04:30 BP 115 / 60; Pulse 74; Resp 18; Pulse Ox 96% ; cr4 05:30 BP 122 / 63; Pulse 69; Resp 18; Temp 97.8; Pulse Ox 95% ; Pain 0/10; cr4 06:30 BP 126 / 64; Pulse 74; Resp 18; Temp 98.3; Pulse Ox 95% ; Pain 0/10; cr4 07:30 BP 123 / 68; Pulse 68; Resp 17; Pulse Ox 95% on R/A; Pain 5/10; rb1 02:05 Body Mass Index 40.01 (133.81 kg, 182.88 cm) wh MDM: 02:39 Data reviewed: vital signs, nurses notes, lab test result(s), radiologic studies. kdr Counseling: I had a detailed discussion with the patient and/or guardian regarding: the historical points, exam findings, and any diagnostic results supporting the discharge/admit diagnosis, lab results, the need for outpatient follow up. 04:17 Patient medically screened. kdr 06:53 Physician consultation: Kenny Hill MD was called at 06:45, regarding admission, left kdr a message. Admission orders: after a detailed discussion of the patient's condition and case, the admit orders are written by me. 10/13 02:11 Order name: Basic Metabolic Panel; Complete Time: 04:15 kdr 10/13 02:11 Order name: Blood Culture Adult (2) kdr 10/13 02:11 Order name: CBC with Diff; Complete Time: 04:15 kdr 10/13 02:11 Order name: Ckmb; Complete Time: 04:15 kdr 10/13 02:11 Order name: CPK; Complete Time: 04:15 kdr 10/13 02:11 Order name: Lactate; Complete Time: 04:15 kdr 10/13 02:11 Order name: LFT's; Complete Time: 04:15 kdr 10/13 02:11 Order name: Lipase; Complete Time: 04:15 kdr 10/13 02:11 Order name: Procalcitonin; Complete Time: 04:15 kdr 10/13 02:11 Order name: Protime (+inr); Complete Time: 04:15 kdr 10/13 02:11 Order name: Ptt, Activated; Complete Time: 04:15 kdr 10/13 02:11 Order name: Troponin (emerg Dept Use Only); Complete Time: 04:15 kdr 10/13 03:04 Order name: Glucose, Ancillary Testing; Complete Time: 04:15 EDMS 10/13 02:11 Order name: Chest Single View XRAY kdr 10/13 02:11 Order name: Accucheck; Complete Time: 02:34 kdr 10/13 02:11 Order name: Cardiac monitoring; Complete Time: 02:34 kdr 10/13 02:11 Order name: EKG - Nurse/Tech; Complete Time: 02:34 kdr 10/13 02:55 Order name: CT Abd/Pelvis - IV Contrast Only kdr 10/13 04:28 Order name: Urine Dipstick--Ancillary (enter results); Complete Time: 05:10 mw2 10/13 06:06 Order name: Consistent Carb (ADA) 1800 [address] EDMS 10/13 06:06 Order name: Basic Metabolic Panel EDMS 10/13 06:06 Order name: Basic Metabolic Panel EDMS 10/13 06:06 Order name: CBC with Automated Diff EDMS 10/13 06:06 Order name: CBC with Automated Diff EDMS 10/13 06:29 Order name: Lactate Sepsis 2 HR Follow-up EDMS 10/13 02:11 Order name: IV Saline Lock - Large Bore; Complete Time: 02:34 kdr 10/13 02:11 Order name: Labs collected and sent; Complete Time: 02:34 kdr 10/13 02:11 Order name: O2 Per Protocol; Complete Time: 02:34 kdr 10/13 02:11 Order name: O2 Sat Monitoring; Complete Time: 02:34 kdr 10/13 02:11 Order name: Urine Dipstick-Ancillary (obtain specimen); Complete Time: 04:14 kdr Administered Medications: 02:34 Drug: NS 0.9% 500 ml Route: IV; Rate: bolus; Site: right antecubital; 04:13 Follow up: Response: No adverse reaction; IV Status: Completed infusion 06:44 Drug: Flagyl 500 mg Volume: 100 ml; Route: IVPB; Rate: 200 ml/hr; Infused Over: 30 cr4 mins; Site: right antecubital; 07:28 Follow up: Response: No adverse reaction; IV Status: Completed infusion rb1 06:44 Drug: Cipro 500 mg Route: PO; cr4 07:19 Follow up: Response: No adverse reaction cr4 Disposition: 10/13/19 04:17 Hospitalization ordered by Mor Easley for Inpatient Admission. Preliminary diagnosis are Weakness, Diarrhea, unspecified. - Bed requested for Telemetry/MedSurg (observation). - Status is Inpatient Admission. rb1 - Condition is Fair. - Problem is new. - Symptoms have improved. UTI on Admission? No Signatures: Dispatcher [employer] EDMS Rod Cruz MD MD kdr Latia Martinez RN RN cr4 Nel Wilks RN RN Colette Peguero, RN RN [facility] Reba Agarwal Corrections: (The following items were deleted from the chart) 05:41 05:36 LACTATE+C.LAB.BRZ ordered. EDNE EDMS 06:03 02:13 UA MICROSCOPIC+U.LAB.BRZ ordered. EDNE EDMS 06:15 04:17 Hospitalization Ordered by A Kaushal LIND for Inpatient Admission. Preliminary cg diagnosis is Weakness; Diarrhea, unspecified. Bed requested for Telemetry/MedSurg (observation). Status is Inpatient Admission. Condition is Fair. Problem is new. Symptoms have improved. UTI on Admission? No. kdr 08:03 06:15 10/13/2019 04:17 Hospitalization Ordered by Mor Easley MD for Inpatient Admission. rb1 Preliminary diagnosis is Weakness; Diarrhea, unspecified. Bed requested for Telemetry/MedSurg (observation). Status is Inpatient Admission. Condition is Fair. Problem is new. Symptoms have improved. UTI on Admission? No. cg
[2019-10-13 04:59] LABS: Urine Blood NEGATIVE (NEG); Urine Glucose NEGATIVE (NEG); Urine Protein NEGATIVE (NEG); Urine Specific Gravity 1.015 (1.005-1.030); Urine pH 5.5 (5.0-7.0)
[2019-10-13] MEDS ORDERED: PROMETHAZINE INJ 25 MG/ML AMP IV PRN (06:02)
[2019-10-13] MEDS ORDERED: ACETAMINOPHEN 500 MG TAB PO PRN (06:02)
[2019-10-13] MEDS ORDERED: CIPROFLOXACIN HCL 500 MG TAB PO ONE (06:15)
[2019-10-13] MEDS ORDERED: CIPROFLOXACIN HCL 500 MG TAB ONE (06:18)
[2019-10-13] MEDS ORDERED: METRONIDAZOLE 500mg IVPB 500 MG/100 ML BAG IV ONE (06:18)
--- NOTE | 2019-10-13 08:02 | RAD REPORT ---
EXAM DESCRIPTION: RAD - Chest Single View - 10/13/2019 3:04 am CLINICAL HISTORY: Weakness, shortness of breath COMPARISON: September 02, 2019 TECHNIQUE: AP portable chest image was obtained 0242 hours . FINDINGS: Lung volumes are low. This accentuates baseline interstitial pattern. No significant right lung field finding suspected. There is questionable early patchy opacification mid left lung field. This is subtle but can be correlated with any exam findings. Follow-up can be obtained as warranted. Heart and vasculature are normal. No measurable pleural effusion and no pneumothorax. No acute bony abnormality seen. No acute aortic findings suspected. IMPRESSION: Limited shallow inspiration examination shows hazy left mid lung field opacification. Th is is probably shallow inspiration artifact but can be correlated with exam findings. Follow-up can be obtained as warranted.
[2019-10-13] MEDS ORDERED: D50W 25 GM/50 ML SYRINGE/VIAL IV PRN (08:40)
[2019-10-13] MEDS ORDERED: GLUCAGON 1 MG/VIAL IM PRN (08:40)
[2019-10-13] MEDS: ENOXAPARIN 40 MG/0.4 ML SQ SCH (09:28)
[2019-10-13] MEDS: NA CHLORIDE 0.9% 1,000 ML IV SCH ×3 (09:28→21:18)
--- NOTE | 2019-10-13 10:54 | RAD REPORT ---
EXAM DESCRIPTION: RAD - Abdomen Acute Series - 10/13/2019 10:44 am CLINICAL HISTORY: ileus COMPARISON: Chest Single View dated 10/13/2019; Chest Single View dated 09/02/2019; Abdomen Pelvis W Contrast dated 10/13/2019 FINDINGS: Lungs are clear. Heart size and pulmonary vasculature are normal. No pleural effusion, pne umothorax or other acute cardiopulmonary process seen. No significant change since the prior chest fi lm. Bowel gas pattern is nonspecific. No bowel obstruction, free air or other acute findings. Bowel patte rn is not clearly different from the earlier CT study. IMPRESSION: No acute chest finding. Bowel gas pattern is stable from earlier CT study
[2019-10-13] MEDS: INSULIN -REGULAR HUMAN 50 UNIT/0.5 ML ML SQ SCH ×3 (11:13→20:18)
[2019-10-13] MEDS: metroNIDAZOLE 500 MG TABLET PO SCH ×3 (12:07→23:42)
[2019-10-13] MEDS ORDERED: CODEINE 30MG/APAP 300MG TAB PO PRN (14:20)
[2019-10-13 14:44] VITALS: BMI 39.4
[2019-10-13] MEDS: METOPROLOL XL 25 MG TAB PO SCH (17:06)
[2019-10-13] MEDS ORDERED: HOME MED 1 EA UNK (Simvastatin [Simvastatin] 40 MG) PO SCH (21:00)
[2019-10-13] MEDS ORDERED: ATORVASTATIN 20 MG TAB PO SCH (21:00)
[2019-10-13] MEDS: ursodioL 300 MG CAP PO SCH (21:19)
[2019-10-13] MEDS: GABAPENTIN 300 MG CAP PO SCH (21:19)
[2019-10-13] MEDS: APIXABAN 5 MG TABLET PO SCH (21:23)
--- NOTE | 2019-10-13 21:59 | HP ---
Date of Admission: 10/13/2019 Chief Complaint: Feeling weak and diarrhea. History Of Present Illness: A 74-year-old male patient who is undergoing cancer treatment at [facility] has lost quite a bit weight lately with poor appetite. He has completed radiation therapy. He came into emergency room with about 5 days history of nausea, diarrhea, feeling very weak. He had some seafood at a local restaurant last week on Tuesday and within a day or so after eating or less than a day, he started to have all these complaints of nausea and diarrhea. Patient has 4-5 loose to watery bowel movement today and feels very weak. Has very poor appetite with this. Denies any fever, chills. He came into emergency room with this and was evaluated and admitted to the hospital. Allergies: NO KNOWN ALLERGIES. Medications: List reviewed. Review of Systems: GI: As mentioned above. Constitutional: As mentioned above. All other systems reviewed and negative. Social History: Negative for smoking or alcohol use. Family History: Significant for hypertension, diabetes, hyperlipidemia. Past Surgical History: Cholecystectomy, exploratory laparotomy in 2002, because of small bowel obstruction and had surgery for similar reason in 2007. Past Medical History: Hypertension, type 2 diabetes mellitus, atrial fibrillation, hyperlipidemia, prostate cancer, diverticulosis, osteoarthritis at multiple sites, allergic rhinitis, gastroesophageal reflux disease, obstructive sleep apnea, coronary artery disease. Physical Examination: Vital Signs: Temperature 98.3, pulse 74, respiratory rate 18, blood pressure 126/64, oxygen saturation 95%. Height 6 feet, weight was recorded as 295 pounds which is not accurate and we will have nursing staff check his weight again. General: Awake, alert, oriented, not in distress. HEENT: Head atraumatic, normocephalic. Conjunctivae nonerythematous. Sclerae white. Mouth, no thrush or edema noted. Ears/Nose, no mass, lesion, discharge noted. Neck: Supple. No JVD, lymph nodes, bruit, thyromegaly noted. Lungs: Bilateral good equal air entry. Clear to auscultation. No rhonchi. No rales. Heart: Normal heart sounds, no murmur or gallop. Abdomen: Soft, bowel sounds normal. No guarding, rigidity, tenderness, mass, hepatosplenomegaly, distention, or bruit noted. Extremities: Trace leg edema. Skin: No rash, ulcer, cellulitis. Lymphatics: No lymph node enlargement in neck, supraclavicular, infraclavicular region. Neuro: No focal neurological deficit. Chest: Unremarkable. External Genitalia: Deferred. Rectal: Deferred. Laboratory Data: White count 7.5, hemoglobin 13.1, platelets 128. INR 1.93. Sodium 140, potassium 3.6, chloride 100, bicarb 32, BUN 28, creatinine 1.65, glucose 155. Lactic acid 2.8. Procalcitonin 0.27. Liver function tests unremarkable. Troponin less than 0.02. Urinalysis negative. Chest x-ray, shallow inspiration, mild haziness in the left mid lung field. This could be due to shallow inspiration. Patient does not have any signs or symptoms of pneumonia. CAT scan abdomen and pelvis with contrast in emergency, focally dilated segment of small bowel in the left abdomen. No evidence of obstruction and this could be a small area of ileus, left renal cyst, diverticulosis without diverticulitis, hepatomegaly with fatty infiltration of liver and some mild changes of cirrhosis of liver. Impression: 1. Acute gastroenteritis. 2. Volume depletion. 3. Rule out ileus. 4. Hypertension. 5. Type 2 diabetes mellitus. 6. Chronic atrial fibrillation. 7. Hyperlipidemia. 8. Prostate cancer. 9. Diverticulosis. 10. Osteoarthritis, multiple sites. 11. Gastroesophageal reflux disease. 12. Obstructive sleep apnea. 13. Coronary artery disease. Plan: We will go ahead and admit the patient to hospital for further evaluation and management of this problem. Patient is appropriate for inpatient and is expected to spend 2 midnights in the hospital. Home medications will be continued per order. We will give IV fluid as per order. Repeat blood work tomorrow. Get stool test done for C diff and culture. Depending on his condition, we will decide if any further intervention may be necessary or not. I have done abdominal x-ray today and that came back negative. No evidence of bowel obstruction. No evidence of any ileus. We will start him on diabetes diet per order. PROMISE/MODL Voice ID: [id number]
[2019-10-14 06:14] LABS: Absolute Lymphocytes (CBC) 0.7 K/uL (0.7-4.9); Basophils % 0.2 % (0-1.3); Hematocrit 34.1 % (39.6-49.0); Lymphocytes % 14.4 % (15.3-44.8); MPV 8.7 fL (7.6-11.3); RBC Red Blood Cell Count 3.76 M/uL (4.33-5.43)
[2019-10-14] MEDS: metroNIDAZOLE 500 MG TABLET PO SCH (06:18)
[2019-10-14] MEDS: METOPROLOL XL 25 MG TAB PO SCH (06:18)
[2019-10-14] MEDS: NA CHLORIDE 0.9% 1,000 ML IV SCH (06:22)
[2019-10-14 06:23] LABS: Potassium 3.1 mmol/L (3.5-5.1)
--- NOTE | 2019-10-14 06:37 | EKG ---
Test Date: 2019-10-13 Test Time: 02:49:01 Lap Welder: KAYE MEASUREMENT RESULTS: Intervals: Rate: 86 DC: QRSD: 154 QT: 432 QTc: 516 [place]: P: DC: QRS: 262 T: 88 INTERPRETIVE STATEMENTS: Atrial fibrillation Left bundle branch block Abnormal ECG Compared to ECG 09/05/2019 20:21:17 no significant change from previous ECG Electronically Signed On 10-14-19 06:36:37 HORIZONTAL RESAW OPERATOR by Taz Pendleton
[2019-10-14] MEDS: INSULIN -REGULAR HUMAN 50 UNIT/0.5 ML ML SQ SCH (07:30)
[2019-10-14] MEDS: ursodioL 300 MG CAP PO SCH (08:17)
[2019-10-14] MEDS: APIXABAN 5 MG TABLET PO SCH (08:17)
[2019-10-14] MEDS: GABAPENTIN 300 MG CAP PO SCH (08:17)
[2019-10-14] MEDS: ENOXAPARIN 40 MG/0.4 ML SQ SCH (08:17)
[2019-10-14 09:00] VITALS: O2SAT 97
[2019-10-14] MEDS ORDERED: OXYBUTYNIN CHLORIDE 10 MG PO SCH (09:00)
[2019-10-14] MEDS ORDERED: ASPIRIN 81 MG CHEWABLE TABLET PO SCH (09:00)
[2019-10-14] MEDS ORDERED: OXYBUTYNIN ER 5 MG TAB PO SCH (09:00)
[2019-10-14] MEDS ORDERED: POTASSIUM 25 MEQ EFFERV TAB PO ONE (09:00)
[2019-10-14 09:56] VITALS: BP 120/72; TEMP 98.1
--- NOTE | 2019-10-15 03:57 | DS ---
Date of Discharge: 10/14/2019 Subjective: Patient was seen this morning for followup. He was sitting at bedside, feeling much bet ter. Denies any abdominal pain, nausea, vomiting, diarrhea. In fact, he has not had any bowel movem ent since I saw him yesterday morning. He is tolerating diet very well. Objective: Vital Signs: Reviewed. HEENT: Unremarkable. Lungs: Clear to auscultation. Heart: Sounds normal. Abdomen: Soft. Bowel sounds normal. No guarding, rigidity, tenderness, or distention. Extremities: Trace leg edema. Laboratory Data: White count, yesterday, 7.5, hemoglobin 13.1 platelets 124. This morning; white co unt 4.6, hemoglobin 11.5 platelets 103. Chemistry this morning; sodium 141, potassium 3.1, chloride 105, bicarb 30, BUN 22, creatinine 1.09, glucose 111. Upon admission; BUN 28, creatinine 1.65. Live r function tests unremarkable. Hospital Course: This 74-year-old pleasant male patient, admitted to the hospital with complaints of feeling weak and diarrhea. Please see dictated H and P for more information. After patient was kareem luated in the emergency room, he was admitted to the hospital. He was dehydrated, was given IV fluid . Yesterday, I did obtain an abdominal x-ray, which was unremarkable. No evidence of any ileus or b owel obstruction. Patient was started on his regular diet. He has not had any episodes of diarrhea anymore and he is tolerating diet very well, feeling much better today than yesterday. His renal fun ction has improved with IV fluid hydration and does not have any more GI symptoms now. So, the patie nt is stable for discharge. I have instructed him to cut back on the dose of his metoprolol from 50 mg 2 times a day to once a day. Final Diagnoses: 1.Acute gastroenteritis. 2.Volume depletion. 3.Hypertension. 4.Type 2 diabetes mellitus. 5.Chronic atrial fibrillation. 6.Hyperlipidemia. 7.Prostate cancer. 8.Diverticulosis. 9.Osteoarthritis, multiple sites. 10.Gastroesophageal reflux disease. 11.Coronary artery disease. 12.Obstructive sleep apnea. Discharge Medications And Instructions: Continue all prior home medication except lower dose of meto prolol succinate 50 mg, patient will take 1 tablet by mouth daily. Follow up at my office as per [facility] appointment this month. PROMISE/MODL Voice ID: [id number] Report ID: [id number]
--- NOTE | 2019-10-15 12:10 | RAD REPORT ---
EXAM DESCRIPTION: CT - Abdomen Pelvis W Contrast - 10/13/2019 6:01 am CLINICAL HISTORY: Diarrhea and abdominal pain. Generalized weakness. Found on floor. COMPARISON: CT abdomen and pelvis with contrast 09/05/2019. TECHNIQUE: Axial CT imaging of the abdomen and pelvis performed with intravenous contrast. Reformatt ed coronal and sagittal images reviewed. A dose reduction technique was utilized with automated exposure control according to patient size. FINDINGS: There are a few calcified 3 mm left lower lobe granulomas. Heart is normal in size. There are coronary artery calcifications. Liver is enlarged to greater than 21 cm. Slight hepatic nodularity. Mild decreased liver attenuation. No mass or biliary dilatation. The gallbladder has been resected. Spleen is enlarged to 14.2 cm. Unr emarkable pancreas. Normal adrenal glands. Unremarkable right kidney. There are two exophytic left re nal cysts up to 1.5 cm. There is significant abdominal aorta and iliac artery atherosclerosis. No aneurysm. Mesenteric vessel s are well-opacified. Normal caliber inferior vena cava. There are proximal perigastric varices. The stomach is otherwise normal. Small bowel loops are focall y dilated in the left abdomen at the level of anastomotic sutures. Appendix is normal within the righ t lower quadrant. There is mild descending and moderate proximal sigmoid colonic diverticulosis. No d iverticulitis. No ascites or free air. Unremarkable bladder. Prostatic radiation seeds are present. No pelvic adenopathy or free fluid. Normal lumbar lordosis. Moderate lower thoracic and lumbar degenerative change. Intact bony pelvis. N ormal hips. IMPRESSION: 1. Focally dilated segment of small bowel in the left abdomen at the level of anastomoti c sutures compatible with localized ileus without evidence of obstruction. 2. Left renal exophytic cyst. 3. Descending and sigmoid colon diverticulosis without diverticulitis. 4. Hepatomegaly. Mild hepatic cirrhosis with fatty infiltration. 5. Significant vascular disease. Electronically signed by: Geraldine Jeffrey DO 10/13/2019 4:19 AM CASINO SURVEILLANCE OFFICER Due to temporary technical issues with the PACS/Fluency reporting system, reports are being signed by the in house radiologist as a courtesy to ensure prompt reporting. The interpreting radiologist is f ully responsible for the content of the report.
== END 2019-10-14 11:00 | disposition home or self-care (01) ==
LOC: ER 01:51 → INTOOBSV 06:40 → ERHOLD 06:40 → 4TH 07:54
PROVIDERS: ADMIT Internal Medicine; ATTEND Internal Medicine
DX: K52.9 Noninfective gastroenteritis and colitis, unspecified (principal); E86.9 Volume depletion, unspecified; I10 Essential (primary) hypertension; E11.9 Type 2 diabetes mellitus without complications; I48.20 Chronic atrial fibrillation, unspecified; E78.5 Hyperlipidemia, unspecified; C61 Malignant neoplasm of prostate; K57.90 Diverticulosis of intestine, part unspecified, without perforation or abscess without bleeding; M19.90 Unspecified osteoarthritis, unspecified site; J30.9 Allergic rhinitis, unspecified; K21.9 Gastro-esophageal reflux disease without esophagitis; G47.33 Obstructive sleep apnea (adult) (pediatric); I25.10 Atherosclerotic heart disease of native coronary artery without angina pectoris
CPT/HCPCS: 96365; 96361; 93005; 87040 ×2; 85025 ×2; 80048 ×2; 36415 ×2; 82550; 85610; 82947 ×5; 80076; 83605 ×2; 85730; 81003; 84484; 82553; 83690; 84145; 74177; 74022; 71045; 99285; Q9967; J1650 ×2; J7040; J7030 ×3; G0378 ×3

== ENCOUNTER 2020-01-14 20:01 | Inpatient (IN) | payer OTHER ==
--- OUTSIDE RECORDS SUMMARY | 2020-01-14 20:05 | XMS REPORT ---
:1945 Author Organization [facility] t Address [address] [place] [address] [address]. [address]t [address] [place] [address] Care Team Providers Name Role Phone ZINDANI Unavailable Unavailable Problems This patient has no known problems. Allergies, Adverse Reactions, Alerts This patient has no known allergies or adverse reactions. Medications This patient has no known medications. Results Test Description Test Time Test Comments Text Results Atomic Results Result Comments BUN AND CREATININE 2018-08-19 13:03:00 Test Item Value Reference Range Comments BLOOD UREA NITROGEN (BEAKER) 18 mg/dL 7-21 (test code = 354) CREATININE (BEAKER) (test 1.57 mg/dL 0.57-1.25 Specim en slightly hemolyzed code = 358) EGFR (BEAKER) (test code = 43 mL/min/1.73 sq m E STIMATED GFR IS NOT 1092) ACCURATE CREA TININE CLEARANCE IN PRE DICTING GLOMERULAR FILTR ATION RATE. ESTIMATED GFR IS NOT APPLICABLE FOR D IALYSIS PATIENTS. POCT-GLUCOSE [id number] 12:55:00 Test Item Value Reference Range Comments POC-GLUCOSE METER (BEAKER) 222 mg/dL 70-110 TESTE D AT [facility] [address] [facility] (test code = 1538) [place] [address] POCT-GLUCOSE [id number] 08:17:00 Test Item Value Reference Range Comments POC-GLUCOSE METER (BEAKER) 155 mg/dL 70-110 TESTE D AT [facility] [address] [facility] (test code = 1538) [place] [address] CALCIUM, [id number] 05:41:00 Test Item Value Reference Range Comments CALCIUM IONIZED (BEAKER) (test code = 698) 0.97 mmol/L 1.12- 1.27 PH, BLOOD (BEAKER) (test code = 1810) 7.46 [id number] 04:53:00 Test Item Value Reference Range Comments PARTIAL THROMBOPLASTIN TIME (BEAKER) (test code 66.8 seconds 22.5-36.0 = 760) PROTHROMBIN [id number] 04:51:00 Test Item Value Reference Range Comments PROTIME (BEAKER) (test code = 759) 16.2 seconds 11.7-14.7 INR (BEAKER) (test code = 370) 1.3 <=5.9 RECOMMENDED COUMADIN/WARFARIN INR THERAPY RANGESSTANDARD DOSE: 2.0 - 3.0 Includes: PROPHYLAXIS forvenous thrombosis, systemic embolization; TREATMENT for venous thrombosis and/or pulmonary embolus.HIGH RISK: Target INR is 2.5-3.5 for patients with mechanical heart valves.CBC (HEMOGRAM ONLY)2018-08-19 04:46:00 Test Item Value Reference Range Comments WHITE BLOOD CELL COUNT (BEAKER) (test code = 7.9 K/ L 3.5 -10.5 775) RED BLOOD CELL COUNT (BEAKER) (test code = 761) 3.55 M/ L 4.63-6.08 HEMOGLOBIN (BEAKER) (test code = 410) 10.4 GM/DL 13.7-17.5 HEMATOCRIT (BEAKER) (test code = 411) 32.1 % 40.1-51.0 MEAN CORPUSCULAR VOLUME (BEAKER) (test code = 90.4 fL 79 .0-92.2 753) MEAN CORPUSCULAR HEMOGLOBIN (BEAKER) (test code 29.3 pg 25.7-32.2 = 751) MEAN CORPUSCULAR HEMOGLOBIN CONC (BEAKER) (test 32.4 GM/DL 32.3-36.5 code = 752) RED CELL DISTRIBUTION WIDTH (BEAKER) (test code 14.9 % 11.6-14.4 = 412) PLATELET COUNT (BEAKER) (test code = 756) 112 K/CU MM 150-45 0 MEAN PLATELET VOLUME (BEAKER) (test code = 754) 10.3 fL 9.4-12.4 NUCLEATED RED BLOOD CELLS (BEAKER) (test code = 0 /100 WBC 0-0 413) [id number] 22:20:00 Test Item Value Reference Range Comments PARTIAL THROMBOPLASTIN TIME (BEAKER) (test code 54.8 seconds 22.5-36.0 = 760) POCT-GLUCOSE [id number] 22:01:00 Test Item Value Reference Range Comments POC-GLUCOSE METER (BEAKER) 241 mg/dL 70-110 TESTE D AT [facility] [address] [facility] (test code = 1538) [place] [address] POCT-GLUCOSE [id number] 17:54:00 Test Item Value Reference Range Comments POC-GLUCOSE METER (BEAKER) 136 mg/dL 70-110 TESTE D AT [address] (test code = 1538) [place] [address] POCT-GLUCOSE [id number] 16:01:00 Test Item Value Reference Range Comments POC-GLUCOSE METER (BEAKER) 163 mg/dL 70-110 TESTE D AT [address] (test code = 1538) [place] [address] [id number] 13:28:00 Test Item Value Reference Range Comments MAGNESIUM (BEAKER) (test code = 627) 1.6 mg/dL 1.6-2.6 [id number] 13:28:00 Test Item Value Reference Range Comments PHOSPHORUS (BEAKER) (test code = 604) 1.6 mg/dL 2.3-4.7 BASIC METABOLIC [id number] 13:28:00 Test Item Value Reference Range Comments SODIUM (BEAKER) (test 142 meq/L 136-145 code = 381) POTASSIUM (BEAKER) (test 3.4 meq/L 3.5-5.1 code = 379) CHLORIDE (BEAKER) (test 110 meq/L 98-107 code = 382) CO2 (BEAKER) (test code = 26 meq/L 22-29 355) BLOOD UREA NITROGEN 20 mg/dL 7-21 (BEAKER) (test code = 354) CREATININE (BEAKER) (test 1.20 mg/dL 0.57-1.25 code = 358) GLUCOSE RANDOM (BEAKER) 168 mg/dL 70-105 (test code = 652) CALCIUM (BEAKER) (test 8.2 mg/dL 8.4-10.2 code = 697) EGFR (BEAKER) (test code 59 mL/min/1.73 sq m EST IMATED GFR IS NOT = 1092) ACCURATE CREA TININE CLEARANCE IN PRE DICTING GLOMERULAR FILTR ATION RATE. ESTIMATED GFR IS NOT APPLICABLE F OR DIALYSIS PATIENT S. [id number] 13:28:00 Test Item Value Reference Range Comments PARTIAL THROMBOPLASTIN TIME (BEAKER) (test code 45.9 seconds 22.5-36.0 = 760) POCT-GLUCOSE [id number] 08:14:00 Test Item Value Reference Range Comments POC-GLUCOSE METER (BEAKER) 161 mg/dL 70-110 TESTE D AT [facility] [address] (test code = 1538) [place] [address] [id number] 02:19:00 Test Item Value Reference Range Comments PROTIME (BEAKER) (test code = 759) 16.7 seconds 11.7-14.7 INR (BEAKER) (test code = 370) 1.4 <=5.9 PARTIAL THROMBOPLASTIN TIME (BEAKER) (test code 46.8 seconds 22.5-36.0 = 760) RECOMMENDED COUMADIN/WARFARIN INR THERAPY RANGESSTANDARD DOSE: 2.0 - 3.0 Includes: PROPHYLAXIS forvenous thrombosis, systemic embolization; TREATMENT for venous thrombosis and/or pulmonary embolus.HIGH RISK: Target INR is 2.5-3.5 for patients with mechanical heart valves.CBC W/PLT COUNT & AUTO DIFFERENTIAL 2018-08-18 02:03:00 Test Item Value Reference Range Comments WHITE BLOOD CELL COUNT (BEAKER) (test code = 8.5 K/ L 3.5 -10.5 775) RED BLOOD CELL COUNT (BEAKER) (test code = 761) 3.74 M/ L 4.63-6.08 HEMOGLOBIN (BEAKER) (test code = 410) 11.3 GM/DL 13.7-17.5 HEMATOCRIT (BEAKER) (test code = 411) 33.8 % 40.1-51.0 MEAN CORPUSCULAR VOLUME (BEAKER) (test code = 90.4 fL 79 .0-92.2 753) MEAN CORPUSCULAR HEMOGLOBIN (BEAKER) (test code 30.2 pg 25.7-32.2 = 751) MEAN CORPUSCULAR HEMOGLOBIN CONC (BEAKER) (test 33.4 GM/DL 32.3-36.5 code = 752) RED CELL DISTRIBUTION WIDTH (BEAKER) (test code 14.8 % 11.6-14.4 = 412) PLATELET COUNT (BEAKER) (test code = 756) 106 K/CU MM 150-45 0 MEAN PLATELET VOLUME (BEAKER) (test code = 754) 10.5 fL 9.4-12.4 NUCLEATED RED BLOOD CELLS (BEAKER) (test code = 0 /100 WBC 0-0 413) NEUTROPHILS RELATIVE PERCENT (BEAKER) (test code 75 % = 429) LYMPHOCYTES RELATIVE PERCENT (BEAKER) (test code 13 % = 430) MONOCYTES RELATIVE PERCENT (BEAKER) (test code = 9 % 431) EOSINOPHILS RELATIVE PERCENT (BEAKER) (test code 2 % = 432) BASOPHILS RELATIVE PERCENT (BEAKER) (test code = 0 % 437) NEUTROPHILS ABSOLUTE COUNT (BEAKER) (test code = 6.37 K/ L 1.78-5.38 670) LYMPHOCYTES ABSOLUTE COUNT (BEAKER) (test code = 1.11 K/ L 1.32-3.57 414) MONOCYTES ABSOLUTE COUNT (BEAKER) (test code = 0.80 K/ L 0 .30-0.82 415) EOSINOPHILS ABSOLUTE COUNT (BEAKER) (test code = 0.14 K/ L 0.04-0.54 416) BASOPHILS ABSOLUTE COUNT (BEAKER) (test code = 0.03 K/ L 0 .01-0.08 417) IMMATURE GRANULOCYTES-RELATIVE PERCENT (BEAKER) 1 % 0-1 (test code = 2801) CALCIUM, [id number] 01:53:00 Test Item Value Reference Range Comments CALCIUM IONIZED (BEAKER) (test code = 698) 1.03 mmol/L 1.12- 1.27 PH, BLOOD (BEAKER) (test code = 1810) 7.44 POCT-GLUCOSE [id number] 23:21:00 Test Item Value Reference Range Comments POC-GLUCOSE METER (BEAKER) 140 mg/dL 70-110 TESTE D AT [facility] [address] [facility] (test code = 1538) [facility] [address] CBC W/PLT COUNT & AUTO [id number] 21:11:00 Test Item Value Reference Range Comments WHITE BLOOD CELL COUNT (BEAKER) (test code = 7.5 K/ L 3.5 -10.5 775) RED BLOOD CELL COUNT (BEAKER) (test code = 761) 3.71 M/ L 4.63-6.08 HEMOGLOBIN (BEAKER) (test code = 410) 11.2 GM/DL 13.7-17.5 HEMATOCRIT (BEAKER) (test code = 411) 34.0 % 40.1-51.0 MEAN CORPUSCULAR VOLUME (BEAKER) (test code = 91.6 fL 79 .0-92.2 753) MEAN CORPUSCULAR HEMOGLOBIN (BEAKER) (test code 30.2 pg 25.7-32.2 = 751) MEAN CORPUSCULAR HEMOGLOBIN CONC (BEAKER) (test 32.9 GM/DL 32.3-36.5 code = 752) RED CELL DISTRIBUTION WIDTH (BEAKER) (test code 14.8 % 11.6-14.4 = 412) PLATELET COUNT (BEAKER) (test code = 756) 133 K/CU MM 150-45 0 MEAN PLATELET VOLUME (BEAKER) (test code = 754) 10.5 fL 9.4-12.4 NUCLEATED RED BLOOD CELLS (BEAKER) (test code = 0 /100 WBC 0-0 413) NEUTROPHILS RELATIVE PERCENT (BEAKER) (test code 68 % = 429) LYMPHOCYTES RELATIVE PERCENT (BEAKER) (test code 20 % = 430) MONOCYTES RELATIVE PERCENT (BEAKER) (test code = 9 % 431) EOSINOPHILS RELATIVE PERCENT (BEAKER) (test code 2 % = 432) BASOPHILS RELATIVE PERCENT (BEAKER) (test code = 0 % 437) NEUTROPHILS ABSOLUTE COUNT (BEAKER) (test code = 5.07 K/ L 1.78-5.38 670) LYMPHOCYTES ABSOLUTE COUNT (BEAKER) (test code = 1.49 K/ L 1.32-3.57 414) MONOCYTES ABSOLUTE COUNT (BEAKER) (test code = 0.69 K/ L 0 .30-0.82 415) EOSINOPHILS ABSOLUTE COUNT (BEAKER) (test code = 0.15 K/ L 0.04-0.54 416) BASOPHILS ABSOLUTE COUNT (BEAKER) (test code = 0.02 K/ L 0 .01-0.08 417) IMMATURE GRANULOCYTES-RELATIVE PERCENT (BEAKER) 1 % 0-1 (test code = 2801) POCT-GLUCOSE [id number] 20:06:00 Test Item Value Reference Range Comments POC-GLUCOSE METER (BEAKER) 112 mg/dL 70-110 TESTE D AT [facility] [address] (test code = 1538) [facility] [address] [id number] 13:37:00 Test Item Value Reference Range Comments PARTIAL THROMBOPLASTIN TIME (BEAKER) (test code 46.2 seconds 22.5-36.0 = 760) POCT-GLUCOSE [id number] 12:29:00 Test Item Value Reference Range Comments POC-GLUCOSE METER (BEAKER) 153 mg/dL 70-110 TESTE D AT [facility] [address] (test code = 1538) [place] [address] COMPREHENSIVE METABOLIC [id number] 03:55:00 Test Item Value Reference Range Comments TOTAL PROTEIN (BEAKER) 6.3 gm/dL 6.0-8.3 (test code = 770) ALBUMIN (BEAKER) (test 3.2 g/dL 3.5-5.0 code = 1145) ALKALINE PHOSPHATASE 55 U/L 40-150 (BEAKER) (test code = 346) BILIRUBIN TOTAL (BEAKER) 0.7 mg/dL 0.2-1.2 (test code = 377) SODIUM (BEAKER) (test code 141 meq/L 136-145 = 381) POTASSIUM (BEAKER) (test 3.4 meq/L 3.5-5.1 code = 379) CHLORIDE (BEAKER) (test 107 meq/L 98-107 code = 382) CO2 (BEAKER) (test code = 27 meq/L 22-29 355) BLOOD UREA NITROGEN 24 mg/dL 7-21 (BEAKER) (test code = 354) CREATININE (BEAKER) (test 1.14 mg/dL 0.57-1.25 code = 358) GLUCOSE RANDOM (BEAKER) 143 mg/dL 70-105 (test code = 652) CALCIUM (BEAKER) (test 8.5 mg/dL 8.4-10.2 code = 697) AST (SGOT) (BEAKER) (test 18 U/L 5-34 code = 353) ALT (SGPT) (BEAKER) (test 10 U/L 6-55 code = 347) EGFR (BEAKER) (test code = 63 mL/min/1.73 sq m E STIMATED GFR IS NOT 1092) ACCURATE CREA TININE CLEARANCE IN PRE DICTING GLOMERULAR FILTR ATION RATE. ESTIMATED GFR IS NOT APPLICABLE F OR DIALYSIS PATIENT S. [id number] 03:49:00 Test Item Value Reference Range Comments PARTIAL THROMBOPLASTIN TIME (BEAKER) (test code 63.4 seconds 22.5-36.0 = 760) PROTHROMBIN [id number] 03:48:00 Test Item Value Reference Range Comments PROTIME (BEAKER) (test code = 759) 18.9 seconds 11.7-14.7 INR (BEAKER) (test code = 370) 1.6 <=5.9 RECOMMENDED COUMADIN/WARFARIN INR THERAPY RANGESSTANDARD DOSE: 2.0 - 3.0 Includes: PROPHYLAXIS forvenous thrombosis, systemic embolization; TREATMENT for venous thrombosis and/or pulmonary embolus.HIGH RISK: Target INR is 2.5-3.5 for patients with mechanical heart valves.CBC W/PLT COUNT & AUTO DIFFERENTIAL 2018-08-17 03:30:00 Test Item Value Reference Range Comments WHITE BLOOD CELL COUNT (BEAKER) (test code = 6.4 K/ L 3.5 -10.5 775) RED BLOOD CELL COUNT (BEAKER) (test code = 761) 4.20 M/ L 4.63-6.08 HEMOGLOBIN (BEAKER) (test code = 410) 12.3 GM/DL 13.7-17.5 HEMATOCRIT (BEAKER) (test code = 411) 37.7 % 40.1-51.0 MEAN CORPUSCULAR VOLUME (BEAKER) (test code = 89.8 fL 79 .0-92.2 753) MEAN CORPUSCULAR HEMOGLOBIN (BEAKER) (test code 29.3 pg 25.7-32.2 = 751) MEAN CORPUSCULAR HEMOGLOBIN CONC (BEAKER) (test 32.6 GM/DL 32.3-36.5 code = 752) RED CELL DISTRIBUTION WIDTH (BEAKER) (test code 14.5 % 11.6-14.4 = 412) PLATELET COUNT (BEAKER) (test code = 756) 108 K/CU MM 150-45 0 MEAN PLATELET VOLUME (BEAKER) (test code = 754) 10.2 fL 9.4-12.4 NUCLEATED RED BLOOD CELLS (BEAKER) (test code = 0 /100 WBC 0-0 413) NEUTROPHILS RELATIVE PERCENT (BEAKER) (test code 64 % = 429) LYMPHOCYTES RELATIVE PERCENT (BEAKER) (test code 24 % = 430) MONOCYTES RELATIVE PERCENT (BEAKER) (test code = 8 % 431) EOSINOPHILS RELATIVE PERCENT (BEAKER) (test code 4 % = 432) BASOPHILS RELATIVE PERCENT (BEAKER) (test code = 1 % 437) NEUTROPHILS ABSOLUTE COUNT (BEAKER) (test code = 4.09 K/ L 1.78-5.38 670) LYMPHOCYTES ABSOLUTE COUNT (BEAKER) (test code = 1.51 K/ L 1.32-3.57 414) MONOCYTES ABSOLUTE COUNT (BEAKER) (test code = 0.51 K/ L 0 .30-0.82 415) EOSINOPHILS ABSOLUTE COUNT (BEAKER) (test code = 0.23 K/ L 0.04-0.54 416) BASOPHILS ABSOLUTE COUNT (BEAKER) (test code = 0.03 K/ L 0 .01-0.08 417) IMMATURE GRANULOCYTES-RELATIVE PERCENT (BEAKER) 0 % 0-1 (test code = 2801) [id number] 19:35:00 Test Item Value Reference Range Comments PARTIAL THROMBOPLASTIN TIME (BEAKER) (test code 58.0 seconds 22.5-36.0 = 760) POCT-GLUCOSE [id number] 16:44:00 Test Item Value Reference Range Comments POC-GLUCOSE METER (BEAKER) 163 mg/dL 70-110 TESTE D AT [address] (test code = 1538) [place] [address] [id number] 13:23:00 Test Item Value Reference Range Comments PARTIAL THROMBOPLASTIN TIME (BEAKER) (test code 48.8 seconds 22.5-36.0 = 760) POCT-GLUCOSE [id number] 12:05:00 Test Item Value Reference Range Comments POC-GLUCOSE METER (BEAKER) 227 mg/dL 70-110 TESTE D AT [address] (test code = 1538) [place] [address] HEMOGLOBIN [id number] 10:44:00 Test Item Value Reference Range Comments HEMOGLOBIN A1C (BEAKER) (test code = 368) 7.9 % 4.3-6. 1 POCT-GLUCOSE [id number] 06:27:00 Test Item Value Reference Range Comments POC-GLUCOSE METER (BEAKER) 119 mg/dL 70-110 TESTE D AT [place] [address] [address] (test code = 1538) [place] [address] TSH/FREE T4 IF [id number] 04:00:00 Test Item Value Reference Range Comments THYROID STIMULATING HORMONE (BEAKER) (test code 1.80 uIU/mL 0.35-4.94 = 772) CALCIUM, [id number] 04:00:00 Test Item Value Reference Range Comments CALCIUM IONIZED (BEAKER) (test code = 698) 1.04 mmol/L 1.12- 1.27 PH, BLOOD (BEAKER) (test code = 1810) 7.52 [id number] 03:44:00 Test Item Value Reference Range Comments PHOSPHORUS (BEAKER) (test code = 604) 3.2 mg/dL 2.3-4.7 [id number] 03:44:00 Test Item Value Reference Range Comments MAGNESIUM (BEAKER) (test code = 627) 1.9 mg/dL 1.6-2.6 COMPREHENSIVE METABOLIC [id number] 03:44:00 Test Item Value Reference Range Comments TOTAL PROTEIN (BEAKER) 7.0 gm/dL 6.0-8.3 (test code = 770) ALBUMIN (BEAKER) (test 3.5 g/dL 3.5-5.0 code = 1145) ALKALINE PHOSPHATASE 59 U/L 40-150 (BEAKER) (test code = 346) BILIRUBIN TOTAL (BEAKER) 1.0 mg/dL 0.2-1.2 (test code = 377) SODIUM (BEAKER) (test code 141 meq/L 136-145 = 381) POTASSIUM (BEAKER) (test 3.5 meq/L 3.5-5.1 code = 379) CHLORIDE (BEAKER) (test 103 meq/L 98-107 code = 382) CO2 (BEAKER) (test code = 29 meq/L 22-29 355) BLOOD UREA NITROGEN 32 mg/dL 7-21 (BEAKER) (test code = 354) CREATININE (BEAKER) (test 1.34 mg/dL 0.57-1.25 code = 358) GLUCOSE RANDOM (BEAKER) 101 mg/dL 70-105 (test code = 652) CALCIUM (BEAKER) (test 9.5 mg/dL 8.4-10.2 code = 697) AST (SGOT) (BEAKER) (test 21 U/L 5-34 code = 353) ALT (SGPT) (BEAKER) (test 11 U/L 6-55 code = 347) EGFR (BEAKER) (test code = 52 mL/min/1.73 sq m E STIMATED GFR IS NOT 1092) ACCURATE CREA TININE CLEARANCE IN PRE DICTING GLOMERULAR FILTR ATION RATE. ESTIMATED GFR IS NOT APPLICABLE F OR DIALYSIS PATIENT S. PROTHROMBIN [id number] 03:33:00 Test Item Value Reference Range Comments PROTIME (BEAKER) (test code = 759) 19.1 seconds 11.7-14.7 INR (BEAKER) (test code = 370) 1.6 <=5.9 RECOMMENDED COUMADIN/WARFARIN INR THERAPY RANGESSTANDARD DOSE: 2.0 - 3.0 Includes: PROPHYLAXIS forvenous thrombosis, systemic embolization; TREATMENT for venous thrombosis and/or pulmonary embolus.HIGH RISK: Target INR is 2.5-3.5 for patients with mechanical heart valves.[id number] 03:33:00 Test Item Value Reference Range Comments PARTIAL THROMBOPLASTIN TIME (BEAKER) (test code 45.2 seconds 22.5-36.0 = 760) CBC W/PLT COUNT & AUTO [id number] 03:32:00 Test Item Value Reference Range Comments WHITE BLOOD CELL COUNT (BEAKER) (test code = 8.9 K/ L 3.5 -10.5 775) RED BLOOD CELL COUNT (BEAKER) (test code = 761) 4.61 M/ L 4.63-6.08 HEMOGLOBIN (BEAKER) (test code = 410) 13.6 GM/DL 13.7-17.5 HEMATOCRIT (BEAKER) (test code = 411) 41.0 % 40.1-51.0 MEAN CORPUSCULAR VOLUME (BEAKER) (test code = 88.9 fL 79 .0-92.2 753) MEAN CORPUSCULAR HEMOGLOBIN (BEAKER) (test code 29.5 pg 25.7-32.2 = 751) MEAN CORPUSCULAR HEMOGLOBIN CONC (BEAKER) (test 33.2 GM/DL 32.3-36.5 code = 752) RED CELL DISTRIBUTION WIDTH (BEAKER) (test code 14.5 % 11.6-14.4 = 412) PLATELET COUNT (BEAKER) (test code = 756) 140 K/CU MM 150-45 0 MEAN PLATELET VOLUME (BEAKER) (test code = 754) 10.0 fL 9.4-12.4 NUCLEATED RED BLOOD CELLS (BEAKER) (test code = 0 /100 WBC 0-0 413) NEUTROPHILS RELATIVE PERCENT (BEAKER) (test code 68 % = 429) LYMPHOCYTES RELATIVE PERCENT (BEAKER) (test code 21 % = 430) MONOCYTES RELATIVE PERCENT (BEAKER) (test code = 9 % 431) EOSINOPHILS RELATIVE PERCENT (BEAKER) (test code 1 % = 432) BASOPHILS RELATIVE PERCENT (BEAKER) (test code = 0 % 437) NEUTROPHILS ABSOLUTE COUNT (BEAKER) (test code = 6.04 K/ L 1.78-5.38 670) LYMPHOCYTES ABSOLUTE COUNT (BEAKER) (test code = 1.89 K/ L 1.32-3.57 414) MONOCYTES ABSOLUTE COUNT (BEAKER) (test code = 0.81 K/ L 0 .30-0.82 415) EOSINOPHILS ABSOLUTE COUNT (BEAKER) (test code = 0.09 K/ L 0.04-0.54 416) BASOPHILS ABSOLUTE COUNT (BEAKER) (test code = 0.03 K/ L 0 .01-0.08 417) IMMATURE GRANULOCYTES-RELATIVE PERCENT (BEAKER) 0 % 0-1 (test code = 2801) COMPREHENSIVE METABOLIC [id number] 21:39:00 Test Item Value Reference Range Comments TOTAL PROTEIN (BEAKER) 7.3 gm/dL 6.0-8.3 (test code = 770) ALBUMIN (BEAKER) (test 3.6 g/dL 3.5-5.0 code = 1145) ALKALINE PHOSPHATASE 71 U/L 40-150 (BEAKER) (test code = 346) BILIRUBIN TOTAL (BEAKER) 0.9 mg/dL 0.2-1.2 (test code = 377) SODIUM (BEAKER) (test code 139 meq/L 136-145 = 381) POTASSIUM (BEAKER) (test 3.2 meq/L 3.5-5.1 code = 379) CHLORIDE (BEAKER) (test 99 meq/L 98-107 code = 382) CO2 (BEAKER) (test code = 26 meq/L 22-29 355) BLOOD UREA NITROGEN 35 mg/dL 7-21 (BEAKER) (test code = 354) CREATININE (BEAKER) (test 1.52 mg/dL 0.57-1.25 code = 358) GLUCOSE RANDOM (BEAKER) 198 mg/dL 70-105 (test code = 652) CALCIUM (BEAKER) (test 9.4 mg/dL 8.4-10.2 code = 697) AST (SGOT) (BEAKER) (test 20 U/L 5-34 code = 353) ALT (SGPT) (BEAKER) (test 12 U/L 6-55 code = 347) EGFR (BEAKER) (test code = 45 mL/min/1.73 sq m E STIMATED GFR IS NOT 1092) ACCURATE CREA TININE CLEARANCE IN PRE DICTING GLOMERULAR FILTR ATION RATE. ESTIMATED GFR IS NOT APPLICABLE F OR DIALYSIS PATIENT S. [id number] 21:33:00 Test Item Value Reference Range Comments PARTIAL THROMBOPLASTIN TIME (BEAKER) (test code 30.3 seconds 22.5-36.0 = 760) Prior to initiating heparinPROTHROMBIN [id number] 21:32:00 Test Item Value Reference Range Comments PROTIME (BEAKER) (test code = 759) 19.1 seconds 11.7-14.7 INR (BEAKER) (test code = 370) 1.6 <=5.9 RECOMMENDED COUMADIN/WARFARIN INR THERAPY RANGESSTANDARD DOSE: 2.0 - 3.0 Includes: PROPHYLAXIS forvenous thrombosis, systemic embolization; TREATMENT for venous thrombosis and/or pulmonary embolus.HIGH RISK: Target INR is 2.5-3.5 for patients with mechanical heart valves.[id number] 21:32:00 Test Item Value Reference Range Comments FIBRINOGEN LEVEL (BEAKER) (test code = 658) 370 mg/dl 225- 434 CBC W/PLT COUNT & AUTO [id number] 21:23:00 Test Item Value Reference Range Comments WHITE BLOOD CELL COUNT (BEAKER) (test code = 8.7 K/ L 3.5 -10.5 775) RED BLOOD CELL COUNT (BEAKER) (test code = 761) 4.79 M/ L 4.63-6.08 HEMOGLOBIN (BEAKER) (test code = 410) 14.1 GM/DL 13.7-17.5 HEMATOCRIT (BEAKER) (test code = 411) 42.7 % 40.1-51.0 MEAN CORPUSCULAR VOLUME (BEAKER) (test code = 89.1 fL 79 .0-92.2 753) MEAN CORPUSCULAR HEMOGLOBIN (BEAKER) (test code 29.4 pg 25.7-32.2 = 751) MEAN CORPUSCULAR HEMOGLOBIN CONC (BEAKER) (test 33.0 GM/DL 32.3-36.5 code = 752) RED CELL DISTRIBUTION WIDTH (BEAKER) (test code 14.4 % 11.6-14.4 = 412) PLATELET COUNT (BEAKER) (test code = 756) 154 K/CU MM 150-45 0 MEAN PLATELET VOLUME (BEAKER) (test code = 754) 10.2 fL 9.4-12.4 NUCLEATED RED BLOOD CELLS (BEAKER) (test code = 0 /100 WBC 0-0 413) NEUTROPHILS RELATIVE PERCENT (BEAKER) (test code 73 % = 429) LYMPHOCYTES RELATIVE PERCENT (BEAKER) (test code 17 % = 430) MONOCYTES RELATIVE PERCENT (BEAKER) (test code = 8 % 431) EOSINOPHILS RELATIVE PERCENT (BEAKER) (test code 1 % = 432) BASOPHILS RELATIVE PERCENT (BEAKER) (test code = 0 % 437) NEUTROPHILS ABSOLUTE COUNT (BEAKER) (test code = 6.33 K/ L 1.78-5.38 670) LYMPHOCYTES ABSOLUTE COUNT (BEAKER) (test code = 1.50 K/ L 1.32-3.57 414) MONOCYTES ABSOLUTE COUNT (BEAKER) (test code = 0.71 K/ L 0 .30-0.82 415) EOSINOPHILS ABSOLUTE COUNT (BEAKER) (test code = 0.08 K/ L 0.04-0.54 416) BASOPHILS ABSOLUTE COUNT (BEAKER) (test code = 0.03 K/ L 0 .01-0.08 417) IMMATURE GRANULOCYTES-RELATIVE PERCENT (BEAKER) 0 % 0-1 (test code = 2801) POCT-GLUCOSE [id number] 21:22:00 Test Item Value Reference Range Comments POC-GLUCOSE METER (BEAKER) 228 mg/dL 70-110 TESTE D AT [facility] [address] (test code = 1538) [facility] 77 [id number]
[2020-01-14] MEDS ORDERED: NA CHLORIDE 0.9% 500 ML ONE (20:12)
[2020-01-14 20:28] LABS: Absolute Lymphocytes (CBC) 0.9 K/uL (0.7-4.9); Basophils % 0.2 % (0-1.3); Hematocrit 41.7 % (39.6-49.0); Lymphocytes % 6.3 % (15.3-44.8); MPV 8.3 fL (7.6-11.3); RBC Red Blood Cell Count 5.07 M/uL (4.33-5.43)
[2020-01-14 20:42] LABS: Protime INR 2.1
[2020-01-14 20:58] LABS: ALT/SGPT 13 U/L (12-78); AST/SGOT 20 U/L (15-37); Alkaline Phosphatase 136 U/L (45-117); BUN Blood Urea Nitrogen 25 mg/dL (7-18); Bicarbonate 32 mmol/L (21-32); Bilirubin Direct 0.7 mg/dL (0-0.2); Bilirubin Total 1.6 mg/dL (0.2-1.0); Glucose Level 168 mg/dL (74-106); Lipase 45 U/L (73-393); Magnesium 2.1 mg/dL (1.8-2.4); Sodium Level 132 mmol/L (136-145); Troponin (Emerg Dept Use Only) < 0.02 ng/mL (0.0-0.045)
[2020-01-14 20:59] LABS: Potassium 2.8 mmol/L (3.5-5.1)
--- NOTE | 2020-01-14 21:17 | ER ---
Nurse's Notes [facility] Name: Odilon Ferrara Age: 74 yrs Sex: Male : 1945 Arrival Date: 01/14/2020 Time: 20:03 Bed 7 Private MD: Diagnosis: Hypokalemia;Weakness;Dehydration;Syncope and collapse Presentation: 01/13 20:04 Chief complaint: EMS states: Patient has been C/O weakness for the past 4 days. Today ao patient had blood work done at the PCP and was told his K was low. Per EMS patient had a syncope episode while moving from chair to stretcher. BP was reported low per EMS. Coronavirus screen: Proceed with normal triage. Patient denies a cough. Patient denies shortness of breath or difficulty breathing. Patient denies measured and/or subjective temperature greater than 100.4F prior to today's visit. Patient denies travel on a cruise ship or to a country the [facility] currently lists as an affected area. Patient denies contact with known and/or suspected case of COVID-19. Ebola Screen: Patient negative for fever greater than or equal to 101.5 degrees Fahrenheit, and additional compatible Ebola Virus Disease symptoms Patient denies exposure to infectious person. Patient denies travel to an Ebola-affected area in the 21 days before illness onset. Initial Sepsis Screen: Does the patient meet any 2 criteria? No. Patient's initial sepsis screen is negative. Does the patient have a suspected source of infection? No. Patient's initial sepsis screen is negative. Risk Assessment: Do you want to hurt yourself or someone else? Patient reports no desire to harm self or others. Onset of symptoms is unknown. 20:04 Method Of Arrival: EMS: [facility] ao 20:04 Acuity: TYLOR 3 ao Triage Assessment: 20:09 General: Appears in no apparent distress. Behavior is calm, cooperative, appropriate ao for age. Pain: Denies pain. EENT: Pinna Right side cover with dressing. 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 Neuro: Level of Consciousness is awake, alert, obeys commands, Oriented to person, place, time, situation, Appropriate for age Map Plotter are Moves all extremities. Full function Speech is normal. Cardiovascular: Capillary refill < 3 seconds Patient's skin is warm and dry. Respiratory: Reports shortness of breath on exertion Airway is patent Respiratory effort is even, unlabored, Respiratory pattern is regular, symmetrical. GI: Abdomen is obese. : No signs and/or symptoms were reported regarding the genitourinary system. Derm: Skin is intact, Skin temperature is warm Wound noted right ear Other: Dressing. Musculoskeletal: Reports weakness in general weakness. Historical: - Allergies: 20:09 No Known Allergies; ao - Home Meds: 20:09 aspirin 81 mg Oral TbEC 1 tab once daily [Active]; Furosemide Oral [Active]; ao glimepiride 2 mg Oral tab 2 tabs with breakfast , 1 tab with dinner [Active]; metformin 1,000 mg Oral tab 1 tab 2 times per day [Active]; metoprolol succinate 50 mg Oral Tb24 1 tab twice a day [Active]; metolazone 5 mg Oral tab 1 tab once daily [Active]; simvastatin 40 mg Oral tab 1 tab once daily [Active]; ursodiol 300 mg Oral cap 1 cap 2 times per day [Active]; spironolactone 25 mg Oral tab 1 tab 2 times per day [Active]; oxybutynin chloride 10 mg Oral tr24 1 tab once daily [Active]; Eliquis oral oral [Active]; - PMHx: 20:09 Atrial Fib; Diabetes - NIDDM; DVT; High Cholesterol; Prostate Cancer; skin cancer; ao - PSHx: 20:09 None; ao - Immunization history:: Adult Immunizations up to date. - Social history:: Smoking status: unknown Patient/guardian denies using alcohol, street drugs, IV drugs. - Family history:: not pertinent. - Hospitalizations: : No recent hospitalization is reported. Screenin:04 Abuse screen: Denies threats or abuse. Denies injuries from another. Nutritional rr5 screening: No deficits noted. Tuberculosis screening: No symptoms or risk factors identified. Fall Risk Secondary diagnosis (15 points) syncope. IV access (20 points). Gait- Weak (10 pts.). Total Arias Fall Scale indicates High Risk Score (45 or more points). Fall prevention measures have been instituted. Side Rails Up X 2 Placed Close to Nursing Station Frequent Obs/Assessments Occuring As available patient and family educated on Fall Prevention Program and Strategies. Assessment: 20:12 General: See triage assessment. ao 21:23 Reassessment: Spoke to patient's who was in lobby and updated in POC. Patient to ao stay in the hospital per Dr Chi. Patient agree with treatment plan. 22:50 Reassessment: Nicolas (sister of the patient) updated the plan of care for the patient. rr5 23:58 Reassessment: Patient appears in no apparent distress at this time. Report called to lauro Gillis RN. Per Dr Chi patient will be going in Potassium Protocol. Vital Signs: 20:04 BP 155 / 133; Pulse 81; Resp 24; Temp 97.7(O); Pulse Ox 93% on R/A; Weight 117.93 kg ao (R); Height 6 ft. 0 in. (182.88 cm) (R); 21:30 BP 106 / 63; Pulse 79; Resp 22; Pulse Ox 95% ; rr5 22:00 BP 111 / 77; Pulse 81; Resp 22; Pulse Ox 97% ; rr5 23:00 BP 115 / 78; Pulse 82; Resp 16; Pulse Ox 100% ; ao 01/14 00:13 BP 130 / 98; Pulse 87; Resp 18; Temp 98.2(O); Pulse Ox 98% on R/A; Pain 0/10; ao 01/13 20:04 Body Mass Index 35.26 (117.93 kg, 182.88 cm) ao ED Course: 01/13 20:00 EKG done, by ED staff, reviewed by Anjum Chi MD. rr5 20:03 Patient arrived in ED. ao 20:04 Anjum Chi MD is Attending Physician. rn 20:04 Patient has correct armband on for positive identification. Bed in low position. Call rr5 light in reach. Side rails up X2. campus monitor on. Pulse ox on. NIBP on. Warm blanket given. 20:05 Inserted saline lock: 20 gauge in right antecubital area, using aseptic technique. ds4 Blood collected. 20:07 Triage completed. ao 20:12 Splint/sling/ice applied as appropriate. Arm band placed on right wrist. Patient placed ao in an exam room, on a stretcher, on pulse oximetry, Patient notified of wait time. 20:14 Ed Valenzuela, RN is Primary Nurse. ao 20:18 Hepatic Function Sent. ds4 20:18 Troponin (emerg Dept Use Only) Sent. ds4 20:18 Lipase Sent. ds4 20:18 Ptt, Activated Sent. ds4 20:18 Magnesium Sent. ds4 20:18 Protime (+inr) Sent. ds4 20:18 CBC with Diff Sent. ds4 20:19 Basic Metabolic Panel Sent. ds4 20:19 CBC with Automated Diff Sent. ds4 20:19 Basic Metabolic Panel Sent. ds4 20:19 N-Terminal Pro-brain Natriuretic Peptide Sent. ds4 20:39 XRAY Chest (1 view) In Process Unspecified. EDMS 21:15 Mor Easley MD is Hospitalizing Provider. rn 21:19 CT Head Brain wo Cont In Process Unspecified. EDMS 21:22 CT Abd/Pelvis - Without Contrast In Process Unspecified. EDMS 01/14 00:10 No provider procedures requiring assistance completed. Patient admitted, IV remains in ao place. Administered Medications: 01/13 20:18 Drug: NS 0.9% 500 ml Route: IV; Rate: bolus; Site: right antecubital; ao 23:30 Follow up: Response: No adverse reaction; IV Status: Completed infusion; IV Intake: ao 500ml 22:10 Drug: Potassium Chloride 20 mEq Route: IV; Rate: calculated rate; Site: right rr5 antecubital; 23:32 Follow up: IV Status: Infusion continued upon admission ao Intake: 23:30 IV: 500ml; Total: 500ml. ao Outcome: 21:16 Decision to Hospitalize by Provider. rn 01/14 00:10 Admitted to Med/surg accompanied by nurse, room 206, Report called to Elis RODRIGEZ ao Condition: stable Instructed on the need for admit. 00:17 Patient left the ED. ao Signatures: Dispatcher [employer] EDMS Anjum Chi MD MD rn Swanson, Donovan ds4 Ed Valenzuela RN RN Alexander Wagner RN RN rr5
--- NOTE | 2020-01-14 21:17 | EDPHYS ---
Physician Documentation [facility] Name: Odilon Ferrara Age: 74 yrs Sex: Male : 1945 Arrival Date: 01/14/2020 Time: 20:03 Bed 7 Private MD: ED Physician Anjum Chi HPI: 01/13 20:06 This 74 yrs old Male presents to ER via Unassigned with complaints of General rn Weakness. 20:06 Reports called 911 for generalized weakness and because called by hospital to tell him rn he had low potassium and has to go to ER. Reports generalized weakness and fatigue, + constipation for 4 days, has chronic problems with constipation, is passing gas, no blood in stool. Just started chemo for cancer 3 weeks ago, due for another treatment in 3 days. No fever/cough/vomiting/sob/chest pain. When EMS arrived and he stood up, passed out. [place] lightheaded and knew was going to pass out.. Onset: The symptoms/episode began/occurred at an unknown time. 20:10 Severity of symptoms: At their worst the symptoms were moderate in the emergency rn department the symptoms are unchanged. The patient has experienced similar episodes in the past. The patient has been recently seen by a physician:. Historical: - Allergies: 20:09 No Known Allergies; ao - Home Meds: 20:09 aspirin 81 mg Oral TbEC 1 tab once daily [Active]; Furosemide Oral [Active]; ao glimepiride 2 mg Oral tab 2 tabs with breakfast , 1 tab with dinner [Active]; metformin 1,000 mg Oral tab 1 tab 2 times per day [Active]; metoprolol succinate 50 mg Oral Tb24 1 tab twice a day [Active]; metolazone 5 mg Oral tab 1 tab once daily [Active]; simvastatin 40 mg Oral tab 1 tab once daily [Active]; ursodiol 300 mg Oral cap 1 cap 2 times per day [Active]; spironolactone 25 mg Oral tab 1 tab 2 times per day [Active]; oxybutynin chloride 10 mg Oral tr24 1 tab once daily [Active]; Eliquis oral oral [Active]; - PMHx: 20:09 Atrial Fib; Diabetes - NIDDM; DVT; High Cholesterol; Prostate Cancer; skin cancer; ao - PSHx: 20:09 None; ao - Immunization history:: Adult Immunizations up to date. - Social history:: Smoking status: unknown Patient/guardian denies using alcohol, street drugs, IV drugs. - Family history:: not pertinent. - Hospitalizations: : No recent hospitalization is reported. ROS: 20:10 Constitutional: Negative for fever, chills, and weight loss, Eyes: Negative for injury, rn pain, redness, and discharge, Neck: Negative for injury, pain, and swelling, Cardiovascular: Negative for chest pain, palpitations, and edema, Respiratory: Negative for shortness of breath, cough, wheezing, and pleuritic chest pain, Abdomen/GI: Negative for nausea, vomiting, diarrhea MS/Extremity: Negative for injury and deformity, Skin: Negative for injury, rash, and discoloration, Neuro: Negative for headache, numbness, tingling, and seizure. Exam: 20:10 Constitutional: Overweight male, no acute distress, appears tired and weak Head/Face: rn Normocephalic, atraumatic. ENT: dry MM Cardiovascular: Irregular rhythm, regular rate, intact distal pulses Respiratory: Mild tachypnea, diminished bilateral bases Abdomen/GI: soft, non-tender, non-distended MS/ Extremity: Pulses equal, no cyanosis. Neuro: Awake, GCS 15, oriented to person, place, time, and situation. Motor strength 4/5 in all extremities. Sensory grossly intact. + right sided bells palsy. Vital Signs: 20:04 BP 155 / 133; Pulse 81; Resp 24; Temp 97.7(O); Pulse Ox 93% on R/A; Weight 117.93 kg ao (R); Height 6 ft. 0 in. (182.88 cm) (R); 21:30 BP 106 / 63; Pulse 79; Resp 22; Pulse Ox 95% ; rr5 22:00 BP 111 / 77; Pulse 81; Resp 22; Pulse Ox 97% ; rr5 23:00 BP 115 / 78; Pulse 82; Resp 16; Pulse Ox 100% ; ao 01/14 00:13 BP 130 / 98; Pulse 87; Resp 18; Temp 98.2(O); Pulse Ox 98% on R/A; Pain 0/10; ao 01/13 20:04 Body Mass Index 35.26 (117.93 kg, 182.88 cm) ao MDM: 01/13 20:04 Patient medically screened. rn 21:14 ED course: Consulted with Dr. Easley, requested CT head, and will admit for rn hypokalemia/weakness/dehydration.. 01/13 20:04 Order name: Basic Metabolic Panel rn 01/13 20:04 Order name: CBC with Diff rn 01/13 20:04 Order name: Hepatic Function; Complete Time: 21:05 rn 01/13 20:04 Order name: Lipase; Complete Time: 21:05 rn 01/13 20:04 Order name: Magnesium; Complete Time: 21:05 rn 01/13 20:04 Order name: Protime (+inr); Complete Time: 21:05 rn 01/13 20:04 Order name: Ptt, Activated; Complete Time: 21:05 rn 01/13 20:04 Order name: Troponin (emerg Dept Use Only); Complete Time: 21:05 01/13 20:05 Order name: Basic Metabolic Panel; Complete Time: 21:05 EDMS 01/13 20:05 Order name: CBC with Automated Diff; Complete Time: 22:04 EDIN 01/13 20:10 Order name: N-Terminal Pro-brain Natriuretic Peptide; Complete Time: 21:05 rn 01/13 20:10 Order name: XRAY Chest (1 view); Complete Time: 22:04 rn 01/13 21:47 Order name: Manual Differential; Complete Time: 22:04 EDMS 01/13 20:04 Order name: EKG; Complete Time: 20:05 01/13 20:04 Order name: Cardiac monitoring; Complete Time: 20:05 01/13 20:04 Order name: EKG - Nurse/Tech; Complete Time: 20:05 rn 01/13 20:04 Order name: IV Saline Lock; Complete Time: 20:18 rn 01/13 20:04 Order name: Labs collected and sent; Complete Time: 20:18 rn 01/13 20:04 Order name: NPO; Complete Time: 20:05 rn 01/13 20:04 Order name: O2 Per Protocol; Complete Time: 20:05 rn 01/13 20:04 Order name: O2 Sat Monitoring; Complete Time: 20:05 rn 01/13 20:04 Order name: Urine Dipstick-Ancillary (obtain specimen); Complete Time: 00:16 rn 01/13 21:07 Order name: CT Abd/Pelvis - Without Contrast; Complete Time: 22:04 rn 01/13 21:10 Order name: CT Head Brain wo Cont; Complete Time: 22:04 rn Administered Medications: 20:18 Drug: NS 0.9% 500 ml Route: IV; Rate: bolus; Site: right antecubital; ao 23:30 Follow up: Response: No adverse reaction; IV Status: Completed infusion; IV Intake: ao 500ml 22:10 Drug: Potassium Chloride 20 mEq Route: IV; Rate: calculated rate; Site: right rr5 antecubital; 23:32 Follow up: IV Status: Infusion continued upon admission ao Disposition: 01/14/20 21:16 Hospitalization ordered by Mor Easley for Inpatient Admission. Preliminary diagnosis are Hypokalemia, Weakness, Dehydration, Syncope and collapse. - Bed requested for Telemetry/MedSurg (Inpatient). - Status is Inpatient Admission. ao - Condition is Stable. - Problem is an ongoing problem. - Symptoms have improved. Signatures: Dispatcher [employer] EDMS Rere Jha RN RN mw Nieto, Roman, MD MD rn Ortiz, Alex, RN RN ao Roque, Raymond, RN RN rr5 Corrections: (The following items were deleted from the chart) 21:47 20:34 CBC Smear Scan ordered. EDIN EDIN 23:07 21:16 Hospitalization Ordered by A Kaushal LIND for Inpatient Admission. Preliminary diagnosis is Hypokalemia; Weakness; Dehydration; Syncope and collapse. Bed requested for Telemetry/MedSurg (Inpatient). Status is Inpatient Admission. Condition is Stable. Problem is an ongoing problem. Symptoms have improved. rn 01/14 00:17 01/13 23:07 01/14/2020 21:16 Hospitalization Ordered by A Kaushal LIND for Inpatient ao Admission. Preliminary diagnosis is Hypokalemia; Weakness; Dehydration; Syncope and collapse. Bed requested for Telemetry/MedSurg (Inpatient). Status is Inpatient Admission. Condition is Stable. Problem is an ongoing problem. Symptoms have improved. mw 01/14 00:46 01/13 20:10 Constitutional: Overweight male, no acute distress, appears tired and weak rn Head/Face: Normocephalic, atraumatic. ENT: dry MM Cardiovascular: Irregular rhythm, regular rate, intact distal pulses Respiratory: Mild tachypnea, diminished bilateral bases Abdomen/GI: soft, non-tender, non-distended MS/ Extremity: Pulses equal, no cyanosis. Neuro: Awake, GCS 15, oriented to person, place, time, and situation. Motor strength 4/5 in all extremities. Sensory grossly intact. rn
[2020-01-14 21:55] LABS: Blood Morphology Comment NOT SEEN (NOT SEEN); Platelet Estimate ADEQ
--- NOTE | 2020-01-14 21:55 | RAD REPORT ---
EXAM DESCRIPTION: CT - Head Brain Wo Cont - 01/14/2020 9:20 pm CLINICAL HISTORY: SYNCOPE COMPARISON: Head Brain Wo Cont dated 05/01/2018; Abdomen Pelvis Wo Contrast dated 01/14/2020 TECHNIQUE: Axial 5 mm thick images of the head were obtained without IV contrast. All CT scans are performed using dose optimization technique as appropriate and may include automated exposure control or mA/KV adjustment according to patient size. FINDINGS: No intracranial hemorrhage, mass, edema or shift of mid-line structures. No acute cortical based infarction. No cortical edema or sulcal effacement. Moderate atrophy and mild chronic ischemic changes are present. No abnormal extra-axial fluid collections. Ventricles are in proportion to volu me loss. Dense arterial tree calcifications are present. Mastoid air cells and visualized portions of the paranasal sinuses are clear. No skull fracture or acute bone findings seen. There is prominent thickening and edema seen in the right ear periauricular soft tissues. Skin cancer history was noted. Site was not localized. The thickened soft tissues may be the sequela of trauma g iven the syncope. This needs correlation with clinical findings. IMPRESSION: No hemorrhage, edema or acute intracranial finding. Atrophy and chronic ischemic changes are present similar to 2018. Prominent soft tissue thickening and edema around the right ear only partially imaged. The right periauricular or findings potentially the sequela of trauma given the syncope history. This could also be malignancy given the skin cancer history. Correlation is needed with history and exam findings.
--- NOTE | 2020-01-14 21:56 | RAD REPORT ---
EXAM DESCRIPTION: RAD - Chest Single View - 01/14/2020 8:39 pm CLINICAL HISTORY: tachypnea COMPARISON: October 13 TECHNIQUE: AP portable chest image was obtained 01/14/2020 8:39 pm . FINDINGS: Lung volumes are low. No peripheral mass or consolidation. Heart and vasculature are sandee l. No measurable pleural effusion and no pneumothorax. No acute bony abnormality seen. No acute aorti c findings suspected. IMPRESSION: No acute cardiopulmonary process. No significant change from comparison.
--- NOTE | 2020-01-14 22:00 | RAD REPORT ---
EXAM DESCRIPTION: CT - Abdomen Pelvis Wo Contrast - 01/14/2020 9:22 pm CLINICAL HISTORY: elevated LFTs, constipation, lower abd pain COMPARISON: Abdomen Pelvis W Contrast dated 10/13/2019 TECHNIQUE: Axial [address] imaging of the abdomen and pelvis was performed without IV contrast. No IV contrast was given because of allergy, abnormal renal function, patient refusal or physician re quest. No oral contrast administered. All CT scans are performed using dose optimization technique as appropriate and may include automated exposure control or mA/KV adjustment according to patient size. FINDINGS: No suspicious findings in the lung bases. The liver, spleen and pancreas show no suspicious findings on non-contrast imaging. The gallbladder a ssessment. No biliary tree dilatation. No hydronephrosis or obstructing calculus. Small exophytic renal masses are present incompletely asse ssed. These are not grossly different from October imaging. No significant adrenal finding. Isodense renal masses and pyelonephritis cannot be excluded in the absence of IV contrast. The urinary bladde r is without significant finding. No gastric dilatation or wall thickening. No dilated small bowel loops. Small bowel anastomotic site left mid abdomen unchanged from prior imaging. Large stool volume is present filling the entirety of the colon. No colon wall thickening or mass. No free air, free fluid or inflammatory stranding. No h ernia, mass or bulky lymphadenopathy. No suspicious bony findings. Degenerative changes are present. Arterial tree calcifications are prese nt. IMPRESSION: Constipation pattern with a large amount of stool filling the colon. No colon wall thick ening or mass. No obstruction, free air or acute GI process identifiable. No acute abdominal or pelvic findings identifiable. Full assessment is limited is the absence of IV contrast. No acute or worrisome changes from October imaging.
[2020-01-14] MEDS ORDERED: KCL 20 MEQ/100 mL IVPB 20 MEQ/100 ML BAG IV ONE (22:17)
[2020-01-14] MEDS ORDERED: NA CHLORIDE 0.9% 250 ML ONE (22:17)
[2020-01-14] MEDS ORDERED: ONDANSETRON 4 MG/2 ML VIAL IV PRN (23:36)
[2020-01-15 01:09] VITALS: BMI 36.3
[2020-01-15] MEDS: NA CHLORIDE 0.9% 1,000 ML IV SCH ×3 (01:59→21:11)
[2020-01-15] MEDS: KCL 20 MEQ/100 mL IVPB 20 MEQ/100 ML BAG IV SCH ×5 (02:04→17:29)
[2020-01-15 04:43] LABS: Absolute Lymphocytes (CBC) 0.9 K/uL (0.7-4.9); Basophils % 0.2 % (0-1.3); Lymphocytes % 6.6 % (15.3-44.8); MPV 7.9 fL (7.6-11.3); RBC Red Blood Cell Count 4.72 M/uL (4.33-5.43)
[2020-01-15 04:56] LABS: Potassium 3.2 mmol/L (3.5-5.1)
[2020-01-15] MEDS: OXYBUTYNIN ER 5 MG TAB PO SCH (08:30)
[2020-01-15] MEDS: APIXABAN 5 MG TABLET PO SCH ×2 (08:30→21:09)
[2020-01-15] MEDS: ursodioL 300 MG CAP PO SCH ×2 (08:30→21:09)
[2020-01-15] MEDS: METOPROLOL XL 50 MG TAB PO SCH (08:31)
[2020-01-15] MEDS: DULOXETINE 30 MG CAP PO SCH (08:31)
[2020-01-15] MEDS: FAMOTIDINE 20 MG TAB PO SCH (08:31)
[2020-01-15] MEDS: ASPIRIN 81 MG CHEWABLE TABLET PO SCH (08:31)
[2020-01-15] MEDS: GABAPENTIN 300 MG CAP PO SCH ×3 (08:31→21:09)
[2020-01-15] MEDS: CODEINE 30MG/APAP 300MG TAB PO PRN ×2 (08:40→21:09)
--- NOTE | 2020-01-15 11:13 | RAD REPORT ---
EXAM DESCRIPTION: Ct Stroke Brain Wo Cont ADDENDUM #1 ADDENDUM: THIS REPORT CONTAINS FINDINGS THAT MAY BE CRITICAL TO PATIENT'S CARE: Notification that physician Aric Easley MD was unable to speak on the phone on 01/15/2020 1: 11 AM CDT. Findings were verbally discussed by Dr. Patten via telephone with nurse RN Elis Aguila on 01/01 1:11 AM CDT who agreed to take the results on behalf of the physician, and acknowledged their critical nature. Electronically signed by: Adan Patten DO 01/15/2020 1:13 AM CDT End of Addendum EXAM DESCRIPTION: Ct Stroke Brain Wo Cont CLINICAL HISTORY: 74 years Male R/O CVA COMPARISON: None TECHNIQUE: Contiguous axial images of the brain were obtained without the administration of intraven ous contrast.This exam was performed according to our departmental dose-optimization program which in cludes use of Automated Exposure Control, adjustment of the mA and/or kV according to patient size an d/or use of iterative reconstruction technique. DLP: 859 mGy*cm FINDINGS: Brain: No acute intracranial hemorrhage. No extra-axial collection. No mass effect or herniation. M ild prominence of the sulci and cisterns. Confluent periventricular and subcortical white matter hypo density is noted. Ventricles: Within normal limits in size. Globes and orbits: No acute abnormality. Bones: Erosions of the Paranasal sinuses: Paranasal sinuses are clear. Mastoid air cells: Well pneumatized. Soft tissues: Advanced heterogenous soft tissue thickening of the right ear and periauricular soft ti ssues. IMPRESSION: No acute intracranial hemorrhage, hydrocephalus or herniation. Cerebral volume loss and chronic small vessel ischemic changes. If persistent clinical concern for ac [place] ischemia, consider MRI brain without contrast for further evaluation. Soft tissue density and widening of the right external auditory canal with associated erosion. Advanced heterogenous soft tissue thickening of the right ear and periauricular soft tissues. Electronically signed by: Adan Patten DO 01/15/2020 1:02 AM CDT Due to temporary technical issues with the PACS/Fluency reporting system, reports are being signed by the in house radiologist as a courtesy to ensure prompt reporting. The interpreting radiologist is f ully responsible for the content of the report.
--- NOTE | 2020-01-15 11:31 | EKG ---
Test Date: 2020-01-14 Test Time: 20:03:21 Neurological Surgery Teacher: RR MEASUREMENT RESULTS: Intervals: Rate: 90 [place]: QRSD: 168 QT: 458 QTc: 560 [place]: P: [place]: QRS: -72 T: 103 INTERPRETIVE STATEMENTS: Atrial fibrillation with premature ventricular or aberrantly conducted complexes Left axis deviation Left bundle branch block Abnormal ECG Compared to ECG 10/13/2019 02:49:01 Ventricular premature complex(es) now present Left-axis deviation now present Electronically Signed On 01-15-20 11:29:52 CDT by Enoch Jane
[2020-01-15] MEDS ORDERED: HOME MED 1 EA UNK (Simvastatin [Simvastatin] 40 MG) PO SCH (21:00)
[2020-01-15] MEDS: ATORVASTATIN 20 MG TAB PO SCH (21:09)
--- NOTE | 2020-01-15 23:30 | HP ---
Date of Admission: 01/15/2020 Chief Complaint: Low potassium, feeling weak. History Of Present Illness: This is a 74-year-old, very pleasant male patient who had outpatient blood work done yesterday. Potassium was 2.6 and home health nurse contacted me with this lab results and he was advised to have patient come to the emergency room. Patient was feeling very weak and he called 911 and as ambulance arrived to bring him to hospital while he was trying to get up, all of a sudden because of extreme weakness, he actually ended up fainting. He did not have any fall or injury. He was brought into emergency room. Denies any vomiting, diarrhea. His appetite has been poor. He has lost a significant amount of weight because of poor appetite lately. He is under treatment at [facility] for his cancer and recently just started taking some treatment for that. Has quite a bit pain on his right side of the face due to this cancer. For last month or so, he has noted some flattening of the right-sided nasolabial fold and I strongly believe that this is due to his cancer. Allergies: NO KNOWN ALLERGIES. Medications: List reviewed. Review of Systems: Constitutional: As mentioned above. Cardiovascular: As mentioned above. COPYRIGHT EXPERT: As mentioned above. All other systems reviewed and negative. Social History: Negative for smoking, alcohol use. Family History: Significant for hypertension, hyperlipidemia, diabetes. Past Surgical History: Cholecystectomy, exploratory laparotomy in 2002, because of small bowel obstruction and had surgery for similar reason in 2007. Past Medical History: Hypertension, type 2 diabetes mellitus, atrial fibrillation, hyperlipidemia, prostate cancer, diverticulosis, osteoarthritis at multiple sites, allergic rhinitis, gastroesophageal reflux disease, obstructive sleep apnea, coronary artery disease, squamous cell carcinoma. Physical Examination: VITAL SIGNS: Temperature 97, pulse 67, respiratory rate 16, blood pressure 125/63, oxygen saturation 93%, height 6 feet, weight 268 pounds. General: The patient appears very weak, not in any respiratory distress, appears sleepy, but wakes up and communicates with me. Answers questions appropriately and not in any distress. HEENT: Head atraumatic, normocephalic. Conjunctivae nonerythematous. Sclerae white. Mouth, no thrush or edema noted. Ears/Nose, the patient has a mass involving right external ear region with some purulent discharge present. No definite open wound noted. Neck: Supple. No JVD, lymph nodes, bruit, thyromegaly noted. Lungs: Bilateral good equal air entry. Clear to auscultation. No rhonchi. No rales. Heart: Normal heart sounds, no murmur or gallop. Abdomen: Soft, bowel sounds normal. No guarding, rigidity, tenderness, mass, hepatosplenomegaly, distention, or bruit noted. Extremities: No leg edema. No calf tenderness. Skin: No rash, ulcer, cellulitis. Lymphatics: No lymph node enlargement in neck, supraclavicular, infraclavicular region. Neuro: No focal neurological deficit. Chest: Unremarkable. External Genitalia: Deferred. Rectal: Deferred. COPYRIGHT EXPERT: Flattening of the right-sided nasolabial fold, but power in both upper and lower extremities is normal and equal. Speech is normal. Laboratory Data: Yesterday, white count 14.8, hemoglobin 13.6, platelets 277. Today, white count 14.1, hemoglobin 12.7, platelets 241. Yesterday, sodium 132, potassium 2.8, chloride 87, bicarb 32, BUN 25, creatinine 1.57, glucose 168, magnesium 2.1, total bilirubin 1.6, direct bilirubin 0.7, SGOT 20, SGPT 13, troponin less than 0.02, lipase 45. This morning, sodium 134, potassium 3.2, chloride 91, bicarb 34, BUN 26, creatinine 1.37, glucose 115. Chest x-ray, no acute cardiopulmonary changes. CAT scan of abdomen shows evidence of constipation, no acute intra-abdominal change. CAT scan of the head, no acute intracranial changes. Impression: 1. Acute kidney injury. 2. Volume depletion. 3. Hypertension. 4. Type 2 diabetes mellitus. 5. Anemia. 6. Hypokalemia. 7. Hyponatremia. 8. Atrial fibrillation, paroxysmal. 9. Hyperlipidemia. 10. Prostate cancer. 11. Diverticulosis. 12. Osteoarthritis, multiple sites. 13. Gastroesophageal reflux disease. 14. Obstructive sleep apnea. 15. Coronary artery disease. Plan: Admit patient to hospital for further evaluation and management of this problem. Patient is appropriate for inpatient and is expected to spend 2 midnights in hospital. We will continue current medications. Home medications will be continued per order. IV fluid will be given. Replace electrolyte per protocol and repeat blood work tomorrow. I have left message at [facility] to patient's oncologist's office. We tried to contact 2 different times and left a message. So far we have not heard anything back. Once the patient's oncologist calls me back, I will give him updates about current hospital stay and the patient told me that he actually is scheduled to go back tomorrow for his another round of chemotherapy. Obviously, he is not going to be able to keep that appointment. I will see him tomorrow morning for followup. PROMISE/ALFREDO Voice ID: [id number] MTDD
[2020-01-16] MEDS ORDERED: POTASSIUM 25 MEQ EFFERV TAB PO ONE (02:48)
[2020-01-16] MEDS ORDERED: KCL 20 MEQ/100 mL IVPB 20 MEQ/100 ML BAG IV SCH (03:00)
[2020-01-16] MEDS ORDERED: MAGNESIUM HYDROXIDE 8% 30 ML PO ONE (07:04)
[2020-01-16 08:28] LABS: Absolute Lymphocytes (CBC) 1.1 K/uL (0.7-4.9); Basophils % 0.2 % (0-1.3); Hematocrit 38.1 % (39.6-49.0); Lymphocytes % 10.5 % (15.3-44.8); MPV 8.2 fL (7.6-11.3); RBC Red Blood Cell Count 4.66 M/uL (4.33-5.43)
[2020-01-16 08:40] LABS: Magnesium 1.8 mg/dL (1.8-2.4); Potassium 3.3 mmol/L (3.5-5.1)
[2020-01-16] MEDS: DULOXETINE 30 MG CAP PO SCH (09:00)
[2020-01-16] MEDS: GABAPENTIN 300 MG CAP PO SCH ×3 (09:00→21:00)
[2020-01-16] MEDS: APIXABAN 5 MG TABLET PO SCH ×2 (09:00→23:01)
[2020-01-16] MEDS: ASPIRIN 81 MG CHEWABLE TABLET PO SCH (09:01)
[2020-01-16] MEDS: METOPROLOL XL 50 MG TAB PO SCH (09:01)
[2020-01-16] MEDS: FAMOTIDINE 20 MG TAB PO SCH (09:01)
[2020-01-16] MEDS: ursodioL 300 MG CAP PO SCH ×2 (09:02→23:01)
[2020-01-16] MEDS: DOCUSATE NA/SENNA CONC 1 TAB PO SCH ×2 (09:02→23:00)
[2020-01-16] MEDS: OXYBUTYNIN ER 5 MG TAB PO SCH (09:03)
[2020-01-16] MEDS: CODEINE 30MG/APAP 300MG TAB PO PRN ×2 (09:23→23:01)
[2020-01-16] MEDS: NA CHLORIDE 0.9% 1,000 ML IV SCH (18:19)
[2020-01-16] MEDS ORDERED: POTASSIUM CL SA 10 MEQ TAB PO ONE (18:31)
--- NOTE | 2020-01-16 20:46 | PN ---
Date of Progress Note: 01/16/2020 Subjective: The patient was seen this morning for followup. He was sleeping not in any distress. N o new complaints, problems reported by nursing staff. Objective: Vital Signs: Reviewed. HEENT: Unremarkable. Lungs: Clear to auscultation. Cardiac: Heart sounds normal. Abdomen: Soft, bowel sounds normal. No guarding, rigidity, tenderness, or distention. Extremities: No leg edema. Laboratory Data: Sodium 135, potassium 3.3, chloride 93, bicarb 35, BUN 30, creatinine 1.11, glucose 118, magnesium 1.8. White count 10.5, hemoglobin 12.7, platelets 233. Impression: 1.Acute kidney injury. 2.Volume depletion. 3.Squamous cell carcinoma, face, right ear. 4.Hypokalemia. 5.Hyponatremia. 6.Anemia. Plan: We will continue IV fluid, continue to replace potassium per potassium replacement protocol. Continue other current medication. I did get a call back from the patient's oncologist from [facility], Dr. White and she explained it to me that the patient had radiation therapy as part of treatment fo r his squamous cell carcinoma and he was just started as of last month on palliative immunotherapy. The patient's current performance status is very poor and Dr. White and I talked about overall poor prog nosis. I am also concerned about a nerve involvement with right-sided flattening of nasolabial fold and possibility of intrabulbar Mitchell's palsy and Dr. White and I both talked about possibility of hospice care and she is in agreement to consider hospice care if the patient and family are willing to consi rossi that. I will discuss this with the patient tomorrow and I will also discuss this with the patien t's family this evening and I will contact family member this evening. Dr. White will try to contact th e patient's family tomorrow and she is primarily communicating with the patient's sister, and I will contact her this evening as well to discuss details. PROMISE/MODL Voice ID: [id number] Report ID: [id number]
[2020-01-16] MEDS: ATORVASTATIN 20 MG TAB PO SCH (23:00)
[2020-01-17] MEDS ORDERED: POTASSIUM 25 MEQ EFFERV TAB PO ONE ×2 (05:57→19:00)
[2020-01-17] MEDS: DOCUSATE NA/SENNA CONC 1 TAB PO SCH ×2 (08:07→20:42)
[2020-01-17] MEDS: DULOXETINE 30 MG CAP PO SCH (08:07)
[2020-01-17] MEDS: METOPROLOL XL 50 MG TAB PO SCH (08:07)
[2020-01-17] MEDS: APIXABAN 5 MG TABLET PO SCH ×2 (08:07→20:34)
[2020-01-17] MEDS: ursodioL 300 MG CAP PO SCH ×2 (08:07→20:34)
[2020-01-17] MEDS: OXYBUTYNIN ER 5 MG TAB PO SCH (08:07)
[2020-01-17] MEDS: CODEINE 30MG/APAP 300MG TAB PO PRN (08:08)
[2020-01-17] MEDS: FAMOTIDINE 20 MG TAB PO SCH (08:08)
[2020-01-17] MEDS: GABAPENTIN 300 MG CAP PO SCH ×3 (08:09→20:34)
[2020-01-17] MEDS: ASPIRIN 81 MG CHEWABLE TABLET PO SCH (08:09)
[2020-01-17] MEDS: NA CHLORIDE 0.9% 1,000 ML IV SCH (12:41)
[2020-01-17] MEDS: ATORVASTATIN 20 MG TAB PO SCH (20:34)
--- NOTE | 2020-01-17 23:23 | PN ---
Date of Progress Note: 01/17/2020 Subjective: Patient was seen this morning for followup. He was lying in bed, not in any distress. Has significant generalized weakness that has not improved any. Objective: Vital Signs: Reviewed. HEENT: Unremarkable. Lungs: Clear to auscultation. Heart: Heart sounds normal. Abdomen: Soft, bowel sounds normal. No guarding, rigidity, tenderness, or distention. Extremities: Leg edema. Impression: 1.Squamous cell carcinoma, right side of face. 2.Hypertension. 3.Diabetes mellitus. 4.Volume depletion. 5.Acute kidney injury, improved. Plan: I did talk to patient this morning and made him aware of my discussion with his oncologist at [facility] and our recommendation of hospice care and I also explained it to him to communicate with his family members regarding this recommendation. Patient was accepting information as explained to him this morning. After that, I talked to patient's sister, Mayte, and per patient's request detai ls were explained to her as well. Mayte was made aware that Dr. White, from [facility] will be contac ting her today to communicate and explain details as well and meanwhile she was asked to communicate with the patient's and patient and my suggestion was for family to get together and make decisio n. Later this afternoon, Mayte called me and talked to me and informed me that she had chance to di scuss with Dr. White, with the patient, and patient's and there is an agreement to go on hospice ca re. I have requested social service consultation to assist with hospice care's arrangements to be made home tomorrow with hospice care. PROMISE/MODL Voice ID: [id number] Report ID: [id number]
[2020-01-18] MEDS: KCL 20 MEQ/100 mL IVPB 20 MEQ/100 ML BAG IV SCH ×2 (01:12→03:56)
[2020-01-18] MEDS: CODEINE 30MG/APAP 300MG TAB PO PRN ×3 (01:12→17:40)
[2020-01-18] MEDS: NA CHLORIDE 0.9% 1,000 ML IV SCH ×2 (06:37→15:40)
[2020-01-18] MEDS: GABAPENTIN 300 MG CAP PO SCH ×2 (09:00→13:07)
[2020-01-18] MEDS: DOCUSATE NA/SENNA CONC 1 TAB PO SCH (09:00)
[2020-01-18] MEDS: METOPROLOL XL 50 MG TAB PO SCH (09:02)
[2020-01-18] MEDS: DULOXETINE 30 MG CAP PO SCH (09:02)
[2020-01-18] MEDS: ursodioL 300 MG CAP PO SCH (09:02)
[2020-01-18] MEDS: APIXABAN 5 MG TABLET PO SCH (09:02)
[2020-01-18] MEDS: ASPIRIN 81 MG CHEWABLE TABLET PO SCH (09:03)
[2020-01-18] MEDS: FAMOTIDINE 20 MG TAB PO SCH (09:03)
[2020-01-18] MEDS: OXYBUTYNIN ER 5 MG TAB PO SCH (09:04)
[2020-01-18 13:11] VITALS: TEMP 97.2
--- NOTE | 2020-01-18 15:16 | DS ---
Date of Discharge: 01/18/2020 Disposition: Patient will be discharged to go home with hospice care. Physical Examination: HEENT: Unremarkable, except presence of malignant tumor right external ear and flattening of right n asolabial fold, unchanged. Heart: Sounds normal. Abdomen: Soft. Bowel sounds normal. No guarding, rigidity, tenderness, distention. Extremities: No leg edema. Lungs: Clear to auscultation. Laboratory Data: Last potassium was 3.3 that was done during nighttime. Yesterday sodium 135, potas sium 3.3, chloride 93, bicarb 35, BUN 30, creatinine 1.1, glucose 118, magnesium 1.8. On admission s odium 132, potassium 2.8, chloride 87, bicarb 32, BUN 25, creatinine 1.57, glucose 168, total bilirub in 1.6, direct bilirubin 0.7, SGOT 20, SGPT 13, troponin 0.02, lipase 45. Initial white count 14.8, hemoglobin 13.6, platelets 277. Last white count on 01/16/2020 was 10.5, hemoglobin 12.7, platelets 230. Hospital Course: This is a 74-year-old very pleasant male patient, came into the emergency room with low potassium and feeling very weak. Please see dictated H and P for more information. Patient has squamous cell carcinoma involving the right side of his face, for this he has been under care at [facility]. He has received radiation therapy and recently was started on palliative immunotherapy at [facility]. Meanwhile he was brought into the emergency room with the above mentioned problem. Janice morrissey has lost a significant amount of weight over a period of last few months and he is feeling very weak, has very poor appetite. After he was brought into the emergency room his volume depletion and acute kidney injury problem treated with IV fluid hydration. Potassium was replaced. Home medicatio ns were continued. He had significant generalized weakness and he has mostly stayed in the bed and t hroughout this hospitalization with extremely poor overall intake of food and liquid. He is feeling very weak. His performance status is very poor and Dr. Yang as well as myself we both had recommendati on of patient to go on hospice care and this recommendation was discussed with the patient and patien t's family. Patient is agreeable for hospice care. Family has communicated with Social Service and I had a discussion with the patient and patient's family yesterday as well as details were discussed with the patient today. He was made aware of his poor prognosis, life expectancy less than 6 months, probably shorter than 6 months. He sleeps most of the time and stays in bed almost all the time, fe els extremely weak and has very very poor appetite. I am afraid that his condition will rapidly dete riorate and providing hospice care, comfort care is probably the best thing for him and we had all th is discussion today as well. He is ready to go home once hospice arrangements get completed and hope fully that will happen today with the help of Social Service. We will discontinue some of his medica tions which will be considered not essential at this point and may increase more risk than benefit an d those medications that will be discontinued will be Eliquis, spironolactone, glimepiride, and eamon sterol medication. Overall prognosis is very poor. Yesterday, I did talk to hospice medical directo r as well. Final Diagnoses: 1.Acute kidney injury. 2.Volume depletion. 3.Squamous cell carcinoma, face, external ear. 4.Anemia. 5.Hypokalemia. 6.Type 2 diabetes mellitus. 7.Hyponatremia. 8.Atrial fibrillation, paroxysmal. 9.Hyperlipidemia. 10.Prostate cancer. 11.Diverticulosis. 12.Osteoarthritis, multiple sites. 13.Gastroesophageal reflux disease. 14.Obstructive sleep apnea. 15.Coronary artery disease. See copy of discharge order for more details for discharge medications. PROMISE/MODL Voice ID: [id number] Report ID: [id number]
[2020-01-18 16:39] VITALS: O2SAT 95
[2020-01-18 19:01] VITALS: BP 119/67
== END 2020-01-18 20:23 | disposition hospice, home (50) | DRG 683 ==
LOC: ER 20:01 → ERHOLD 22:12 → 2ND 01-15 00:11
PROVIDERS: ADMIT Internal Medicine; ATTEND Internal Medicine
DX: N17.9 Acute kidney failure, unspecified (principal); E87.1 Hypo-osmolality and hyponatremia; E86.9 Volume depletion, unspecified; D64.9 Anemia, unspecified; E87.6 Hypokalemia; E11.9 Type 2 diabetes mellitus without complications; I48.0 Paroxysmal atrial fibrillation; E78.5 Hyperlipidemia, unspecified; C61 Malignant neoplasm of prostate; K57.90 Diverticulosis of intestine, part unspecified, without perforation or abscess without bleeding; M19.90 Unspecified osteoarthritis, unspecified site; K21.9 Gastro-esophageal reflux disease without esophagitis; I25.10 Atherosclerotic heart disease of native coronary artery without angina pectoris; G47.33 Obstructive sleep apnea (adult) (pediatric); E86.0 Dehydration; D04.21 Carcinoma in situ of skin of right ear and external auricular canal; I10 Essential (primary) hypertension; Z90.49 Acquired absence of other specified parts of digestive tract; Z79.82 Long term (current) use of aspirin; Z79.84 Long term (current) use of oral hypoglycemic drugs; Z79.01 Long term (current) use of anticoagulants
CPT/HCPCS: 36415; 70450; 71045; 74176; 80048; 80053; 80076; 82947; 83036; 83690; 83735; 83880; 84132; 84484; 85025; 85610; 85730; 93005; 96361; 96365; 99285; J2405; J7030; J7040

== ENCOUNTER 2020-12-03 14:15 | Emergency (ER) | payer OTHER ==
--- OUTSIDE RECORDS SUMMARY | 2020-12-03 14:19 | XMS REPORT | Continuity of Care Document ---
:1945 Author Organization [facility] t Address [address] [place] [address] Care Team Providers Name Role Phone Rodney CHAVEZ Primary Care Physician Unavailable EUNICE Attending Clinician Unavailable SYSTEM, NOT IN Attending Clinician Unavailable Bon LIND Attending Clinician Mark LIND Attending Clinician Estuardo Siegel DPM Attending Clinician Nitin HUTN Attending Clinician Eunice LIND Attending Clinician Ankita Moseley RN M Attending Clinician Unavailable Rodney Cates Attending Clinician Jessica Colin MD Attending Clinician Keyshawn LIND Attending Clinician Migdalia LIND Attending Clinician Julio LIND AMark Attending Clinician Donato LIND Attending Clinician Darius LIND Attending Clinician Michelle LIND M. Attending Clinician Shira LIND Attending Clinician Dominique RODRIGEZ, L. Attending Clinician Unavailable Rodney Chavez MD Attending Clinician CHAPIS Attending Clinician Unavailable CHAPIS Admitting Clinician Unavailable Payers Payer Name Policy Type Policy Number Effective Date Expiration Date Fransisca cheung MEDICARE PART A [id number] 2008 AND B 00:00:00 LumenisSRINIVASAN AHN [id number] 2009 00:00:00 Problems Condition Condition Condition Status Onset Resolution Last Treating Co mments Source Name Details Category Date Date Treatment Clinician Date Abscess Abscess Disease Active 2019- MD 3-15 Anderso 00:00: n 00 Infection Infection Disease Active 2019-0 MD of ear of ear 3-12 Anderso 00:00: n 00 Cellulitis Cellulitis Disease Active 2020-0 M D 3-12 Anderso 00:00: n 00 Chronic Chronic Disease Active 2019-0 MD pain pain 2- Anderso syndrome syndrome 00:00: n 00 History of History of Disease Active 2019-0 M D radiation radiation 2- Terrance rso therapy therapy 00:00: n 00 Sensorineu Sensorineu Disease Active 2020-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, loss, 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 related Anderso pain pain 00:00: n (acute) (acute) 00 (chronic) (chronic) Neuropathi Neuropathi Disease Active 2018-10 M D c pain c pain Anderso 00:00: n 00 Encounter Encounter Disease Active 2018-10 MD briggs for 2-12 Anderso observatio observatio 00:00: n n for n for 00 other other suspected suspected disease disease ruled out ruled out Dyslipidem Dyslipidem Disease Active 2018-10 M D ia ia 1- Anderso 00:00: n 00 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 Moderate concentri c LV hypertrop hy. All of the LV segments are mildly hypokinet ic . LVEF by Manzo's method of disk assessmen t is mildly reduced (40-44%) . Degree of diastolic dysfuncti on (LAP assessmen t) is inconclus miguel due to arrhythmi a . There is mild aortic stenosis. Estimate d peak systolic PA pressure is 45-50 mmHg . No pericardi al effusion is visualize d. Aortic Aortic Disease Active 2018-10 Overview: valve valve 0-10 Mild Anderso stenosis stenosis 00:00: aortic n 00 stenosis per most recent echocardi ogram in September 2018Curre ntly asymptoma ticLast Assessmen t & Plan: No workup or treatment required Hypertensi Hypertensi Disease Active 2018-10 Overview : on on 0-10 Formattin Anderso 00:00: g of this n 00 note might be different from the original. BP Readings from Last 5 Encounter s: 07/12/19 118/71 04/12/19 123/79 03/20/19 122/57 Pulse Readings from Last 5 Encounter s: 07/12/19 83 04/12/19 67 03/29/19 86 03/20/19 (!) 49 Last Assessmen t & Plan: Continue metoprolo l succinate 100 mg in the morning and 50 mg in the evening through the surgeryCo ntinue current diuretics (Lasix, Zaroxolyn , and Aldactone ), but do not take those diuretics on the morning of the surgery Type 2 Type 2 Disease Active 2018-10 Overview: diabetes diabetes 0-10 Formattin And erso mellitus mellitus 00:00: g of this n without without 00 note complicati complicati might be on on different from the original. Lab Results Component Value Date POCA1C 7.0 (H) 9 Last Assessmen t & Plan: Continue metformin and glimepiri de at current dose daily, but do not take the medicatio n on the morning of the surgery Obstructiv Obstructiv Disease Active 2018-10 M D e sleep e sleep 0-10 Anderso apnea apnea 00:00: n syndrome syndrome 00 Atrial Atrial Disease Active 2018-10 Overview: fibrillhank fibrillati 0-10 Chronic A nderso on on 00:00: atrial n 00 fibrillat ionCHADS2 score = 6 (HTN, CHF, DM, 73yo, hx VTE)On Eliquis for history of DVT and stroke preventio nLast Assessmen t & Plan: Hold Eliquis for 2 days prior to dental extractio n and for 2 days after dental extractio n 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 0-10 Anderso use of use of 00:00: n anticoagul anticoagul 00 ant ant H/O: Deep H/O: Deep Disease Active 2018-10 vein vein 0-10 Anderso thrombosis thrombosis 00:00: n 00 Malignant Malignant Disease Active 2018-10 neoplasm neoplasm 0-03 Riccardo o of cheek of cheek 00:00: n 00 Hypokalemi Hypokalemi Disease Active 2017-[address] [facility] [place] Atrial Atrial Disease Active 2017-[address] [facility] fibrillati fibrillati 10-15 [facility] - on on 00:00: Medical 00 [place] CHF CHF Disease Active 2017-[address] [facility] (congestiv (congestiv 10-15 [facility] - e heart e heart 00:00: Medical failure) failure) 00 Center Diabetes Diabetes Disease [facility] [place] Hypertensi Hypertensi Disease Active 2017-[address] on on 10-15 [facility] [place] CHITO (acute CHITO (acute Disease Active 2017-[address] kidney kidney 10-15 [facility] injury) injury) 00:[facility]: Medical 00 [place] Arterial Arterial Disease [facility] 2017[facility] thrombosis thrombosis [facility] - [facility] Medical 00 Center Allergies, Adverse Reactions, Alerts This patient has no known allergies or adverse reactions. Family History Family Member Diagnosis Comments Start Date Stop Date Source Natural father Coronary artery MD Carli franco disease Natural father Hypertension Albin son Natural father Heart disease [facility] Maternal Diabetes MD Payan grandmother Natural mother Diabetes MD Gerard guzman Natural mother Hypertension Albin son Natural mother Stroke MD Gerard guzman Natural mother Heart disease [facility] Family member Bleeding Disorder MD Mor espino Family member VTE MD Payan Natural brother Heart disease [facility] Social History Social Habit Start Date Stop Date Quantity Comments Source History of Cigar Smoker MD [facility] Chao ter Sex Assigned At [facility] Tobacco use and 2020-07-10 2020-07-10 Never used MD Gu on exposure 00:00:00 00:00:00 Alcohol intake 2020-07-10 2020-07-10 Current drinker of MD Payan 00:00:00 00:00:00 alcohol (finding) Tobacco Comment 2019-08-14 2019-08-14 previously smoke MD Payan 00:00:00 00:00:00 cigars intermittently in past Alcohol Comment 2019-08-14 2019-08-14 social MD Gu on 00:00:00 00:00:00 History SDOH 2018-08-15 2018-08-15 1 [facility] - Alcohol Frequency 00:00:00 00:00:00 [facility] Smoking Status Start Date Stop Date Source Former smoker 2020-07-10 00:00:00 2020-07-10 00:00:00 MD Talamantes son Never smoker [facility] Medications Ordered Filled Start Stop Current Ordering Indication Dosage Frequency Signature Comments Components Source Medication Medication Date Date Medication? Clinician (SIG) Name Name cholecalcif 2019-10 2020- No 2000U Take 2,000 MD jose d, 0-08 10-08 Units by Anderso vitamin D3, 13:56: 00:00 mouth n (VITAMIN 27 :00 daily. D3) 2,000 units tab tablet HYDROcodone 2020-0 Yes Chronic 20mg Take 1 M D bitartrate 3-31 pain tablet (20 And erso (Hysingla 00:00: syndrome mg) by n ER) 20 mg 00 mouth TP24 24 hr daily. tablet metoprolol 2020-0 Yes 1{tbl} Take 1 MD succinate 3-26 tablet by Albin so (TOPROL XL) 14:54: mouth n 50 mg 24 hr 23 every tablet morning. oxybutynin 2020-0 Yes 10mg Take 10 mg M D (DITROPAN-X 3-26 by mouth Terrance rso L) 10 mg 24 14:54: daily. n hr tablet 23 aspirin 81 2020-0 Yes 81mg Take 81 mg M D mg EC 3-26 by mouth Anderso tablet 14:54: every n 23 morning. glimepiride 2020-0 Yes 2mg Take 2 mg M D (AMARYL) 2 3-26 by mouth Albin so mg tablet 14:54: every n 23 morning before breakfast. acetaminoph 2019- Yes Neoplasm 1{tbl} Take 1 MD en-codeine 3-24 related tablet by A nderso (Tylenol-Co 00:00: pain mouth n deine #3) 00 (acute) every 6 300 mg-30 (chronic) (six) mg tablet hours as needed for moderate pain. gabapentin 2019- Yes Neuropathic Takes 600 MD (NEURONTIN) 3-20 pain mg in the And erso 300 mg 00:00: AM and n capsule 00 Lunch time and 900 mg HS amoxicillin 2019- No Abscess 875mg Take 1 MD (AMOXIL) 12-19- tablet Anderso 875 MG 00:00: 04:59 (875 mg) n tablet 00 :00 by mouth twice daily for 15 days. doxycycline 2019- No Abscess 100mg Take 1 MD (Vibramycin 12-19- capsule Terrance rso ) 100 MG 00:00: 04:59 (100 mg) n capsule 00 :00 by mouth twice daily for 14 days. HYDROcodone 2019- No Chronic 20mg Take 1 MD bitartrate 11-27 03-31 pain tablet (20 An derso (Hysingla 00:00: 00:00 syndrome mg) by n ER) 20 mg 00 :00 mouth TP24 24 hr daily. tablet acetaminoph 2019- No Neoplasm 1{tbl} Take 1 MD en-codeine 2- 03-23 related tablet by Anderso (Tylenol-Co 00:00: 00:00 pain mouth n deine #3) 00 :00 (acute) every 6 300 mg-30 (chronic) (six) mg tablet hours as needed for moderate pain. ofloxacin 2019- No Otorrhagia Apply 4 MD (Ocuflox) 11-08 of right drops Terrance rso 0.3% 00:00: 00:00 ear twice n ophthalmic 00 :00 daily to solution the right ear for 14 days dexamethaso 2019- No Otorrhagia Apply 4 MD ne 11-08- of right drops Anderso (DECADRON) 00:00: 00:00 ear twice n 0.1% 00 :00 daily to ophthalmic the right solution ear for 14 days. famotidine 2019- No Neuropathic TAKE 1 MD (PEPCID) 20 1-21 10-08 pain TABLET BY An derso mg tablet 00:00: 00:00 MOUTH n 00 :00 EVERY DAY gabapentin 2018-10- No Neuropathic 600mg Take 2 MD (NEURONTIN) 2-31 03-20 pain capsules And erso 300 mg 00:00: 00:00 (600 mg) n capsule 00 :00 by mouth 3 (three) times a day. lidocaine 2018-10- No Squamous 10mL Swish and MD (lidocaine) 2-04 10-08 cell spit 10 mL A nderso 20 mg/mL 00:00: 00:00 carcinoma every 6 n (2%) 00 :00 of skin of (six) viscous face, not hours as solution otherwise needed specified (mucositis , gum pain). ursodiol Yes 300mg Take 300 MD (ACTIGALL) 3-21 mg by Anderso 300 mg 00:00: mouth n capsule 00 twice daily. simvastatin Yes 40mg Take 40 mg MD (ZOCOR) 40 3-07 by mouth Labin so mg tablet 00:00: at n 00 bedtime. apixaban 2017-10 Yes 5mg Take 5 mg MD (ELIQUIS) 5 -31 by mouth Terrance rso mg tablet 00:00: twice n 00 daily. ELIQUIS 5 2017-10 Yes TAKE [address] [facility] MG tablet 2-31 TABLET BY [facility] - 00:[facility]: MOUTH Medical 00 TWICE A [place] DAY aspirin 81 2017-10 Yes 81mg QD Take [address] MG EC 1-17 by mouth [facility] - tablet 14:58: daily. [address] glimepiride 2017-10 Yes 2mg Q.5D Take [address] (AMARYL) 2 1-17 by mouth 2 Dariel es - MG tablet 14:58: (two) Medical times [place] daily 2 tabs with breakfast, 1 at dinner time . metOLazone 2017-10 Yes 10mg Q7D Take [address] (ZAROXOLYN) 1-17 by mouth Luke s - 5 MG tablet 14:58: once a Medi gibran 27 week. [place] metFORMIN 2017-10 Yes 1000mg Take 1,[address] [facility] (GLUCOPHAGE 1-17 mg by [facility] - ) 1000 MG 14:58: mouth 2 Medic al tablet 27 (two) Center times daily with breakfast and dinner. ursodiol 2017-10 Yes 300mg Q.5D Take [address] [facility] (ACTIGALL) 1-17 mg by [facility] - 300 mg 14:58: mouth 2 Medical capsule 27 (two) Center times daily. simvastatin 2017-10 Yes 40mg QD Take [address] [facility] (ZOCOR) 40 1-17 by mouth [facility] - MG tablet 14:58: nightly. Medi gibran 27 Center metoprolol 2017-10 Yes 50mg Q.5D Take [address] (TOPROL-XL) 1-17 by mouth 2 [facility] - 50 MG 24 hr 14:58: (two) Medic al tablet 27 times Center daily Take 2 tabs in am and 1 in the evening . oxybutynin 2017-10 Yes 10mg QD Take [address] (DITROPAN-X 1-17 by mouth Luke s - L) 10 MG 24 14:58: nightly. Me dical hr tablet 27 Center spironolact 2017-10 Yes 25mg Q.5D Take [address] [facility] [facility] one 1-17 by mouth 2 [facility] - (ALDACTONE) 14:58: (two) Medic al 25 MG 27 times Center tablet daily. furosemide 2017-10 Yes 40mg Q.5D Take 0.[address] [facility] [facility] (LASIX) 80 1-17 tablets [facility] - MG tablet 00:00: (40 mg Medica l 00 total) by Center mouth 2 (two) times daily. Vital Signs Vital Name Observation Time Observation Value Comments Source Systolic blood pressure 2020-07-10 13:58:14 115 mm[Hg] MD Payan Diastolic blood pressure 2020-07-10 13:58:14 73 mm[Hg] MD Payan Heart rate 2020-07-10 13:58:14 86 /min MD Albin greer Body temperature 2020-07-10 13:58:14 36.61 Tesha MD Mor espino Respiratory rate 2020-07-10 13:58:14 20 /min MD Mor espino Oxygen saturation in 2020-07-10 13:58:14 93 /min MD Payan Arterial blood by Pulse oximetry Body weight 2020-07-10 13:50:00 135.3 kg MD Albin greer BMI 2020-07-10 13:50:00 42.94 kg/m2 MD Albin greer Body height 2019-12-13 23:04:00 177.5 cm MD Albin greer Procedures Procedure Date / Time Performed Performing Clinician [facility]ly [facility] e COMPLETE BLOOD COUNT W/ 2020-07-10 13:32:00 Viviana Taveras MD nderson DIFFERENTIAL COMPREHENSIVE METABOLIC PANEL 2020-07-10 13:32:00 Viviana Taveras MD MAGNESIUM LEVEL 2020-07-10 13:32:00 Viviana Taveras MD THYROID STIMULATING HORMONE 2020-07-10 13:32:00 Viviana Taveras MD FREE THYROXINE 2020-07-10 13:32:00 Viviana Taveras MD Results CBC 2020-07-10 13:32:00 Viviana Taveras MD MANUAL DIFFERENTIAL 2020-07-10 13:32:00 Nitin, Viviana LIND Albinrobb greer GLUCOSE LEVEL 2020-07-10 13:32:00 Viviana Taveras MD BLOOD UREA NITROGEN 2020-07-10 13:32:00 Nitin, Viviana LIND Albin percy ELECTROLYTE PANEL 2020-07-10 13:32:00 Nitin, Viviana Guo n SERUM CREATININE 2020-07-10 13:32:00 Viviana Taveras MD .GLOMERULAR FILTRATION RATE 2020-07-10 13:32:00 Viviana Taveras MD CALCIUM LEVEL TOTAL 2020-07-10 13:32:00 Viviana Taveras MD Albin greer ALBUMIN LEVEL 2020-07-10 13:32:00 Viviana Taveras MD ALKALINE PHOSPHATASE 2020-07-10 13:32:00 Viviana Taveras MD rsella ALANINE AMINOTRANSFERASE 2020-07-10 13:32:00 Viviana Taveras MD ASPARTATE AMINOTRANSFERASE 2020-07-10 13:32:00 Viviana Taveras TOTAL PROTEIN 2020-07-10 13:32:00 Viviana Taveras MD FRACTIONATED BILIRUBIN 2020-07-10 13:32:[address] SOFT TISSUE NECK W 2020-07-10 12:33:24 Viviana Taveras CONTRAST POC CREATININE 2020-07-10 11:58:00 Viviana Taveras MD THYROID STIMULATING HORMONE 2019-12-27 14:27:00 EvonMandie MD THYROXINE 2019-12-27 14:27:00 Evon, Mandie Payan BLOOD UREA NITROGEN 2019-12-27 14:27:00 Evon, Mandie Stevens MD Albin son SERUM CREATININE 2019-12-27 14:27:00 Evon, Mandie Payan SERUM CREATININE 2019-12-27 14:27:00 Evon, Mandie Payan .GLOMERULAR FILTRATION RATE 2019-12-27 14:27:00 Evon, Mandie Payan POC GLUCOSE SCREEN 2019-12-19 13:01:00 MD Shira And dimitry Ovalle COMPLETE BLOOD COUNT W/ 2019-12-19 10:03:00 Clara Cabrales MD INDICES MAGNESIUM LEVEL 2019-12-19 10:03:00 Clara Cabrales MD BASIC METABOLIC PANEL, 2019-12-19 10:03:00 Clara Cabrales MD CALCIUM TOTAL GLUCOSE LEVEL 2019-12-19 10:03:00 MD Shira Riccardosrinivasan Ovalle BLOOD UREA NITROGEN 2019-12-19 10:03:00 MD Carli Silva Vasquez ELECTROLYTE PANEL 2019-12-19 10:03:00 MD Shira [facility] Vasquez SERUM CREATININE 2019-12-19 10:03:00 MD Albin Silva .GLOMERULAR FILTRATION RATE 2019-12-19 10:03:00 MD Schuyler Licona Vasquez CALCIUM LEVEL TOTAL 2019-12-19 10:03:00 MD Carli Silva POC GLUCOSE SCREEN 2019-12-18 12:51:00 MD Shira And dimitry Vasquez COMPLETE BLOOD COUNT W/ 2019-12-18 09:25:00 Jesse Velsaco MDrson DIFFERENTIAL COMPREHENSIVE METABOLIC PANEL 2019-12-18 09:25:00 Jesse Velasco MD MAGNESIUM LEVEL 2019-12-18 09:25:00 Clara Cabrales MD Results CBC 2019-12-18 09:25:00 Christina Martinez MD Terrance rson MANUAL DIFFERENTIAL 2019-12-18 09:25:00 Christina Martinez MD GLUCOSE LEVEL 2019-12-18 09:25:00 Chrsitina Martinez MD Terrance rson BLOOD UREA NITROGEN 2019-12-18 09:25:00 Christina Martinez MD ELECTROLYTE PANEL 2019-12-18 09:25:00 Christina Martinez MD SERUM CREATININE 2019-12-18 09:25:00 Christina Martinez MD And erson .GLOMERULAR FILTRATION RATE 2019-12-18 09:25:00 Katerine Martinez MD CALCIUM LEVEL TOTAL 2019-12-18 09:25:00 Christina Martinez MD ALBUMIN LEVEL 2019-12-18 09:25:00 Christina Martinez MD Terrance rson ALKALINE PHOSPHATASE 2019-12-18 09:25:00 Christina Martinez MD ALANINE AMINOTRANSFERASE 2019-12-18 09:25:00 Christina Martinez MD ASPARTATE AMINOTRANSFERASE 2019-12-18 09:25:00 Christina Martinez MD TOTAL PROTEIN 2019-12-18 09:25:00 Christina Martinez MD Terrance rson FRACTIONATED BILIRUBIN 2019-12-18 09:25:00 Christina Martinez MD POC GLUCOSE SCREEN 2019-12-17 13:51:00 MD Shira And erson Vasquez COMPLETE BLOOD COUNT W/ 2019-12-17 09:47:00 Jesse Velasco MDrson DIFFERENTIAL COMPREHENSIVE METABOLIC PANEL 2019-12-17 09:47:00 Jesse Velasco MD Results CBC 2019-12-17 09:47:00 Christina Martinez MD Terrance rson MANUAL DIFFERENTIAL 2019-12-17 09:47:00 Christina Martinez MD GLUCOSE LEVEL 2019-12-17 09:47:00 Christina Martinez MD Terrance rson BLOOD UREA NITROGEN 2019-12-17 09:47:00 Christina Martinez MD ELECTROLYTE PANEL 2019-12-17 09:47:00 Christina Martinez MD SERUM CREATININE 2019-12-17 09:47:00 Christina Martinez MD And erson .GLOMERULAR FILTRATION RATE 2019-12-17 09:47:00 Katerine Martinez MD CALCIUM LEVEL TOTAL 2019-12-17 09:47:00 Christina Martinez MD ALBUMIN LEVEL 2019-12-17 09:47:00 Christina Martinez MD Terrance rson ALKALINE PHOSPHATASE 2019-12-17 09:47:00 Christina Martinez MD ALANINE AMINOTRANSFERASE 2019-12-17 09:47:00 Christina Martinez MD ASPARTATE AMINOTRANSFERASE 2019-12-17 09:47:00 Christina Martinez MD TOTAL PROTEIN 2019-12-17 09:47:00 Christina Martinez MD Terrance rson FRACTIONATED BILIRUBIN 2019-12-17 09:47:00 Christina Martinez MD POC GLUCOSE SCREEN 2019-12-16 23:09:00 Christina Martinez MDrson POC GLUCOSE SCREEN 2019-12-16 15:59:00 Christina Martinez MDrson POC GLUCOSE SCREEN 2019-12-16 14:10:00 Christina Martinez MD nderson COMPLETE BLOOD COUNT W/ 2019-12-16 12:19:00 Jesse Velasco MDrson DIFFERENTIAL COMPREHENSIVE METABOLIC PANEL 2019-12-16 12:19:00 Jesse Velasco MD Results CBC 2019-12-16 12:19:00 Christina Martinez MD Terrance rson MANUAL DIFFERENTIAL 2019-12-16 12:19:00 Christina Martinez MD GLUCOSE LEVEL 2019-12-16 12:19:00 Christina Martinez MD Terrance rson BLOOD UREA NITROGEN 2019-12-16 12:19:00 Christina Martinez MD ELECTROLYTE PANEL 2019-12-16 12:19:00 Christina Martinez MD derson SERUM CREATININE 2019-12-16 12:19:00 Christina Martinez MD And erson .GLOMERULAR FILTRATION RATE 2019-12-16 12:19:00 Katerine Martinez MD CALCIUM LEVEL TOTAL 2019-12-16 12:19:00 Christina Martinez MD ALBUMIN LEVEL 2019-12-16 12:19:00 Christina Martinez MD Terrance rson ALKALINE PHOSPHATASE 2019-12-16 12:19:00 Christina Martinez MD ALANINE AMINOTRANSFERASE 2019-12-16 12:19:00 Christina Martinez MD ASPARTATE AMINOTRANSFERASE 2019-12-16 12:19:00 Christina Martinez MD TOTAL PROTEIN 2019-12-16 12:19:00 Christina Martinez MD Terrance rson FRACTIONATED BILIRUBIN 2019-12-16 12:19:00 Christina Martinez MD POC GLUCOSE SCREEN 2019-12-16 01:01:00 Christina Martinez MDrsella POC GLUCOSE SCREEN 2019-12-15 17:07:00 Christina Martinez MDrsella COMPLETE BLOOD COUNT W/ 2019-12-15 11:22:00 Jesse Velasco MDrsella DIFFERENTIAL COMPREHENSIVE METABOLIC PANEL 2019-12-15 11:22:00 Jesse Velasco MD Results CBC 2019-12-15 11:22:00 Christina Martinez MD Terrance rson MANUAL DIFFERENTIAL 2019-12-15 11:22:00 Christina Martinez MD GLUCOSE LEVEL 2019-12-15 11:22:00 Christina Martinez MD Terrance rson BLOOD UREA NITROGEN 2019-12-15 11:22:00 Christina Martinez MD ELECTROLYTE PANEL 2019-12-15 11:22:00 Christina Martinez MDson SERUM CREATININE 2019-12-15 11:22:00 Christina Martinez MD And erson .GLOMERULAR FILTRATION RATE 2019-12-15 11:22:00 Katerine Martinez MD CALCIUM LEVEL TOTAL 2019-12-15 11:22:00 Christina Martinez MD ALBUMIN LEVEL 2019-12-15 11:22:00 Christina Martinez MD Terrance rson ALKALINE PHOSPHATASE 2019-12-15 11:22:00 Christina Martinez MD ALANINE AMINOTRANSFERASE 2019-12-15 11:22:00 Christina Martinez MD ASPARTATE AMINOTRANSFERASE 2019-12-15 11:22:00 Christina Martinez MD TOTAL PROTEIN 2019-12-15 11:22:00 Christina Martinez MD Terrance rson FRACTIONATED BILIRUBIN 2019-12-15 11:22:00 Christina Martinez MD POC GLUCOSE SCREEN 2019-12-15 05:04:00 Christina Martinez MDrsella MRI FACE ONLY W WO CONTRAST 2019-12-15 04:16:00 Vasiliy Mccoy MD POC GLUCOSE SCREEN 2019-12-14 21:32:00 Christina Martinez MDrsella POC GLUCOSE SCREEN 2019-12-14 18:53:00 Christina Martinez MD COMPLETE BLOOD COUNT W/ 2019-12-14 13:33:00 Velasco, Phi MD Juares nderson DIFFERENTIAL COMPREHENSIVE METABOLIC PANEL 2019-12-14 13:33:00 Velasco, Phi MD Payan MAGNESIUM LEVEL 2019-12-14 13:33:00 Velasco, Phi MD Payan PHOSPHORUS LEVEL 2019-12-14 13:33:00 Velasco, Phi MD Payan Results CBC 2019-12-14 13:33:00 Christina Martinez MD Terrance rson MANUAL DIFFERENTIAL 2019-12-14 13:33:00 Christina Martinez MD GLUCOSE LEVEL 2019-12-14 13:33:00 Christina Martinez MD Terrance rson BLOOD UREA NITROGEN 2019-12-14 13:33:00 Christina Martinez MD ELECTROLYTE PANEL 2019-12-14 13:33:00 Christina Martinez MD derson SERUM CREATININE 2019-12-14 13:33:00 Christina Martinez MD And erson .GLOMERULAR FILTRATION RATE 2019-12-14 13:33:00 Katerine Martinez MD CALCIUM LEVEL TOTAL 2019-12-14 13:33:00 Christina Martinez MD ALBUMIN LEVEL 2019-12-14 13:33:00 Christina Martinez MD Terrance rson ALKALINE PHOSPHATASE 2019-12-14 13:33:00 Christina Martinez MD ALANINE AMINOTRANSFERASE 2019-12-14 13:33:00 Christina Martinez MD ASPARTATE AMINOTRANSFERASE 2019-12-14 13:33:00 Christina Martinez MD TOTAL PROTEIN 2019-12-14 13:33:00 Christina Martinez MD Terrance rson FRACTIONATED BILIRUBIN 2019-12-14 13:33:00 Christina Martinez MD POC GLUCOSE SCREEN 2019-12-14 13:11:00 Christina Martinez MD CREATINE KINASE 2019-12-14 08:48:00 Dino Moreno MD on POC GLUCOSE SCREEN 2019-12-14 04:02:00 Vasiliy Mccoy MD on POC GLUCOSE SCREEN 2019-12-14 00:03:00 Vasiliy Mccoy MD on POC GLUCOSE SCREEN 2019-12-13 18:56:00 Vasiliy Mccoy MD on SEDIMENTATION RATE 2019-12-13 17:40:00 Vasiliy Mccoy MD on NON-AUTOMATED C REACTIVE PROTEIN 2019-12-13 17:40:00 Vasiliy Mccoy MD on WOUND CULTURE W/ GRAM STAIN 2019-12-13 17:28:[address] SOFT TISSUE NECK W 2019-12-13 07:27:23 Bandar Mahajan MD CONTRAST BLOODCULTURE 2019-12-13 04:59:00 Jyoti Lucia MD COMPLETE BLOOD COUNT W/ 2019-12-13 04:59:00 Jyoti Lucia MD DIFFERENTIAL COMPREHENSIVE METABOLIC PANEL 2019-12-13 04:59:00 Jyoti Lucia MD MAGNESIUM LEVEL 2019-12-13 04:59:00 Jyoti Lucia MD PHOSPHORUS LEVEL 2019-12-13 04:59:00 Jyoti Lucia MD LACTATE DEHYDROGENASE 2019-12-13 04:59:00 Jyoit Luciaon C REACTIVE PROTEIN 2019-12-13 04:59:00 Jyoti Lucia MD on HC PROCALCITONIN (PCT) 2019-12-13 04:59:00 Jyoti Lucia MD derson LACTIC ACID, VENOUS 2019-12-13 04:59:00 Jyoti Lucia MD son Results CBC 2019-12-13 04:59:00 Jyoti Lucia MD MANUAL DIFFERENTIAL 2019-12-13 04:59:00 Jyoti Lucia MD son GLUCOSE LEVEL 2019-12-13 04:59:00 Jyoti Lucia MD BLOOD UREA NITROGEN 2019-12-13 04:59:00 Jyoti Lucia MD son ELECTROLYTE PANEL 2019-12-13 04:59:00 Jyoti Lucia MD Andsrinivasano n SERUM CREATININE 2019-12-13 04:59:00 Jyoti Lucia MD .GLOMERULAR FILTRATION RATE 2019-12-13 04:59:00 Jyoti Lucia MD CALCIUM LEVEL TOTAL 2019-12-13 04:59:00 Jyoti Lucia MD Albin son ALBUMIN LEVEL 2019-12-13 04:59:00 Jyoti Lucia MD ALKALINE PHOSPHATASE 2019-12-13 04:59:00 Jyoti Lucia MD rsella ALANINE AMINOTRANSFERASE 2019-12-13 04:59:00 KhariJyoti sena MD ASPARTATE AMINOTRANSFERASE 2019-12-13 04:59:00 Jyoti Lucia TOTAL PROTEIN 2019-12-13 04:59:00 Jyoti Lucia MD FRACTIONATED BILIRUBIN 2019-12-13 04:59:00 Jyoti Lucia MD URINALYSIS WITH MICROSCOPIC 2019-12-06 22:03:00 Radha Chavez MD IF INDICATED URINALYSIS MICROSCOPIC 2019-12-06 22:03:00 Radha Chavez MD THYROID STIMULATING HORMONE 2019-12-06 19:36:00 Viviana Taveras MD FREE THYROXINE 2019-12-06 19:36:00 Viviana Taveras MD COMPREHENSIVE METABOLIC PANEL 2019-12-06 19:36:00 Viviana Taveras MD COMPLETE BLOOD COUNT W/ 2019-12-06 19:36:00 Viviana Taveras MD nderson DIFFERENTIAL MAGNESIUM LEVEL 2019-12-06 19:36:00 Viviana Taveras MD PHOSPHORUS LEVEL 2019-12-06 19:36:00 Viviana Taveras MD LACTATE DEHYDROGENASE 2019-12-06 19:36:00 Viviana Taveras GLUCOSE LEVEL 2019-12-06 19:36:00 Viviana Taveras MD BLOOD UREA NITROGEN 2019-12-06 19:36:00 Viviana Taveras MD Albin son ELECTROLYTE PANEL 2019-12-06 19:36:00 Viviana Taveras MD SERUM CREATININE 2019-12-06 19:36:00 Viviana Taveras MD .GLOMERULAR FILTRATION RATE 2019-12-06 19:36:00 Viviana Taveras MD CALCIUM LEVEL TOTAL 2019-12-06 19:36:00 Viviana Taveras MD Albin son ALBUMIN LEVEL 2019-12-06 19:36:00 Viviana Taveras MD ALKALINE PHOSPHATASE 2019-12-06 19:36:00 Viviana Taveras MD Terrance duke ALANINE AMINOTRANSFERASE 2019-12-06 19:36:00 Viviana Taveras MD ASPARTATE AMINOTRANSFERASE 2019-12-06 19:36:00 Viviana Taveras TOTAL PROTEIN 2019-12-06 19:36:00 Viviana Taveras MD FRACTIONATED BILIRUBIN 2019-12-06 19:36:00 Viviana Taveras MD derson Results CBC 2019-12-06 19:36:00 Viviana Tavears MD MANUAL DIFFERENTIAL 2019-12-06 19:36:00 Viviana Taveras MD Albin greer Plan of Care Planned Activity Planned Date Details Comments Source Future Scheduled 2020-06-03 INFLUENZA VACCINE (#1) [facility]:00 [code = INFLUENZA Medical Ce nter VACCINE (#1)] Future Scheduled 2019-02-[address] [facility] 00:[facility]00 measurement [facility] Center (procedure) [code = 45604363] Future Scheduled 2009-08-[address] [facility] - Test 00:00:00 WELLNESS (YEAR 2 or Medical Center FIRST YEAR if no IPPE) [code = MEDICARE ANNUAL WELLNESS (YEAR 2 or FIRST YEAR if no IPPE)] Future Scheduled 2008 PNEUMOCOCCAL 65+ YRS [facility] - Test 00:00:00 (1 of 1 - Medical Center [id number] PCV13) [code = PNEUMOCOCCAL 65+ YRS (1 of 1 - [id number] PCV13)] Future Scheduled 1953 DIABETIC EYE EXAM [facility] - Test 00:00:00 [code = DIABETIC EYE Medical Center EXAM] Future Scheduled [address] [facility] Test 00:00:00 examination Medical Center (regime/therapy) [code = 869465125] Future Scheduled 1953 Urine screening for [facility] - Test 00:00:00 protein (procedure) Medical Center [code = 956910439] Encounters Start End Encounter Admission Attending Care Care Encounter Source Date/Time Date/Time Type Type Clinicians Facility Department ID 2020-04-09 Outpatient ZAAN DAWSON [facility] [id number] 16:31:52 Gerard guzman 2020-04-09 Outpatient SYSTEM, [facility] [id number] 14:08:32 PROVIDER Riccardo guzman 2020-09-10 2020-09-10 Office Flores URSULARodney [id number] 10:54:36 14:16:45 Visit Sheng AMBULATOR [id number] Y 0.2.7.2.686 [id number] 2020-09-10 2020-09-10 Office AllysonKHARI rogers [id number] 10:49:06 13:52:22 Visit Ludwin Marte AMBULATOR [id number] Y 0.2.7.2.686 [id number] 2019-10-31 2019-10-31 Office KHARI Flores [id number] 14:33:39 17:01:37 Visit Sheng AMBULATOR 350.1.13.21 Y 0.2.7.2.686 [id number] 2019-10-31 2019-10-31 Office AllysonKHARI rogers [id number] 14:33:28 14:48:28 Visit Ludwin Marte AMBULATOR 350.1.13.21 Y 0.2.7.2.686 [id number] 2019-04-25 2019-04-25 Office KHARI Siegel [id number] 14:31:52 15:11:19 Visit Ludwin Marte AMBULATOR 350.1.13.21 Y 0.2.7.2.686 [id number] Results Test Description Test Time Test Comments Results Result Comments Source Fractionated Bilirubin 2020-07-10 14:26:57 Test Item Value Reference Range Interpretation Comme nts Bili Total (test code = 0.7 mg/dL See_Comment Indo cyanine Green (ICG) may cause 5096) falsely elevate d bilirubin results. Total and direct bilirubin must not be measured from samples co ntaining indocyanine gre en. False elevation of total biliru bin can be seen in patients with I gG concentrations above 28 g/L. [Automated message] The system [employer] generated this result transmit racheal reference range: <=1.2. T he reference range was not used to interpret this result as sandee l/abnormal. Bili Direct (test code = 0.2 mg/dL See_Comment Ind ocyanine Green (ICG) may cause 5094) falsely elevate d bilirubin results. Total and direct bilirubin must not be measured from samples co ntaining indocyanine gre en. [Automated message] The sy stem which generated this result transmitted reference range : <=0.3. The reference range was not used to interpret this result as normal/abnormal . Bili Indirect (test code = 0.5 mg/dL 0-0.9 5095) MD PayanGlomerular Filtration [id number] 14:26:55 Test Item Value Reference Range Interpretation Comments eGFR-AA (test code = 59 See_Comment L Normal eGFR: >= 60 8062) mL/min/1.73 m2N ote: The eGFR is gibran culated using the CKD-E PI equation. The e GFR declines with a ge. eGFR <60 mL/min /1.73 m2 is considere d as "decreased". Th is equation should only be used for pat ients 18 and older. According to th e National Kidney Foundation's Ki dney Disease Outcome Quality Initiat miguel (KDOQI) classif ication and 2012 Kidney Disease Improvi ng Global Outcomes (KDIGO) Clinica l Practice Guidel ine, the stage of CK D should be categ orized based on estima racheal GFR. Stage Desc ription GFR mL/mi n/1.73 m21 Normal or h igh GFR >=902 Mildly decreased GFR 60-893a M ildly to moderately decreased GFR 45-593b Moderat jazz to severely decrea sed GFR 30-444 Carlota rely decreased GFR 15-295 Kidney f ailure <15 [Auto mated message] The sy stem which generated this result transmit racheal reference range : >=60 mL/min/1.73 sq. m. The reference range was not used to int erpret this result as normal/abnormal . eGFR-SABRINA (test code = 51 See_Comment L Normal eGFR: >= 60 8063) mL/min/1.73 m2N ote: The eGFR is gibran culated using the CKD-E PI equation. The e GFR declines with a ge. eGFR <60 mL/min /1.73 m2 is considere d as "decreased". Th is equation should only be used for pat ients 18 and older. According to th e National Kidney Foundation's Ki dney Disease Outcome Quality Initiat miguel (KDOQI) classif ication and 2012 Kidney Disease Improvi ng Global Outcomes (KDIGO) Clinica l Practice Guidel ine, the stage of CK D should be categ orized based on estima racheal GFR. Stage Desc ription GFR mL/mi n/1.73 m21 Normal or h igh GFR >=902 Mildly decreased GFR 60-893a M ildly to moderately decreased GFR 45-593b Moderat jazz to severely decrea sed GFR 30-444 Carlota rely decreased GFR 15-295 Kidney f ailure <15 [Auto mated message] The sy stem which generated this result transmit racheal reference range : >=60 mL/min/1.73 sq. m. The reference range was not used to int erpret this result as normal/abnormal . Lab Interpretation Abnormal (test code = 00791-1) MD PayanTotal [id number] 14:26:54 Test Item Value Reference Range Interpretation Comments Total Protein (test code = 7649) 7.3 g/dL 6.4-8.3 MD PayanMagnesium [id number] 14:26:53 Test Item Value Reference Range Interpretation Comments Magnesium (test code = 6359) 1.7 mg/dL 1.6-2.6 MD PayanCalcium [id number] 14:26:52 Test Item Value Reference Range Interpretation Comments Calcium Lvl (test code = 5258) 9.2 mg/dL 8.4-10.2 MD PayanAlkaline [id number] 14:26:51 Test Item Value Reference Range Interpretation Comments Alk Phos (test code = 4768) 94 U/L 40-129 MD [id number] 14:26:50 Test Item Value Reference Range Interpretation Comments ALT (test code = 10 U/L See_Comment [Automated message] The 1330) system which ge nerated this result transmit racheal reference range : <=41. The reference range was not used to interpr et this result as sandee l/abnormal. MD PayanAlbumin [id number] 14:26:49 Test Item Value Reference Range Interpretation Comments Albumin Lvl (test code 3.5 See_Comment [Aut omated message] The = 5294) system which [place] nerated this result tra nsmitted reference range : 3.5 - 5.2 gm/dL. The refe rence range was not used to interpret this result as normal/abnormal . MD [id number] 14:26:48 Test Item Value Reference Range Interpretation Comments BUN (test code = 5055) 24 mg/dL 6-23 H Lab Interpretation (test code = Abnormal 79572-8) SchuylerAspartate Ofnecrifidfguqou6521-64-78 14:26:47 Test Item Value Reference Range Interpretation Comments AST (test code = 20 U/L See_Comment [Automated message] The 4731) system which ge nerated this result transmit racheal reference range : <=40. The reference range was not used to interpr et this result as sandee l/abnormal. MD PayanGlucose [id number] 14:26:46 Test Item Value Reference Range Interpretation Comments Glucose Level (test code 119 mg/dL 70-99 H Ref erence range is = 5699) valid for fasti ng specimens only. Guidelines established by the [place] Diabet es Association guidelines (Standards of Medical Care in Diabetes 2016. Diabetes Care 2 016; 39: S13-22) are that a fasting gluco se of greater than or equal to 126 mg /dL or a random glu cose greater than or equal to 200 mg /dL with symptoms, that are confirmed b y repeat testing on a different day, meet the criteria fo r diabetes mellit us. Lab Interpretation (test Abnormal code = 37901-7) MD PayanElectrolyte [id number] 14:26:45 Test Item Value Reference Range Interpretation Comments Sodium Lvl (test code = 142 See_Comment [Au tomated message] 0813) The system [employer] Down generated this result transmitted ref erence range: 136 - 14 5 mEq/L. The refe rence range was not u sed to interpret this result as normal/abnor mal. Potassium Lvl (test code 3.7 See_Comment [A utomated message] = 2667) The system Shut Down generated this result transmitted ref erence range: 3.5 - 5. 1 mEq/L. The refe rence range was not u sed to interpret this result as normal/abnor mal. Chloride (test code = 97 See_Comment L [Auto mated message] 4459) The system Shut Down generated this result transmitted ref erence range: 98 - 107 mEq/L. The refe rence range was not u sed to interpret this result as normal/abnor mal. CO2 (test code = 5227) 31 See_Comment H [Aut omated message] The system Shut Down generated this result transmitted ref erence range: 22 - 29 mEq/L. The reference r adeline was not used to interpret this result as normal/abnor mal. Anion Gap (test code = 14 See_Comment [Aut omated message] 9391) The system Shut Down generated this result transmitted ref erence range: 4 - 14 m Eq/L. The reference r adeline was not used to interpret this result as normal/abnor mal. Lab Interpretation (test Abnormal code = 16395-3) MD Payan.Serum [id number] 14:26:44 Test Item Value Reference Range Interpretation Comments Creatinine (test code = 5399) 1.35 mg/dL 0.67-1.17 H Lab Interpretation (test code = Abnormal 26060-1) MD [id number] 14:26:42 Test Item Value Reference Range Interpretation Comments TSH (test code = 7578) 4.38 See_Comment H [Aut omated message] The system Shut Down generated this result transmitted ref erence range: 0.27 - 4 .20 mcunit/mL. The reference range was not used to int erpret this result as normal/abnormal . Lab Interpretation (test Abnormal code = 67267-7) MD PayanFree [id number] 14:26:41 Test Item Value Reference Range Interpretation Comments T4 Free (test code = 7502) 1.08 ng/dL 0.93-1.7 MD PayanSguqojraOsxcwfiilbpi2894-85-96 13:56:25 Test Item Value Reference Range Interpretation Comments Neutrophil % (test code = 70.4 % 42-66 H 07852-1) Lymphocyte % (test code = 16.6 % 24-44 L 737-7) Monocyte % (test code = 6.8 % 2-7 744-3) Eosinophil % (test code = 5.2 % 1-4 H 713-8) Basophil % (test code = 0.5 % 0-1 707-0) IGRE % (test code = 0.5 % 0-0.4 H IGRE % c ount 13510-3) includes Metamyelocytes, Myelocytes, and Promyelocytes. Neutrophil Abs (test code 4.64 K/uL 1.7-7.3 = 753-4) Lymphocyte Abs (test code 1.09 K/uL 1-4.8 = 732-8) Monocyte Abs (test code = 0.45 K/uL 0.08-0.7 743-5) Eosinophil Abs (test code 0.34 K/uL 0.04-0.4 = 712-0) Basophil Abs (test code = 0.03 K/uL 0-0.1 705-4) IG Abs (test code = 0.03 K/uL 0-0.04 71890-9) Lab Interpretation (test Abnormal code = 93297-5) MD Payan.[id number] 13:56:23 Test Item Value Reference Range Interpretation Comments WBC (test code = 6.6 K/uL 4-11 6690-2) RBC (test code = 789-8) 3.88 See_Comment L [Au tomated message] The system Shut Down generated this result transmitted ref erence range: 4.50 - 6 .00 M/uL. The refer ence range was not u sed to interpret this result as normal/abnor mal. Hgb (test code = 718-7) 10.9 See_Comment L [Au tomated message] The system Shut Down generated this result transmitted ref erence range: 14.0 - 1 8.0 gm/dL. The refe rence range was not u sed to interpret this result as normal/abnor mal. Hct (test code = 34.7 % 40-54 L 4544-3) MPV (test code = 787-2) 10.2 fL 4-10.4 MCH (test code = 785-6) 28.1 pg 27-31 MCHC (test code = 31.4 See_Comment [Automate d message] 786-4) The system Shut Down generated this result transmitted ref erence range: 31.0 - 3 6.0 gm/dL. The refe rence range was not u sed to interpret this result as normal/abnor mal. RDW-SD (test code = 54.6 fL 35.1-46.3 H 67484-7) RDW-CV (test code = 16.9 % 12-15.5 H 788-0) Platelet count (test 130 K/uL 140-440 L code = 777-3) INRBC (test code = 0.0 % See_Comment The INRBC (instrument 5974) NRBC) value ref lects the enumeration of nucleated red b lood cells contained in a 200uL sampleof whole blood analyzed by the instrument. Thi s value maydiffer from the NRBC value repo rted in a manual differential,wh ich is based on a 100 cell differential. [Automated mess age] The system Shut Down generated this result transmitted ref erence range: <=0.0. T he reference range was not used to int erpret this result as normal/abnormal . Lab Interpretation Abnormal (test code = 78350-6) MD PayanCT Soft Tissue Neck with [id number] 13:14:28 1. Significant improvement in a large necrotic and infiltrative mass in the right ear and preauricular region with involvement of the external auditory canal, parotid and back up scan coordinator spaces. This finding may reflect decreasing tumor, resolving infection or both. 2. New soft tissue ulceration with suspected exposed right mastoid temporal bone. Cortical irregularity may be due to tumor involvement or osteoradionecrosis. 3. 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 RestageComparison: 12/13/2019.Technique: Axial images were acquired through the soft tissues of the neck and head with intravenous contrast. Sagittal and coronal reconstructions were created.Findings: The large infiltrative and necrotic mass in the right ear and preauricular region has significantly regressed. New ulceration has developed with exposed bone suspected. Multiple foci of air are present in the adjacent soft tissues marked on multiple images of series3. The anterolateral aspect of the right mastoid temporal bone demonstrates new cortical irregularity marked on series 3, images 217 and 219. The external auditory canal can now be demonstrated with a small amount of remaining soft tissue thickening. The right mastoid air cells and middle ear cavity are now aerated. There is continued soft tissue thickening in the right temporal scalp marked on series 2, image 248 and improved effacement of the normal fat planes in the back up scan coordinator space. There is also significantly less swelling and soft tissue abnormality involving the parotid gland.Lack of contrast enhancement in the right sigmoid and transverse sinuses as well as the jugular bulb has been previously present. The jugular vein is patent in the right neck.Prominent right external jugular and lateral compartment nodes have all decreased consistent with reactive changes.No enhancing mucosal lesionsin the aerodigestive tract.No nodules in the visualized lung apices.The ventricles are normal in size and within the midline. No extra- axial fluid collections, masses, mass effect or abnormal intracranial enhancement. Stable left vertex scalp defect with an intact calvarium. The paranasal sinuses are clear.IMPRESSION:1. Significant improvement in a large necrotic and infiltrative mass in the right ear and preauricular region with involvement of the external auditory canal, parotid and back up scan coordinator spaces. This finding may reflect decreasing tumor, resolving infection or both.2. New soft tissue ulceration with suspected exposed right mastoid temporal bone. Cortical irregularity may be due to tumor involvement or osteoradionecrosis.3. No suspicious cervical adenopathy.MD [facility] [id number] 12:10:56 Test Item Value Reference Range Interpretation Comments POC Crea (test code 1.4 mg/dL 0.6-1.3 H Medicati ons, especially = 13118-5) hydroxyurea or supplements, cooper ch as ascorbate, can interfere with test resul ts causing a falsely and significantlyhi gher result than exp ected. If a problem is cooper spected with a patient' s result, a sample should be sent to the laborato for confirmatory te sting. Method descript ion: The i-STAT is an an alyzer used for in vit ro quantification of various analytes in who le blood. The device uses a single disposable cart ridge which contains microfabricated sensors, a calibration s olution, fluidics system , and a waste chamber. Each test cartridge conta ins chemically sens itive biosensors on a silicon chip that are c onfigured to perform spec ific tests. The microfabricated sensors measure analyte concentration b y an electrochemical assay. POC eGFR-AA (test 56 See_Comment L Normal eGF R >= 60 code = 65337-7) mL/min/1.73 m2 The eGFR is calculated u sing the CKD-EPI equatio n. The eGFR declines w ith age. eGFR <60 mL/min /1.73 m2 is considered a s "decreased" Thi s equation should only be used for patients 18 and older. According to th e National Kidney Foundati on's Kidney Disease Outcome Quality Initiat miguel (KDOQI) classif ication and 2012 Kidney Disease Improving Globa l Outcomes (KDIGO) Clinica l Practice Guideline, the stage of CKD should be c ategorized based on estima racheal GFR. Stage Descripti on GFR mL/min/1.73 m21 Kidney damage with nor mal or high GFR >= 902 Kidney damage with mil d decrease in GFR 60-89 3a Mild to moderate decrea se in GFR 45-593b Mode rate to severe decrease in GFR 30-444 Severe decrease in GFR 15-29 5 Kidney failure <15 (or dialysis) [Aut omated message] The sy stem which generated this result transmitted ref erence range: >=60 mL/ min/1.73 m2. The referen ce range was not used to interpret this result as normal/abnormal . POC eGFR-SABRINA (test 48 See_Comment L Normal eG FR >= 60 code = 72035-0) mL/min/1.73 m2 The eGFR is calculated u sing the CKD-EPI equatio n. The eGFR declines w ith age. eGFR <60 mL/min /1.73 m2 is considered a s "decreased" Thi s equation should only be used for patients 18 and older. According to th e National Kidney Foundati on's Kidney Disease Outcome Quality Initiat miguel (KDOQI) classif ication and 2012 Kidney Disease Improving Globa l Outcomes (KDIGO) Clinica l Practice Guideline, the stage of CKD should be c ategorized based on estima racheal GFR. Stage Descripti on GFR mL/min/1.73 m21 Kidney damage with nor mal or high GFR >= 902 Kidney damage with mil d decrease in GFR 60-89 3a Mild to moderate decrea se in GFR 45-593b Mode rate to severe decrease in GFR 30-444 Severe decrease in GFR 15-29 5 Kidney failure <15 (or dialysis) [Aut omated message] The sy stem which generated this result transmitted ref erence range: >=60 mL/ min/1.73 m2. The referen ce range was not used to interpret this result as normal/abnormal . POC Clean Dev (test Yes code = 6672) Lab Interpretation Abnormal (test code = 34953-2) MD [id number] 15:34:37 Test Item Value Reference Range Interpretation Comments T4 (test code = 7493) 6.7 See_Comment [Auto mated message] The system which ge nerated this result transmit racheal reference range : 4.5 - 11.7 mcg/dL. The ref erence range was not used to interpret this result as normal/abnormal . MD PayanBlood [id number] 00:33:16 Test Item Value Reference Range Interpretation Comments Final Report (test No growth code = 8488) Path Review - Immunity and antibiotic Bottle/Isolator use may render culture (test code = 8499) negative. Ongoing infection requires repeat culture.The results have been reviewed and electronically signed by Pathologist:JEFF BEDOYA MD #[id number] [facility] Glucose [id number] 13:20:35 Test Item Value Reference Range Interpretation Comments POC Glucose (test code = 116 mg/dL 70-99 H Cap [facility] blood 76535-2) samples, e.g. obtained by fingerstick, ma y have inaccurate results in mikel ents with decreased peripheral bloo d flow. PO Sample Type (test Capillary code = 9554) Lab Interpretation (test Abnormal code = 38728-3) MD PayanComplete Blood Count w/o Mhigzzlwzyct7621-40-08 11:17:25 Test Item Value Reference Range Interpretation Comments WBC (test code = 8034) 6.2 K/uL 4-11 RBC (test code = 6932) 3.73 See_Comment L [Aut omated message] The system Shut Down generated this result transmitted ref erence range: 4.50 - 6 .00 M/uL. The refer ence range was not u sed to interpret this result as normal/abnor mal. Hgb (test code = 5898) 10.4 See_Comment L [Aut omated message] The system Shut Down generated this result transmitted ref erence range: 14.0 - 1 8.0 gm/dL. The refe rence range was not u sed to interpret this result as normal/abnor mal. Hct (test code = 5860) 33.1 % 40-54 L MCV (test code = 6222) 89 fL 82-98 MCH (test code = 6220) 27.9 pg 27-31 MCHC (test code = 6221) 31.4 See_Comment [Au tomated message] The system Shut Down generated this result transmitted ref erence range: 31.0 - 3 6.0 gm/dL. The refe rence range was not u sed to interpret this result as normal/abnor mal. RDW-SD (test code = 46.4 fL 35.1-46.3 H 6972) RDW-CV (test code = 14.4 % 12-15.5 6971) Platelet count (test 173 K/uL 140-440 code = 6832) MPV (test code = 6282) 10.2 fL 4-10.4 INRBC (test code = 0.0 % See_Comment The INRBC (instrument 5974) NRBC) value ref lects the enumeration of nucleated red b lood cells contained in a 200uL sampleof whole blood analyzed by the instrument. Thi s value maydiffer from the NRBC value repo rted in a manual differential,wh ich is based on a 100 cell differential. [Automated mess age] The system Shut Down generated this result transmitted ref erence range: <=0.0. T he reference range was not used to int erpret this result as normal/abnormal . Lab Interpretation Abnormal (test code = 35619-3) MD Porter TEMPOROMANDIBULAR JOINT (TMJ) WITH AND WITHOUT [id number] 17:40:17No evidence of temporomandibular joint osteomyelitis. Interface, Radiology Results In - 12/15/2019 12:42 PM CDTFULL RESULT:Examination: MRI TEMPOROMANDIBULAR JOINT (TMJ) WITH AND WITHOUT CONTRAST, December 14, 2019 Clinical History: Preauricular squamous cell carcinoma with radiation therapy completed September 2019Indication: possible TMJ osteomyelitisComparison: CT of the neck of December 13, 2019 Technique: Multiplanar multisequence magnetic resonance imaging of the temporomandibular joints was performed without and with intravenous administration of contrast.Findings: The right temporomandibular joint is surrounded by a lobulated mass measuring approximately 76 x 40 mm on the coronal images. It may also imperceptibly with the adjacent muscles.The report on the recent CT suggested that this may represent infection as well as tumor. That remains possible, but the bones of the temporomandibular jointare without abnormal signal to suggest osteomyelitis.There is fluid-intensity signal throughout the majority of the right mastoid air cells. This may indicate buildup of bland fluid due to blockage of drainage, but mastoiditis is not excluded.There are enlarged lymph nodes in the neck and submandibular region that would be better evaluated on the prior CT.Much of the mass enhances, but in the preauricular area there is a component measuring 35 x 27 mm in the axial plane it does not enhance. If the patient does have infection, this could represent an abscess. Otherwise it could represent devitalizedtissue from another cause. IMPRESSION:No evidence of temporomandibular joint osteomyelitis. MD PayanPhosphorus [id number] 14:15:07 Test Item Value Reference Range Interpretation Comments Phosphorus (test code = 6817) 3.3 mg/dL 2.5-4.5 MD PayanCreatine [id number] 10:31:20 Test Item Value Reference Range Interpretation Comments CK (test code = 5206) 46 U/L 20-200 MD PayanSed [id number] 19:55:23 Test Item Value Reference Range Interpretation Comments Sed Rate (test code = 70 See_Comment H [Auto mated message] 4537-7) The system Shut Down generated this result transmitted ref erence range: 0 - 9 mm /hr. The reference r adeline was not used to interpret this result as normal/abnor mal. Lab Interpretation (test Abnormal code = 02519-6) MD [id number] 19:30:56 Test Item Value Reference Range Interpretation Comments CRP (test code = 66.54 mg/L Reference r anges for HS 5235) CRP assay are a s follows: Reference range s when used to assess cardi ac risk: <1.00 mg/L Low cardiovascular risk 1.00-3.00 mg/L Average cardiovascular risk >3.00 mg/L High cardi ovascular risk.Reference ranges when used to assess inflammatory re sponses: Less than or eq ual to 10.00 mg/L. MD [id number] 05:40:39 Test Item Value Reference Range Interpretation Comments LDH (test code = 162 U/L 135-225 Results gre ater than 1800 6111) U/L may not be reliable due to matrix effec t with extended diluti on as it exceeds the man ufacturer s recommended l imit. Caution should be exercised when interpreti ng such values and done in conjunction [facility] clinical context. MD PayanProcalcitonin (PCT)2019-12-13 05:40:29 Test Item Value Reference Range Interpretation Comments Procalcitonin (test 0.13 ng/mL See_Comment H Procalci tonin > 2.00 code = 9379) ng/mL: Procalcitonin l evels above 2.00 ng/m L are highly suggesti ve of a high risk for systematic bact erial infection/ car[place] re sepsis and/or s eptic shock. Procalci tonin < 0.50 ng/mL: Procalcitonin l evels below 0.50 ng/m L are at low risk for progression to severe sepsis and/ or septic shock. Procalci tonin (ProCT) between 0.15 and 2.0 ng/mL d o not exclude infecti on, because localiz ed infections (wit hout systemic signs) may be associated w ith such low levels . Results greater than 400 ng/mL may n ot be reliable due to the matrix effect w ith extended diluti on as it exceeds the lawn caretaker's recommended castaneda it. Caution should be exercised when interpreting cooper ch values and done in conjunction [facility] clinical contex t. [Automated mess age] The system Shut Down generated this result transmitted ref erence range: <=0.08. The reference range was not used to int erpret this result as normal/abnormal . Lab Interpretation Abnormal (test code = 51552-0) MD PayanVB [id number] 05:05:50 Test Item Value Reference Range Interpretation Comments V Lactate (test code = 2519-7) 2.1 mmol/L 0.5-2 H Lab Interpretation (test code = Abnormal 17888-2) MD PayanUrinalysis with [id number] 01:05:32 Test Item Value Reference Range Interpretation Comments UA WBC (test <1 See_Comment [Automated code = 7904) message] The system which generated this result transmitted reference range : 0 - 2 /HPF. The reference range was not used to interpret this result as normal/abnormal . UA RBC (test NOT SEEN See_Comment [Automated code = 7891) message] The system which generated this result transmitted reference range : 0 - 2 /HPF. The reference range was not used to interpret this result as normal/abnormal . UA Mucous (test TRACE TRACE /HPF code = 7887) UA Bacteria NOT SEEN NOT SEEN /HPF (test code = 7870) UA Squam Epi NOT SEEN OCC /HPF (test code = 7896) UA Hyal Cast 1 See_Comment [Automated (test code = message] The 7883) system which generated this result transmitted reference range : 0 - 2 /LPF. The reference range was not used to interpret this result as normal/abnormal . NICOLÁS (test code Some reporting = NICOLÁS) parameters within the Urinalysis test have changed due to the implementation of new instrumentation in the [facility], allowing greater sensitivity of measurement. Urinalysis results reported by the [facility] using existing instrumentation, as well as Urinalysis testing performed manually or by backup methodology at the [facility] will remain relatively unchanged. New reporting parameters and units will now be reported for all campuses. MD PayanUrinalysis w/Microscopic if [id number] 22:53:00 Test Item Value Reference Range Interpretation Comments UA Color (test code = 7877) Nida Yellow A UA Appear (test code = 7868) Clear Clear UA Glucose (test code = 7881) NEG NEG mg/dL UA Bili (test code = 7871) POS NEG A UA Ketones (test code = 7884) NEG NEG mg/dL UA Spec Grav (test code = 7894) 1.019 1.002-1.035 UA Blood (test code = 7872) NEG NEG UA pH (test code = 7909) 6.0 4.5-8.0 UA Protein (test code = 7890) NEG NEG mg/dL UA Urobilinogen (test code = 7903) POS NEG A UA Nitrite (test code = 7888) NEG NEG UA Leuk Est (test code = 7886) NEG NEG Lab Interpretation (test code = Abnormal 67203-2) MD Keith AND [id number] 13:03:00 Test Item Value Reference Range Interpretation Comments BLOOD UREA NITROGEN 18 mg/dL 7-21 ([facility]) (test code = 354) CREATININE ([facility]) 1.57 mg/dL 0.57-1.25 H Specimen slightly (test code = 358) hemolyzed EGFR ([facility]) (test 43 mL/min/1.73 ESTIMA RACHEAL GFR IS code = 1092) sq m NOT ACCURATE CREATININE CLEARANCE IN PREDICTING GLOMERULAR FILTRATION RATE . ESTIMATED GFR I S NOT APPLICABLE FOR DIALYSIS PATIEN TS. POCT-GLUCOSE [id number] 12:55:00 Test Item Value Reference Range Interpretation Comments POC-GLUCOSE METER 222 mg/dL 70-110 H TESTED AT [facility] 67 ([facility]) (test code = [facility] 1538) [address] POCT-GLUCOSE [id number] 08:17:00 Test Item Value Reference Range Interpretation Comments POC-GLUCOSE METER 155 mg/dL 70-110 H TESTED AT [place] [address] ([facility]) (test code = [facility] 1538) [address] CALCIUM, [id number] 05:41:00 Test Item Value Reference Range Interpretation Comments CALCIUM IONIZED ([facility]) (test 0.97 mmol/L 1.12-1.27 L code = 698) PH, BLOOD ([facility]) (test code = 7.46 1810) [id number] 04:53:00 Test Item Value Reference Range Interpretation Comments PARTIAL THROMBOPLASTIN TIME 66.8 seconds 22.5-36.0 H ([facility]) (test code = 760) PROTHROMBIN [id number] 04:51:00 Test Item Value Reference Range Interpretation Comments PROTIME ([facility]) (test code = 16.2 seconds 11.7-14.7 H 759) INR ([facility]) (test code = 370) 1.3 <=5.9 RECOMMENDED COUMADIN/WARFARIN INR THERAPY RANGESSTANDARD DOSE: 2.0 - 3.0 Includes: PROPHYLAXIS forvenous thrombosis, systemic embolization; TREATMENT for venous thrombosis and/or pulmonary embolus.HIGH RISK: Target INR is 2.5-3.5 for patients with mechanical heart valves.CBC (HEMOGRAM ONLY)2018-08-19 04:46:00 Test Item Value Reference Range Interpretation Comments WHITE BLOOD CELL COUNT (BEAKER) 7.9 K/ L 3.5-10.5 (test code = 775) RED BLOOD CELL COUNT (BEAKER) 3.55 M/ L 4.63-6.08 L (test code = 761) HEMOGLOBIN (BEAKER) (test code = 10.4 GM/DL 13.7-17.5 L 410) HEMATOCRIT (BEAKER) (test code = 32.1 % 40.1-51.0 L 411) MEAN CORPUSCULAR VOLUME (BEAKER) 90.4 fL 79.0-92.2 (test code = 753) MEAN CORPUSCULAR HEMOGLOBIN 29.3 pg 25.7-32.2 (BEAKER) (test code = 751) MEAN CORPUSCULAR HEMOGLOBIN CONC 32.4 GM/DL 32.3-36.5 (BEAKER) (test code = 752) RED CELL DISTRIBUTION WIDTH 14.9 % 11.6-14.4 H (BEAKER) (test code = 412) PLATELET COUNT (BEAKER) (test 112 K/CU MM 150-450 L code = 756) MEAN PLATELET VOLUME (BEAKER) 10.3 fL 9.4-12.4 (test code = 754) NUCLEATED RED BLOOD CELLS 0 /100 WBC 0-0 (BEAKER) (test code = 413) [id number] 22:20:00 Test Item Value Reference Range Interpretation Comments PARTIAL THROMBOPLASTIN TIME 54.8 seconds 22.5-36.0 H (AKER) (test code = 760) POCT-GLUCOSE [id number] 22:01:00 Test Item Value Reference Range Interpretation Comments POC-GLUCOSE METER 241 mg/dL 70-110 H TESTED AT [place] [address] ([facility]) (test code = [address] [place] 1538) [address] POCT-GLUCOSE [id number] 17:54:00 Test Item Value Reference Range Interpretation Comments POC-GLUCOSE METER 136 mg/dL 70-110 H TESTED AT [place] [address] ([facility]) (test code = [facility] [address] 1538) [address] POCT-GLUCOSE [id number] 16:01:00 Test Item Value Reference Range Interpretation Comments POC-GLUCOSE METER 163 mg/dL 70-110 H TESTED AT [facility] 6720 (BEAKER) (test code = [place] 1538) [address] [id number] 13:28:00 Test Item Value Reference Range Interpretation Comments MAGNESIUM (BEAKER) (test code = 1.6 mg/dL 1.6-2.6 627) [id number] 13:28:00 Test Item Value Reference Range Interpretation Comments PHOSPHORUS (BEAKER) (test code = 1.6 mg/dL 2.3-4.7 L 604) BASIC METABOLIC [id number] 13:28:00 Test Item Value Reference Range Interpretation Comments SODIUM (BEAKER) 142 meq/L 136-145 (test code = 381) POTASSIUM (BEAKER) 3.4 meq/L 3.5-5.1 L (test code = 379) CHLORIDE (BEAKER) 110 meq/L 98-107 H (test code = 382) CO2 (BEAKER) (test 26 meq/L 22-29 code = 355) BLOOD UREA NITROGEN 20 mg/dL 7-21 (BEAKER) (test code = 354) CREATININE (BEAKER) 1.20 mg/dL 0.57-1.25 (test code = 358) GLUCOSE RANDOM 168 mg/dL 70-105 H (BEAKER) (test code = 652) CALCIUM (BEAKER) 8.2 mg/dL 8.4-10.2 L (test code = 697) EGFR (BEAKER) (test 59 mL/min/1.73 ESTIMA RACHEAL GFR IS code = 1092) sq m NOT ACCURATE CREATININE CLEARANCE IN PREDICTING GLOMERULAR FILTRATION RATE . ESTIMATED GFR I S NOT APPLICABLE FOR DIALYSIS PATIEN TS. [id number] 13:28:00 Test Item Value Reference Range Interpretation Comments PARTIAL THROMBOPLASTIN TIME 45.9 seconds 22.5-36.0 H (BEAKER) (test code = 760) POCT-GLUCOSE [id number] 08:14:00 Test Item Value Reference Range Interpretation Comments POC-GLUCOSE METER 161 mg/dL 70-110 H TESTED AT [facility] 6720 (BEAKER) (test code = [place] 1538) [address] [id number] 02:19:00 Test Item Value Reference Range Interpretation Comments PROTIME (BEAKER) (test code = 16.7 seconds 11.7-14.7 H 759) INR (BEAKER) (test code = 370) 1.4 <=5.9 PARTIAL THROMBOPLASTIN TIME 46.8 seconds 22.5-36.0 H (BEAKER) (test code = 760) RECOMMENDED COUMADIN/WARFARIN INR THERAPY RANGESSTANDARD DOSE: 2.0 - 3.0 Includes: PROPHYLAXIS forvenous thrombosis, systemic embolization; TREATMENT for venous thrombosis and/or pulmonary embolus.HIGH RISK: Target INR is 2.5-3.5 for patients with mechanical heart valves.CBC W/PLT COUNT & AUTO DIFFERENTIAL 2018-08-18 02:03:00 Test Item Value Reference Range Interpretation Comments WHITE BLOOD CELL COUNT (BEAKER) 8.5 K/ L 3.5-10.5 (test code = 775) RED BLOOD CELL COUNT (BEAKER) 3.74 M/ L 4.63-6.08 L (test code = 761) HEMOGLOBIN (BEAKER) (test code = 11.3 GM/DL 13.7-17.5 L 410) HEMATOCRIT (BEAKER) (test code = 33.8 % 40.1-51.0 L 411) MEAN CORPUSCULAR VOLUME (BEAKER) 90.4 fL 79.0-92.2 (test code = 753) MEAN CORPUSCULAR HEMOGLOBIN 30.2 pg 25.7-32.2 (BEAKER) (test code = 751) MEAN CORPUSCULAR HEMOGLOBIN CONC 33.4 GM/DL 32.3-36.5 (BEAKER) (test code = 752) RED CELL DISTRIBUTION WIDTH 14.8 % 11.6-14.4 H (BEAKER) (test code = 412) PLATELET COUNT (BEAKER) (test 106 K/CU MM 150-450 L code = 756) MEAN PLATELET VOLUME (BEAKER) 10.5 fL 9.4-12.4 (test code = 754) NUCLEATED RED BLOOD CELLS 0 /100 WBC 0-0 (BEAKER) (test code = 413) NEUTROPHILS RELATIVE PERCENT 75 % (BEAKER) (test code = 429) LYMPHOCYTES RELATIVE PERCENT 13 % (BEAKER) (test code = 430) MONOCYTES RELATIVE PERCENT 9 % (BEAKER) (test code = 431) EOSINOPHILS RELATIVE PERCENT 2 % (BEAKER) (test code = 432) BASOPHILS RELATIVE PERCENT 0 % (BEAKER) (test code = 437) NEUTROPHILS ABSOLUTE COUNT 6.37 K/ L 1.78-5.38 H (BEAKER) (test code = 670) LYMPHOCYTES ABSOLUTE COUNT 1.11 K/ L 1.32-3.57 L (BEAKER) (test code = 414) MONOCYTES ABSOLUTE COUNT (BEAKER) 0.80 K/ L 0.30-0.82 (test code = 415) EOSINOPHILS ABSOLUTE COUNT 0.14 K/ L 0.04-0.54 (BEAKER) (test code = 416) BASOPHILS ABSOLUTE COUNT (BEAKER) 0.03 K/ L 0.01-0.08 (test code = 417) IMMATURE GRANULOCYTES-RELATIVE 1 % 0-1 PERCENT (BEAKER) (test code = 2801) CALCIUM, [id number] 01:53:00 Test Item Value Reference Range Interpretation Comments CALCIUM IONIZED (BEAKER) (test 1.03 mmol/L 1.12-1.27 L code = 698) PH, BLOOD (BEAKER) (test code = 7.44 1810) POCT-GLUCOSE [id number] 23:21:00 Test Item Value Reference Range Interpretation Comments POC-GLUCOSE METER 140 mg/dL 70-110 H TESTED AT [facility] 6720 (BEAKER) (test code = [facility] 1538) [address] CBC W/PLT COUNT & AUTO [id number] 21:11:00 Test Item Value Reference Range Interpretation Comments WHITE BLOOD CELL COUNT (BEAKER) 7.5 K/ L 3.5-10.5 (test code = 775) RED BLOOD CELL COUNT (BEAKER) 3.71 M/ L 4.63-6.08 L (test code = 761) HEMOGLOBIN (BEAKER) (test code = 11.2 GM/DL 13.7-17.5 L 410) HEMATOCRIT (BEAKER) (test code = 34.0 % 40.1-51.0 L 411) MEAN CORPUSCULAR VOLUME (BEAKER) 91.6 fL 79.0-92.2 (test code = 753) MEAN CORPUSCULAR HEMOGLOBIN 30.2 pg 25.7-32.2 (BEAKER) (test code = 751) MEAN CORPUSCULAR HEMOGLOBIN CONC 32.9 GM/DL 32.3-36.5 (BEAKER) (test code = 752) RED CELL DISTRIBUTION WIDTH 14.8 % 11.6-14.4 H (BEAKER) (test code = 412) PLATELET COUNT (BEAKER) (test 133 K/CU MM 150-450 L code = 756) MEAN PLATELET VOLUME (BEAKER) 10.5 fL 9.4-12.4 (test code = 754) NUCLEATED RED BLOOD CELLS 0 /100 WBC 0-0 (BEAKER) (test code = 413) NEUTROPHILS RELATIVE PERCENT 68 % (BEAKER) (test code = 429) LYMPHOCYTES RELATIVE PERCENT 20 % (BEAKER) (test code = 430) MONOCYTES RELATIVE PERCENT 9 % (BEAKER) (test code = 431) EOSINOPHILS RELATIVE PERCENT 2 % (BEAKER) (test code = 432) BASOPHILS RELATIVE PERCENT 0 % (BEAKER) (test code = 437) NEUTROPHILS ABSOLUTE COUNT 5.07 K/ L 1.78-5.38 (BEAKER) (test code = 670) LYMPHOCYTES ABSOLUTE COUNT 1.49 K/ L 1.32-3.57 (BEAKER) (test code = 414) MONOCYTES ABSOLUTE COUNT (BEAKER) 0.69 K/ L 0.30-0.82 (test code = 415) EOSINOPHILS ABSOLUTE COUNT 0.15 K/ L 0.04-0.54 (BEAKER) (test code = 416) BASOPHILS ABSOLUTE COUNT (BEAKER) 0.02 K/ L 0.01-0.08 (test code = 417) IMMATURE GRANULOCYTES-RELATIVE 1 % 0-1 PERCENT (BEAKER) (test code = 2801) POCT-GLUCOSE [id number] 20:06:00 Test Item Value Reference Range Interpretation Comments POC-GLUCOSE METER 112 mg/dL 70-110 H TESTED AT [place] [address] ([facility]) (test code = [facility] [place] 1538) [address] [id number] 13:37:00 Test Item Value Reference Range Interpretation Comments PARTIAL THROMBOPLASTIN TIME 46.2 seconds 22.5-36.0 H ([facility]) (test code = 760) POCT-GLUCOSE [id number] 12:29:00 Test Item Value Reference Range Interpretation Comments POC-GLUCOSE METER 153 mg/dL 70-110 H TESTED AT [facility] 6720 ([facility]) (test code = [place] 1538) [address] COMPREHENSIVE METABOLIC [id number] 03:55:00 Test Item Value Reference Range Interpretation Comments TOTAL PROTEIN 6.3 gm/dL 6.0-8.3 (BEAKER) (test code = 770) ALBUMIN (BEAKER) 3.2 g/dL 3.5-5.0 L (test code = 1145) ALKALINE PHOSPHATASE 55 U/L 40-150 (BEAKER) (test code = 346) BILIRUBIN TOTAL 0.7 mg/dL 0.2-1.2 (BEAKER) (test code = 377) SODIUM (BEAKER) (test 141 meq/L 136-145 code = 381) POTASSIUM (BEAKER) 3.4 meq/L 3.5-5.1 L (test code = 379) CHLORIDE (BEAKER) 107 meq/L 98-107 (test code = 382) CO2 (BEAKER) (test 27 meq/L 22-29 code = 355) BLOOD UREA NITROGEN 24 mg/dL 7-21 H (BEAKER) (test code = 354) CREATININE (BEAKER) 1.14 mg/dL 0.57-1.25 (test code = 358) GLUCOSE RANDOM 143 mg/dL 70-105 H (BEAKER) (test code = 652) CALCIUM (BEAKER) 8.5 mg/dL 8.4-10.2 (test code = 697) AST (SGOT) (BEAKER) 18 U/L 5-34 (test code = 353) ALT (SGPT) (BEAKER) 10 U/L 6-55 (test code = 347) EGFR (BEAKER) (test 63 mL/min/1.73 ESTIMA RACHEAL GFR IS code = 1092) sq m NOT ACCURATE CREATININE CLEARANCE IN PREDICTING GLOMERULAR FILTRATION RATE . ESTIMATED GFR I S NOT APPLICABLE FOR DIALYSIS PATIEN TS. [id number] 03:49:00 Test Item Value Reference Range Interpretation Comments PARTIAL THROMBOPLASTIN TIME 63.4 seconds 22.5-36.0 H (BEAKER) (test code = 760) PROTHROMBIN [id number] 03:48:00 Test Item Value Reference Range Interpretation Comments PROTIME (BEAKER) (test code = 18.9 seconds 11.7-14.7 H 759) INR (BEAKER) (test code = 370) 1.6 <=5.9 RECOMMENDED COUMADIN/WARFARIN INR THERAPY RANGESSTANDARD DOSE: 2.0 - 3.0 Includes: PROPHYLAXIS forvenous thrombosis, systemic embolization; TREATMENT for venous thrombosis and/or pulmonary embolus.HIGH RISK: Target INR is 2.5-3.5 for patients with mechanical heart valves.CBC W/PLT COUNT & AUTO DIFFERENTIAL 2018-08-17 03:30:00 Test Item Value Reference Range Interpretation Comments WHITE BLOOD CELL COUNT (BEAKER) 6.4 K/ L 3.5-10.5 (test code = 775) RED BLOOD CELL COUNT (BEAKER) 4.20 M/ L 4.63-6.08 L (test code = 761) HEMOGLOBIN (BEAKER) (test code = 12.3 GM/DL 13.7-17.5 L 410) HEMATOCRIT (BEAKER) (test code = 37.7 % 40.1-51.0 L 411) MEAN CORPUSCULAR VOLUME (BEAKER) 89.8 fL 79.0-92.2 (test code = 753) MEAN CORPUSCULAR HEMOGLOBIN 29.3 pg 25.7-32.2 (BEAKER) (test code = 751) MEAN CORPUSCULAR HEMOGLOBIN CONC 32.6 GM/DL 32.3-36.5 (BEAKER) (test code = 752) RED CELL DISTRIBUTION WIDTH 14.5 % 11.6-14.4 H (BEAKER) (test code = 412) PLATELET COUNT (BEAKER) (test 108 K/CU MM 150-450 L code = 756) MEAN PLATELET VOLUME (BEAKER) 10.2 fL 9.4-12.4 (test code = 754) NUCLEATED RED BLOOD CELLS 0 /100 WBC 0-0 (BEAKER) (test code = 413) NEUTROPHILS RELATIVE PERCENT 64 % (BEAKER) (test code = 429) LYMPHOCYTES RELATIVE PERCENT 24 % (BEAKER) (test code = 430) MONOCYTES RELATIVE PERCENT 8 % (BEAKER) (test code = 431) EOSINOPHILS RELATIVE PERCENT 4 % (BEAKER) (test code = 432) BASOPHILS RELATIVE PERCENT 1 % (BEAKER) (test code = 437) NEUTROPHILS ABSOLUTE COUNT 4.09 K/ L 1.78-5.38 (BEAKER) (test code = 670) LYMPHOCYTES ABSOLUTE COUNT 1.51 K/ L 1.32-3.57 (BEAKER) (test code = 414) MONOCYTES ABSOLUTE COUNT (BEAKER) 0.51 K/ L 0.30-0.82 (test code = 415) EOSINOPHILS ABSOLUTE COUNT 0.23 K/ L 0.04-0.54 ([facility]) (test code = 416) BASOPHILS ABSOLUTE COUNT ([facility]) 0.03 K/ L 0.01-0.08 (test code = 417) IMMATURE GRANULOCYTES-RELATIVE 0 % 0-1 PERCENT ([facility]) (test code = 2801) [id number] 19:35:00 Test Item Value Reference Range Interpretation Comments PARTIAL THROMBOPLASTIN TIME 58.0 seconds 22.5-36.0 H ([facility]) (test code = 760) POCT-GLUCOSE [id number] 16:44:00 Test Item Value Reference Range Interpretation Comments POC-GLUCOSE METER 163 mg/dL 70-110 H TESTED AT [place] [address] ([facility]) (test code = [facility] 1538) [address] [id number] 13:23:00 Test Item Value Reference Range Interpretation Comments PARTIAL THROMBOPLASTIN TIME 48.8 seconds 22.5-36.0 H ([facility]) (test code = 760) POCT-GLUCOSE [id number] 12:05:00 Test Item Value Reference Range Interpretation Comments POC-GLUCOSE METER 227 mg/dL 70-110 H TESTED AT [place] [address] ([facility]) (test code = [facility] 1538) [address] HEMOGLOBIN [id number] 10:44:00 Test Item Value Reference Range Interpretation Comments HEMOGLOBIN A1C ([facility]) (test code = 7.9 % 4.3-6.1 H 368) POCT-GLUCOSE [id number] 06:27:00 Test Item Value Reference Range Interpretation Comments POC-GLUCOSE METER 119 mg/dL 70-110 H TESTED AT [place] [address] ([facility]) (test code = [facility] 1538) [address] TSH/FREE T4 IF [id number] 04:00:00 Test Item Value Reference Range Interpretation Comments THYROID STIMULATING HORMONE 1.80 uIU/mL 0.35-4.94 ([facility]) (test code = 772) CALCIUM, [id number] 04:00:00 Test Item Value Reference Range Interpretation Comments CALCIUM IONIZED ([facility]) (test 1.04 mmol/L 1.12-1.27 L code = 698) PH, BLOOD (BEAKER) (test code = 7.52 1810) [id number] 03:44:00 Test Item Value Reference Range Interpretation Comments PHOSPHORUS (BEAKER) (test code = 3.2 mg/dL 2.3-4.7 604) [id number] 03:44:00 Test Item Value Reference Range Interpretation Comments MAGNESIUM (BEAKER) (test code = 1.9 mg/dL 1.6-2.6 627) COMPREHENSIVE METABOLIC [id number] 03:44:00 Test Item Value Reference Range Interpretation Comments TOTAL PROTEIN 7.0 gm/dL 6.0-8.3 (BEAKER) (test code = 770) ALBUMIN (BEAKER) 3.5 g/dL 3.5-5.0 (test code = 1145) ALKALINE PHOSPHATASE 59 U/L 40-150 (BEAKER) (test code = 346) BILIRUBIN TOTAL 1.0 mg/dL 0.2-1.2 (BEAKER) (test code = 377) SODIUM (BEAKER) (test 141 meq/L 136-145 code = 381) POTASSIUM (BEAKER) 3.5 meq/L 3.5-5.1 (test code = 379) CHLORIDE (BEAKER) 103 meq/L 98-107 (test code = 382) CO2 (BEAKER) (test 29 meq/L 22-29 code = 355) BLOOD UREA NITROGEN 32 mg/dL 7-21 H (BEAKER) (test code = 354) CREATININE (BEAKER) 1.34 mg/dL 0.57-1.25 H (test code = 358) GLUCOSE RANDOM 101 mg/dL 70-105 (BEAKER) (test code = 652) CALCIUM (BEAKER) 9.5 mg/dL 8.4-10.2 (test code = 697) AST (SGOT) (BEAKER) 21 U/L 5-34 (test code = 353) ALT (SGPT) (BEAKER) 11 U/L 6-55 (test code = 347) EGFR (BEAKER) (test 52 mL/min/1.73 ESTIMA RACHEAL GFR IS code = 1092) sq m NOT ACCURATE CREATININE CLEARANCE IN PREDICTING GLOMERULAR FILTRATION RATE . ESTIMATED GFR I S NOT APPLICABLE FOR DIALYSIS PATIEN TS. PROTHROMBIN [id number] 03:33:00 Test Item Value Reference Range Interpretation Comments PROTIME (BEAKER) (test code = 19.1 seconds 11.7-14.7 H 759) INR (BEAKER) (test code = 370) 1.6 <=5.9 RECOMMENDED COUMADIN/WARFARIN INR THERAPY RANGESSTANDARD DOSE: 2.0 - 3.0 Includes: PROPHYLAXIS forvenous thrombosis, systemic embolization; TREATMENT for venous thrombosis and/or pulmonary embolus.HIGH RISK: Target INR is 2.5-3.5 for patients with mechanical heart valves.[id number] 03:33:00 Test Item Value Reference Range Interpretation Comments PARTIAL THROMBOPLASTIN TIME 45.2 seconds 22.5-36.0 H (BEAKER) (test code = 760) CBC W/PLT COUNT & AUTO [id number] 03:32:00 Test Item Value Reference Range Interpretation Comments WHITE BLOOD CELL COUNT (BEAKER) 8.9 K/ L 3.5-10.5 (test code = 775) RED BLOOD CELL COUNT (BEAKER) 4.61 M/ L 4.63-6.08 L (test code = 761) HEMOGLOBIN (BEAKER) (test code = 13.6 GM/DL 13.7-17.5 L 410) HEMATOCRIT (BEAKER) (test code = 41.0 % 40.1-51.0 411) MEAN CORPUSCULAR VOLUME (BEAKER) 88.9 fL 79.0-92.2 (test code = 753) MEAN CORPUSCULAR HEMOGLOBIN 29.5 pg 25.7-32.2 (BEAKER) (test code = 751) MEAN CORPUSCULAR HEMOGLOBIN CONC 33.2 GM/DL 32.3-36.5 (BEAKER) (test code = 752) RED CELL DISTRIBUTION WIDTH 14.5 % 11.6-14.4 H (BEAKER) (test code = 412) PLATELET COUNT (BEAKER) (test 140 K/CU MM 150-450 L code = 756) MEAN PLATELET VOLUME (BEAKER) 10.0 fL 9.4-12.4 (test code = 754) NUCLEATED RED BLOOD CELLS 0 /100 WBC 0-0 (BEAKER) (test code = 413) NEUTROPHILS RELATIVE PERCENT 68 % (BEAKER) (test code = 429) LYMPHOCYTES RELATIVE PERCENT 21 % (BEAKER) (test code = 430) MONOCYTES RELATIVE PERCENT 9 % (BEAKER) (test code = 431) EOSINOPHILS RELATIVE PERCENT 1 % (BEAKER) (test code = 432) BASOPHILS RELATIVE PERCENT 0 % (BEAKER) (test code = 437) NEUTROPHILS ABSOLUTE COUNT 6.04 K/ L 1.78-5.38 H (BEAKER) (test code = 670) LYMPHOCYTES ABSOLUTE COUNT 1.89 K/ L 1.32-3.57 (BEAKER) (test code = 414) MONOCYTES ABSOLUTE COUNT (BEAKER) 0.81 K/ L 0.30-0.82 (test code = 415) EOSINOPHILS ABSOLUTE COUNT 0.09 K/ L 0.04-0.54 (BEAKER) (test code = 416) BASOPHILS ABSOLUTE COUNT (BEAKER) 0.03 K/ L 0.01-0.08 (test code = 417) IMMATURE GRANULOCYTES-RELATIVE 0 % 0-1 PERCENT (BEAKER) (test code = 2801) COMPREHENSIVE METABOLIC [id number] 21:39:00 Test Item Value Reference Range Interpretation Comments TOTAL PROTEIN 7.3 gm/dL 6.0-8.3 (BEAKER) (test code = 770) ALBUMIN (BEAKER) 3.6 g/dL 3.5-5.0 (test code = 1145) ALKALINE PHOSPHATASE 71 U/L 40-150 (BEAKER) (test code = 346) BILIRUBIN TOTAL 0.9 mg/dL 0.2-1.2 (BEAKER) (test code = 377) SODIUM (BEAKER) (test 139 meq/L 136-145 code = 381) POTASSIUM (BEAKER) 3.2 meq/L 3.5-5.1 L (test code = 379) CHLORIDE (BEAKER) 99 meq/L 98-107 (test code = 382) CO2 (BEAKER) (test 26 meq/L 22-29 code = 355) BLOOD UREA NITROGEN 35 mg/dL 7-21 H (BEAKER) (test code = 354) CREATININE (BEAKER) 1.52 mg/dL 0.57-1.25 H (test code = 358) GLUCOSE RANDOM 198 mg/dL 70-105 H (BEAKER) (test code = 652) CALCIUM (BEAKER) 9.4 mg/dL 8.4-10.2 (test code = 697) AST (SGOT) (BEAKER) 20 U/L 5-34 (test code = 353) ALT (SGPT) (BEAKER) 12 U/L 6-55 (test code = 347) EGFR (BEAKER) (test 45 mL/min/1.73 ESTIMA RACHEAL GFR IS code = 1092) sq m NOT ACCURATE CREATININE CLEARANCE IN PREDICTING GLOMERULAR FILTRATION RATE . ESTIMATED GFR I S NOT APPLICABLE FOR DIALYSIS PATIEN MANI. [id number] 21:33:00 Test Item Value Reference Range Interpretation Comments PARTIAL THROMBOPLASTIN TIME 30.3 seconds 22.5-36.0 (BEAKER) (test code = 760) Prior to initiating heparinPROTHROMBIN TIME/[id number] 21:32:00 Test Item Value Reference Range Interpretation Comments PROTIME (BEAKER) (test code = 19.1 seconds 11.7-14.7 H 759) INR (BEAKER) (test code = 370) 1.6 <=5.9 RECOMMENDED COUMADIN/WARFARIN INR THERAPY RANGESSTANDARD DOSE: 2.0 - 3.0 Includes: PROPHYLAXIS forvenous thrombosis, systemic embolization; TREATMENT for venous thrombosis and/or pulmonary embolus.HIGH RISK: Target INR is 2.5-3.5 for patients with mechanical heart valves.[id number] 21:32:00 Test Item Value Reference Range Interpretation Comments FIBRINOGEN LEVEL (BEAKER) (test 370 mg/dl 225-434 code = 658) CBC W/PLT COUNT & AUTO [id number] 21:23:00 Test Item Value Reference Range Interpretation Comments WHITE BLOOD CELL COUNT (BEAKER) 8.7 K/ L 3.5-10.5 (test code = 775) RED BLOOD CELL COUNT (BEAKER) 4.79 M/ L 4.63-6.08 (test code = 761) HEMOGLOBIN (BEAKER) (test code = 14.1 GM/DL 13.7-17.5 410) HEMATOCRIT (BEAKER) (test code = 42.7 % 40.1-51.0 411) MEAN CORPUSCULAR VOLUME (BEAKER) 89.1 fL 79.0-92.2 (test code = 753) MEAN CORPUSCULAR HEMOGLOBIN 29.4 pg 25.7-32.2 (BEAKER) (test code = 751) MEAN CORPUSCULAR HEMOGLOBIN CONC 33.0 GM/DL 32.3-36.5 (BEAKER) (test code = 752) RED CELL DISTRIBUTION WIDTH 14.4 % 11.6-14.4 (BEAKER) (test code = 412) PLATELET COUNT (BEAKER) (test 154 K/CU MM 150-450 code = 756) MEAN PLATELET VOLUME (BEAKER) 10.2 fL 9.4-12.4 (test code = 754) NUCLEATED RED BLOOD CELLS 0 /100 WBC 0-0 (BEAKER) (test code = 413) NEUTROPHILS RELATIVE PERCENT 73 % (BEAKER) (test code = 429) LYMPHOCYTES RELATIVE PERCENT 17 % (BEAKER) (test code = 430) MONOCYTES RELATIVE PERCENT 8 % (BEAKER) (test code = 431) EOSINOPHILS RELATIVE PERCENT 1 % (BEAKER) (test code = 432) BASOPHILS RELATIVE PERCENT 0 % (BEAKER) (test code = 437) NEUTROPHILS ABSOLUTE COUNT 6.33 K/ L 1.78-5.38 H (BEAKER) (test code = 670) LYMPHOCYTES ABSOLUTE COUNT 1.50 K/ L 1.32-3.57 (BEAKER) (test code = 414) MONOCYTES ABSOLUTE COUNT (BEAKER) 0.71 K/ L 0.30-0.82 (test code = 415) EOSINOPHILS ABSOLUTE COUNT 0.08 K/ L 0.04-0.54 (BEAKER) (test code = 416) BASOPHILS ABSOLUTE COUNT (BEAKER) 0.03 K/ L 0.01-0.08 (test code = 417) IMMATURE GRANULOCYTES-RELATIVE 0 % 0-1 PERCENT (BEAKER) (test code = 2801) POCT-GLUCOSE [id number] 21:22:00 Test Item Value Reference Range Interpretation Comments POC-GLUCOSE METER 228 mg/dL 70-110 H TESTED AT [facility] 6720 (BEAKER) (test code = [place] 1538) [id number]
[2020-12-03 14:41] LABS: Absolute Lymphocytes (CBC) 1.2 K/uL (0.7-4.9); Basophils % 0.3 % (0-1.3); Hematocrit 32.2 % (39.6-49.0); Lymphocytes % 16.9 % (15.3-44.8); MPV 8.2 fL (7.6-11.3); RBC Red Blood Cell Count 3.78 M/uL (4.33-5.43)
[2020-12-03 15:23] LABS: Potassium 2.2 mmol/L (3.5-5.1)
[2020-12-03] MEDS ORDERED: KCL 20 MEQ/100 mL IVPB 20 MEQ/100 ML BAG IV ONE (16:03)
[2020-12-03] MEDS ORDERED: POTASSIUM 25 MEQ EFFERV TAB ONE (16:03)
[2020-12-03] MEDS ORDERED: ONDANSETRON 4 MG/2 ML VIAL ONE (17:49)
--- NOTE | 2020-12-03 18:22 | EDPHYS ---
Physician Documentation [facility] Name: Odilon Ferrara Age: 75 yrs Sex: Male : 1945 Arrival Date: 12/03/2020 Time: 14:17 Bed 2 Private MD: ED Physician Rod Cruz HPI: 12/03 15:04 This 75 yrs old Male presents to ER via EMS with complaints of Bleeding to jr8 right ear. 15:04 Onset: The symptoms/episode began/occurred at an unknown time. Chronic. The patient has jr8 experienced similar episodes in the past. Patient reports R ear bleeding. 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 Patient currently on hospice. Stated that last year they said he had two months to live. Will bleed form cancer site from time to time but today was not wanting to stop bleeding . Historical: - Allergies: 14:34 No Known Allergies; ss - PMHx: 14:34 Atrial Fib; Diabetes - NIDDM; DVT; High Cholesterol; Prostate Cancer; skin cancer; ss - Immunization history:: Adult Immunizations up to date. - Social history:: Smoking status: Patient denies any tobacco usage or history of. ROS: 15:06 ENT: Positive for drainage from ear(s), injury or acute deformity, Bleeding on R ear. jr8 15:06 Skin: Positive for lesions. 15:15 Cardiovascular: Negative for chest pain, palpitations, and edema, Respiratory: Negative jr8 for shortness of breath, cough, wheezing, and pleuritic chest pain, Abdomen/GI: Negative for abdominal pain, nausea, vomiting, diarrhea, and constipation. 15:15 Neuro: Positive for syncope. 15:15 All other systems are negative. Exam: 15:08 ENT: External ear(s): Dried Blood. Cancerous lesion with slight continuous sanguinous jr8 drainage with large clots and dried blood present posterior to Auricle and mastoid bone. . 15:31 ECG was reviewed by the Attending Physician. jr8 17:03 Cardiovascular: Regular rate and rhythm with a normal S1 and S2. No gallops, murmurs, jr8 or rubs. Normal PMI, no JVD. No pulse deficits. Respiratory: Lungs have equal breath sounds bilaterally, clear to auscultation and percussion. No rales, rhonchi or wheezes noted. No increased work of breathing, no retractions or nasal flaring. Abdomen/GI: Soft, non-tender, with normal bowel sounds. No distension or tympany. No guarding or rebound. No evidence of tenderness throughout. MS/ Extremity: Pulses equal, no cyanosis. Neurovascular intact. Full, normal range of motion. Neuro: Awake and alert, GCS 15, oriented to person, place, time, and situation. Cranial nerves II-XII grossly intact. Motor strength 5/5 in all extremities. Sensory grossly intact. Vital Signs: 14:15 BP 109 / 33; Pulse 76; Resp 23; Temp 97.9(O); Pulse Ox 96% on R/A; Weight 133.81 kg; ss 14:34 BP 109 / 62; Pulse 69; ss 16:39 BP 111 / 73; Pulse 74; Resp 16; ss MDM: 14:20 Patient medically screened. jr8 15:12 Data reviewed: vital signs, nurses notes. Data interpreted: Pulse oximetry: on room air jr8 is 96 %. Interpretation: normal. 18:19 Counseling: I had a detailed discussion with the patient and/or guardian regarding: the jr8 historical points, exam findings, and any diagnostic results supporting the discharge/admit diagnosis, lab results, the need for outpatient follow up, a family practitioner, to return to the emergency department if symptoms worsen or persist or if there are any questions or concerns that arise at home. ED course: bleeding remains controlled at this time. Patient stable. Will d/c home. talked to family about putting him back on hospice after they took him off today for evaluation for bleeding. 12/03 14:20 Order name: CBC with Diff jr8 12/03 14:20 Order name: Basic Metabolic Panel jr8 12/03 14:20 Order name: T\T\S jr8 12/03 14:41 Order name: CBC with Automated Diff; Complete Time: 14:43 EDMS 12/03 15:23 Order name: Basic Metabolic Panel; Complete Time: 15:29 EDMS 12/03 16:54 Order name: Type and Screen; Complete Time: 17:03 EDMS 12/03 14:20 Order name: IV; Complete Time: 14:39 jr8 EC:31 Rate is 76 beats/min. Rhythm is irregular, A fib. Left axis deviation noted. QRS jr8 interval is normal at 154 msec. QT interval is prolonged at 482 msec. T waves are Inverted in leads I, aVL. No ST changes noted. Clinical impression: Atrial Fibrillation and LBBB. Interpreted by me. Reviewed by me. Administered Medications: 15:57 Not Given (Other Intervention Used): Potassium Chloride 40 mEq PO once ss 16:02 Drug: Potassium Chloride 20 mEq Route: IV; Rate: calculated rate; Site: left ss antecubital; 18:00 Follow up: IV Status: Completed infusion ss 16:05 Drug: Potassium Effervescent Tablet 50 mEq Route: PO; ss 18:00 Follow up: Response: No adverse reaction ss 17:54 Drug: Zofran (Ondansetron) 4 mg Route: IVP; Site: right antecubital; ss 19:24 Follow up: Response: No adverse reaction; Nausea is decreased ss Disposition: 12/04 07:22 Co-signature as Attending Physician, Rod Cruz MD I agree with the assessment and kdr plan of care. Disposition: 12/03/20 18:21 Discharged to Home. Impression: Abnormal bleeding from neoplasm , Hypokalemia. - Condition is Stable. - Discharge Instructions: Hypokalemia. - SBAR form, Medication Reconciliation Form, Thank You Letter, Antibiotic Education, Prescription Opioid Use form. - Follow up: Private Physician; When: As needed; Reason: Recheck today's complaints, Continuance of care, Re-evaluation by your physician. - Problem is new. - Symptoms have improved. Signatures: Dispatcher [employer] EDMS Rod Cruz MD MD [facility] Mona Jett RN RN Salvatore Denson PA PA jr8 Corrections: (The following items were deleted from the chart) 12/03 15:17 15:04 Patient reports R ear bleeding. Patient has inoperable malignant squamous cell CA jr8 on Right ear that frequently begins bleeding. 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 . jr8 15:17 15:04 This 75 yrs old Male presents to ER via EMS with complaints of Post jr8 Surgical Bleeding. jr8 19:25 18:21 12/03/2020 18:21 Discharged to Home. Impression: Abnormal bleeding from neoplasm ss ; Hypokalemia. Condition is Stable. Forms are SBAR form, Medication Reconciliation Form, Thank You Letter, Antibiotic Education, Prescription Opioid Use. Follow up: Private Physician; When: As needed; Reason: Recheck today's complaints, Continuance of care, Re-evaluation by your physician. Problem is new. Symptoms have improved. jr8
--- NOTE | 2020-12-03 18:22 | ER ---
Nurse's Notes [facility] Name: Odilon Ferrara Age: 75 yrs Sex: Male : 1945 Arrival Date: 12/03/2020 Time: 14:17 Bed 2 Private MD: Diagnosis: Abnormal bleeding from neoplasm ;Hypokalemia Presentation: 12/03 14:15 Chief complaint: EMS states: bleeding from R ear x 1 hour. Pt has hx of CA and has had ss surgery before to that area and has had problems with it bleeding before in the past. Bleeding was not able to be controlled at home with topical medication. Pt is on hospice. Coronavirus screen: Client denies travel out of the [place] in the last 14 days. Ebola Screen: Patient denies exposure to infectious person. Patient denies travel to an Ebola-affected area in the 21 days before illness onset. Initial Sepsis Screen: Does the patient meet any 2 criteria? No. Patient's initial sepsis screen is negative. Does the patient have a suspected source of infection? No. Patient's initial sepsis screen is negative. Risk Assessment: Do you want to hurt yourself or someone else? Patient reports no desire to harm self or others. Onset of symptoms was December 03, 2020. 14:15 Method Of Arrival: EMS: [facility] 14:15 Acuity: TYLOR 1 ss Historical: - Allergies: 14:34 No Known Allergies; ss - PMHx: 14:34 Atrial Fib; Diabetes - NIDDM; DVT; High Cholesterol; Prostate Cancer; skin cancer; ss - Immunization history:: Adult Immunizations up to date. - Social history:: Smoking status: Patient denies any tobacco usage or history of. Screenin:15 Abuse screen: Denies threats or abuse. Denies injuries from another. Nutritional ss screening: No deficits noted. Tuberculosis screening: Never had TB. Fall Risk No fall in past 12 months (0 pts). Secondary diagnosis (15 points) impaired mobility, IV access (20 points). Ambulatory Aid- None/Bed Rest/Nurse Assist (0 pts). Gait- Normal/Bed Rest/Wheelchair (0 pts) Mental Status- Oriented to own ability (0 pts). Assessment: 14:15 General: Appears ill, Behavior is calm, cooperative, Denies fever. Pain: Denies pain. ss Neuro: Level of Consciousness is awake, alert, obeys commands, lethargic, Oriented to person, place, time, situation. Cardiovascular: Capillary refill is > 3 seconds is sluggish in bilateral fingers Chest pain is denied. Respiratory: Airway is patent Respiratory effort is even, unlabored, Respiratory pattern is regular, symmetrical. GI: No signs and/or symptoms were reported involving the gastrointestinal system. : No signs and/or symptoms were reported regarding the genitourinary system. EENT: Oral mucosa is dry. Derm: Skin is pale, Skin temperature is cool post surgical changed noted to R ear. Dried blood with topical clotting medication noted to R ear. No active bleeding noted at this time. 14:35 Reassessment: No active bleeding noted at this time. Dried blood noted to chest, neck ss and face. 17:17 Reassessment: No active bleeding noted at this time. ss 18:17 Reassessment: Pt cleaned of urinary incontinence. Wound not bleeding at this time. ss Redressed wound attempted to clean the rest of dried blood out of hair. Vital Signs: 14:15 BP 109 / 33; Pulse 76; Resp 23; Temp 97.9(O); Pulse Ox 96% on R/A; Weight 133.81 kg; ss 14:34 BP 109 / 62; Pulse 69; ss 16:39 BP 111 / 73; Pulse 74; Resp 16; ss ED Course: 14:15 Patient has correct armband on for positive identification. Placed in gown. Bed in low ss position. Call light in reach. Side rails up X2. director software quality assurance on. Pulse ox on. NIBP on. 14:17 Patient arrived in ED. am2 14:20 Salvatore Denson PA is PHCP. jr8 14:20 Rod Cruz MD is Attending Physician. jr8 14:31 Mona Jett RN is Primary Nurse. ss 14:34 Triage completed. ss 14:34 Arm band placed on right wrist. ss 14:35 Maintain EMS IV. Dressing intact. Good blood return noted. Site clean \T\ dry. Gauge \T\ ss site: 20 gauge in L AC. 16:16 T\T\S Sent. sv 16:16 Basic Metabolic Panel Sent. sv 16:16 CBC with Diff Sent. sv 19:18 No provider procedures requiring assistance completed. IV discontinued, intact, ss bleeding controlled, No redness/swelling at site. Pressure dressing applied. Administered Medications: 15:57 Not Given (Other Intervention Used): Potassium Chloride 40 mEq PO once ss 16:02 Drug: Potassium Chloride 20 mEq Route: IV; Rate: calculated rate; Site: left ss antecubital; 18:00 Follow up: IV Status: Completed infusion ss 16:05 Drug: Potassium Effervescent Tablet 50 mEq Route: PO; ss 18:00 Follow up: Response: No adverse reaction ss 17:54 Drug: Zofran (Ondansetron) 4 mg Route: IVP; Site: right antecubital; ss 19:24 Follow up: Response: No adverse reaction; Nausea is decreased ss Outcome: 18:21 Discharge ordered by MD. page 19:18 Discharged to home via wheelchair, with family. ss 19:18 Condition: good 19:18 Discharge instructions given to patient, family, Instructed on discharge instructions, follow up and referral plans. Demonstrated understanding of instructions, follow-up care. 19:25 Patient left the ED. Signatures: Amy Tristan RN RN Mona Jett RN RN Salvatore Denson PA PA jr8 Genesis Trujillo
[2020-12-04 10:21] VITALS: BP 111/73; TEMP 97.9; O2SAT 96
== END 2020-12-03 19:25 | disposition home or self-care (01) ==
LOC: ER 14:15
DX: C44.222 Squamous cell carcinoma of skin of right ear and external auricular canal (principal); E87.6 Hypokalemia; Z85.46 Personal history of malignant neoplasm of prostate
CPT/HCPCS: 96365; 93005; 85025; 80048; 36415; 86900; 86850; 86901; 96375; 99291; 99292; 96366; J3480; J2405